=== PATIENT | male | born 1950 | race Caucasian/White ===

== ENCOUNTER 2018-10-18 12:47 | Outpatient (REF) | payer MEDICARE, MEDICAID, SELFPAY ==
[2018-10-21 15:46] LABS: Testosterone, Free 3.45 ng/dL (3.47-13.0); Testosterone, Total 157 ng/dL (240-950)
== END 2018-10-18 13:07 ==
LOC: LBO 12:47
PROVIDERS: PCP General Practice; Visit Provider Family Medicine
DX: I10 Essential (primary) hypertension (principal)
CPT/HCPCS: 84402; 84403

== ENCOUNTER 2018-12-07 18:03 | Outpatient (CLI) | payer MEDICARE, MEDICAID, SELFPAY ==
--- NOTE | 2018-12-07 11:40 | DI.RAD_ITS ---
SYMPTOMS/DIAGNOSIS: SOB, TACHYPNEA CHEST: Frontal and lateral views. Comparison 06/01/13 and 03/16/18. Comparison CT scan of the chest is 01/01/18. There is again seen volume loss in the left lung with soft tissue density in the left suprahilar region. This appears stable dating back to 06/01/13. No acute infiltrates, effusions or pneumothoraces are identified. The heart size and pulmonary vasculature are within normal limits. There are findings of underlying COPD. Degenerative changes are seen in the spine. IMPRESSION: Stable appearance of the chest. No acute pulmonary process.
== END 2018-12-07 18:23 ==
PROVIDERS: PCP General Practice; Visit Provider General Practice
DX: R06.02 Shortness of breath (principal); R06.82 Tachypnea, not elsewhere classified; J44.9 Chronic obstructive pulmonary disease, unspecified
CPT/HCPCS: 71046

== ENCOUNTER 2018-12-08 11:20 | Outpatient (REF) | payer MEDICARE, MEDICAID, SELFPAY ==
[2018-12-08 12:27] LABS: HGB 13.2 g/dL (13.5-17.5)
[2018-12-08 12:37] LABS: Anion Gap 9.6 mmol/L (3-11); BUN 19 mg/dL (7-18); CO2 26.4 mmol/L (21.0-32.0); CREATININE 0.69 mg/dL (0.70-1.30); Calcium 8.5 mg/dL (8.5-10.1); Chloride 108 mmol/L (98-107); Glucose 99 mg/dL (70-100); Potassium 4.1 mmol/L (3.5-5.1); Sodium 144 mmol/L (136-145)
== END 2018-12-08 11:40 ==
LOC: LBN 11:20
PROVIDERS: PCP General Practice; Visit Provider General Practice
DX: C34.90 Malignant neoplasm of unspecified part of unspecified bronchus or lung (principal); I63.9 Cerebral infarction, unspecified; I10 Essential (primary) hypertension; E78.5 Hyperlipidemia, unspecified; E03.9 Hypothyroidism, unspecified
CPT/HCPCS: 80048; 85014; 85018; 85379

== ENCOUNTER 2019-01-04 13:20 | Outpatient (REF) | payer MEDICARE, MEDICAID, SELFPAY ==
[2019-01-04 16:10] LABS: Abs Immature Grans 0.01 k/cumm (0.0-0.09); Absolute Basophil Count 0.04 k/cumm (0.0-0.2); Absolute Eosinophil Count 0.43 k/cumm (0.0-0.7); Absolute Lymphocyte Count 1.08 k/cumm (1.2-3.4); Absolute Monocyte Count 0.72 k/cumm (0.11-0.7); Basophils % 0.6; Eosinophils % 6.6; HCT 38.2 % (40.0-50.0); HGB 12.7 g/dL (13.5-17.5); Immature Grans % 0.2; Lymphocytes % 16.7; Mean Corp. HGB Concentration 33.2 g/dL (32.0-36.0); Mean Corpuscular Hemoglobin 29.6 pg (27.0-33.0); Mean Platelet Volume 9.7 fL (8.0-11.0); Monocytes % 11.1; Neutrophils % 64.8; Platelet Count 239 x1000/uL (130-400); RBC 4.29 m/cumm (4.50-6.00); White Blood Cell Count 6.48 k/cumm (4.4-10.8)
== END 2019-01-04 13:40 ==
LOC: LBN 13:20
PROVIDERS: PCP General Practice; Visit Provider Family Medicine
DX: R50.9 Fever, unspecified (principal); C34.90 Malignant neoplasm of unspecified part of unspecified bronchus or lung
CPT/HCPCS: 85025

== ENCOUNTER 2019-01-05 02:03 | Outpatient (REF) | payer MEDICARE, MEDICAID, SELFPAY ==
[2019-01-05 02:13] LABS: Bilirubin Negative (Negative); Blood Negative (Negative); Clarity Clear; Glucose Negative (Negative); Ketones Negative (Negative); Leukocyte Esterase Negative (Negative); Nitrite Negative (Negative); Urobilinogen 0.2 EU/dL (Up TO 0.2); pH 6.5 (5-8)
== END 2019-01-05 02:23 ==
LOC: LBN 02:03
PROVIDERS: PCP General Practice; Visit Provider Family Medicine
DX: R50.9 Fever, unspecified (principal)
CPT/HCPCS: 81003

== ENCOUNTER 2019-01-05 13:20 | Outpatient (CLI) | payer MEDICARE, MEDICAID, SELFPAY ==
--- NOTE | 2019-01-05 10:59 | DI.RAD_ITS ---
SYMPTOMS/DIAGNOSIS: ELEVATED TEMPERATURE PA AND LATERAL CHEST: Comparison 12/07/18. There are again seen post surgical changes in the left hemithorax with elevation of the left hilum. The lungs are hyperinflated with flattened diaphragms suggesting underlying COPD. No focal consolidating infiltrates, effusions or pneumothoraces are identified. The heart size and pulmonary vasculature are within normal limits. Age appropriate degenerative changes are seen in the spine. IMPRESSION: 1. Post surgical changes in the left hemithorax. 2. No acute pulmonary process. 3. COPD.
== END 2019-01-05 13:40 ==
PROVIDERS: PCP General Practice; Visit Provider General Practice
DX: R50.9 Fever, unspecified (principal); J44.9 Chronic obstructive pulmonary disease, unspecified
CPT/HCPCS: 71046

== ENCOUNTER 2019-04-08 20:21 | Inpatient (IN) | payer MEDICARE, MEDICAID, SELFPAY ==
[2019-04-08] VITALS (26 sets, daily range): BP systolic 97–166; BP diastolic 57–109; PULSE 91–125; RESP 15–37; TEMP 38.4; O2SAT 85–96
--- NOTE | 2019-04-08 20:10 | W.ED.GENAD ---
Discharge Plan Disposition Patient Disposition: [facility] INPATIENT Condition: Poor Discharge Details Chief Complaint: CVA/TIA Clinical Impression: Fever, Altered mental status, Blu-neglect of right side Primary Care Provider: Lopez Araiza ED Provider: Jose Miguel Jonas [facility] Meds and New Rx's Prescriptions: No Action paroxetine HCl [Paxil] 30 MG tablet 30 mg PO DAILY RF: 0 multivitamin [Daily Multi-Vitamin] 1 EACH tablet 1 tab PO DAILY RF: 0 atorvastatin 80 MG tablet 80 mg PO DAILY RF: 0 clopidogrel [Plavix] 75 MG tablet 75 mg PO DAILY RF: 0 levothyroxine 50 MCG tablet 50 mcg PO DAILY RF: 0 docusate sodium [Colace] 100 MG capsule 100 mg PO BID RF: 0 lisinopril 2.5 MG tablet 2.5 mg PO DAILY RF: 0 Medical Decision Making This is a difficult case. The patient is febrile. He has prior history of both strokes and craniotomy for mets. Old records suggest that he is normally alert and oriented x3 with maybe some left-sided deficits. Today he seems confused and has right-sided neglect. He seems to have equal strength in all 4 extremities. He seems to have sensory present in response to noxious stimuli on the right despite having neglect. If from standing on his left side he is understandable and answers questions. He only wants to lie on his left side and get agitated otherwise. This may be new stroke, exacerbation of old stroke, recurrent mets, infection. He is ordered for non-contrast head CT and sent over shortly after arrival with plan to get IV, EKG, labs and other imaging once this was completed. Unfortunately, he was agitated because he didn't want to lie flat. He then began vomiting. He had no IV. Sent nurse over with IM Phenergan thinking it would sedate and help with vomiting. He was still pretty agitated after this. We were able to get an IV over in CAT scan. He was then given 4 mg of Zofran and 0.5 mg of Ativan IV. We were able to get a head CT done with nurse and I present in CT with him holding and coaching him. He returned to ED and was hooked up to monitor. Saturations were okay. Labs were obtained. Radiology called back with non-contrast head CT results which show chronic bilateral lacunar infarcts as well as on calcification. There is nothing acute or hemorrhage. There is no possibility of a head/neck CTA unless I intubate. With fever present and unclear picture, I would not consider TPA for CVA. Still needs urine and chest x-ray. 23:30 -patient's white count is normal. Hemoglobin with stable anemia. Lactic acid only 2.4. Chemistries, liver function, kidney function are all normal. Straight cath urinalysis is negative for infection. Portable chest x-ray shows no obvious pneumonia. Patient's mental status is worse after Phenergan and Ativan but he is still able to answer some questions. His neck remains supple. His neurologic exam and his hemodynamics have been stable. Case discussed with hospitalist. Dr. Araiza used to be the patient's primary care doctor prior to [facility] into the [facility]. COLST form states full code but limited interventions otherwise. Given that the patient has fever with altered mental status and neurologic findings to consider meningitis/encephalitis. However, without intubating the patient and paralyzing for lumbar puncture I do not see any way that we could safely do this procedure. Given his previous vomiting I be hesitant to do conscious sedation. Dr. Araiza, from what he remembers of the gentleman and given his COLST form does not think that this is a procedure patient would want pursued. We will treat with IV vancomycin, IV ceftriaxone and IV acyclovir. We are sending bone panel as well as HSV PCR. I have also paged [facility] neurology to consult them and ask opinion regarding neurologic findings and fever. Plan is to admit to ICU here and empirically treat for possible SWATCHER infection. Dr. Araiza is in the ED and has seen the patient with me. 00:20 - I did speak to neurology, Dr. Spencer, at [facility]. We discussed the patient's presentation and past medical history. She concurs with empiric treatment for SWATCHER infection. She thinks it is important to keep the possibility of subclinical partial seizures as a reason for the right hemineglect. With a history of previous CVA as well as craniotomy due to brain metastasis this could be a possibility. We will not necessarily empirically treat for seizure but would consider treatment if no improvement with antibiotics. Medical Records Medical records reviewed: Yes I reviewed the patient's medical records. Lab Data Lab results reviewed: Yes I reviewed the patient's lab results. ECG Data Attestation: I personally reviewed and interpreted this ECG (s) as follows: Prior ECG tracings: available for review Interpretation: Sinus tachycardia at 109. Normal axis and intervals. Nonspecific ST flattening throughout. Flattening is new compared to EKG from 1 year ago. HPI General Mode of arrival: EMS. Date/Time Provider Initiated Documentation: 04/08/19 20:34. Limitations to Documentation: altered mental status. Information obtained by: patient, EMS, RN notes reviewed and old records reviewed. HPI Narrative: Patient is transferred from [facility] to ED for evaluation of mental status changes, speech changes. Patient was reportedly normal at 18:30 for dinner. He was found at shift change at about 20:30 or so altered with some garbled speech. He has previous history of craniotomy for metastatic brain mets as well as history of CVA. Also has history of meningitis in 2012. He arrives here a little agitated and less he is allowed to lie on his left side. At that point he is calm and seems appropriate. He does seem somewhat confused. He denies having pain. Related Data Home Medications Medication Instructions Recorded Confirmed paroxetine HCl [Paxil] 30 mg PO DAILY 05/27/13 04/08/19 multivitamin [Daily Multi-Vitamin] 1 tab PO DAILY 10/20/14 04/08/19 atorvastatin 80 mg PO DAILY 01/01/18 04/08/19 clopidogrel [Plavix] 75 mg PO DAILY 01/01/18 04/08/19 docusate sodium [Colace] 100 mg PO BID 01/01/18 04/08/19 levothyroxine 50 mcg PO DAILY 01/01/18 04/08/19 lisinopril 2.5 mg PO DAILY 01/01/18 04/08/19 Allergies Allergy/AdvReac Type Severity Reaction Status Date / Time No Known Allergies Allergy Unverified 04/08/19 21:08 Review of Systems Review of Systems Unobtainable due to mental status [facility] Medical History Benign hypertension (Chronic) Hyperlipidemia (Chronic) Non-small cell lung cancer (Inactive) COPD (chronic obstructive pulmonary disease) (Chronic) Hypothyroid (Chronic) CVA (cerebral vascular accident) (Chronic) Surgical History S/P craniotomy (Chronic) S/P lobectomy of lung (Chronic) Social History Smoking/Tobacco Use Status: Former Tobacco Use Drug use: Never Housing: [facility] Exam Narrative Exam Narrative: Vitals: Febrile (rectal temp). HR and BP are good. Const: WDWN elderly male in NAD. He is awake and alert. HEENT: NC/AT. Normal facial exam. Eyes: Normal conjunctiva and sclera. PERRL. Does not look to the right. Neck: Supple. Trachea midline. Lungs: Normal respiratory effort. Lungs are clear. Cor: RRR without murmur/gallop. Good radial pulses. GI: Soft. NT/ND. No guarding or rebound. Neuro: Awake and alert. Answers simple questions and I can understand him completely fine. At other times he seems to be speaking jibberish. He has right neglect. He seems to have good strength and sensation bilaterally as he does pull away with stimuli on the right. Does not appear to have a facial droop. Ext: No C/C/E. No deformity or tenderness. Skin: Hot and dry without rash. Critical Care Time Critical Care Time: Yes Total Critical Care Time: 75 Attestation: Upon my evaluation, this patient had a high probability of imminent or life-threatening deterioration, which required my direct attention, intervention, and personal management. I have personally provided 75 minutes of critical care time exclusive of time spent on separately billable procedures. Time includes review of laboratory data, radiology results, discussion with consultants, and monitoring for potential decompensation. Interventions were performed as documented.
--- NOTE | 2019-04-08 20:18 | ED.GENADUL_ITS ---
Discharge Plan Disposition Patient Disposition: [facility] INPATIENT Condition: Poor Discharge Details Chief Complaint: CVA/TIA Clinical Impression: Fever, Altered mental status, Blu-neglect of right side Primary Care Provider: Lopez Araiza ED Provider: Jose Miguel Jonas [facility] Meds and New Rx's Prescriptions: No Action paroxetine HCl [Paxil] 30 MG tablet 30 mg PO DAILY RF: 0 multivitamin [Daily Multi-Vitamin] 1 EACH tablet 1 tab PO DAILY RF: 0 atorvastatin 80 MG tablet 80 mg PO DAILY RF: 0 clopidogrel [Plavix] 75 MG tablet 75 mg PO DAILY RF: 0 levothyroxine 50 MCG tablet 50 mcg PO DAILY RF: 0 docusate sodium [Colace] 100 MG capsule 100 mg PO BID RF: 0 lisinopril 2.5 MG tablet 2.5 mg PO DAILY RF: 0 Medical Decision Making This is a difficult case. The patient is febrile. He has prior history of both strokes and craniotomy for mets. Old records suggest that he is normally alert and oriented x3 with maybe some left-sided deficits. Today he seems confused and has right-sided neglect. He seems to have equal strength in all 4 extremities. He seems to have sensory present in response to noxious stimuli on the right despite having neglect. If from standing on his left side he is understandable and answers questions. He only wants to lie on his left side and get agitated otherwise. This may be new stroke, exacerbation of old stroke, recurrent mets, infection. He is ordered for non-contrast head CT and sent over shortly after arrival with plan to get IV, EKG, labs and other imaging once this was completed. Unfortunately, he was agitated because he didn't want to lie flat. He then began vomiting. He had no IV. Sent nurse over with IM Phenergan thinking it would sedate and help with vomiting. He was still pretty agitated after this. We were able to get an IV over in CAT scan. He was then given 4 mg of Zofran and 0.5 mg of Ativan IV. We were able to get a head CT done with nurse and I present in CT with him holding and coaching him. He returned to ED and was hooked up to monitor. Saturations were okay. Labs were obtained. Radiology called back with non-contrast head CT results which show chronic bilateral lacunar infarcts as well as on calcification. There is nothing acute or hemorrhage. There is no possibility of a head/neck CTA unless I intubate. With fever present and unclear picture, I would not consider TPA for CVA. Still needs urine and chest x-ray. 23:30 -patient's white count is normal. Hemoglobin with stable anemia. Lactic acid only 2.4. Chemistries, liver function, kidney function are all normal. Straight cath urinalysis is negative for infection. Portable chest x-ray shows no obvious pneumonia. Patient's mental status is worse after Phenergan and Ativan but he is still able to answer some questions. His neck remains supple. His neurologic exam and his hemodynamics have been stable. Case discussed with hospitalist. Dr. Araiza used to be the patient's primary care doctor [facility] COLST form states full code but limited interventions otherwise. Given that the patient has fever with altered mental status and neurologic findings to consider meningitis/encephalitis. However, without intubating the patient and paralyzing for lumbar puncture I do not see any way that we could safely do this procedure. Given his previous vomiting I be hesitant to do conscious sedation. Dr. Araiza, from what he remembers of the gentleman and given his COLST form does not think that this is a procedure patient would want pursued. We will treat with IV vancomycin, IV ceftriaxone and IV acyclovir. We are sending bone panel as well as HSV PCR. I have also paged [facility] neurology to consult them and ask opinion regarding neurologic findings and fever. Plan is to admit to ICU here and empirically treat for possible MANAGER PRODUCT infection. Dr. Araiza is in the ED and has seen the patient with me. 00:20 - I did speak to neurology, Dr. Spencer, at [facility]. We discussed the patient's presentation and past medical history. She concurs with empiric treatment for MANAGER PRODUCT infection. She thinks it is important to keep the possibility of subclinical partial seizures as a reason for the right hemineglect. With a history of previous CVA as well as craniotomy due to brain metastasis this could be a possibility. We will not necessarily empirically treat for seizure but would consider treatment if no improvement with antibiotics. Medical Records Medical records reviewed: Yes I reviewed the patient's medical records. Lab Data Lab results reviewed: Yes I reviewed the patient's lab results. ECG Data Attestation: I personally reviewed and interpreted this ECG (s) as follows: Prior ECG tracings: available for review Interpretation: Sinus tachycardia at 109. Normal axis and intervals. Nonspecific ST flattening throughout. Flattening is new compared to EKG from 1 year ago. HPI General Mode of arrival: EMS . Date/Time Provider Initiated Documentation: 04/08/19 20:34 . Limitations to Documentation: altered mental status . Information obtained by: patient, EMS, RN notes reviewed and old records reviewed . HPI Narrative: [facility] for evaluation of mental status changes, speech changes. Patient was reportedly normal at 18:30 for dinner. He was found at shift change at about 20:30 or so altered with some garbled speech. He has previous history of craniotomy for metastatic brain mets as well as history of CVA. Also has history of meningitis in 2012. He arrives here a little agitated and less he is allowed to lie on his left side. At that point he is calm and seems appropriate. He does seem somewhat confused. He denies having pain. Related Data Home Medications Medication Instructions Recorded Confirmed paroxetine HCl [Paxil] 30 mg PO DAILY 05/27/13 04/08/19 multivitamin [Daily Multi-Vitamin] 1 tab PO DAILY 10/20/14 04/08/19 atorvastatin 80 mg PO DAILY 01/01/18 04/08/19 clopidogrel [Plavix] 75 mg PO DAILY 01/01/18 04/08/19 docusate sodium [Colace] 100 mg PO BID 01/01/18 04/08/19 levothyroxine 50 mcg PO DAILY 01/01/18 04/08/19 lisinopril 2.5 mg PO DAILY 01/01/18 04/08/19 Allergies Allergy/AdvReac Type Severity Reaction Status Date / Time No Known Allergies Allergy Unverified 04/08/19 21:08 Review of Systems Review of Systems Unobtainable due to mental status [facility] Medical History Benign hypertension (Chronic) Hyperlipidemia (Chronic) Non-small cell lung cancer (Inactive) COPD (chronic obstructive pulmonary disease) (Chronic) Hypothyroid (Chronic) CVA (cerebral vascular accident) (Chronic) Surgical History S/P craniotomy (Chronic) S/P lobectomy of lung (Chronic) Social History Smoking/Tobacco Use Status: Former Tobacco Use Drug use: Never [facility] Exam Narrative Exam Narrative: Vitals: Febrile (rectal temp). HR and BP are good. Const: WDWN elderly male in NAD. He is awake and alert. HEENT: NC/AT. Normal facial exam. Eyes: Normal conjunctiva and sclera. PERRL. Does not look to the right. Neck: Supple. Trachea midline. Lungs: Normal respiratory effort. Lungs are clear. Cor: RRR without murmur/gallop. Good radial pulses. GI: Soft. NT/ND. No guarding or rebound. Neuro: Awake and alert. Answers simple questions and I can understand him completely fine. At other times he seems to be speaking jibberish. He has right neglect. He seems to have good strength and sensation bilaterally as he does pull away with stimuli on the right. Does not appear to have a facial droop. Ext: No C/C/E. No deformity or tenderness. Skin: Hot and dry without rash. Critical Care Time Critical Care Time: Yes Total Critical Care Time: 75 Attestation: Upon my evaluation, this patient had a high probability of imminent or life-th reatening deterioration, which required my direct attention, intervention, and personal management. I have personally provided 75 minutes of critical care time exclusive of time spent on separately billable procedures. Time includes review of laboratory data, radiology results, discussion with consultants, and monitoring for potential decompensation. Interventions were performed as documented.
[2019-04-08] MEDS: Ondansetron 4 MG/2 ML VIAL IVP (21:00)
[2019-04-08] MEDS: LORazepam 2 MG/ML VIAL 0.5 MG IVP (21:08)
--- NOTE | 2019-04-08 21:23 | DI.CT_ITS ---
SYMPTOM/DIAGNOSIS: ALTERED MENTAL STATUS, RIGHT SIDE NEGLECT NONCONTRAST HEAD CT: Comparison is made with 16 Mar 2018. The exam is limited by patient motion. Multiple attempts were made at scanning. Atrophy and white matter changes of small vessel disease are again noted. Again noted are calcifications in the basal ganglia and dentate nuclei of the cerebellum. There are old lacunar infarcts in the thalami. No acute hemorrhage, mass or acute infarct is seen. There is no evidence of skull fracture or sinus opacification. IMPRESSION: No acute abnormality.
[2019-04-08 21:36] LABS: Lactate-non-spesis 2.4 mmol/l (0.6-1.4)
[2019-04-08 21:39] LABS: Abs Immature Grans 0.02 k/cumm (0.0-0.09); Absolute Basophil Count 0.03 k/cumm (0.0-0.2); Absolute Eosinophil Count 0.42 k/cumm (0.0-0.7); Absolute Lymphocyte Count 3.42 k/cumm (1.2-3.4); Absolute Monocyte Count 0.69 k/cumm (0.11-0.7); Absolute Neutrophil Count 4.73 k/cumm (1.2-6.7); Basophils % 0.3; Eosinophils % 4.5; HCT 39.1 % (40.0-50.0); HGB 12.8 g/dL (13.5-17.5); Immature Grans % 0.2; Lymphocytes % 36.7; Mean Corp. HGB Concentration 32.7 g/dL (32.0-36.0); Mean Corpuscular Volume 88.7 fL (80-95); Mean Platelet Volume 9.3 fL (8.0-11.0); Monocytes % 7.4; Neutrophils % 50.9; Platelet Count 295 x1000/uL (130-400); RBC 4.41 m/cumm (4.50-6.00); RBC Distribution Width 13.8 % (11.8-14.1); White Blood Cell Count 9.31 k/cumm (4.4-10.8)
--- NOTE | 2019-04-08 21:43 | DI.VRAD_ITS ---
Addendum created by Nile Muñoz MD on 04/08/2019 9:44:59 PM EDT I personally discussed the findings with KALYANI LEDEZMA on 04/08/2019 at 9:44 PM EDT by telephone conference call. Initial report created on 04/08/2019 9:43:01 PM EDT EXAM: CT Head Without Contrast EXAM DATE/TIME: 04/08/2019 8:35 PM CLINICAL HISTORY: 69 years old, male; Altered mental status/memory loss; Confusion or disorientation; Prior surgery; Surgery type: Craniotomy; Patient HX: HX brain tumor, right sided neglect, altered mental status TECHNIQUE: Imaging protocol: Axial computed tomography images of the head without contrast. Coronal and sagittal reformatted images were created and reviewed. Radiation optimization: All CT scans at this facility use at least one of these dose optimization techniques: automated exposure control; mA and/or kV adjustment per patient size (includes targeted exams where dose is matched to clinical indication); or iterative reconstruction. COMPARISON: CT HEAD AND CSPINE W/O CONTRAST 03/16/2018 7:09 PM FINDINGS: Brain: Global cerebral atrophy is consistent with patient's age. Decreased attenuation within the white matter tracts of both cerebral hemispheres is nonspecific but typically seen with small vessel disease/chronic white matter ischemic changes of aging. Parenchymal calcifications scattered throughout both cerebral hemispheres and within the cerebellar hemispheres are unchanged. Old bilateral thalamic lacunar infarcts. No acute stroke. No intracranial hemorrhage or mass effect. Ventricles: Unremarkable. No ventriculomegaly. Bones/joints: Unremarkable. No acute fracture. Sinuses: Visualized sinuses are unremarkable. No fluid levels. Mastoid air cells: Visualized mastoid air cells are well aerated. No mastoid effusion. Soft tissues: Unremarkable. IMPRESSION: No acute abnormality. Dictated and Authenticated by: Nile Muñoz MD. Ordering:ANTONIO Gillespie MD
[2019-04-08] MEDS: Lactated Ringers 1,000 ML 1000 ML IV (21:54)
[2019-04-08 21:56] LABS: ALT 43 U/L (12-78); AST 37 U/L (15-37); Albumin 3.7 g/dL (3.4-5.0); Alkaline Phosphatase 86 U/L (46-116); Anion Gap 10.3 mmol/L (3-11); BUN 17 mg/dL (7-18); Bilirubin, Total 0.5 mg/dL (0.2-1.0); CO2 27.7 mmol/L (21.0-32.0); CREATININE 0.88 mg/dL (0.70-1.30); Calcium 8.6 mg/dL (8.5-10.1); Chloride 104 mmol/L (98-107); Glucose 94 mg/dL (70-100); Magnesium 1.8 mg/dL (1.8-2.4); Potassium 4.3 mmol/L (3.5-5.1); Sodium 142 mmol/L (136-145)
--- NOTE | 2019-04-08 22:02 | DI.RAD_ITS ---
SYMPTOM/DIAGNOSIS: FEVER, ALTERED MENTAL STATUS PORTABLE CHEST: 08 APRIL 2019 Comparison is made with 05 January 2019. The exam is quite limited by patient rotation. Again noted is bilateral upper lobe scarring and volume loss as well as scarring at the left lung base. The lungs are not well inflated. No focal infiltrate, effusion or pulmonary edema is seen. IMPRESSION: Limited exam. No acute abnormality is visible.
[2019-04-08 22:05] LABS: Troponin I < 0.05 ng/mL (0.00-0.06)
[2019-04-08] MEDS: Lidocaine 2% Jelly 6 ML SYR (22:10)
[2019-04-08] MEDS: Acetaminophen 650 MG SUPP PR (22:16)
[2019-04-08 22:23] LABS: Bilirubin Negative (Negative); Blood Negative (Negative); Clarity Clear; Glucose Negative (Negative); Ketones Negative (Negative); Leukocyte Esterase Negative (Negative); Nitrite Negative (Negative); Urobilinogen 0.2 EU/dL (Up TO 0.2); pH 5.5 (5-8)
--- NOTE | 2019-04-08 23:00 | DI.VRAD_ITS ---
EXAM: XR Chest, 1 View EXAM DATE/TIME: 04/08/2019 10:03 PM CLINICAL HISTORY: 69 years old, male; Fever and other: Altered mental status TECHNIQUE: Imaging protocol: XR of the chest, 1 view. COMPARISON: CR XR CHEST 2V PA LATERAL 01/05/2019 10:43 AM FINDINGS: Limited rotated single view. Lungs: Unremarkable. No consolidation. Pleural space: Unremarkable. No evidence of pneumothorax. Heart/Mediastinum: Unremarkable. Heart size within normal limits for technique. Bones/joints: Unremarkable. IMPRESSION: No obvious acute process. Dictated and Authenticated by: Jerrell Fish MD. Ordering:ANTONIO Gillespie MD
[2019-04-08] MEDS: Lactated Ringers 1,000 ML 150 ML IV (23:15)
--- NOTE | 2019-04-08 23:18 | W.PM.HP.N ---
Date of service: 04/08/19 Time of Service: 23:18 Assessment and Plan (1) Encephalopathy: Current visit: Yes Status: Acute Encephalopathy, presumably infectous ettiology. Given lack of identifiable peripheral source the working presumption as outlined above is that this may represent BEVERAGE MANAGER infection and patient will be treaated empirically as above, pending blood cultures and serology, or further input from Neurrology. History of Present Illness Chief Complaint: change mental status Narrative: 69 male with h/o lung CA with brain mets, s/p XRT, stroke and aseptic meningitis 2012. [facility] Comes in tonight with fairly abrupt onset fever and confusion. In ER initial findings of note for feveer, waxing and waning mental status, and reports of right sided neglect. CT head negative. Urine and CXR negative. Due to constellation of fever and altered mental status concern for possible BEVERAGE MANAGER infection. Due to patient's mental status it was deemed in ER that LP could not be performed without patient being sedated to the point of requiring intubation and it was felt this was not in accordance with patient's wishes as indicated on COLST form. Therefore the plan was to empirically treat for treatable infectious sources of encephalopathy with Vaancomycin, Rocephin and Acyclovir. At this time ER is reaching out to Neurology for further guidance. Review of Systems Review of Systems Unobtainable due to mental status [facility] Medical History Benign hypertension (Chronic) Hyperlipidemia (Chronic) Non-small cell lung cancer (Inactive) COPD (chronic obstructive pulmonary disease) (Chronic) Hypothyroid (Chronic) CVA (cerebral vascular accident) (Chronic) Surgical History S/P craniotomy (Chronic) S/P lobectomy of lung (Chronic) Social History Smoking/Tobacco Use Status: Former Tobacco Use Drug use: Never Housing: correction Meds Home Medications Medication Instructions Recorded Confirmed Type paroxetine HCl [Paxil] 30 mg PO DAILY 05/27/13 04/08/19 History multivitamin [Daily Multi-Vitamin] 1 tab PO DAILY 10/20/14 04/08/19 History atorvastatin 80 mg PO DAILY 01/01/18 04/08/19 History clopidogrel [Plavix] 75 mg PO DAILY 01/01/18 04/08/19 History docusate sodium [Colace] 100 mg PO BID 01/01/18 04/08/19 History levothyroxine 50 mcg PO DAILY 01/01/18 04/08/19 History lisinopril 2.5 mg PO DAILY 01/01/18 04/08/19 History Allergies Allergy/AdvReac Type Severity Reaction Status Date / Time No Known Allergies Allergy Unverified 04/08/19 21:08 Exam Narrative Exam Narrative: 165/75, 91, 18, 38.4, 96% sat. HEENT atraumatic; neck supple; lungs clear; heart RRR no murmur; Abdomen soft and NT; no mass or swelling, Rectal deferred; extr without edema; skin no rash or lesions. Neeuro: patient is mumbling in response to voice or light touch, moving all four extremities (note he has recently received Ativan). Results Labs : 04/08/19 21:25 04/08/19 21:25 Laboratory Results - last 24 hr 04/08/19 04/08/19 04/08/19 20:35 21:25 21:25 WBC 9.31 RBC 4.41 L Hgb 12.8 L Hct 39.1 L MCV 88.7 MCH 29.0 MCHC 32.7 RDW 13.8 Plt Count 295 MPV 9.3 Immature Gran % 0.2 Neutrophils % 50.9 Lymphocytes % 36.7 Monocytes % 7.4 Eosinophils % 4.5 Basophils % 0.3 Absolute Neutrophils 4.73 Absolute Lymphocytes 3.42 H Absolute Monocytes 0.69 Absolute Eosinophils 0.42 Absolute Basophils 0.03 Sodium 142 Potassium 4.3 Chloride 104 Carbon Dioxide 27.7 Anion Gap 10.3 BUN 17 Creatinine 0.88 Estimated GFR/1.73 m2 >= 60.00 Glucose 94 Lactate 2.4 H Calcium 8.6 Magnesium 1.8 Total Bilirubin 0.5 AST 37 ALT 43 Alkaline Phosphatase 86 Troponin I < 0.05 Total Protein 7.0 Albumin 3.7 Urine Color Urine Clarity Urine pH Ur Specific [place] Urine Protein Urine Ketones Urine Blood Urine Nitrite Urine Bilirubin Urine Urobilinogen Ur Leukocyte Esterase Urine Glucose 04/08/19 22:10 WBC RBC Hgb Hct MCV MCH MCHC RDW Plt Count MPV Immature Gran % Neutrophils % Lymphocytes % Monocytes % Eosinophils % Basophils % Absolute Neutrophils Absolute Lymphocytes Absolute Monocytes Absolute Eosinophils Absolute Basophils Sodium Potassium Chloride Carbon Dioxide Anion Gap BUN Creatinine Estimated GFR/1.73 m2 Glucose Lactate Calcium Magnesium Total Bilirubin AST ALT Alkaline Phosphatase Troponin I Total Protein Albumin Urine Color Yellow Urine Clarity Clear Urine pH 5.5 Ur Specific [place] 1.020 Urine Protein Negative Urine Ketones Negative Urine Blood Negative Urine Nitrite Negative Urine Bilirubin Negative Urine Urobilinogen 0.2 Ur Leukocyte Esterase Negative Urine Glucose Negative Last Vital Signs Temp 38.4 C H 04/08/19 20:34 Pulse 91 H 04/08/19 20:34 Resp 18 04/08/19 20:34 BP 165/75 H 04/08/19 20:34 Pulse Ox 96 04/08/19 20:34
--- NOTE | 2019-04-08 23:33 | HPE_ITS ---
Date of service: 04/08/19 Time of Service: 23:18 Assessment and Plan (1) Encephalopathy: Current visit: Yes Status: Acute Encephalopathy, presumably infectous ettiology. Given lack of identifiable peripheral source the working presumption as outlined above is that this may represent MANAGER OF LEARNING infection and patient will be treaated empirically as above, pending blood cultures and serology, or further input from Neurrology. History of Present Illness Chief Complaint: change mental status Narrative: 69 male with h/o lung CA with brain mets, s/p XRT, stroke and aseptic meningitis 2012. [facility]. Comes in tonight with fairly abrupt onset fever and confusion. In ER initial findings of note for feveer, waxing and waning mental status, and reports of right sided neglect. CT head negative. Urine and CXR negative. Due to constellation of fever and altered mental status concern for possible MANAGER OF LEARNING infection. Due to patient's mental status it was deemed in ER that LP could not be performed without patient being sedated to the point of requiring intubation and it was felt this was not in accordance with patient's wishes as indicated on COLST form. Therefore the plan was to empirically treat for treatable infectious sources of encephalopathy with Vaancomycin, Rocephin and Acyclovir. At this time ER is reaching out to Neurology for further guidance. Review of Systems Review of Systems Unobtainable due to mental status [facility] Medical History Benign hypertension (Chronic) Hyperlipidemia (Chronic) Non-small cell lung cancer (Inactive) COPD (chronic obstructive pulmonary disease) (Chronic) Hypothyroid (Chronic) CVA (cerebral vascular accident) (Chronic) Surgical History S/P craniotomy (Chronic) S/P lobectomy of lung (Chronic) Social History Smoking/Tobacco Use Status: Former Tobacco Use Drug use: Never Housing: longterm Meds Home Medications Medication Instructions Recorded Confirmed Type paroxetine HCl [Paxil] 30 mg PO DAILY 05/27/13 04/08/19 History multivitamin [Daily Multi-Vitamin] 1 tab PO DAILY 10/20/14 04/08/19 History atorvastatin 80 mg PO DAILY 01/01/18 04/08/19 History clopidogrel [Plavix] 75 mg PO DAILY 01/01/18 04/08/19 History docusate sodium [Colace] 100 mg PO BID 01/01/18 04/08/19 History levothyroxine 50 mcg PO DAILY 01/01/18 04/08/19 History lisinopril 2.5 mg PO DAILY 01/01/18 04/08/19 History Allergies Allergy/AdvReac Type Severity Reaction Status Date / Time No Known Allergies Allergy Unverified 04/08/19 21:08 Exam Narrative Exam Narrative: 165/75, 91, 18, 38.4, 96% sat. HEENT atraumatic; neck supple; lungs clear; heart RRR no murmur; Abdomen soft and NT; no mass or swelling, Rectal deferred; extr without edema; skin no rash or lesions. Neeuro: patient is mumbling in response to voice or light touch, moving all four extremities (note he has recently received Ativan). Results Labs : 04/08/19 21:25 04/08/19 21:25 Laboratory Results - last 24 hr 04/08/19 04/08/19 04/08/19 20:35 21:25 21:25 WBC 9.31 RBC 4.41 L Hgb 12.8 L Hct 39.1 L MCV 88.7 MCH 29.0 MCHC 32.7 RDW 13.8 Plt Count 295 MPV 9.3 Immature Gran % 0.2 Neutrophils % 50.9 Lymphocytes % 36.7 Monocytes % 7.4 Eosinophils % 4.5 Basophils % 0.3 Absolute Neutrophils 4.73 Absolute Lymphocytes 3.42 H Absolute Monocytes 0.69 Absolute Eosinophils 0.42 Absolute Basophils 0.03 Sodium 142 Potassium 4.3 Chloride 104 Carbon Dioxide 27.7 Anion Gap 10.3 BUN 17 Creatinine 0.88 Estimated GFR/1.73 m2 >= 60.00 Glucose 94 Lactate 2.4 H Calcium 8.6 Magnesium 1.8 Total Bilirubin 0.5 AST 37 ALT 43 Alkaline Phosphatase 86 Troponin I < 0.05 Total Protein 7.0 Albumin 3.7 Urine Color Urine Clarity Urine pH Ur Specific [place] Urine Protein Urine Ketones Urine Blood Urine Nitrite Urine Bilirubin Urine Urobilinogen Ur Leukocyte Esterase Urine Glucose 04/08/19 22:10 WBC RBC Hgb Hct MCV MCH MCHC RDW Plt Count MPV Immature Gran % Neutrophils % Lymphocytes % Monocytes % Eosinophils % Basophils % Absolute Neutrophils Absolute Lymphocytes Absolute Monocytes Absolute Eosinophils Absolute Basophils Sodium Potassium Chloride Carbon Dioxide Anion Gap BUN Creatinine Estimated GFR/1.73 m2 Glucose Lactate Calcium Magnesium Total Bilirubin AST ALT Alkaline Phosphatase Troponin I Total Protein Albumin Urine Color Yellow Urine Clarity Clear Urine pH 5.5 Ur Specific [place] 1.020 Urine Protein Negative Urine Ketones Negative Urine Blood Negative Urine Nitrite Negative Urine Bilirubin Negative Urine Urobilinogen 0.2 Ur Leukocyte Esterase Negative Urine Glucose Negative Last Vital Signs Temp 38.4 C H 04/08/19 20:34 Pulse 91 H 04/08/19 20:34 Resp 18 04/08/19 20:34 BP 165/75 H 04/08/19 20:34 Pulse Ox 96 04/08/19 20:34
[2019-04-09] VITALS (58 sets, daily range): BP systolic 99–160; BP diastolic 57–122; PULSE 77–124; RESP 12–34; TEMP 36.2–38.8; O2SAT 73–100
[2019-04-09] MEDS: cefTRIAXone 2 GM/50 ML BAG IVPB ×3 (00:15→20:09)
[2019-04-09] MEDS: LORazepam 2 MG/ML VIAL IVP ×3 (00:16→11:47)
[2019-04-09 00:43] LABS: Vancomycin, Trough 0.3 ug/mL (10.0-20.0)
[2019-04-09] MEDS: Haloperidol 5 MG/ML VIAL IM/IV ×3 (02:09→19:13)
[2019-04-09] MEDS: Normal Saline Flush 10 ML SYR IVP (02:11)
[2019-04-09] MEDS: VANCOMYCIN 1,500 MG in Normal Saline 250 ML 166.6666 MG IVPB (02:28)
[2019-04-09] MEDS: ACYCLOVIR SODIUM IVPB ×3 (02:39→17:27)
[2019-04-09] MEDS: NORMAL SALINE IVPB ×3 (02:39→17:27)
[2019-04-09] MEDS: Haloperidol 5 MG/ML VIAL 4 MG IM/IV (05:09)
[2019-04-09] MEDS: Lactated Ringers 1,000 ML 150 ML IV (06:12)
[2019-04-09 07:15] LABS: HCT 36.1 % (40.0-50.0); HGB 11.8 g/dL (13.5-17.5); Mean Corp. HGB Concentration 32.7 g/dL (32.0-36.0); Mean Corpuscular Hemoglobin 29.2 pg (27.0-33.0); Mean Corpuscular Volume 89.4 fL (80-95); Mean Platelet Volume 9.3 fL (8.0-11.0); Platelet Count 251 x1000/uL (130-400); RBC 4.04 m/cumm (4.50-6.00); RBC Distribution Width 13.8 % (11.8-14.1); White Blood Cell Count 7.06 k/cumm (4.4-10.8)
[2019-04-09 07:19] LABS: Anion Gap 9.6 mmol/L (3-11); BUN 15 mg/dL (7-18); CO2 26.4 mmol/L (21.0-32.0); CREATININE 0.93 mg/dL (0.70-1.30); Calcium 7.8 mg/dL (8.5-10.1); Chloride 107 mmol/L (98-107); Glucose 89 mg/dL (70-100); Potassium 3.9 mmol/L (3.5-5.1); Sodium 143 mmol/L (136-145)
--- NOTE | 2019-04-09 10:48 | PHARADMIT ---
Addendum entered by France Brush 04/14/19 16:25: [place] [facility] [place]osyn (2 more days...has rec'd 9 doses out of 15 as of this note) Vanco trough level pending, will adjust if needed Micro blood repeat: no growth PCT: <0.1 MD mentions maybe stopping Acyclovir, but not yet discharge to [facility] possibly Thursday depending on results of Chest xray (?aspiration event) Addendum entered by France Brush 04/13/19 16:13: Vanco doses given late on 04/12, retimed. Vanco trough ordered for 04/14 @ 1500 On Acyclovir, Vanco, Zosyn-renal function okay, possible aspiration event, is improving, afebrile x48h Micro: no growth ADR to Lorazepam-chart updated, too sedated and agitated from it On IV steroids [place] [facility] [place], may need sitter Will return to [facility] when ready Addendum entered by Óscar Andrade III 04/10/19 14:17: Pharmacy Note Subjective Upon admission a CSF specimen was not obtainable. Meningitis can not be ruled out. MD to consult with [facility] ID for guidance. Brain MRI expected tomorrow. Patient experiencing AMS requiring Haldol and Lorazepam. Objective VS-OK Lytes corrected Assessment triple meningitis coverage with Acyclovir,Vancomycin and Rocephin Plan Vancomycin trough tonight Original Note: Admission Pharmacy Clinical Review encephalopathy (r/o Menningitis No CSF obtained) Code Status Full Code Current Weight Wgt-90.3 kg Renally Cleared and Narrow Therapeutic Index Meds CrCl~ 75 mL/min Meds-OK QTc Value / Action Taken QTc- 471 NA BP Control, Fever BP- 99/81 Tmax- 38.4C Electrolytes reviewed Na- 143 K+3.9 Mag- 1.8 DVT Prophylaxis Plavix, Opiate Usage / Scheduled Bowel Regimen Ordered No No Plt/SCr for Heparin / Enoxaparin Plts-251 SCr-0.93 INR for Warfarin na H/H stable, WBC/Bands H&H- 11.8/36.1 WBC- 7.06 Antibiotic appropriateness Acyclovir, Rocephin, Vancomycin Cultures and Sensitivities MRSA-pending, Blood Cukture-pending Surgical ABX d/c within 24 hr NA DM control / Insulin Dosing BG-89 Heart Failure (Check EF%) (SOULEYMANE's, B-Block, Diuretics) Lisinopril IV to PO Switch No Home Meds Reviewed Yes Home Meds Not Ordered M-peggy Comments
[2019-04-09] MEDS: VANCOMYCIN 1,250 MG in Normal Saline 250 ML 166.667 MG IVPB ×2 (13:12→22:05)
--- NOTE | 2019-04-09 13:58 | W.PM.PROGNOT ---
Date of Service Date of service: 04/09/19 Time of Service: 13:58 Assessment and Plan (1) Altered mental status: Current visit: No Status: Active Presumed infectious given concurrent fever, patient remains on broad spectrum antibiotics. He is now afebrile but remains altered and agitated. Continue antibiotics and monitor closely. 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 CT of the head negative, and no ability to check MRI over the weekend. As patient is currently NPO will initiate HI Aspirin, and resume oral Clopidogrel once able. (2) Fever: Current visit: No Status: Active Negative Urinalysis and CXR, without obvious source. Currently under treatment for presumed CAP SEWER infection given concurrent altered mental status - patient does not appear to have Nuchal Rigidity, and LP was not attempted given need for sedation with potential intubation. Continue broad spectrum coverage with Vancomycin, Ceftriaxone, and Acyclovir. Tick Panel and HSV Serology pending. Plan on discussion with ID regarding course and regimen once patient has defervesced and remained afebrile. Currently without a fever. Blood Cultures pending. (3) Benign hypertension: Current visit: No Status: Chronic Noted. Blood pressure reasonable. On minimal dose SOULEYMANE-I chronically. (4) Non-small cell lung cancer: Current visit: No Status: Inactive Reported remote history of NSCLCa with brain mets. Records unavailable - according to family, original diagnosis and treatment occured in the early . (5) COPD (chronic obstructive pulmonary disease): Current visit: Yes Status: Chronic Noted. Monitor. (6) DVT prophylaxis: Current visit: Yes Status: Acute Initiate SC Lovenox, PPI for GI Prophylaxis. (7) Advance directive on file: Current visit: Yes Status: Acute Full Code. Palliative Medicine was consulted. Subjective Interval history since last seen: 69 year old man with a prior history significant for metastatic Lung Ca, admitted from [facility] Emergency Department on 04/09 with a diagnosis of fever and altered mental status. Mr. White has a Past Medical History significant for NSCLCa in the early s, s/p Craniotomy and XRT, along with prior history of both aseptic meningitis in 2012 as well as prior CVA X2 with possible mild left sided deficits. He also has prior history of COPD, HTN, and Dyslipidemia. Upon presentation to the ED the patient was noted to have confusion and an altered mental status, with potential right sided neglect. He was also noted to be febrile, with temperature as high as 38.8. His Urinalysis, CBC and CMP were essentially unremarkable, but with an elevated Lactate. His CXR and CT Head were unremarkable. An LP was not attempted given patient's mental status and agitation, as significant sedation and potation intubation may have been required (per review of ED Notes). Given patient's altered mental status and fever, he was referred for admission for treatment of potential CAP SEWER infection. Neurology at [facility] was consulted by the ED physician, and agreed with empiric treatment of possible CAP SEWER infection. This morning Mr. White appears unchanged. He remained agitated overnight and received Haloperidol. No other overnight events reported. He is no longer febrile. Exam Narrative Exam Narrative: General: Patient is asleep, arousable, but not cooperative. NAD noted. Neck: Supple CV: Regular, nontachycardic, S1S2, No rubs, murmurs, or gallops. Pulmonary: Clear to auscultation bilaterally on limited anterior and lateral exam Abdomen: + Bowel Sounds, soft, nontender, nondistended Vascular: No lower extremity edema Objective Objective Clinical Data: Abnormal lab results 04/08/19 04/08/19 04/09/19 Range/Units 20:35 21:25 06:20 RBC 4.41 L 4.04 L (4.50-6.00) m/cumm Hgb 12.8 L 11.8 L (13.5-17.5) g/dL Hct 39.1 L 36.1 L (40.0-50.0) % Absolute Lymphocytes 3.42 H (1.2-3.4) k/cumm Lactate 2.4 H (0.6-1.4) mmol/l Calcium (8.5-10.1) mg/dL Vancomycin Trough (10.0-20.0) ug/mL 04/09/19 04/09/19 Range/Units :20 23:50 RBC (4.50-6.00) m/cumm Hgb (13.5-17.5) g/dL Hct (40.0-50.0) % Absolute Lymphocytes (1.2-3.4) k/cumm Lactate (0.6-1.4) mmol/l Calcium 7.8 L (8.5-10.1) mg/dL Vancomycin Trough 0.3 L (10.0-20.0) ug/mL Vital Signs Temperature 37.3 C 04/09/19 12:00 Temperature Source Temporal Artery Scan 04/09/19 12:00 Pulse 86 04/09/19 13:01 Pulse 85 04/09/19 13:01 Respiratory Rate 23 04/09/19 13:01 Respiratory Effort Non-Labored 04/09/19 12:00 Respiratory Depth Deep 04/09/19 12:00 Respiratory Pattern Irregular 04/09/19 12:00 Blood Pressure 124/62 04/09/19 13:01 Blood Pressure Mean 75 04/09/19 13:01 Blood Pressure Position Left Lateral 04/09/19 12:00 Pulse Oximetry 98 04/09/19 13:01 Oxygen Delivery Method Nasal Cannula 04/09/19 12:00 Oxygen Flow Rate 2 04/09/19 12:00 Pain Level 0 04/09/19 04:00 Intake & Output 04/08/19 04/09/19 04/09/19 23:59 11:59 23:59 Intake Total 1000 / 1000 2024 Output Total 675 / 675 Balance 1000 / 1000 1350 / 1350 Weight 89 kg 90.3 kg Intake: IV 1000 / 1000 2024 Output: Urine 675 / 675 Other: Urine Color Yellow Urine Appearance Clear Urine Odor None Comment lucas in place; emptied for 175cc clear yellow urine at this time. lucas in place; draining clear yellow urine at this time. Voiding Methods Indwelling Catheter Laboratory Results WBC 7.06 k/cumm (4.4-10.8) 04/09/19 06:20 RBC 4.04 m/cumm (4.50-6.00) L 04/09/19 06:20 Hgb 11.8 g/dL (13.5-17.5) L 04/09/19 06:20 Hct 36.1 % (40.0-50.0) L 04/09/19 06:20 MCV 89.4 fL (80-95) 04/09/19 06:20 MCH 29.2 pg (27.0-33.0) 04/09/19 06:20 MCHC 32.7 g/dL (32.0-36.0) 04/09/19 06:20 RDW 13.8 % (11.8-14.1) 04/09/19 06:20 Plt Count 251 x1000/uL (130-400) 04/09/19 06:20 MPV 9.3 fL (8.0-11.0) 04/09/19 06:20 Immature Gran % 0.2 04/08/19 21:25 Neutrophils % 50.9 04/08/19 21:25 Lymphocytes % 36.7 04/08/19 21:25 Monocytes % 7.4 04/08/19 21:25 Eosinophils % 4.5 04/08/19 21: Basophils % 0.3 04/08/19 21:25 Absolute Neutrophils 4.73 k/cumm (1.2-6.7) 04/08/19 21:25 Absolute Lymphocytes 3.42 k/cumm (1.2-3.4) H 04/08/19 21:25 Absolute Monocytes 0.69 k/cumm (0.11-0.7) 04/08/19 21:25 Absolute Eosinophils 0.42 k/cumm (0.0-0.7) 04/08/19 21:25 Absolute Basophils 0.03 k/cumm (0.0-0.2) 04/08/19 21:25 Sodium 143 mmol/L (136-145) 04/09/19 06:20 Potassium 3.9 mmol/L (3.5-5.1) 04/09/19 06:20 Chloride 107 mmol/L (98-107) 04/09/19 06:20 Carbon Dioxide 26.4 mmol/L (21.0-32.0) 04/09/19 06:20 Anion Gap 9.6 mmol/L (3-11) 04/09/19 06:20 BUN 15 mg/dL (7-18) 04/09/19 06:20 Creatinine 0.93 mg/dL (0.70-1.30) 04/09/19 06:20 Estimated GFR/1.73 m2 >= 60.00 (mL/min/1.73m2) 04/09/19 06:20 Glucose 89 mg/dL (70-100) 04/09/19 06:20 Lactate 2.4 mmol/l (0.6-1.4) H 04/08/19 20:35 Calcium 7.8 mg/dL (8.5-10.1) L 04/09/19 06:20 Magnesium 1.8 mg/dL (1.8-2.4) 04/08/19 21:25 Total Bilirubin 0.5 mg/dL (0.2-1.0) 04/08/19 21:25 AST 37 U/L (15-37) 04/08/19 21:25 ALT 43 U/L (12-78) 04/08/19 21:25 Alkaline Phosphatase 86 U/L (46-116) 04/08/19 21:25 Troponin I < 0.05 ng/mL (0.00-0.06) 04/08/19 21:25 Total Protein 7.0 g/dL (6.4-8.2) 04/08/19 21:25 Albumin 3.7 g/dL (3.4-5.0) 04/08/19 21:25 Urine Color Yellow (Yellow) 04/08/19 22:10 Urine Clarity Clear 04/08/19 22:10 Urine pH 5.5 (5-8) 04/08/19 22:10 Ur Specific [place] 1.020 (1.005-1.025) 04/08/19 22:10 Urine Protein Negative mg/dL (Negative) 04/08/19 22:10 Urine Ketones Negative mg/dL (Negative) 04/08/19 22:10 Urine Blood Negative (Negative) 04/08/19 22:10 Urine Nitrite Negative (Negative) 04/08/19 22:10 Urine Bilirubin Negative (Negative) 04/08/19 22:10 Urine Urobilinogen 0.2 EU/dL (Up TO 0.2) 04/08/19 22:10 Ur Leukocyte Esterase Negative (Negative) 04/08/19 22:10 Urine Glucose Negative mg/dL (Negative) 04/08/19 22:10 Vancomycin Trough 0.3 ug/mL (10.0-20.0) L 04/09/19 23:50 Objective Narrative Objective Narrative: EXAM: CT Head Without Contrast EXAM DATE/TIME: 04/08/2019 8:35 PM CLINICAL HISTORY: 69 years old, male; Altered mental status/memory loss; Confusion or disorientation; Prior surgery; Surgery type: Craniotomy; Patient HX: HX brain tumor, right sided neglect, altered mental status TECHNIQUE: Imaging protocol: Axial computed tomography images of the head without contrast. Coronal and sagittal reformatted images were created and reviewed. Radiation optimization: All CT scans at this facility use at least one of these dose optimization techniques: automated exposure control; mA and/or kV adjustment per patient size (includes targeted exams where dose is matched to clinical indication); or iterative reconstruction. COMPARISON: CT HEAD AND CSPINE W/O CONTRAST 03/16/2018 7:09 PM FINDINGS: Brain: Global cerebral atrophy is consistent with patient's age. Decreased attenuation within the white matter tracts of both cerebral hemispheres is nonspecific but typically seen with small vessel disease/chronic white matter ischemic changes of aging. Parenchymal calcifications scattered throughout both cerebral hemispheres and within the cerebellar hemispheres are unchanged. Old bilateral thalamic lacunar infarcts. No acute stroke. No intracranial hemorrhage or mass effect. Ventricles: Unremarkable. No ventriculomegaly. Bones/joints: Unremarkable. No acute fracture. Sinuses: Visualized sinuses are unremarkable. No fluid levels. Mastoid air cells: Visualized mastoid air cells are well aerated. No mastoid effusion. Soft tissues: Unremarkable. IMPRESSION: No acute abnormality. EXAM: XR Chest, 1 View EXAM DATE/TIME: 04/08/2019 10:03 PM CLINICAL HISTORY: 69 years old, male; Fever and other: Altered mental status TECHNIQUE: Imaging protocol: XR of the chest, 1 view. COMPARISON: CR XR CHEST 2V PA LATERAL 01/05/2019 10:43 AM FINDINGS: Limited rotated single view. Lungs: Unremarkable. No consolidation. Pleural space: Unremarkable. No evidence of pneumothorax. Heart/Mediastinum: Unremarkable. Heart size within normal limits for technique. Bones/joints: Unremarkable. IMPRESSION: No obvious acute process.
--- NOTE | 2019-04-09 14:01 | PGE_ITS ---
Date of Service Date of service: 04/09/19 Time of Service: 13:58 Assessment and Plan (1) Altered mental status: Current visit: No Status: Active Presumed infectious given concurrent fever, patient remains on broad spectrum antibiotics. He is now afebrile but remains altered and agitated. Continue antibiotics and monitor closely. 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 CT of the head negative, and no ability to check MRI over the weekend. As patient is currently NPO will initiate MS Aspirin, and resume oral Clopidogrel once able. (2) Fever: Current visit: No Status: Active Negative Urinalysis and CXR, without obvious source. Currently under treatment for presumed REBRANDER infection given concurrent altered mental status - patient does not appear to have Nuchal Rigidity, and LP was not attempted given need for sedation with potential intubation. Continue broad spectrum coverage with Vancomycin, Ceftriaxone, and Acyclovir. Tick Panel and HSV Serology pending. Plan on discussion with ID regarding course and regimen once patient has defervesced and remained afebrile. Currently without a fever. Blood Cultures pending. (3) Benign hypertension: Current visit: No Status: Chronic Noted. Blood pressure reasonable. On minimal dose SOULEYMANE-I chronically. (4) Non-small cell lung cancer: Current visit: No Status: Inactive Reported remote history of NSCLCa with brain mets. Records unavailable - according to family, original diagnosis and treatment occured in the early . (5) COPD (chronic obstructive pulmonary disease): Current visit: Yes Status: Chronic Noted. Monitor. (6) DVT prophylaxis: Current visit: Yes Status: Acute Initiate SC Lovenox, PPI for GI Prophylaxis. (7) Advance directive on file: Current visit: Yes Status: Acute Full Code. Palliative Medicine was consulted. Subjective Interval history since last seen: 69 year old man with a prior history significant for metastatic Lung Ca, admitted from [facility] Emergency Department on 04/09 with a diagnosis of fever and altered mental status. Mr. White has a Past Medical History significant for NSCLCa in the early s, s/p Craniotomy and XRT, along with prior history of both aseptic meningitis in 2012 as well as prior CVA X2 with possible mild left sided d eficits. He also has prior history of COPD, HTN, and Dyslipidemia. Upon presentation to the ED the patient was noted to have confusion and an altered mental status, with potential right sided neglect. He was also noted to be febrile, with temperature as high as 38.8. His Urinalysis, CBC and CMP were essentially unremarkable, but with an elevated Lactate. His CXR and CT Head were unremarkable. An LP was not attempted given patient's mental status and agitation, as significant sedation and potation intubation may have been required (per review of ED Notes). Given patient's altered mental status and fever, he was referred for admission for treatment of potential REBRANDER infection. Neurology at [facility] was consulted by the ED physician, and agreed with empiric treatment of possible REBRANDER infection. This morning Mr. White appears unchanged. He remained agitated overnight and received Haloperidol. No other overnight events reported. He is no longer febrile. Exam Narrative Exam Narrative: General: Patient is asleep, arousable, but not cooperative. NAD noted. Neck: Supple CV: Regular, nontachycardic, S1S2, No rubs, murmurs, or gallops. Pulmonary: Clear to auscultation bilaterally on limited anterior and lateral exam Abdomen: + Bowel Sounds, soft, nontender, nondistended Vascular: No lower extremity edema Objective Objective Clinical Data: Abnormal lab results 04/08/19 04/08/19 04/09/19 Range/Units 20:35 21:25 06:20 RBC 4.41 L 4.04 L (4.50-6.00) m/cumm Hgb 12.8 L 11.8 L (13.5-17.5) g/dL Hct 39.1 L 36.1 L (40.0-50.0) % Absolute Lymphocytes 3.42 H (1.2-3.4) k/cumm Lactate 2.4 H (0.6-1.4) mmol/l Calcium (8.5-10.1) mg/dL Vancomycin Trough (10.0-20.0) ug/mL 04/09/19 04/09/19 Range/Units 06:20 23:50 RBC (4.50-6.00) m/cumm Hgb (13.5-17.5) g/dL Hct (40.0-50.0) % Absolute Lymphocytes (1.2-3.4) k/cumm Lactate (0.6-1.4) mmol/l Calcium 7.8 L (8.5-10.1) mg/dL Vancomycin Trough 0.3 L (10.0-20.0) ug/mL Vital Signs Temperature 37.3 C 04/09/19 12:00 Temperature Source Temporal Artery Scan 04/09/19 12:00 Pulse 86 04/09/19 13:01 Pulse 85 04/09/19 13:01 Respiratory Rate 23 04/09/19 13:01 Respiratory Effort Non-Labored 04/09/19 12:00 Respiratory Depth Deep 04/09/19 12:00 Respiratory Pattern Irregular 04/09/19 12:00 Blood Pressure 124/62 04/09/19 13:01 Blood Pressure Mean 75 04/09/19 13:01 Blood Pressure Position Left Lateral 04/09/19 12:00 Pulse Oximetry 98 04/09/19 13:01 Oxygen Delivery Method Nasal Cannula 04/09/19 12:00 Oxygen Flow Rate 2 04/09/19 12:00 Pain Level 0 04/09/19 04:00 Intake & Output 04/08/19 04/09/19 04/09/19 23:59 11:59 23:59 Intake Total 1000 / 1000 2024 Output Total 675 / 675 Balance 1000 / 1000 1350 / 1350 Weight 89 kg 90.3 kg Intake: IV 1000 / 1000 2024 Output: Urine 675 / 675 Other: Urine Color Yellow Urine Appearance Clear Urine Odor None Comment lucas in place; emptied for 175cc clear yellow urine at this time. lucas in place; draining clear yellow urine at this time. Voiding Methods Indwelling Catheter Laboratory Results WBC 7.06 k/cumm (4.4-10.8) 04/09/19 06:20 RBC 4.04 m/cumm (4.50-6.00) L 04/09/19 06:20 Hgb 11.8 g/dL (13.5-17.5) L 04/09/19 06:20 Hct 36.1 % (40.0-50.0) L 04/09/19 06:20 MCV 89.4 fL (80-95) 04/09/19 06:20 MCH 29.2 pg (27.0-33.0) 04/09/19 06:20 MCHC 32.7 g/dL (32.0-36.0) 04/09/19 06:20 RDW 13.8 % (11.8-14.1) 04/09/19 06:20 Plt Count 251 x1000/uL (130-400) 04/09/19 06:20 MPV 9.3 fL (8.0-11.0) 04/09/19 06:20 Immature Gran % 0.2 04/08/19 21:25 Neutrophils % 50.9 04/08/19 21:25 Lymphocytes % 36.7 04/08/19 21:25 Monocytes % 7.4 04/08/19 21:25 Eosinophils % 4.5 04/08/19 21: Basophils % 0.3 04/08/19 21:25 Absolute Neutrophils 4.73 k/cumm (1.2-6.7) 04/08/19 21:25 Absolute Lymphocytes 3.42 k/cumm (1.2-3.4) H 04/08/19 21:25 Absolute Monocytes 0.69 k/cumm (0.11-0.7) 04/08/19 21:25 Absolute Eosinophils 0.42 k/cumm (0.0-0.7) 04/08/19 21:25 Absolute Basophils 0.03 k/cumm (0.0-0.2) 04/08/19 21:25 Sodium 143 mmol/L (136-145) 04/09/19 06:20 Potassium 3.9 mmol/L (3.5-5.1) 04/09/19 06:20 Chloride 107 mmol/L (98-107) 04/09/19 06:20 Carbon Dioxide 26.4 mmol/L (21.0-32.0) 04/09/19 06:20 Anion Gap 9.6 mmol/L (3-11) 04/09/19 06:20 BUN 15 mg/dL (7-18) 04/09/19 06:20 Creatinine 0.93 mg/dL (0.70-1.30) 04/09/19 06:20 Estimated GFR/1.73 m2 >= 60.00 (mL/min/1.73m2) 04/09/19 06:20 Glucose 89 mg/dL (70-100) 04/09/19 06:20 Lactate 2.4 mmol/l (0.6-1.4) H 04/08/19 20:35 Calcium 7.8 mg/dL (8.5-10.1) L 04/09/19 06:20 Magnesium 1.8 mg/dL (1.8-2.4) 04/08/19 21:25 Total Bilirubin 0.5 mg/dL (0.2-1.0) 04/08/19 21:25 AST 37 U/L (15-37) 04/08/19 21:25 ALT 43 U/L (12-78) 04/08/19 21:25 Alkaline Phosphatase 86 U/L (46-116) 04/08/19 21:25 Troponin I < 0.05 ng/mL (0.00-0.06) 04/08/19 21:25 Total Protein 7.0 g/dL (6.4-8.2) 04/08/19 21:25 Albumin 3.7 g/dL (3.4-5.0) 04/08/19 21:25 Urine Color Yellow (Yellow) 04/08/19 22:10 Urine Clarity Clear 04/08/19 22:10 Urine pH 5.5 (5-8) 04/08/19 22:10 Ur Specific [place] 1.020 (1.005-1.025) 04/08/19 22:10 Urine Protein Negative mg/dL (Negative) 04/08/19 22:10 Urine Ketones Negative mg/dL (Negative) 04/08/19 22:10 Urine Blood Negative (Negative) 04/08/19 22:10 Urine Nitrite Negative (Negative) 04/08/19 22:10 Urine Bilirubin Negative (Negative) 04/08/19 22:10 Urine Urobilinogen 0.2 EU/dL (Up TO 0.2) 04/08/19 22:10 Ur Leukocyte Esterase Negative (Negative) 04/08/19 22:10 Urine Glucose Negative mg/dL (Negative) 04/08/19 22:10 Vancomycin Trough 0.3 ug/mL (10.0-20.0) L 04/09/19 23:50 Objective Narrative Objective Narrative: EXAM: CT Head Without Contrast EXAM DATE/TIME: 04/08/2019 8:35 PM CLINICAL HISTORY: 69 years old, male; Altered mental status/memory loss; Confusion or disorientation; Prior surgery; Surgery type: Craniotomy; Patient HX: HX brain tumor, right sided neglect, altered mental status TECHNIQUE: Imaging protocol: Axial computed tomography images of the head without contrast. Coronal and sagittal reformatted images were created and reviewed. Radiation optimization: All CT scans at this facility use at least one of these dose optimization techniques: automated exposure control; mA and/or kV adjustment per patient size (includes targeted exams where dose is matched to clinical indication); or iterative reconstruction. COMPARISON: CT HEAD AND CSPINE W/O CONTRAST 03/16/2018 7:09 PM FINDINGS: Brain: Global cerebral atrophy is consistent with patient's age. Decreased attenuation within the white matter tracts of both cerebral hemispheres is nonspecific but typically seen with small vessel disease/chronic white matter ischemic changes of aging. Parenchymal calcifications scattered throughout both cerebral hemispheres and within the cerebellar hemispheres are unchanged. Old bilateral thalamic lacunar infarcts. No acute stroke. No intracranial hemorrhage or mass effect. Ventricles: Unremarkable. No ventriculomegaly. Bones/joints: Unremarkable. No acute fracture. Sinuses: Visualized sinuses are unremarkable. No fluid levels. Mastoid air cells: Visualized mastoid air cells are well aerated. No mastoid effusion. Soft tissues: Unremarkable. IMPRESSION: No acute abnormality. EXAM: XR Chest, 1 View EXAM DATE/TIME: 04/08/2019 10:03 PM CLINICAL HISTORY: 69 years old, male; Fever and other: Altered mental status TECHNIQUE: Imaging protocol: XR of the chest, 1 view. COMPARISON: CR XR CHEST 2V PA LATERAL 01/05/2019 10:43 AM FINDINGS: Limited rotated single view. Lungs: Unremarkable. No consolidation. Pleural space: Unremarkable. No evidence of pneumothorax. Heart/Mediastinum: Unremarkable. Heart size within normal limits for technique. Bones/joints: Unremarkable. IMPRESSION: No obvious acute process.
[2019-04-09] MEDS: Lactated Ringers 1,000 ML 100 ML IV (15:00)
[2019-04-09] MEDS: Aspirin 300 MG SUPP PR (15:10)
--- NOTE | 2019-04-09 16:12 | PDOC.CMIN ---
Care Management Initial Assess REASON FOR HOSPITALIZATION:: Encephalopathy PAST MEDICAL HISTORY/PAST SURGICAL HISTORY:: Benign hypertension, COPD, CVA, Hyperlipidemia, Hypothyroid, Non-small cell lung cancer, craniotomy, lobectomy of lung PREVIOUS FUNCTIONAL STATUS/SOCIAL/FAMILY SUPPORTS:: Jose Miguel resides at [facility], where he has been for some time. His primary character impersonator and health care agent is Henrietta, his sister who resides locally in [place], [place]. Henrietta reports that Jose Miguel enjoys getting outside and has a good quality of life at [facility]. She shares Jose Miguel would have no interest in living if he became bed bound. CURRENT FUNCTIONAL STATUS:: Jose Miguel was struggling to get comfortable in bed when CM entered. Nursing was present and adjusting Jose Miguel. CM coordinated PC Consult with Henrietta and Dr. Simental, who met at 1000. ADVANCE DIRECTIVES:: COLST form on file. Sister, Henrietta Davis, named as agent Has patient been provided with information about the portal?: No Did the patient sign up for the portal?: No CODE STATUS:: Full Code INSURANCE COVERAGE / FINANCIAL ISSUES:: Medicare. Medicaid CURRENT HOME/COMMUNITY SERVICES/EQUIPMENT:: SNF/ICF at [facility]. PRIMARY CARE PHYSICIAN:: Lopez Araiza POTENTIAL DISCHARGE NEEDS:: Palliative Care consult completed with Dr. Simental and Henrietta at 1000 this morning. Henrietta is Jose Miguel's HC Agent and very clear with his wishes-he would like to be full code as long as he can have a quality life. Coordinated return to [facility]. PATIENT/FAMILY EDUCATION NEEDS:: Review of discharge instructions, discuss Ask Me Three, Palliative Care. ANTICIPATED BARRIERS TO DISCHARGE:: None identified. TRANSPORTATION:: Via [facility] [employer]. PLAN:: Jose Miguel will return to [facility] when ready per . The facility will manage his further service and equipment needs. He will transport via [employer].
--- NOTE | 2019-04-09 17:12 | INITIAL_ITS ---
Care Management Initial Assess REASON FOR HOSPITALIZATION:: Encephalopathy PAST MEDICAL HISTORY/PAST SURGICAL HISTORY:: Benign hypertension, COPD, CVA, Hyperlipidemia, Hypothyroid, Non-small cell lung cancer, craniotomy, lobectomy of lung PREVIOUS FUNCTIONAL STATUS/SOCIAL/FAMILY SUPPORTS:: Jose Miguel resides at [facility], where he has been for some time. His primary personal injury law specialist and health care agent is Henrietta, his sister who resides locally in [place], [place]. Henrietta reports that Jose Miguel enjoys getting outside and has a good quality of life at [facility]. She shares Jose Miguel would have no interest in living if he became bed bound. CURRENT FUNCTIONAL STATUS:: Jose Miguel was struggling to get comfortable in bed when CM entered. Nursing was present and adjusting Jose Miguel. CM coordinated PC Consult with Henrietta and Dr. Simental, who met at 1000. ADVANCE DIRECTIVES:: COLST form on file. Sister, Henrietta Davis, named as agent Has patient been provided with information about the portal?: No Did the patient sign up for the portal?: No CODE STATUS:: Full Code INSURANCE COVERAGE / FINANCIAL ISSUES:: Medicare. Medicaid CURRENT HOME/COMMUNITY SERVICES/EQUIPMENT:: SNF/ICF at [facility]. PRIMARY CARE PHYSICIAN:: Lopez Araiza POTENTIAL DISCHARGE NEEDS:: Palliative Care consult completed with Dr. Simental and Henrietta at 1000 this morning. Henrietta is Jose Miguel's HC Agent and very clear with his wishes-he would like to be full code as long as he can have a quality life. Coordinated return to [facility]. PATIENT/FAMILY EDUCATION NEEDS:: Review of discharge instructions, discuss Ask Me Three, Palliative Care. ANTICIPATED BARRIERS TO DISCHARGE:: None identified. TRANSPORTATION:: Via [facility] W/[facility] [employer]. PLAN:: Jose Miguel will return to [facility] when ready per . The facility will manage his further service and equipment needs. He will transport via [employer].
[2019-04-09] MEDS: Enoxaparin 40 MG/0.4 ML SYR SC (17:27)
--- NOTE | 2019-04-09 19:51 | W.PALLCONSUL ---
Date of service: 04/09/19 History of Present Illness Chief Complaint: help with goals of care in setting of possible meningitis Narrative: Virgil is familiar to me from [facility] and . I helped him, along with his sister/DPOA Henrietta Davis fill out a COLST form in December 2017. He and Henrietta review it regularly. Nothing has changed in terms of his wishes; he has always been clear that he does want a brief attempt at CPR but terminal operator does not want a feeding tube. He does not want to live if he cannot get OOB, socialize, visit with the other residents. Henrietta says he wants to be mobile and talk. He has beat the odds several time, per Henrietta. He was cured of his lung cancer in 1999. He then had a craniotomy for brain cancer )?type? metastatic from lung?) was > 10 years ago in [place]. He had his first CVA at the time of the surgery. He then had meningitis and was treated for it at [facility] in 2014. After that, he had to move out of his own apartment and live in a community senior care [facility] in [place]. His care needs exceeded what was available there in 2016, when he moved to the Rehab. His primary care needs are around his cognitive status. He has moderate vascular dementia. He usually gets around with a WC, but sometimes uses his walker for short distances. Assessment and Plan (1) Palliative care patient: Current visit: Yes Status: Chronic I have met with Virgil only once before at the Rehab with the sole purpose of filling out a COLST. This was done in December 2017 and he has not seriously revised it. He has said, and his sister reiterates, that he wants to remain mobile and verbal. Those are his two biggest priorities. I did explain to Henrietta that we could not guarantee that CPR would result in these abilities. She says that since Virgil has beaten the odds before, she wants to give him a chance to do it again. (2) Goals of care, counseling/discussion: Current visit: Yes Status: Chronic No changes made to his COLSt. He remains FULL CODE but doesn't want to have a prolonged code. Give it one try, Henrietta says. He doesn't want a feeding tube. He doesn't want to be bedbound. He wants to be able to talk. (3) Advance directive on file: Current visit: Yes Status: Chronic (4) Encephalopathy: Current visit: Yes Status: Acute No signs of meningitis on exam. Unclear whether his delirium is related to his acute illness, not a brain infection. Hospitalist Dr Schmitz working to establish etiology. Virgil remains on broad spectrum abx of ceftriaxone and vancomycin, with antivirals added in. (5) Vascular dementia: Current visit: Yes Status: Chronic This has been progressing on its own. Last year, it was mild. This year, his dementia is more moderate. Unfortunately, this infection is likely to accelerate his decline further. Review of Systems Constitutional Reports body ache(s), Reports chills, Reports daytime sleepiness, Reports fatigue, Reports fever(s), Reports lethargy and Reports weakness Comments: temp was > 38 on admission; cannot elicit neck stiffness, though Eyes Reports requires corrective lenses ENT Reports change in voice and Reports neck pain (hard to tell, no clear response to my passively moving his neck) Comments: did have sedating meds of haldol and ativan several hours before my visit Cardiovascular Reports rapid heart rate, Reports palpitations and Reports dyspnea Respiratory Reports dyspnea Genitourinary Reports urinary incontinence Musculoskeletal Reports abnormal gait (uses walker at Rehab; did not evaluate today), Reports myalgias, Reports muscle weakness and Reports neck pain (hard to tell, no clear response to my passively moving his neck) Integumentary/Breasts Reports dry skin Comments: hot to touch Neurologic Reports abnormal gait (uses walker at Rehab; did not evaluate today), Reports behavioral changes, Reports confusion and Reports weakness Psychiatric Reports behavioral changes and Reports confusion Endocrine Reports fatigue and Reports palpitations [facility], [facility] Medical History Benign hypertension (Chronic) Hyperlipidemia (Chronic) Non-small cell lung cancer (Inactive) COPD (chronic obstructive pulmonary disease) (Chronic) Hypothyroid (Chronic) CVA (cerebral vascular accident) (Chronic) Surgical History S/P craniotomy (Chronic) S/P lobectomy of lung (Chronic) Family History Daughter No problems noted. Sister No problems noted. Sister Lung cancer Mother Breast cancer Father Myocardial infarction Heart disease Social History Smoking/Tobacco Use Status: Former Tobacco Use Tobacco: How many years used: 30 Alcohol Intake: former Drug use: Never Caregiver/Support person: Yes Household members: none Housing: longterm Number of Children: 1 Communication Needs: Hard of Hearing and Corrective Lenses Education Level: high school Do you need help understanding health information?: Always 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[place] What is your relationship status?: How often do you talk on the phone with friends or family?: twice per week How often do you get together with friends or relatives?: twice per week Panel score (0-1 are the most socially isolated patients): 1 What type of physical activity do you participate in: assisted ambulation and irregular exercise Duration: < 15 minutes/day Special reyna needs: No Agree to transfusion: Yes Seatbelt use: always Do you feel safe at home: Yes Do you feel safe in your relationship?: Yes Additional Social history: sister Henrietta is only surviving family, other than daughter whom he has not seen in years does not want to reconnect with her loves to sit outside in the sun, socialize, interact. Exam Const General: no acute distress and ill appearing Nutritional Appearance: average body habitus Orientation: awake, oriented to person and confused Limitations: altered mental status [facility] Head: normocephalic and atraumatic Ears: hearing grossly normal bilaterally and external ears normal General nose exam: external nose normal and no nasal discharge Face and sinus: normal facial exam, face symmetric and dry mucous membranes Eyes Conjunctivae: conjunctivae normal Sclera: sclerae normal Neck Neck: full ROM, no lymphadenopathy, no meningeal signs and no JVD Resp Effort & Inspection: normal respiratory effort Auscultation: clear to auscultation bilaterally Cardio Jugular venous pressure: no JVD Rate: tachycardic Rhythm: regular rhythm Heart Sounds: S1 normal and S2 normal GI Inspection: normal to inspection Palpation: soft Auscultation: normal bowel sounds Skin General skin exam: dry skin and other (tanned) Lesions: no lesions Rashes: no rashes Hair: general thinning Nails: clubbing Neuro General: awake, moves all extremities and confused Cranial Nerves: PERRL and able to rotate head bilaterally Cognition: abnormal cognition Speech: anomia Motor: strength abnormal and other (left hemiparesis) Extrem General: clubbing and muscle atrophy Psych Appearance: grossly normal Speech and Movement: delayed speech and slowed movement Mood: congruent mood Affect: indifferent and blunted Attitude: cooperative and avoids eye contact (usually very social and interactive) Thought Process: impoverished Insight: limited Judgment: limited Other: Virgil is far from his baseline today, Results Last Vital Signs Temp 99.5 F 04/10/19 15:43 Pulse 97 H 04/10/19 18:00 Resp 31 H 04/10/19 18:00 BP 157/79 H 04/10/19 18:00 Pulse Ox 93 L 04/10/19 18:00 Labs : 04/10/19 06:15 04/10/19 06:15 Laboratory Results - last 24 hr 04/08/19 04/10/19 04/10/19 23:50 06:15 06:15 WBC RBC Hgb Hct MCV MCH MCHC RDW Plt Count MPV Immature Gran % Neutrophils % Lymphocytes % Monocytes % Eosinophils % Basophils % Absolute Neutrophils Absolute Lymphocytes Absolute Monocytes Absolute Eosinophils Absolute Basophils Sodium 146 H Potassium 3.8 Chloride 109 H Carbon Dioxide 27.2 Anion Gap 9.8 BUN 10 Creatinine 0.76 Estimated GFR/1.73 m2 >= 60.00 Glucose 72 Lactate 1.0 Calcium 7.9 L Magnesium 1.6 L Vancomycin Trough Herpes Simplex Source Cancelled HSV I DNA PCR Cancelled HSV II DNA PCR Cancelled 04/10/19 04/10/19 06:15 17:10 WBC 7.38 RBC 4.34 L Hgb 12.9 L Hct 38.4 L MCV 88.5 MCH 29.7 MCHC 33.6 RDW 13.5 Plt Count 241 MPV 9.4 Immature Gran % 0.1 Neutrophils % 60.4 Lymphocytes % 24.8 Monocytes % 8.9 Eosinophils % 5.7 Basophils % 0.1 Absolute Neutrophils 4.45 Absolute Lymphocytes 1.83 Absolute Monocytes 0.66 Absolute Eosinophils 0.42 Absolute Basophils 0.01 Sodium Potassium Chloride Carbon Dioxide Anion Gap BUN Creatinine Estimated GFR/1.73 m2 Glucose Lactate Calcium Magnesium Vancomycin Trough 17.5 Herpes Simplex Source HSV I DNA PCR HSV II DNA PCR
[2019-04-09] MEDS: ACETAMINOPHEN 1,000 MG/100 ML BTL 400 MG IVPB (21:55)
[2019-04-10] VITALS (37 sets, daily range): BP systolic 138–174; BP diastolic 67–101; PULSE 73–122; RESP 20–38; TEMP 36.3–37.8; O2SAT 91–98
[2019-04-10] MEDS: Lactated Ringers 1,000 ML 100 ML IV ×2 (00:41→13:41)
[2019-04-10] MEDS: Haloperidol 5 MG/ML VIAL IM/IV (01:20)
[2019-04-10] MEDS: NORMAL SALINE IVPB ×3 (01:28→17:51)
[2019-04-10] MEDS: ACYCLOVIR SODIUM IVPB ×3 (01:28→17:51)
[2019-04-10] MEDS: LORazepam 2 MG/ML VIAL 1 MG IVP (02:17)
[2019-04-10 06:51] LABS: Abs Immature Grans 0.01 k/cumm (0.0-0.09); Absolute Basophil Count 0.01 k/cumm (0.0-0.2); Absolute Eosinophil Count 0.42 k/cumm (0.0-0.7); Absolute Lymphocyte Count 1.83 k/cumm (1.2-3.4); Absolute Monocyte Count 0.66 k/cumm (0.11-0.7); Absolute Neutrophil Count 4.45 k/cumm (1.2-6.7); Basophils % 0.1; Eosinophils % 5.7; HCT 38.4 % (40.0-50.0); HGB 12.9 g/dL (13.5-17.5); Immature Grans % 0.1; Lymphocytes % 24.8; Mean Corp. HGB Concentration 33.6 g/dL (32.0-36.0); Mean Corpuscular Hemoglobin 29.7 pg (27.0-33.0); Mean Corpuscular Volume 88.5 fL (80-95); Mean Platelet Volume 9.4 fL (8.0-11.0); Monocytes % 8.9; Neutrophils % 60.4; Platelet Count 241 x1000/uL (130-400); RBC 4.34 m/cumm (4.50-6.00); RBC Distribution Width 13.5 % (11.8-14.1); White Blood Cell Count 7.38 k/cumm (4.4-10.8)
[2019-04-10 07:06] LABS: Anion Gap 9.8 mmol/L (3-11); BUN 10 mg/dL (7-18); CO2 27.2 mmol/L (21.0-32.0); CREATININE 0.76 mg/dL (0.70-1.30); Calcium 7.9 mg/dL (8.5-10.1); Chloride 109 mmol/L (98-107); Glucose 72 mg/dL (70-100); Magnesium 1.6 mg/dL (1.8-2.4); Potassium 3.8 mmol/L (3.5-5.1); Sodium 146 mmol/L (136-145)
[2019-04-10] MEDS: Normal Saline Flush 10 ML SYR IVP (07:48)
[2019-04-10] MEDS: cefTRIAXone 2 GM/50 ML BAG IVPB ×2 (07:49→20:35)
[2019-04-10] MEDS: VANCOMYCIN 1,250 MG in Normal Saline 250 ML 167 MG IVPB (08:02)
[2019-04-10] MEDS: MAGNESIUM SULFATE 2 GM/50 ML BAG IVPB (08:27)
[2019-04-10] MEDS: Aspirin 300 MG SUPP PR (08:28)
[2019-04-10] MEDS: POTASSIUM CHLORIDE 20 MEQ/100 ML BAG 50 MEQ IVPB (09:15)
--- NOTE | 2019-04-10 10:33 | PDOC.CMPRO ---
Care Management Progress Note S/O: Jose Miguel continues to present with AMS and fever, he is being treated empirically for meningitis, with plan for MRI and Neuro consult tomorrow. CM continues to follow. A: 69 year old male admitted 04/08/19 for Encephalopathy P: Anticipate Jose Miguel will return to [facility] when ready per MD. The facility will manage his further service and equipment needs. He will transport via [employer].
--- NOTE | 2019-04-10 11:02 | CMPROGNOTE_ITS ---
Care Management Progress Note S/O: Jose Miguel continues to present with AMS and fever, he is being treated empirically for meningitis, with plan for MRI and Neuro consult tomorrow. CM continues to follow. A: 69 year old male admitted 04/08/19 for Encephalopathy P: Anticipate Jose Miguel will return to [facility] when ready per MD. The facility will manage his further service and equipment needs. He will transport via [employer].
--- NOTE | 2019-04-10 11:09 | W.PM.PROGNOT ---
Date of Service Date of service: 04/10/19 Time of Service: 11:10 Assessment and Plan (1) Altered mental status: Current visit: No Status: Active Acute Delirium, presumed infectious given concurrent fever, patient remains on broad spectrum antibiotics. He is now afebrile but remains altered and agitated. Continue antibiotics and monitor closely. 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 CT of the head negative, and no ability to check MRI over the weekend. If patient is not improving on current therapy will consider MRI and neurology consult in the morning. As patient is currently NPO will initiate TX Aspirin, and resume oral Clopidogrel once able. No evidence of ischemia or changes on admission ECG and initial Troponin negative. Electrolytes appear ok - will also check a TSH and B12. Tick Panel and HSV as ordered by ED and pending. Will attempt to limit Haldol/Ativan, and see if there is any improvement in condition today. Of note, CT of the head confirms old b/l thalamic infarcts, as well as global atrophy and chronic white matter ischemic changes. (2) Fever: Current visit: No Status: Active Negative Urinalysis and CXR, without obvious source. Currently under treatment for presumed TAKE OFF WORKER infection given concurrent altered mental status - patient does not appear to have Nuchal Rigidity, and LP was not attempted given need for sedation with potential intubation. Continue broad spectrum coverage with Vancomycin, Ceftriaxone, and Acyclovir, currently day#2. Tick Panel and HSV Serology pending. Plan on discussion with ID regarding course and regimen. Currently without a fever. Blood Cultures negative. (3) Benign hypertension: Current visit: No Status: Chronic Noted. Blood pressure elevated as patient is off his minimal dose SOULEYMANE-I. Will initiate IV Hydralazine on a prn basis for significant elevation. (4) Non-small cell lung cancer: Current visit: No Status: Inactive Reported remote history of NSCLCa with brain mets. Records unavailable - according to family, original diagnosis and treatment occured in the early , with patient in remission. CXR and CT Head unremarkable.. (5) COPD (chronic obstructive pulmonary disease): Current visit: Yes Status: Chronic Noted. Appears quiescent. Monitor. (6) DVT prophylaxis: Current visit: Yes Status: Acute Continue SC Lovenox, PPI for GI Prophylaxis. (7) Advance directive on file: Current visit: Yes Status: Acute Full Code. Palliative Medicine was consulted. Subjective Interval history since last seen: 69 year old man with a prior history significant for metastatic Lung Ca and prior CVA's, admitted from [facility] Emergency Department on 04/09 with a diagnosis of fever and altered mental status. Mr. White has a Past Medical History significant for NSCLCa in the early , along with prior history of both aseptic meningitis in 2012 as well as prior CVA X2 with possible mild left sided deficits as a result. He also has prior history of COPD, HTN, and Dyslipidemia. Upon presentation to the ED the patient was noted to have confusion and an altered mental status, with potential right sided neglect. He was also noted to be febrile, with temperature as high as 38.8. His Urinalysis, CBC and CMP were essentially unremarkable, but with an elevated Lactate. His CXR and CT Head were unremarkable. An LP was not attempted given patient's mental status and agitation, as significant sedation and potation intubation may have been required (per review of ED Notes). Given patient's altered mental status and fever, he was referred for admission for treatment of potential TAKE OFF WORKER infection. [facility]rology at [facility] was consulted by the ED physician, and agreed with empiric treatment of possible TAKE OFF WORKER infection. This morning Mr. White appears unchanged. He remained agitated and not at baseline. He continues to receive Haloperidol. He has however remained afebrile on antibiotic therapy, and with a normalized Lactate. No other overnight events reported. Exam Narrative Exam Narrative: General: Patient is agitated, not cooperative or following commands. NAD noted. Neck: Supple CV: Regular, nontachycardic, S1S2, No rubs, murmurs, or gallops. Pulmonary: Clear to auscultation bilaterally on limited anterior and lateral exam Abdomen: + Bowel Sounds, soft, nontender, nondistended Vascular: No lower extremity edema Objective Objective Clinical Data: Abnormal lab results 04/10/19 04/10/19 Range/Units 06:15 06:15 RBC 4.34 L (4.50-6.00) m/cumm Hgb 12.9 L (13.5-17.5) g/dL Hct 38.4 L (40.0-50.0) % Sodium 146 H (136-145) mmol/L Chloride 109 H (98-107) mmol/L Calcium 7.9 L (8.5-10.1) mg/dL Magnesium 1.6 L (1.8-2.4) mg/dL Vital Signs Temperature 37.2 C 04/10/19 11:05 Temperature Source Temporal Artery Scan 04/10/19 11:05 Pulse 90 04/10/19 07:22 Pulse 91 H 04/10/19 07:22 Respiratory Rate 24 04/10/19 11:05 Respiratory Effort Non-Labored 04/10/19 07:15 Respiratory Depth Deep 04/10/19 07:15 Respiratory Pattern Irregular 04/10/19 07:15 Blood Pressure 173/81 H 04/10/19 07:22 Blood Pressure Mean 102 04/10/19 07:22 Blood Pressure Position Supine 04/10/19 07:15 Pulse Oximetry 95 04/10/19 11:05 Oxygen Delivery Method Nasal Cannula 04/10/19 11:05 Oxygen Flow Rate 2 04/10/19 11:05 Pain Level 0 04/10/19 04:00 Intake & Output 04/09/19 04/09/19 04/10/19 11:59 23:59 11:59 Intake Total 2024 / 3650 1625 / 3650 2941.666 / 2941.666 Output Total 675 / 2900 2225 / 2900 1400 / 1400 Balance 1350 / 750 -600 / 750 1541.666 / 1541.666 Weight 90.3 kg 89.3 kg Intake: IV 2024 / 3650 1625 / 3650 2941.666 / 2941.666 Output: Urine 675 / 2900 2225 / 2900 1400 / 1400 Other: Urine Color Yellow Light Marco Light Marco Urine Appearance Clear Clear Clear Urine Odor None Normal Normal Comment lucas in place; emptied for 175cc clear yellow urine at this time. Indwelling Lucas draining clear light marco urine QS at this time. Indwelling Lucas draining clear yellow urine QS at this time. Voiding Methods Indwelling Catheter Indwelling Catheter Indwelling Catheter Laboratory Results WBC 7.38 k/cumm (4.4-10.8) 04/10/19 06:15 RBC 4.34 m/cumm (4.50-6.00) L 04/10/19 06:15 Hgb 12.9 g/dL (13.5-17.5) L 04/10/19 06:15 Hct 38.4 % (40.0-50.0) L 04/10/19 06:15 MCV 88.5 fL (80-95) 04/10/19 06:15 MCH 29.7 pg (27.0-33.0) 04/10/19 06:15 MCHC 33.6 g/dL (32.0-36.0) 04/10/19 06:15 RDW 13.5 % (11.8-14.1) 04/10/19 06:15 Plt Count 241 x1000/uL (130-400) 04/10/19 06:15 MPV 9.4 fL (8.0-11.0) 04/10/19 06:15 Immature Gran % 0.1 04/10/19 06:15 Neutrophils % 60.4 04/10/19 06:15 Lymphocytes % 24.8 04/10/19 06:15 Monocytes % 8.9 04/10/19 06:15 Eosinophils % 5.7 04/10/19 06:15 Basophils % 0.1 04/10/19 06:15 Absolute Neutrophils 4.45 k/cumm (1.2-6.7) 04/10/19 06:15 Absolute Lymphocytes 1.83 k/cumm (1.2-3.4) 04/10/19 06:15 Absolute Monocytes 0.66 k/cumm (0.11-0.7) 04/10/19 06:15 Absolute Eosinophils 0.42 k/cumm (0.0-0.7) 04/10/19 06:15 Absolute Basophils 0.01 k/cumm (0.0-0.2) 04/10/19 06:15 Sodium 146 mmol/L (136-145) H 04/10/19 06:15 Potassium 3.8 mmol/L (3.5-5.1) 04/10/19 06:15 Chloride 109 mmol/L (98-107) H 04/10/19 06:15 Carbon Dioxide 27.2 mmol/L (21.0-32.0) 04/10/19 06:15 Anion Gap 9.8 mmol/L (3-11) 04/10/19 06:15 BUN 10 mg/dL (7-18) 04/10/19 06:15 Creatinine 0.76 mg/dL (0.70-1.30) 04/10/19 06:15 Estimated GFR/1.73 m2 >= 60.00 (mL/min/1.73m2) 04/10/19 06:15 Glucose 72 mg/dL (70-100) 04/10/19 06:15 Lactate 1.0 mmol/l (0.6-1.4) 04/10/19 06:15 Calcium 7.9 mg/dL (8.5-10.1) L 04/10/19 06:15 Magnesium 1.6 mg/dL (1.8-2.4) L 04/10/19 06:15 Total Bilirubin 0.5 mg/dL (0.2-1.0) 04/08/19 21:25 AST 37 U/L (15-37) 04/08/19 21:25 ALT 43 U/L (12-78) 04/08/19 21:25 Alkaline Phosphatase 86 U/L (46-116) 04/08/19 21:25 Troponin I < 0.05 ng/mL (0.00-0.06) 04/08/19 21:25 Total Protein 7.0 g/dL (6.4-8.2) 04/08/19 21:25 Albumin 3.7 g/dL (3.4-5.0) 04/08/19 21:25 Urine Color Yellow (Yellow) 04/08/19 22:10 Urine Clarity Clear 04/08/19 22:10 Urine pH 5.5 (5-8) 04/08/19 22:10 Ur Specific Hoffman 1.020 (1.005-1.025) 04/08/19 22:10 Urine Protein Negative mg/dL (Negative) 04/08/19 22:10 Urine Ketones Negative mg/dL (Negative) 04/08/19 22:10 Urine Blood Negative (Negative) 04/08/19 22:10 Urine Nitrite Negative (Negative) 04/08/19 22:10 Urine Bilirubin Negative (Negative) 04/08/19 22:10 Urine Urobilinogen 0.2 EU/dL (Up TO 0.2) 04/08/19 22:10 Ur Leukocyte Esterase Negative (Negative) 04/08/19 22:10 Urine Glucose Negative mg/dL (Negative) 04/08/19 22:10 Vancomycin Trough 0.3 ug/mL (10.0-20.0) L 04/09/19 23:50 Herpes Simplex Source Cancelled 04/08/19 23:50 HSV I DNA PCR Cancelled 04/08/19 23:50 HSV II DNA PCR Cancelled 04/08/19 23:50
[2019-04-10] MEDS: Enoxaparin 40 MG/0.4 ML SYR SC (15:39)
[2019-04-10 17:32] LABS: Vancomycin, Trough 17.5 ug/mL (10.0-20.0)
[2019-04-10] MEDS: Haloperidol 5 MG/ML VIAL 1 MG IM/IV (17:56)
[2019-04-10] MEDS: VANCOMYCIN 1,250 MG in Normal Saline 250 ML 166.67 MG IVPB (18:06)
--- NOTE | 2019-04-10 19:53 | PCNE_ITS ---
Date of service: 04/09/19 History of Present Illness Chief Complaint: help with goals of care in setting of possible meningitis Narrative: Virgil is familiar to me from [facility] and . I helped him, along with his sister/DPOA Henrietta Davis fill out a COLST form in December 2017. He and Henrietta review it regularly. 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 He does not want to live if he cannot get OOB, socialize, visit with the other residents. Henrietta says he wants to be mobile and talk. He has beat the odds several time, per Henrietta. He was cured of his lung cancer in 1999. He then had a craniotomy for brain cancer )?type? metastatic from lung?) was > 10 years ago in [place]. He had his first CVA at the time of the surgery. He then had meningitis and was treated for it at [facility] in 2014. After that, he had to move out of his own apartment and live in a community [facility] in [place]. His care needs exceeded what was available there in 2016, when he moved to the Rehab. His primary care needs are around his cognitive status. He has moderate vascular dementia. He usually gets around with a WC, but sometimes uses his walker for short distances. Assessment and Plan (1) Palliative care patient: Current visit: Yes Status: Chronic I have met with Virgil only once before at the Rehab with the sole purpose of filling out a COLST. This was done in December 2017 and he has not seriously revised it. He has said, and his sister reiterates, that he wants to remain mobile and verbal. Those are his two biggest priorities. I did explain to Henrietta that we could not guarantee that CPR would result in these abilities. She says that since Virgil has beaten the odds before, she wants to give him a chance to do it again. (2) Goals of care, counseling/discussion: Current visit: Yes Status: Chronic No changes made to his COLSt. He remains FULL CODE but doesn't want to have a prolonged code. Give it one try, Henrietta says. He doesn't want a feeding tube. He doesn't want to be bedbound. He wants to be able to talk. (3) Advance directive on file: Current visit: Yes Status: Chronic (4) Encephalopathy: Current visit: Yes Status: Acute No signs of meningitis on exam. Unclear whether his delirium is related to his acute illness, not a brain infection. Hospitalist Dr Schmitz working to establish etiology. Virgil remains on broad spectrum abx of ceftriaxone and vancomycin, with antivirals added in. (5) Vascular dementia: Current visit: Yes Status: Chronic This has been progressing on its own. Last year, it was mild. This year, his dementia is more moderate. Unfortunately, this infection is likely to accelerate his decline further. Review of Systems Constitutional Reports body ache(s), Reports chills, Reports daytime sleepiness, Reports fatigue, Reports fever(s), Reports lethargy and Reports weakness Comments: temp was > 38 on admission; cannot elicit neck stiffness, though Eyes Reports requires corrective lenses ENT Reports change in voice and Reports neck pain (hard to tell, no clear response to my passively moving his neck) Comments: did have sedating meds of haldol and ativan several hours before my visit Cardiovascular Reports rapid heart rate, Reports palpitations and Reports dyspnea Respiratory Reports dyspnea Genitourinary Reports urinary incontinence Musculoskeletal Reports abnormal gait (uses walker at Rehab; did not evaluate today), Reports myalgias, Reports muscle weakness and Reports neck pain (hard to tell, no clear response to my passively moving his neck) Integumentary/Breasts Reports dry skin Comments: hot to touch Neurologic Reports abnormal gait (uses walker at Rehab; did not evaluate today), Reports behavioral changes, Reports confusion and Reports weakness Psychiatric Reports behavioral changes and Reports confusion Endocrine Reports fatigue and Reports palpitations [facility], [facility] Medical History Benign hypertension (Chronic) Hyperlipidemia (Chronic) Non-small cell lung cancer (Inactive) COPD (chronic obstructive pulmonary disease) (Chronic) Hypothyroid (Chronic) CVA (cerebral vascular accident) (Chronic) Surgical History S/P craniotomy (Chronic) S/P lobectomy of lung (Chronic) Family History Daughter No problems noted. Sister No problems noted. Sister Lung cancer Mother Breast cancer Father Myocardial infarction Heart disease Social History Smoking/Tobacco Use Status: Former Tobacco Use Tobacco: How many years used: 30 Alcohol Intake: former Drug use: Never Caregiver/Support person: Yes Household members: none Housing: senior living Number of Children: 1 Communication Needs: Hard of Hearing and Corrective Lenses Education Level: high school Do you need help understanding health information?: Always 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 What is your relationship status?: How often do you talk on the phone with friends or family?: twice per week How often do you get together with friends or relatives?: twice per week Panel score (0-1 are the most socially isolated patients): 1 What type of physical activity do you participate in: assisted ambulation and irregular exercise Duration: < 15 minutes/day Special reyna needs: No Agree to transfusion: Yes Seatbelt use: always Do you feel safe at home: Yes Do you feel safe in your relationship?: Yes Additional Social history: sister Henrietta is only surviving family, other than daughter whom he has not seen in years does not want to reconnect with her loves to sit outside in the sun, socialize, interact. Exam Const General: no acute distress and ill appearing Nutritional Appearance: average body habitus Orientation: awake, oriented to person and confused Limitations: altered mental status [facility] Head: normocephalic and atraumatic Ears: hearing grossly normal bilaterally and external ears normal General nose exam: external nose normal and no nasal discharge Face and sinus: normal facial exam, face symmetric and dry mucous membranes Eyes Conjunctivae: conjunctivae normal Sclera: sclerae normal Neck Neck: full ROM, no lymphadenopathy, no meningeal signs and no JVD Resp Effort & Inspection: normal respiratory effort Auscultation: clear to auscultation bilaterally Cardio Jugular venous pressure: no JVD Rate: tachycardic Rhythm: regular rhythm Heart Sounds: S1 normal and S2 normal GI Inspection: normal to inspection Palpation: soft Auscultation: normal bowel sounds Skin General skin exam: dry skin and other (tanned) Lesions: no lesions Rashes: no rashes Hair: general thinning Nails: clubbing Neuro General: awake, moves all extremities and confused Cranial Nerves: PERRL and able to rotate head bilaterally Cognition: abnormal cognition Speech: anomia Motor: strength abnormal and other (left hemiparesis) Extrem General: clubbing and muscle atrophy Psych Appearance: grossly normal Speech and Movement: delayed speech and slowed movement Mood: congruent mood Affect: indifferent and blunted Attitude: cooperative and avoids eye contact (usually very social and interactiv e) Thought Process: impoverished Insight: limited Judgment: limited Other: Virgil is far from his baseline today, Results Last Vital Signs Temp 99.5 F 04/10/19 15:43 Pulse 97 H 04/10/19 18:00 Resp 31 H 04/10/19 18:00 BP 157/79 H 04/10/19 18:00 Pulse Ox 93 L 04/10/19 18:00 Labs : 04/10/19 06:15 04/10/19 06:15 Laboratory Results - last 24 hr 04/08/19 04/10/19 04/10/19 23:50 06:15 06:15 WBC RBC Hgb Hct MCV MCH MCHC RDW Plt Count MPV Immature Gran % Neutrophils % Lymphocytes % Monocytes % Eosinophils % Basophils % Absolute Neutrophils Absolute Lymphocytes Absolute Monocytes Absolute Eosinophils Absolute Basophils Sodium 146 H Potassium 3.8 Chloride 109 H Carbon Dioxide 27.2 Anion Gap 9.8 BUN 10 Creatinine 0.76 Estimated GFR/1.73 m2 >= 60.00 Glucose 72 Lactate 1.0 Calcium 7.9 L Magnesium 1.6 L Vancomycin Trough Herpes Simplex Source Cancelled HSV I DNA PCR Cancelled HSV II DNA PCR Cancelled 04/10/19 04/10/19 06:15 17:10 WBC 7.38 RBC 4.34 L Hgb 12.9 L Hct 38.4 L MCV 88.5 MCH 29.7 MCHC 33.6 RDW 13.5 Plt Count 241 MPV 9.4 Immature Gran % 0.1 Neutrophils % 60.4 Lymphocytes % 24.8 Monocytes % 8.9 Eosinophils % 5.7 Basophils % 0.1 Absolute Neutrophils 4.45 Absolute Lymphocytes 1.83 Absolute Monocytes 0.66 Absolute Eosinophils 0.42 Absolute Basophils 0.01 Sodium Potassium Chloride Carbon Dioxide Anion Gap BUN Creatinine Estimated GFR/1.73 m2 Glucose Lactate Calcium Magnesium Vancomycin Trough 17.5 Herpes Simplex Source HSV I DNA PCR HSV II DNA PCR
[2019-04-10] MEDS: ACETAMINOPHEN 1,000 MG/100 ML BTL 400 MG IVPB (22:26)
[2019-04-11] VITALS (36 sets, daily range): BP systolic 137–201; BP diastolic 78–97; PULSE 86–117; RESP 4–37; TEMP 31–38.3; O2SAT 93–97
[2019-04-11] MEDS: Haloperidol 5 MG/ML VIAL 1 MG IM/IV ×3 (00:06→22:02)
[2019-04-11] MEDS: Normal Saline Flush 10 ML SYR IVP ×5 (00:06→18:32)
[2019-04-11] MEDS: LORazepam 2 MG/ML VIAL 1 MG IVP ×4 (00:43→12:42)
[2019-04-11] MEDS: NORMAL SALINE IVPB ×3 (01:35→17:49)
[2019-04-11] MEDS: ACYCLOVIR SODIUM IVPB ×3 (01:35→17:49)
[2019-04-11] MEDS: Lactated Ringers 1,000 ML 100 ML IV (01:36)
[2019-04-11] MEDS: VANCOMYCIN 1,250 MG in Normal Saline 250 ML 167 MG IVPB ×2 (03:15→14:04)
--- NOTE | 2019-04-11 05:13 | DI.RAD_ITS ---
SYMPTOM/DIAGNOSIS: SHORTNESS OF BREATH PORTABLE CHEST: Comparison is made with 08 April 2019. The previous exam was limited by rotation. There is bilateral upper lobe scarring and volume loss. There is new density seen in the right upper lobe which could represent pneumonia. No effusions are seen. Scarring is also noted at the left lung base. IMPRESSION: Right upper lobe infiltrate.
[2019-04-11] MEDS: Haloperidol 5 MG/ML VIAL 2 MG IM/IV (05:15)
--- NOTE | 2019-04-11 05:26 | DI.VRAD_ITS ---
EXAM: XR Chest, 1 View EXAM DATE/TIME: 04/11/2019 4:48 AM CLINICAL HISTORY: 69 years old, male; Shortness of breath; Prior surgery; Surgery date: 6+ months; Surgery type: S/P lobectomy of lung; Patient HX: Copd TECHNIQUE: Imaging protocol: XR of the chest, 1 view. COMPARISON: SC XR PORTABLE CHEST AP 04/08/2019 10:37 PM FINDINGS: Lungs: There are some areas of lung parenchymal scarring. Subtle increased density in the right upper lobe. Pleural space: Unremarkable. No evidence of pneumothorax. Heart/Mediastinum: Unremarkable. Heart size within normal limits for technique. Bones/joints: Unremarkable. IMPRESSION: Possible subtle right upper lobe pneumonia. Dictated and Authenticated by: Jerrell Fish MD. Ordering:SUSAN Levi MD
[2019-04-11] MEDS: Albuterol/Ipratropium 3 ML UPD VIAL UPD (05:57)
[2019-04-11 06:53] LABS: Abs Immature Grans 0.01 k/cumm (0.0-0.09); Absolute Basophil Count 0.01 k/cumm (0.0-0.2); Absolute Lymphocyte Count 1.37 k/cumm (1.2-3.4); Absolute Monocyte Count 0.76 k/cumm (0.11-0.7); Absolute Neutrophil Count 5.79 k/cumm (1.2-6.7); Basophils % 0.1; Eosinophils % 4.8; HCT 36.1 % (40.0-50.0); HGB 12.5 g/dL (13.5-17.5); Immature Grans % 0.1; Lymphocytes % 16.4; Mean Corp. HGB Concentration 34.6 g/dL (32.0-36.0); Mean Corpuscular Hemoglobin 30.3 pg (27.0-33.0); Mean Corpuscular Volume 87.4 fL (80-95); Mean Platelet Volume 9.4 fL (8.0-11.0); Monocytes % 9.1; Neutrophils % 69.5; Platelet Count 261 x1000/uL (130-400); RBC 4.13 m/cumm (4.50-6.00); RBC Distribution Width 13.2 % (11.8-14.1); White Blood Cell Count 8.34 k/cumm (4.4-10.8)
[2019-04-11 07:11] LABS: Anion Gap 15.5 mmol/L (3-11); BUN 7 mg/dL (7-18); CO2 24.5 mmol/L (21.0-32.0); CREATININE 0.65 mg/dL (0.70-1.30); Chloride 105 mmol/L (98-107); Glucose 85 mg/dL (70-100); Potassium 3.5 mmol/L (3.5-5.1); Sodium 145 mmol/L (136-145)
[2019-04-11 07:33] LABS: Magnesium 1.7 mg/dL (1.8-2.4); Vitamin B12 1124 pg/mL (193-986)
[2019-04-11] MEDS: metroNIDAZOLE 500 MG/100 ML BAG 100 MG IVPB (08:46)
[2019-04-11] MEDS: MAGNESIUM SULFATE 2 GM/50 ML BAG IVPB (08:53)
[2019-04-11] MEDS: POTASSIUM CHLORIDE 20 MEQ/100 ML BAG 50 MEQ IVPB ×2 (08:53→10:57)
[2019-04-11] MEDS: cefTRIAXone 2 GM/50 ML BAG IVPB (09:45)
[2019-04-11] MEDS: Aspirin 300 MG SUPP PR (10:13)
[2019-04-11 11:59] LABS: HSV Type 1 Ab, IgG Positive; HSV Type 2 Ab, IgG Positive; Lyme Ab w Rflx to Lyme Confirm Negative
--- NOTE | 2019-04-11 12:21 | PGE_ITS ---
Date of Service Date of service: 04/11/19 Time of Service: 12:19 Assessment and Plan (1) Altered mental status: Current visit: No Status: Active Acute Delirium, presumed infectious given concurrent fever, patient is on broad spectrum antibiotics and remains altered and agitated. May have suffered an aspiration event as well given current CXR findings. Continue treatment with broad spectrum antibiotics and antiviral therapy, with Metronidazole added for additional anaerobic coverage in setting of potential aspiration. Continue antibiotics and monitor closely. 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 CT of the head negative, and no ability to check MRI over the weekend - ordered for this morning. As patient is currently NPO initiated [place] Aspirin, and will plan for resumption of oral Clopidogrel once able. No evidence of ischemia or changes on admission ECG and initial Troponin negative. Electrolytes appear ok - TSH and B12 checked and normal. Tick Panel and HSV as ordered by ED and pending. Of note, CT of the head confirms old b/l thalamic infarcts, as well as global atrophy and chronic white matter ischemic changes. Patient confirmed to have baseline dementia by family. May be acute delirium in setting of acute illness. (2) Fever: Current visit: No Status: Active Negative Urinalysis and CXR, without obvious source. Currently under treatment for presumed DIRECTOR NURSING SERVICE infection given concurrent altered mental status - patient does not appear to have Nuchal Rigidity, and LP was not attempted given need for sedation with potential intubation. Continue broad spectrum coverage with Vancomycin, Ceftriaxone, and Acyclovir, currently day#3. Metronidazole added in setting of potential aspiration, now day #1. Tick Panel and HSV Serology pending. Plan on discussion with ID regarding course and regimen. Currently without a fever. Blood Cultures remain negative. (3) Benign hypertension: Current visit: No Status: Chronic Noted. Blood pressure elevated as patient is off his minimal dose SOULEYMANE-I. Will initiate IV Hydralazine on a prn basis for significant elevation. (4) Non-small cell lung cancer: Current visit: No Status: Inactive Reported remote history of NSCLCa. Records unavailable - according to family, original diagnosis and treatment occured in the early , with patient in remission. CXR unremarkable.. (5) COPD (chronic obstructive pulmonary disease): Current visit: Yes Status: Chronic Noted. Appears quiescent. Monitor. (6) DVT prophylaxis: Current visit: Yes Status: Acute Continue SC Lovenox, PPI for GI Prophylaxis. (7) Advance directive on file: Current visit: Yes Status: Chronic Full Code. Palliative Medicine was consulted, has met with family, and confirms code status. Subjective Interval history since last seen: 69 year old man with a prior history significant for metastatic Lung Ca and prior CVA's, admitted from [facility] Emergency Department on 04/09 with a diagnosis of fever and altered mental status. Mr. White has a Past Medical History significant for NSCLCa in the early , along with prior history of both aseptic meningitis in 2012 as well as prior CVA X2 with possible mild left sided deficits as a result. He also has prior history of COPD, HTN, and Dyslipidemia. Upon presentation to the ED the patient was noted to have confusion and an altered mental status, with potential right sided neglect. He was also noted to be febrile, with temperature as high as 38.8. His Urinalysis, CBC and CMP were essentially unremarkable, but with an elevated Lactate. His CXR and CT Head were unremarkable. An LP was not attempted given patient's mental status and agitation, as significant sedation and potation intubation may have been required (per review of ED Notes). Given patient's altered mental status and fever, he was referred for admission for treatment of potential DIRECTOR NURSING SERVICE infection. [place] [facility] [place] physician, and agreed with empiric treatment of possible DIRECTOR NURSING SERVICE infection. Mr. White has appeared somewhat improved, but not yet at baseline - His family reports baseline dementia as well. Overnight the patient developed worsening tachypnea prompting a repeat CXR, now showing a new RUL infiltrate. This morning he remains agitated and not at baseline. He continues to receive Haloperidol. He has however remained afebrile on antibiotic therapy, and with a normalized Lactate. No other overnight events reported. Exam Narrative Exam Narrative: General: Patient appears less agitated, still not fully cooperative or following commands, but does open eyes when prompted. NAD noted. Neck: Supple CV: Regular, mildly tachycardic, S1S2, No rubs, murmurs, or gallops. Pulmonary: Clear to auscultation bilaterally on limited anterior and lateral exam, with right mid/basilar crackles Abdomen: + Bowel Sounds, soft, nontender, nondistended Vascular: No lower extremity edema Objective Objective Clinical Data: Abnormal lab results 04/11/19 04/11/19 04/11/19 Range/Units 06:14 06:14 06:14 RBC 4.13 L (4.50-6.00) m/cumm Hgb 12.5 L (13.5-17.5) g/dL Hct 36.1 L (40.0-50.0) % Absolute Monocytes 0.76 H (0.11-0.7) k/cumm Anion Gap 15.5 H (3-11) mmol/L Creatinine 0.65 L (0.70-1.30) mg/dL Calcium 8.0 L (8.5-10.1) mg/dL Magnesium 1.7 L (1.8-2.4) mg/dL Vitamin B12 1124 H (193-986) pg/mL Vital Signs Temperature 37.5 C 04/11/19 11:54 Temperature Source Temporal Artery Scan 04/11/19 11:54 Pulse 109 H 04/11/19 11:54 Pulse 98 H 04/11/19 08:02 Respiratory Rate 30 H 04/11/19 11:54 Respiratory Effort Accessory Muscle Use 04/11/19 11:54 Respiratory Depth Deep 04/11/19 11:54 Respiratory Pattern Tachypnea 04/11/19 11:54 Blood Pressure 154/88 H 04/11/19 11:54 Blood Pressure Mean 110 04/11/19 11:54 Blood Pressure Position Supine 04/11/19 11:54 Pulse Oximetry 95 04/11/19 11:54 Oxygen Delivery Method Nasal Cannula 04/11/19 11:54 Oxygen Flow Rate 1 04/11/19 11:54 Pain Level 0 04/11/19 03:30 Intake & Output 04/10/19 04/11/19 04/11/19 23:59 11:59 23:59 Intake Total 2450.834 / 5546.666 600 / 600 Output Total 1425 / 3725 1450 / 1450 Balance 1025.834 / 1821.666 -850 / -850 Weight 89.1 kg Intake: IV 2450.834 / 5546.666 600 / 600 Oral 0 / 0 Output: Urine 1425 / 3725 1450 / 1450 Other: Urine Color [place] Yellow Urine Appearance Clear Clear Comment Magallanes is patent and draining light pink urine. Indwelling Magallanes catheter with clear yellow urine in collection bag. Laboratory Results WBC 8.34 k/cumm (4.4-10.8) 04/11/19 06:14 RBC 4.13 m/cumm (4.50-6.00) L 04/11/19 06:14 Hgb 12.5 g/dL (13.5-17.5) L 04/11/19 06:14 Hct 36.1 % (40.0-50.0) L 04/11/19 06:14 MCV 87.4 fL (80-95) 04/11/19 06:14 MCH 30.3 pg (27.0-33.0) 04/11/19 06:14 MCHC 34.6 g/dL (32.0-36.0) 04/11/19 06:14 RDW 13.2 % (11.8-14.1) 04/11/19 06:14 Plt Count 261 x1000/uL (130-400) 04/11/19 06:14 MPV 9.4 fL (8.0-11.0) 04/11/19 06:14 Immature Gran % 0.1 04/11/19 06:14 Neutrophils % 69.5 04/11/19 06:14 Lymphocytes % 16.4 04/11/19 06:14 Monocytes % 9.1 04/11/19 06:14 Eosinophils % 4.8 04/11/19 06:14 Basophils % 0.1 04/11/19 06:14 Absolute Neutrophils 5.79 k/cumm (1.2-6.7) 04/11/19 06:14 Absolute Lymphocytes 1.37 k/cumm (1.2-3.4) 04/11/19 06:14 Absolute Monocytes 0.76 k/cumm (0.11-0.7) H 04/11/19 06:14 Absolute Eosinophils 0.40 k/cumm (0.0-0.7) 04/11/19 06:14 Absolute Basophils 0.01 k/cumm (0.0-0.2) 04/11/19 06:14 Sodium 145 mmol/L (136-145) 04/11/19 06:14 Potassium 3.5 mmol/L (3.5-5.1) 04/11/19 06:14 Chloride 105 mmol/L (98-107) 04/11/19 06:14 Carbon Dioxide 24.5 mmol/L (21.0-32.0) 04/11/19 06:14 Anion Gap 15.5 mmol/L (3-11) H 04/11/19 06:14 BUN 7 mg/dL (7-18) 04/11/19 06:14 Creatinine 0.65 mg/dL (0.70-1.30) L 04/11/19 06:14 Estimated GFR/1.73 m2 >= 60.00 (mL/min/1.73m2) 04/11/19 06:14 Glucose 85 mg/dL (70-100) 04/11/19 06:14 Lactate 1.0 mmol/l (0.6-1.4) 04/10/19 06:15 Calcium 8.0 mg/dL (8.5-10.1) L 04/11/19 06:14 Magnesium 1.7 mg/dL (1.8-2.4) L 04/11/19 06:14 Total Bilirubin 0.5 mg/dL (0.2-1.0) 04/08/19 21:25 AST 37 U/L (15-37) 04/08/19 21:25 ALT 43 U/L (12-78) 04/08/19 21:25 Alkaline Phosphatase 86 U/L (46-116) 04/08/19 21:25 Troponin I < 0.05 ng/mL (0.00-0.06) 04/08/19 21:25 Total Protein 7.0 g/dL (6.4-8.2) 04/08/19 21:25 Albumin 3.7 g/dL (3.4-5.0) 04/08/19 21:25 Vitamin B12 1124 pg/mL (193-986) H 04/11/19 06:14 TSH 2.30 uIU/mL (0.358-3.74) 04/11/19 06:14 Urine Color Yellow (Yellow) 04/08/19 22:10 Urine Clarity Clear 04/08/19 22:10 Urine pH 5.5 (5-8) 04/08/19 22:10 Ur Specific [place] 1.020 (1.005-1.025) 04/08/19 22:10 Urine Protein Negative mg/dL (Negative) 04/08/19 22:10 Urine Ketones Negative mg/dL (Negative) 04/08/19 22:10 Urine Blood Negative (Negative) 04/08/19 22:10 Urine Nitrite Negative (Negative) 04/08/19 22:10 Urine Bilirubin Negative (Negative) 04/08/19 22:10 Urine Urobilinogen 0.2 EU/dL (Up TO 0.2) 04/08/19 22:10 Ur Leukocyte Esterase Negative (Negative) 04/08/19 22:10 Urine Glucose Negative mg/dL (Negative) 04/08/19 22:10 Vancomycin Trough 17.5 ug/mL (10.0-20.0) 04/10/19 17:10 Herpes Simplex Source Cancelled 04/08/19 23:50 HSV I DNA PCR Cancelled 04/08/19 23:50 HSV II DNA PCR Cancelled 04/08/19 23:50
[2019-04-11] MEDS: LORazepam 2 MG/ML VIAL 0.5 MG IVP (12:55)
[2019-04-11] MEDS: DEXTROSE 5%-0.45% SALINE 1,000 ML 75 ML IV (13:55)
--- NOTE | 2019-04-11 14:54 | PDOC.CMPRO ---
- If Service Date Differs Date of service: 04/11/19 Time of Service: 14:55 Care Management Progress Note S/O: Jose Miguel is being transported to MRI when CM into visit. CM met with Jose Miguel's sister Henrietta at the bedside and listen to her process her concerns r/t Jose Miguel's condition. She grateful for palliative input and wants them to continue to follow up with him when he returns to [facility]. Jose Miguel continues to receive IV antibiotics and monitoring in the ICU. A:Jose Miguel is a 69 year old male admitted with Encephalopathy P:Jose Miguel will return to [facility] when ready per MD. The facility will manage his further service and equipment needs. He will transport via [facility].
--- NOTE | 2019-04-11 15:04 | CMPROGNOTE_ITS ---
- If Service Date Differs Date of service: 04/11/19 Time of Service: 14:55 Care Management Progress Note S/O: Jose Miguel is being transported to MRI when CM into visit. CM met with Jose Miguel's sister Henrietta at the bedside and listen to her process her concerns r/t Jose Miguel's condition. She grateful for palliative input and wants them to continue to follow up with him when he returns to [facility]. Jose Miguel continues to receive IV antibiotics and monitoring in the ICU. A:Jose Miguel is a 69 year old male admitted with Encephalopathy P:Jose Miguel will return to [facility] when ready per MD. The facility will manage his further service and equipment needs. He will transport via [facility].
[2019-04-11] MEDS: PIPERACILLIN/TAZO 4.5 GM in Normal Saline 100 ML IVPB (15:50)
[2019-04-11] MEDS: Enoxaparin 40 MG/0.4 ML SYR SC (16:43)
[2019-04-11] MEDS: ACETAMINOPHEN 1,000 MG/100 ML BTL 400 MG IVPB (18:25)
[2019-04-12] VITALS (35 sets, daily range): BP systolic 124–197; BP diastolic 69–156; PULSE 87–123; RESP 17–36; TEMP 34–37.9; O2SAT 92–98
[2019-04-12] MEDS: PIPERACILLIN/TAZO 4.5 GM in Normal Saline 100 ML IVPB ×4 (00:13→23:44)
[2019-04-12] MEDS: VANCOMYCIN 1,250 MG in Normal Saline 250 ML 167 MG IVPB (00:16)
[2019-04-12] MEDS: hydrALAZINE 20 MG/ML VIAL 10 MG IVP (00:34)
--- NOTE | 2019-04-12 01:25 | NUR.NOTE ---
0000-hydralazine 10 mg iv given for BP consistently over 190 systolic. Apparent good effect from med. Pt restless, agitated, thrashing about in bed, yelling out loudly but still not resonding to verbal stimulus. Unable to calm pt even after earlier dose of haldol iv. Dr Malik notified. Given 2 mg Lorazepam IV with good effect.Nursing Note:
[2019-04-12] MEDS: LORazepam 2 MG/ML VIAL IVP (01:30)
[2019-04-12] MEDS: ACYCLOVIR SODIUM IVPB ×3 (02:41→18:27)
[2019-04-12] MEDS: NORMAL SALINE IVPB ×3 (02:41→18:27)
[2019-04-12] MEDS: Haloperidol 5 MG/ML VIAL 1 MG IM/IV (05:39)
[2019-04-12] MEDS: DEXTROSE 5%-0.45% SALINE 1,000 ML 75 ML IV ×2 (05:45→08:59)
[2019-04-12 07:41] LABS: HCT 35.4 % (40.0-50.0); HGB 12.1 g/dL (13.5-17.5); Mean Corp. HGB Concentration 34.2 g/dL (32.0-36.0); Mean Corpuscular Hemoglobin 29.2 pg (27.0-33.0); Mean Corpuscular Volume 85.5 fL (80-95); Mean Platelet Volume 9.9 fL (8.0-11.0); Platelet Count 289 x1000/uL (130-400); RBC 4.14 m/cumm (4.50-6.00); RBC Distribution Width 13.5 % (11.8-14.1); White Blood Cell Count 8.84 k/cumm (4.4-10.8)
[2019-04-12 07:48] LABS: Anion Gap 11.8 mmol/L (3-11); BUN 7 mg/dL (7-18); CO2 22.2 mmol/L (21.0-32.0); CREATININE 0.73 mg/dL (0.70-1.30); Calcium 7.8 mg/dL (8.5-10.1); Chloride 105 mmol/L (98-107); Glucose 114 mg/dL (70-100); Magnesium 1.8 mg/dL (1.8-2.4); Potassium 3.5 mmol/L (3.5-5.1); Sodium 139 mmol/L (136-145)
--- NOTE | 2019-04-12 08:00 | DI.RAD_ITS ---
SYMPTOM/DIAGNOSIS: FEVER, PNEUMONIA PORTABLE CHEST: Comparison is made with 11 April 2019. The exam was performed in the semi-erect position. The heart size remains normal. The lungs are not well inflated. There is again noted to be a bilateral upper lobe scarring and volume loss. Again, there is an area of increased opacity in the right upper lobe compared with older exams suspicious for pneumonia. No new findings are seen.
[2019-04-12 08:21] LABS: Absolute Eosinophil Count 0.18 k/cumm (0.0-0.7); Absolute Monocyte Count 0.71 k/cumm (0.11-0.7); Absolute Neutrophil Count 6.45 k/cumm (1.2-6.7); Atypical Lymphocytes % 1
[2019-04-12 08:22] LABS: Diff Comment Manual Differential; Nucleated RBC 0 /100WBC; RBC Morphology Normal
[2019-04-12] MEDS: Aspirin 300 MG SUPP PR (09:20)
[2019-04-12] MEDS: Normal Saline Flush 10 ML SYR IVP ×2 (09:21→21:54)
[2019-04-12] MEDS: MAGNESIUM SULFATE 1 GM/100 ML BAG IVPB (09:21)
[2019-04-12 09:33] LABS: Vancomycin, Trough 15.4 ug/mL (10.0-20.0)
[2019-04-12] MEDS: POTASSIUM CHLORIDE 20 MEQ/100 ML BAG 50 MEQ IVPB ×2 (11:02→13:00)
[2019-04-12] MEDS: VANCOMYCIN 1,250 MG in Normal Saline 250 ML 166.67 MG IVPB ×2 (11:48→23:37)
--- NOTE | 2019-04-12 12:25 | PGE_ITS ---
Date of Service Date of service: 04/12/19 Time of Service: 12:23 Assessment and Plan (1) Altered mental status: Current visit: No Status: Active Acute Delirium, presumed infectious given concurrent fever, patient is on broad spectrum antibiotics and remains altered and agitated. May have suffered an aspiration event as well given CXR findings and development of fever. Continue treatment with broad spectrum antibiotics and antiviral therapy, broadened to include coverage for potential aspiration. Continue antibiotics and monitor closely. 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 CT of the head negative, and unable to obtain MRI due to patient's agitation. As patient is currently NPO initiated [place] Aspirin, and will plan for resumption of oral Clopidogrel once able. Neurology consultation unfortunately unavailable. No evidence of ischemia or changes on admission ECG and initial Troponin negative. Electrolytes appear ok - TSH and B12 checked and normal. Tick Panel and HSV as ordered by ED and pending. Of note, CT of the head confirms old b/l thalamic infarcts, as well as global atrophy and chronic white matter ischemic changes. Patient confirmed to have baseline dementia by family. May be acute delirium in setting of acute illness. (2) Fever: Current visit: No Status: Active Negative Urinalysis and CXR initially, without obvious source. Initially under treatment for presumed OBGYN HOSPITALIST PHYSICIAN infection given concurrent altered mental status - patient does not appear to have Nuchal Rigidity, and LP was not attempted given need for sedation with potential intubation. Now with evidence of aspiration. Continue broad spectrum coverage with Vancomycin and Acyclovir, currently day#4, with Pip-Tazo initiated for potential aspiration, now day #2. Also received 3 days of Ceftriaxone initially. Tick Panel and HSV Serology pending. Currently without a fever since yesterday evening. Blood Cultures remain negative. (3) Benign hypertension: Current visit: No Status: Chronic Noted. Blood pressure elevated as patient is off his minimal dose SOULEYMANE-I and with agitation. Continue IV Hydralazine on a prn basis for significant elevation. (4) Non-small cell lung cancer: Current visit: No Status: Inactive Reported remote history of NSCLCa. Records unavailable - according to family, original diagnosis and treatment occured in the early , with patient in remission. CXR unremarkable. (5) COPD (chronic obstructive pulmonary disease): Current visit: Yes Status: Chronic Noted, and now with wheezing by exam. Steroids initiated as above. Continue nebs, supplemental oxygen. Monitor. (6) DVT prophylaxis: Current visit: Yes Status: Acute Continue SC Lovenox, PPI for GI Prophylaxis. (7) Advance directive on file: Current visit: Yes Status: Chronic Full Code. Palliative Medicine was consulted, has met with family, and confirms code status. Subjective Interval history since last seen: 69 year old man with a prior history significant for metastatic Lung Ca and prior CVA's, admitted from [facility] Emergency Department on 04/09 with a diagnosis of fever and altered mental status. Mr. White has a Past Medical History significant for NSCLCa in the early , along with prior history of both aseptic meningitis in 2012 as well as prior CVA X2 with possible mild left sided deficits as a result. He also has prior history of COPD, HTN, and Dyslipidemia. Upon presentation to the ED the patient was noted to have confusion and an altered mental status, with potential right sided neglect. He was also noted to be febrile, with temperature as high as 38.8. His Urinalysis, CBC and CMP were essentially unremarkable, but with an elevated Lactate. His CXR and CT Head were unremarkable. An LP was not attempted given patient's mental status and agitation, as significant sedation and potation intubation may have been required (per review of ED Notes). Given patient's altered mental status and fever, he was referred for admission for treatment of potential OBGYN HOSPITALIST PHYSICIAN infection. Neurology at [facility] [place] was consulted by the ED physician, and agreed with empiric treatment of possible OBGYN HOSPITALIST PHYSICIAN infection. Mr. White had appeared somewhat improved, but developed worsening tachypnea overnight on 04/11, with CXR showing a new RUL infiltrate. He also became febrile during the day yesterday. An attempt at MRI of the brain failed due to patient agitation, despite administration of both Haldol and Ativan, and he has appeared agitated again overnight. This morning he appears somewhat improved. He continues to receive Haloperidol. He has remained afebrile since last evening. No other overnight events reported. Exam Narrative Exam Narrative: General: Patient appears less agitated, still not fully cooperative or following commands, but does open eyes when prompted. NAD noted. Neck: Supple CV: Regular, mildly tachycardic, S1S2, No rubs, murmurs, or gallops. Pulmonary: Diffusely decreased breathsounds with mild wheezing on limited anterior and lateral exam, with potential right mid/basilar crackles Abdomen: + Bowel Sounds, soft, nontender, nondistended Vascular: No lower extremity edema Objective Objective Clinical Data: Abnormal lab results 04/12/19 04/12/19 Range/Units 06:14 06:14 RBC 4.14 L (4.50-6.00) m/cumm Hgb 12.1 L (13.5-17.5) g/dL Hct 35.4 L (40.0-50.0) % Absolute Monocytes 0.71 H (0.11-0.7) k/cumm Anion Gap 11.8 H (3-11) mmol/L Glucose 114 H (70-100) mg/dL Calcium 7.8 L (8.5-10.1) mg/dL Vital Signs Temperature 37.5 C 04/12/19 12:09 Temperature Source Temporal Artery Scan 04/12/19 12:09 Pulse 99 H 04/12/19 09:55 Pulse 102 H 04/12/19 09:55 Respiratory Rate 24 04/12/19 09:55 Respiratory Effort Incrsd Work of Breathing 04/12/19 12:09 Respiratory Depth Deep 04/12/19 12:09 Respiratory Pattern Tachypnea 04/12/19 12:09 Blood Pressure 173/74 H 04/12/19 09:55 Blood Pressure Mean 98 04/12/19 09:55 Blood Pressure Position Supine 04/12/19 02:58 Pulse Oximetry 93 L 04/12/19 10:09 Oxygen Delivery Method Hi Flow System 04/12/19 10:09 Oxygen Flow Rate 35 04/12/19 10:09 Fraction of Inspired Oxygen (FIO2) 25 04/12/19 10:09 Pain Level 0 04/12/19 02:58 Intake & Output 04/11/19 04/12/19 04/12/19 23:59 11:59 23:59 Intake Total 1800 / 2650 2326.25 / 2576.25 250 / 2576.25 Output Total 1100 / 2550 850 / 850 Balance 700 / 100 1476.25 / 1726.25 250 / 1726.25 Weight 89.4 kg Intake: IV 1800 / 2650 2326.25 / 2576.25 250 / 2576.25 Output: Urine 1100 / 2550 850 / 850 Other: Urine Color Yellow Dark Elvia Dark Elvia Urine Appearance Sediment Cloudy Hematuria Comment pt has indwelling lucas catheter pt has indwelling lucas catheter Lucas draining to gravity Laboratory Results WBC 8.84 k/cumm (4.4-10.8) 04/12/19 06:14 RBC 4.14 m/cumm (4.50-6.00) L 04/12/19 06:14 Hgb 12.1 g/dL (13.5-17.5) L 04/12/19 06:14 Hct 35.4 % (40.0-50.0) L 04/12/19 06:14 MCV 85.5 fL (80-95) 04/12/19 06:14 MCH 29.2 pg (27.0-33.0) 04/12/19 06:14 MCHC 34.2 g/dL (32.0-36.0) 04/12/19 06:14 RDW 13.5 % (11.8-14.1) 04/12/19 06:14 Plt Count 289 x1000/uL (130-400) 04/12/19 06:14 MPV 9.9 fL (8.0-11.0) 04/12/19 06:14 Immature Gran % See Differential 04/12/19 06:14 Neutrophils % 73.0 04/12/19 06:14 Lymphocytes % 16.0 04/12/19 06:14 Atypical Lymphs % 1 04/12/19 06:14 Monocytes % 8.0 04/12/19 06:14 Eosinophils % 2.0 04/12/19 06:14 Basophils % 0.0 04/12/19 06:14 Absolute Neutrophils 6.45 k/cumm (1.2-6.7) 04/12/19 06:14 Absolute Lymphocytes 1.50 k/cumm (1.2-3.4) 04/12/19 06:14 Absolute Monocytes 0.71 k/cumm (0.11-0.7) H 04/12/19 06:14 Absolute Eosinophils 0.18 k/cumm (0.0-0.7) 04/12/19 06:14 Absolute Basophils 0.00 k/cumm (0.0-0.2) 04/12/19 06:14 Nucleated RBCs 0 /100WBC 04/12/19 06:14 Differential Comment Manual differential 04/12/19 06:14 RBC Morphology Normal 04/12/19 06:14 Sodium 139 mmol/L (136-145) 04/12/19 06:14 Potassium 3.5 mmol/L (3.5-5.1) 04/12/19 06:14 Chloride 105 mmol/L (98-107) 04/12/19 06:14 Carbon Dioxide 22.2 mmol/L (21.0-32.0) 04/12/19 06:14 Anion Gap 11.8 mmol/L (3-11) H 04/12/19 06:14 BUN 7 mg/dL (7-18) 04/12/19 06:14 Creatinine 0.73 mg/dL (0.70-1.30) 04/12/19 06:14 Estimated GFR/1.73 m2 >= 60.00 (mL/min/1.73m2) 04/12/19 06:14 Glucose 114 mg/dL (70-100) H 04/12/19 06:14 Lactate 1.0 mmol/l (0.6-1.4) 04/10/19 06:15 Calcium 7.8 mg/dL (8.5-10.1) L 04/12/19 06:14 Magnesium 1.8 mg/dL (1.8-2.4) 04/12/19 06:14 Total Bilirubin 0.5 mg/dL (0.2-1.0) 04/08/19 21:25 AST 37 U/L (15-37) 04/08/19 21:25 ALT 43 U/L (12-78) 04/08/19 21:25 Alkaline Phosphatase 86 U/L (46-116) 04/08/19 21:25 Troponin I < 0.05 ng/mL (0.00-0.06) 04/08/19 21:25 Total Protein 7.0 g/dL (6.4-8.2) 04/08/19 21:25 Albumin 3.7 g/dL (3.4-5.0) 04/08/19 21:25 Vitamin B12 1124 pg/mL (193-986) H 04/11/19 06:14 TSH 2.30 uIU/mL (0.358-3.74) 04/11/19 06:14 Urine Color Yellow (Yellow) 04/08/19 22:10 Urine Clarity Clear 04/08/19 22:10 Urine pH 5.5 (5-8) 04/08/19 22:10 Ur Specific [place] 1.020 (1.005-1.025) 04/08/19 22:10 Urine Protein Negative mg/dL (Negative) 04/08/19 22:10 Urine Ketones Negative mg/dL (Negative) 04/08/19 22:10 Urine Blood Negative (Negative) 04/08/19 22:10 Urine Nitrite Negative (Negative) 04/08/19 22:10 Urine Bilirubin Negative (Negative) 04/08/19 22:10 Urine Urobilinogen 0.2 EU/dL (Up TO 0.2) 04/08/19 22:10 Ur Leukocyte Esterase Negative (Negative) 04/08/19 22:10 Urine Glucose Negative mg/dL (Negative) 04/08/19 22:10 Vancomycin Trough 15.4 ug/mL (10.0-20.0) 04/12/19 09:05 Lyme Disease Antibody Negative 04/08/19 23:50 Herpes Simplex Source Cancelled 04/08/19 23:50 HSV I IgG Ab Positive 04/08/19 23:50 HSV II IgG Positive 04/08/19 23:50 HSV I DNA PCR Cancelled 04/08/19 23:50 HSV II DNA PCR Cancelled 04/08/19 23:50
[2019-04-12] MEDS: methylPREDNISolone SUCC 40 MG VIAL IVP ×2 (12:38→21:53)
--- NOTE | 2019-04-12 12:48 | PDOC.CMPRO ---
- If Service Date Differs Date of service: 04/12/19 Time of Service: 12:49 Care Management Progress Note S/O: Jose Miguel continues to be not alert he is moving around, occasionally opens his eyes, and mumbles words that are not clear. His sister and niece are at the bedside they are concerned about his condition and the sudden onset of symptoms. CM provided support to family and active listening while they processed their feelings related Jose Miguel sudden onset of symptoms. CM contacted Palliative care, will be here at 1600 family and primary nurse updated. CM updated [facility] on pt status, Jose Miguel will return there when medically ready. A:Jose Miguel is a 69 year old male admitted with Encephalopathy, now being treated for aspiration pneumonia P:Jose Miguel remains ICU level of care today He continues on IV antibiotics, respiratory support and ongoing monitoring. Jose Miguel will return to [facility] when ready per MD.The facility will manage his further service and equipment needs. He will transport via [facility].
[2019-04-12] MEDS: Enoxaparin 40 MG/0.4 ML SYR SC (16:47)
[2019-04-12 19:19] LABS: Anaplasma phagocytophilum Negative (Negative); B. miyamotoi PCR Negative (Negative); Babesia divergens/MO-1 Negative (Negative); Babesia duncani Negative (Negative); Babesia microti Negative (Negative); Ehrlichia chaffeensis Negative (Negative); Ehrlichia ewingii/canis Negative (Negative); Ehrlichia muris eauclairensis Negative (Negative)
[2019-04-13] VITALS (32 sets, daily range): BP systolic 125–191; BP diastolic 66–106; PULSE 62–113; RESP 12–26; TEMP 36.5–37.8; O2SAT 91–98
[2019-04-13] MEDS: NORMAL SALINE IVPB ×3 (02:43→18:42)
[2019-04-13] MEDS: ACYCLOVIR SODIUM IVPB ×3 (02:43→18:42)
[2019-04-13] MEDS: methylPREDNISolone SUCC 40 MG VIAL IVP ×3 (05:31→19:45)
[2019-04-13 06:51] LABS: Abs Immature Grans 0.03 k/cumm (0.0-0.09); Absolute Basophil Count 0.01 k/cumm (0.0-0.2); Absolute Lymphocyte Count 0.79 k/cumm (1.2-3.4); Absolute Monocyte Count 0.22 k/cumm (0.11-0.7); Basophils % 0.1; HGB 12.8 g/dL (13.5-17.5); Immature Grans % 0.3; Lymphocytes % 7.1; Mean Corp. HGB Concentration 34.6 g/dL (32.0-36.0); Mean Corpuscular Hemoglobin 29.6 pg (27.0-33.0); Mean Corpuscular Volume 85.6 fL (80-95); Mean Platelet Volume 9.3 fL (8.0-11.0); Neutrophils % 90.5; Platelet Count 338 x1000/uL (130-400); RBC 4.32 m/cumm (4.50-6.00); RBC Distribution Width 13.7 % (11.8-14.1); White Blood Cell Count 11.15 k/cumm (4.4-10.8)
[2019-04-13 07:05] LABS: Absolute Neutrophil Count 10.09 k/cumm (1.2-6.7)
--- NOTE | 2019-04-13 07:11 | PCPN_ITS ---
Date of service: 04/12/19 Assessment and Plan (1) Vascular dementia: Current visit: Yes Status: Chronic long-standing worse in last 3 months making his brain more vulnerable to illness high risk encephalopathy (2) Goals of care, counseling/discussion: Current visit: Yes Status: Chronic DPOA sister and niece agree that Virgil wants to maintain mobility and abilty to communicate he wouldn't want to live otherwise. no feeding tube may need to change to [employer] by the end of the week if no significant improvement at this point, hard to tell his mental status due to him having lorazepam x 2 last night (3) Palliative care patient: Current visit: Yes Status: Chronic will continue to follow told the family I would see him in f.u or Thursday I think he would do best if moved to the floor, off telemetry, could help reduce mental status changes samia to ICU psychosis will need sitter Dr. Schmitz thought he was still too much work for the med-surg nurses I think it is essential to get him out of the unit as soon as staffing allows it. (4) Encephalopathy: Current visit: Yes Status: Acute multifactorial does not seem to be meningitis on broad spectrum abx of pip/tazo, vanco. Acyclovir stopped today. Does have some evidence of aspiration pneumonia now. Could be causing MS changes. (5) Altered mental status: Current visit: No Status: Active A brain with dementia is a vulnerable brain. Any infection/sepsis/fever can cause AMS that may resolve (at least partially) with improvement in acute illness. Time will tell re: Virgil's mental status, Subjective Patient reports: no bowel movement Interval history since last seen: Virgil still received ativan and haldol overnight, despite hospitalist request to hold sedating meds. Continues to have no obvious signs of meningitis. No headache, no neck pain. Does speak a little bit. Says Virgil in slurred voice in response to question re: what's his name. Said Good when asked how he's doing. Still has AMS. Dr Schmitz tried to get MRI yesterday but Virgil too restless, moving. Did have a bit of non-verbal pain signs: grimace. History from nurses, sister, niece. Still NPO. Still no feeding tube per family. Exam Const General: no acute distress and ill appearing Nutritional Appearance: overweight Orientation: confused and other (lethargic) Limitations: altered mental status [facility] Head: normocephalic and atraumatic Ears: hearing grossly normal bilaterally General nose exam: external nose normal Face and sinus: face symmetric and dry mucous membranes Eyes Conjunctivae: conjunctivae normal Sclera: sclerae normal Neck Neck: no lymphadenopathy, no meningeal signs and no JVD Resp Effort & Inspection: normal respiratory effort and other (wearing high flow nasal cannla at 35L, 26%) Auscultation: clear to auscultation bilaterally Cardio Jugular venous pressure: no JVD Rate: tachycardic (into the mid-90s) Rhythm: regular rhythm Heart Sounds: S1 normal and S2 normal GI Inspection: normal to inspection Palpation: soft Auscultation: normal bowel sounds Skin General skin exam: no rashes or lesions noted, dry skin and other (tanned ) Hair: normal Nails: clubbing Neuro General: awake (but lethargic, slurred speech, one-word answers) Cognition: abnormal cognition Speech: abnormal speech slurred Motor: strength abnormal Extrem General: muscle atrophy Psych Appearance: grossly normal Speech and Movement: delayed speech, slowed movement and slurred speech Attitude: cooperative Insight: poor Judgment: poor Other: AMS changes make it impossible for him to participate in GOC discussion sister, DPOA and niece present Objective Objective Clinical Data: Abnormal lab results 04/12/19 04/12/19 04/13/19 Range/Units 06:14 06:14 06:25 WBC 11.15 H (4.4-10.8) k/cumm RBC 4.14 L 4.32 L (4.50-6.00) m/cumm Hgb 12.1 L 12.8 L (13.5-17.5) g/dL Hct 35.4 L 37.0 L (40.0-50.0) % Absolute Neutrophils 10.09 H (1.2-6.7) k/cumm Absolute Lymphocytes 0.79 L (1.2-3.4) k/cumm Absolute Monocytes 0.71 H (0.11-0.7) k/cumm Anion Gap 11.8 H (3-11) mmol/L Glucose 114 H (70-100) mg/dL Calcium 7.8 L (8.5-10.1) mg/dL Vital Signs Temperature 98.1 F 04/13/19 03:28 Temperature Source Temporal Artery Scan 04/13/19 03:28 Pulse 94 H 04/13/19 06:00 Pulse 93 H 04/13/19 06:01 Respiratory Rate 19 04/13/19 06:01 Respiratory Effort 04/13/19 03:28 Respiratory Depth Deep 04/13/19 03:28 Respiratory Pattern Tachypnea 04/13/19 03:28 Blood Pressure 184/91 H 04/13/19 06:00 Blood Pressure Mean 107 04/13/19 06:00 Blood Pressure Position Supine 04/13/19 03:28 Pulse Oximetry 95 04/13/19 05:00 Oxygen Delivery Method Hi Flow Nasal Cannula 04/13/19 03:28 Oxygen Flow Rate 35 04/12/19 15:54 Fraction of Inspired Oxygen (FIO2) 25 04/13/19 03:28 Pain Level 0 04/13/19 03:28 Intake & Output 04/12/19 04/12/19 04/13/19 11:59 23:59 11:59 Intake Total 2326.25 / 3374.583 1048.333 / 3374.583 1600 / 1600 Output Total 850 / 3700 2850 / 3700 400 / 400 Balance 1476.25 / -325.417 -1801.667 / -199.073 0849 / 1200 Weight 197 lb 1.492 oz 196 lb 13.965 oz Intake: IV 2326.25 / 3374.583 1048.333 / 3374.583 1600 / 1600 Output: Urine 850 / 3700 2850 / 3700 400 / 400 Other: Urine Color Dark Elvia Pale Pale Yellow Yellow Urine Appearance Cloudy Clear Clear Hematuria Comment Lucas intact at this time. pt has indwelling lucas cath pt has indwelling lucas cath Laboratory Results WBC 11.15 k/cumm (4.4-10.8) H 04/13/19 06:25 RBC 4.32 m/cumm (4.50-6.00) L 04/13/19 06:25 Hgb 12.8 g/dL (13.5-17.5) L 04/13/19 06:25 Hct 37.0 % (40.0-50.0) L 04/13/19 06:25 MCV 85.6 fL (80-95) 04/13/19 06:25 MCH 29.6 pg (27.0-33.0) 04/13/19 06:25 MCHC 34.6 g/dL (32.0-36.0) 04/13/19 06:25 RDW 13.7 % (11.8-14.1) 04/13/19 06:25 Plt Count 338 x1000/uL (130-400) 04/13/19 06:25 MPV 9.3 fL (8.0-11.0) 04/13/19 06:25 Immature Gran % 0.3 04/13/19 06:25 Neutrophils % 90.5 04/13/19 06:25 Lymphocytes % 7.1 04/13/19 06:25 Atypical Lymphs % 1 04/12/19 06:14 Monocytes % 2.0 04/13/19 06:25 Eosinophils % 0.0 04/13/19 06:25 Basophils % 0.1 04/13/19 06:25 Absolute Neutrophils 10.09 k/cumm (1.2-6.7) H 04/13/19 06:25 Absolute Lymphocytes 0.79 k/cumm (1.2-3.4) L 04/13/19 06:25 Absolute Monocytes 0.22 k/cumm (0.11-0.7) 04/13/19 06:25 Absolute Eosinophils 0.00 k/cumm (0.0-0.7) 04/13/19 06:25 Absolute Basophils 0.01 k/cumm (0.0-0.2) 04/13/19 06:25 Nucleated RBCs 0 /100WBC 04/12/19 06:14 Differential Comment Manual differential 04/12/19 06:14 RBC Morphology Normal 04/12/19 06:14 Sodium 139 mmol/L (136-145) 04/12/19 06:14 Potassium 3.5 mmol/L (3.5-5.1) 04/12/19 06:14 Chloride 105 mmol/L (98-107) 04/12/19 06:14 Carbon Dioxide 22.2 mmol/L (21.0-32.0) 04/12/19 06:14 Anion Gap 11.8 mmol/L (3-11) H 04/12/19 06:14 BUN 7 mg/dL (7-18) 04/12/19 06:14 Creatinine 0.73 mg/dL (0.70-1.30) 04/12/19 06:14 Estimated GFR/1.73 m2 >= 60.00 (mL/min/1.73m2) 04/12/19 06:14 Glucose 114 mg/dL (70-100) H 04/12/19 06:14 Lactate 1.0 mmol/l (0.6-1.4) 04/10/19 06:15 Calcium 7.8 mg/dL (8.5-10.1) L 04/12/19 06:14 Magnesium 1.8 mg/dL (1.8-2.4) 04/12/19 06:14 Total Bilirubin 0.5 mg/dL (0.2-1.0) 04/08/19 21:25 AST 37 U/L (15-37) 04/08/19 21:25 ALT 43 U/L (12-78) 04/08/19 21:25 Alkaline Phosphatase 86 U/L (46-116) 04/08/19 21:25 Troponin I < 0.05 ng/mL (0.00-0.06) 04/08/19 21:25 Total Protein 7.0 g/dL (6.4-8.2) 04/08/19 21:25 Albumin 3.7 g/dL (3.4-5.0) 04/08/19 21:25 Vitamin B12 1124 pg/mL (193-986) H 04/11/19 06:14 TSH 2.30 uIU/mL (0.358-3.74) 04/11/19 06:14 Urine Color Yellow (Yellow) 04/08/19 22:10 Urine Clarity Clear 04/08/19 22:10 Urine pH 5.5 (5-8) 04/08/19 22:10 Ur Specific [place] 1.020 (1.005-1.025) 04/08/19 22:10 Urine Protein Negative mg/dL (Negative) 04/08/19 22:10 Urine Ketones Negative mg/dL (Negative) 04/08/19 22:10 Urine Blood Negative (Negative) 04/08/19 22:10 Urine Nitrite Negative (Negative) 04/08/19 22:10 Urine Bilirubin Negative (Negative) 04/08/19 22:10 Urine Urobilinogen 0.2 EU/dL (Up TO 0.2) 04/08/19 22:10 Ur Leukocyte Esterase Negative (Negative) 04/08/19 22:10 Urine Glucose Negative mg/dL (Negative) 04/08/19 22:10 Vancomycin Trough 15.4 ug/mL (10.0-20.0) 04/12/19 09:05 Lyme Disease Antibody Negative 04/08/19 23:50 Herpes Simplex Source Cancelled 04/08/19 23:50 HSV I IgG Ab Positive 04/08/19 23:50 HSV II IgG Positive 04/08/19 23:50 HSV I DNA PCR Cancelled 04/08/19 23:50 HSV II DNA PCR Cancelled 04/08/19 23:50
[2019-04-13 07:16] LABS: Anion Gap 7.6 mmol/L (3-11); BUN 6 mg/dL (7-18); CO2 24.4 mmol/L (21.0-32.0); CREATININE 0.69 mg/dL (0.70-1.30); Calcium 7.9 mg/dL (8.5-10.1); Chloride 108 mmol/L (98-107); Glucose 160 mg/dL (70-100); Magnesium 1.9 mg/dL (1.8-2.4); Potassium 3.4 mmol/L (3.5-5.1); Sodium 140 mmol/L (136-145)
[2019-04-13] MEDS: Normal Saline Flush 10 ML SYR IVP ×2 (08:23→16:58)
[2019-04-13] MEDS: Aspirin 300 MG SUPP PR (08:24)
[2019-04-13] MEDS: PIPERACILLIN/TAZO 4.5 GM in Normal Saline 100 ML IVPB ×2 (08:24→16:56)
[2019-04-13] MEDS: POTASSIUM CHLORIDE 20 MEQ/100 ML BAG 50 MEQ IVPB ×2 (09:24→12:30)
[2019-04-13] MEDS: VANCOMYCIN 1,250 MG in Normal Saline 250 ML 167 MG IVPB (10:53)
[2019-04-13] MEDS: DEXTROSE 5%-0.45% SALINE 1,000 ML 75 ML IV (10:57)
--- NOTE | 2019-04-13 12:25 | PDOC.CMPRO ---
- If Service Date Differs Date of service: 04/13/19 Time of Service: 12:57 Care Management Progress Note S/O:Jose Miguel is more alert today and able to engage with CM. He was able to get up to the chair today per primary nurse and is diet has been advanced. His sister remains at the bedside and he is scheduled to meet with palliative care again on 729 with . CM will continue to provide support to patient and care team ongoing discharge planning and disposition. Jose Miguel may need a wheelchair van through [facility] for transport if [facility] Rehab van is not available. A:Jose Miguel is a 69 year old male admitted with Encephalopathy, now being treated for aspiration pneumonia P:Jose Miguel remains ICU level of care today He continues on IV antibiotics, respiratory support and ongoing monitoring. Jose Miguel will return to [facility] when ready per MD.The facility will manage his further service and equipment needs. He will transport via W/C Van.
--- NOTE | 2019-04-13 12:34 | CMPROGNOTE_ITS ---
- If Service Date Differs Date of service: 04/13/19 Time of Service: 12:57 Care Management Progress Note S/O:Jose Miguel is more alert today and able to engage with CM. He was able to get up to the chair today per primary nurse and is diet has been advanced. His sister remains at the bedside and he is scheduled to meet with palliative care again on 729 with . CM will continue to provide support to patient and care team ongoing discharge planning and disposition. Jose Miguel may need a wheelchair van through [facility] for transport if Health [facility] Rehab van is not available. A:Jose Miguel is a 69 year old male admitted with Encephalopathy, now being treated for aspiration pneumonia P:Jose Miguel remains ICU level of care today He continues on IV antibiotics, respiratory support and ongoing monitoring. Jose Miguel will return to [facility] when ready per MD.The facility will manage his further service and equipment needs. He will transport via W/C Van.
--- NOTE | 2019-04-13 15:21 | W.PM.PROGNOT ---
Date of Service Date of service: 04/13/19 Time of Service: 15:21 Assessment and Plan (1) Altered mental status: Current visit: No Status: Active Acute Delirium, presumed infectious given concurrent fever, patient is on broad spectrum antibiotics and now improving. May have suffered an aspiration event as well given CXR findings and development of fever. Continue treatment with broad spectrum antibiotics and antiviral therapy, broadened to include coverage for potential aspiration. 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 CT of the head negative, and unable to obtain MRI due to patient's agitation. As patient is currently NPO initiated NC Aspirin, but will resume oral Clopidogrel once able. Neurology consultation unfortunately unavailable. No evidence of ischemia or changes on admission ECG and initial Troponin negative. Electrolytes appear ok - TSH and B12 checked and normal. Tick Panel negative, and HSV IgG positive. Of note, CT of the head confirms old b/l thalamic infarcts, as well as global atrophy and chronic white matter ischemic changes. Patient confirmed to have baseline dementia by family. May be acute delirium in setting of acute illness, now appearing vastly improved. Continue to prohibit use of Lorazepam, and minimal Haldol only if needed. (2) Fever: Current visit: No Status: Active Negative Urinalysis and CXR initially, without obvious source for patient's presenting fever. Initially under treatment for presumed HYDROCRANE OPERATOR infection given concurrent altered mental status - patient did not appear to have Nuchal Rigidity, and LP was not attempted given need for sedation with potential intubation. Now with evidence of aspiration. Continue broad spectrum coverage with Vancomycin and Acyclovir, currently day #5, with Pip-Tazo initiated for potential aspiration, now day #3. Also received 3 days of Ceftriaxone initially. Tick Panel and HSV Serology negative. Currently without a fever since 04/11 evening. Blood Cultures remain negative. Check Procalcitonin tomorrow. (3) Benign hypertension: Current visit: No Status: Chronic Noted. Blood pressure elevated as patient is off his minimal dose SOULEYMANE-I and with agitation, but appears improved this afternoon. Continue IV Hydralazine on a prn basis for significant elevation. (4) Non-small cell lung cancer: Current visit: No Status: Inactive Reported remote history of NSCLCa. Records unavailable - according to family, original diagnosis and treatment occured in the early , with patient in remission. CXR unremarkable. (5) COPD (chronic obstructive pulmonary disease): Current visit: Yes Status: Chronic Noted, with wheezing noted by exam with discovery of infiltrate. Steroids initiated. Continue nebs, supplemental oxygen. Monitor. (6) DVT prophylaxis: Current visit: Yes Status: Acute Continue SC Lovenox, PPI for GI Prophylaxis. (7) Advance directive on file: Current visit: Yes Status: Chronic Full Code. Palliative Medicine was consulted, has met with family, and confirms code status. Subjective Interval history since last seen: 69 year old man with a prior history significant for metastatic Lung Ca and prior CVA's, admitted from [facility] on 04/09 with a diagnosis of fever and altered mental status. Mr. White has a Past Medical History significant for NSCLCa in the early , along with prior history of both aseptic meningitis in 2012 as well as prior CVA X2 with possible mild left sided deficits as a result. He also has prior history of COPD, HTN, and Dyslipidemia. Upon presentation to the ED the patient was noted to have confusion and an altered mental status, with potential right sided neglect. He was also noted to be febrile, with temperature as high as 38.8. His Urinalysis, CBC and CMP were essentially unremarkable, but with an elevated Lactate. His CXR and CT Head were unremarkable. An LP was not attempted given patient's mental status and agitation, as significant sedation and potation intubation may have been required (per review of ED Notes). Given patient's altered mental status and fever, he was referred for admission for treatment of potential HYDROCRANE OPERATOR infection. Neurology at [facility] was consulted by the ED physician, and agreed with empiric treatment of possible HYDROCRANE OPERATOR infection. Mr. White had appeared somewhat improved, but developed worsening tachypnea overnight on 04/11, with CXR showing a new RUL infiltrate. He also became febrile that day. An attempt at MRI of the brain failed due to patient agitation, despite administration of medications prior. This morning he appears vastly improved, verbal and responsive, following commands. He has remained afebrile since the evening of 04/11. No other overnight events reported. Exam Narrative Exam Narrative: General: Patient is no longer agitated, verbal, and following commands. Oriented to self. NAD noted. Neck: Supple CV: Regular, mildly tachycardic, S1S2, No rubs, murmurs, or gallops. Pulmonary: Diffusely decreased breath sounds and wheezing both improved. Abdomen: + Bowel Sounds, soft, nontender, nondistended Vascular: No lower extremity edema Objective Objective Clinical Data: Abnormal lab results 04/13/19 04/13/19 Range/Units 06:25 06:25 WBC 11.15 H (4.4-10.8) k/cumm RBC 4.32 L (4.50-6.00) m/cumm Hgb 12.8 L (13.5-17.5) g/dL Hct 37.0 L (40.0-50.0) % Absolute Neutrophils 10.09 H (1.2-6.7) k/cumm Absolute Lymphocytes 0.79 L (1.2-3.4) k/cumm Potassium 3.4 L (3.5-5.1) mmol/L Chloride 108 H (98-107) mmol/L BUN 6 L (7-18) mg/dL Creatinine 0.69 L (0.70-1.30) mg/dL Glucose 160 H (70-100) mg/dL Calcium 7.9 L (8.5-10.1) mg/dL Vital Signs Temperature 36.7 C 04/13/19 03:28 Temperature Source Temporal Artery Scan 04/13/19 03:28 Pulse 67 04/13/19 08:01 Pulse 65 04/13/19 08:01 Respiratory Rate 23 04/13/19 08:01 Respiratory Effort 04/13/19 12:30 Respiratory Depth Normal 04/13/19 12:30 Respiratory Pattern Normal 04/13/19 12:30 Blood Pressure 140/76 04/13/19 08:01 Blood Pressure Mean 92 04/13/19 08:01 Blood Pressure Position Supine 04/13/19 03:28 Pulse Oximetry 92 L 04/13/19 08:01 Oxygen Delivery Method Room Air 04/13/19 12:30 Oxygen Flow Rate 0 04/13/19 12:30 Fraction of Inspired Oxygen (FIO2) 25 04/13/19 03:28 Pain Level 0 04/13/19 12:30 Intake & Output 04/12/19 04/13/19 04/13/19 23:59 11:59 23:59 Intake Total 1048.333 / 3374.583 2000 / 2350 350 / 2350 Output Total 2850 / 3700 400 / 1550 1150 / 1550 Balance -1801.667 / -704.787 6533 / 800 -800 / 800 Weight 89.3 kg Intake: IV 1048.333 / 3374.583 1950 / 2300 350 / 2300 Oral 50 / 50 Output: Urine 2850 / 3700 400 / 1550 1150 / 1550 Other: Urine Color Pale Pale Pale Yellow Yellow Urine Appearance Clear Clear Clear Comment pt has indwelling lucas cath Lucas drainging to gravity Lucas to gravity Laboratory Results WBC 11.15 k/cumm (4.4-10.8) H 04/13/19 06:25 RBC 4.32 m/cumm (4.50-6.00) L 04/13/19 06:25 Hgb 12.8 g/dL (13.5-17.5) L 04/13/19 06:25 Hct 37.0 % (40.0-50.0) L 04/13/19 06:25 MCV 85.6 fL (80-95) 04/13/19 06:25 MCH 29.6 pg (27.0-33.0) 04/13/19 06:25 MCHC 34.6 g/dL (32.0-36.0) 04/13/19 06:25 RDW 13.7 % (11.8-14.1) 04/13/19 06:25 Plt Count 338 x1000/uL (130-400) 04/13/19 06:25 MPV 9.3 fL (8.0-11.0) 04/13/19 06:25 Immature Gran % 0.3 04/13/19 06:25 Neutrophils % 90.5 04/13/19 06:25 Lymphocytes % 7.1 04/13/19 06:25 Atypical Lymphs % 1 04/12/19 06:14 Monocytes % 2.0 04/13/19 06:25 Eosinophils % 0.0 04/13/19 06:25 Basophils % 0.1 04/13/19 06:25 Absolute Neutrophils 10.09 k/cumm (1.2-6.7) H 04/13/19 06:25 Absolute Lymphocytes 0.79 k/cumm (1.2-3.4) L 04/13/19 06:25 Absolute Monocytes 0.22 k/cumm (0.11-0.7) 04/13/19 06:25 Absolute Eosinophils 0.00 k/cumm (0.0-0.7) 04/13/19 06:25 Absolute Basophils 0.01 k/cumm (0.0-0.2) 04/13/19 06:25 Nucleated RBCs 0 /100WBC 04/12/19 06:14 Differential Comment Manual differential 04/12/19 06:14 RBC Morphology Normal 04/12/19 06:14 Sodium 140 mmol/L (136-145) 04/13/19 06:25 Potassium 3.4 mmol/L (3.5-5.1) L 04/13/19 06:25 Chloride 108 mmol/L (98-107) H 04/13/19 06:25 Carbon Dioxide 24.4 mmol/L (21.0-32.0) 04/13/19 06:25 Anion Gap 7.6 mmol/L (3-11) 04/13/19 06:25 BUN 6 mg/dL (7-18) L 04/13/19 06:25 Creatinine 0.69 mg/dL (0.70-1.30) L 04/13/19 06:25 Estimated GFR/1.73 m2 >= 60.00 (mL/min/1.73m2) 04/13/19 06:25 Glucose 160 mg/dL (70-100) H 04/13/19 06:25 Lactate 1.0 mmol/l (0.6-1.4) 04/10/19 06:15 Calcium 7.9 mg/dL (8.5-10.1) L 04/13/19 06:25 Magnesium 1.9 mg/dL (1.8-2.4) 04/13/19 06:25 Total Bilirubin 0.5 mg/dL (0.2-1.0) 04/08/19 21:25 AST 37 U/L (15-37) 04/08/19 21:25 ALT 43 U/L (12-78) 04/08/19 21:25 Alkaline Phosphatase 86 U/L (46-116) 04/08/19 21:25 Troponin I < 0.05 ng/mL (0.00-0.06) 04/08/19 21:25 Total Protein 7.0 g/dL (6.4-8.2) 04/08/19 21:25 Albumin 3.7 g/dL (3.4-5.0) 04/08/19 21:25 Vitamin B12 1124 pg/mL (193-986) H 04/11/19 06:14 TSH 2.30 uIU/mL (0.358-3.74) 04/11/19 06:14 Urine Color Yellow (Yellow) 04/08/19 22:10 Urine Clarity Clear 04/08/19 22:10 Urine pH 5.5 (5-8) 04/08/19 22:10 Ur Specific [place] 1.020 (1.005-1.025) 04/08/19 22:10 Urine Protein Negative mg/dL (Negative) 04/08/19 22:10 Urine Ketones Negative mg/dL (Negative) 04/08/19 22:10 Urine Blood Negative (Negative) 04/08/19 22:10 Urine Nitrite Negative (Negative) 04/08/19 22:10 Urine Bilirubin Negative (Negative) 04/08/19 22:10 Urine Urobilinogen 0.2 EU/dL (Up TO 0.2) 04/08/19 22:10 Ur Leukocyte Esterase Negative (Negative) 04/08/19 22:10 Urine Glucose Negative mg/dL (Negative) 04/08/19 22:10 Vancomycin Trough 15.4 ug/mL (10.0-20.0) 04/12/19 09:05 A.phagocytophil DNA PCR Negative (Negative) 04/08/19 23:50 B. divergens/MO-1 PCR Negative (Negative) 04/08/19 23:50 Babesia duncani (PCR) Negative (Negative) 04/08/19 23:50 Babesia microti DNA PCR Negative (Negative) 04/08/19 23:50 Borrelia (PCR) Negative (Negative) 04/08/19 23:50 Lyme Disease Antibody Negative 04/08/19 23:50 E.chaffeensis DNA (PCR) Negative (Negative) 04/08/19 23:50 E.ewingii/canis DNA PCR Negative (Negative) 04/08/19 23:50 E. muris-like DNA (PCR) Negative (Negative) 04/08/19 23:50 Herpes Simplex Source Cancelled 04/08/19 23:50 HSV I IgG Ab Positive 04/08/19 23:50 HSV II IgG Positive 04/08/19 23:50 HSV I DNA PCR Cancelled 04/08/19 23:50 HSV II DNA PCR Cancelled 04/08/19 23:50
--- NOTE | 2019-04-13 15:22 | CHAPLAIN ---
I checked in with Jose Miguel's sister today. She said he is more awake today, and talking a little bit. He was in bed, but restless, while I was visiting. Jose Miguel's sister has been here much of his stay, along with his niece.
--- NOTE | 2019-04-13 15:27 | PGE_ITS ---
Date of Service Date of service: 04/13/19 Time of Service: 15:21 Assessment and Plan (1) Altered mental status: Current visit: No Status: Active Acute Delirium, presumed infectious given concurrent fever, patient is on broad spectrum antibiotics and now improving. May have suffered an aspiration event as well given CXR findings and development of fever. Continue treatment with broad spectrum antibiotics and antiviral therapy, broadened to include coverage for potential aspiration. 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 CT of the head negative, and unable to obtain MRI due to patient's agitation. As patient is currently NPO initiated MA Aspirin, but will resume oral Clopidogrel once able. Neurology consultation unfortunately unavailable. No evidence of ischemia or changes on admission ECG and initial Troponin negative. Electrolytes appear ok - TSH and B12 checked and normal. Tick Panel negative, and HSV IgG positive. Of note, CT of the head confirms old b/l thalamic infarcts, as well as global atrophy and chronic white matter ischemic changes. Patient confirmed to have baseline dementia by family. May be acute delirium in setting of acute illness, now appearing vastly improved. Continue to prohibit use of Lorazepam, and minimal Haldol only if needed. (2) Fever: Current visit: No Status: Active Negative Urinalysis and CXR initially, without obvious source for patient's presenting fever. Initially under treatment for presumed DUMPER MOLD CLEANER infection given concurrent altered mental status - patient did not appear to have Nuchal R igidity, and LP was not attempted given need for sedation with potential intubation. Now with evidence of aspiration. Continue broad spectrum coverage with Vancomycin and Acyclovir, currently day #5, with Pip-Tazo initiated for potential aspiration, now day #3. Also received 3 days of Ceftriaxone initially. Tick Panel and HSV Serology negative. Currently without a fever since 04/11 evening. Blood Cultures remain negative. Check Procalcitonin tomorrow. (3) Benign hypertension: Current visit: No Status: Chronic Noted. Blood pressure elevated as patient is off his minimal dose SOULEYMANE-I and with agitation, but appears improved this afternoon. Continue IV Hydralazine on a prn basis for significant elevation. (4) Non-small cell lung cancer: Current visit: No Status: Inactive Reported remote history of NSCLCa. Records unavailable - according to family, original diagnosis and treatment occured in the early , with patient in remission. CXR unremarkable. (5) COPD (chronic obstructive pulmonary disease): Current visit: Yes Status: Chronic Noted, with wheezing noted by exam with discovery of infiltrate. Steroids initiated. Continue nebs, supplemental oxygen. Monitor. (6) DVT prophylaxis: Current visit: Yes Status: Acute Continue SC Lovenox, PPI for GI Prophylaxis. (7) Advance directive on file: Current visit: Yes Status: Chronic Full Code. Palliative Medicine was consulted, has met with family, and confirms code status. Subjective Interval history since last seen: 69 year old man with a prior history significant for metastatic Lung Ca and prior CVA's, admitted from [facility] Emergency Department on 04/09 with a diagnosis of fever and altered mental status. Mr. White has a Past Medical History significant for NSCLCa in the early , along with prior history of both aseptic meningitis in 2012 as well as prior CVA X2 with possible mild left sided deficits as a result. He also has prior history of COPD, HTN, and Dyslipidemia. Upon presentation to the ED the patient was noted to have confusion and an altered mental status, with potential right sided neglect. He was also noted to be febrile, with temperature as high as 38.8. His Urinalysis, CBC and CMP were essentially unremarkable, but with an elevated Lactate. His CXR and CT Head were unremarkable. An LP was not attempted given patient's mental status and agitation, as significant sedation and potation intubation may have been required (per review of ED Notes). Given patient's altered mental status and fever, he was referred for admission for treatment of potential DUMPER MOLD CLEANER infection. Neurology at [facility] was consulted by the ED physician, and agreed with empiric treatment of possible DUMPER MOLD CLEANER infection. Mr. White had appeared somewhat improved, but developed worsening tachypnea overnight on 04/11, with CXR showing a new RUL infiltrate. He also became febrile that day. An attempt at MRI of the brain failed due to patient agitation, despite administration of medications prior. This morning he appears vastly improved, verbal and responsive, following commands. He has remained afebrile since the evening of 04/11. No other overnight events reported. Exam Narrative Exam Narrative: General: Patient is no longer agitated, verbal, and following commands. Oriented to self. NAD noted. Neck: Supple CV: Regular, mildly tachycardic, S1S2, No rubs, murmurs, or gallops. Pulmonary: Diffusely decreased breath sounds and wheezing both improved. Abdomen: + Bowel Sounds, soft, nontender, nondistended Vascular: No lower extremity edema Objective Objective Clinical Data: Abnormal lab results 04/13/19 04/13/19 Range/Units 06:25 06:25 WBC 11.15 H (4.4-10.8) k/cumm RBC 4.32 L (4.50-6.00) m/cumm Hgb 12.8 L (13.5-17.5) g/dL Hct 37.0 L (40.0-50.0) % Absolute Neutrophils 10.09 H (1.2-6.7) k/cumm Absolute Lymphocytes 0.79 L (1.2-3.4) k/cumm Potassium 3.4 L (3.5-5.1) mmol/L Chloride 108 H (98-107) mmol/L BUN 6 L (7-18) mg/dL Creatinine 0.69 L (0.70-1.30) mg/dL Glucose 160 H (70-100) mg/dL Calcium 7.9 L (8.5-10.1) mg/dL Vital Signs Temperature 36.7 C 04/13/19 03:28 Temperature Source Temporal Artery Scan 04/13/19 03:28 Pulse 67 04/13/19 08:01 Pulse 65 04/13/19 08:01 Respiratory Rate 23 04/13/19 08:01 Respiratory Effort 04/13/19 12:30 Respiratory Depth Normal 04/13/19 12:30 Respiratory Pattern Normal 04/13/19 12:30 Blood Pressure 140/76 04/13/19 08:01 Blood Pressure Mean 92 04/13/19 08:01 Blood Pressure Position Supine 04/13/19 03:28 Pulse Oximetry 92 L 04/13/19 08:01 Oxygen Delivery Method Room Air 04/13/19 12:30 Oxygen Flow Rate 0 04/13/19 12:30 Fraction of Inspired Oxygen (FIO2) 25 04/13/19 03:28 Pain Level 0 04/13/19 12:30 Intake & Output 04/12/19 04/13/19 04/13/19 23:59 11:59 23:59 Intake Total 1048.333 / 3374.583 1999 / 2350 350 / 2350 Output Total 2850 / 3700 400 / 1550 1150 / 1550 Balance -1801.667 / -871.940 3546 / 800 -800 / 800 Weight 89.3 kg Intake: IV 1048.333 / 3374.583 1950 / 2300 350 / 2300 Oral 50 / 50 Output: Urine 2850 / 3700 400 / 1550 1150 / 1550 Other: Urine Color Pale Pale Pale Yellow Yellow Urine Appearance Clear Clear Clear Comment pt has indwelling lucas cath Lucas drainging to gravity Lucas to gravity Laboratory Results WBC 11.15 k/cumm (4.4-10.8) H 04/13/19 06:25 RBC 4.32 m/cumm (4.50-6.00) L 04/13/19 06:25 Hgb 12.8 g/dL (13.5-17.5) L 04/13/19 06:25 Hct 37.0 % (40.0-50.0) L 04/13/19 06:25 MCV 85.6 fL (80-95) 04/13/19 06:25 MCH 29.6 pg (27.0-33.0) 04/13/19 06:25 MCHC 34.6 g/dL (32.0-36.0) 04/13/19 06:25 RDW 13.7 % (11.8-14.1) 04/13/19 06:25 Plt Count 338 x1000/uL (130-400) 04/13/19 06:25 MPV 9.3 fL (8.0-11.0) 04/13/19 06:25 Immature Gran % 0.3 04/13/19 06:25 Neutrophils % 90.5 04/13/19 06:25 Lymphocytes % 7.1 04/13/19 06:25 Atypical Lymphs % 1 04/12/19 06:14 Monocytes % 2.0 04/13/19 06:25 Eosinophils % 0.0 04/13/19 06:25 Basophils % 0.1 04/13/19 06:25 Absolute Neutrophils 10.09 k/cumm (1.2-6.7) H 04/13/19 06:25 Absolute Lymphocytes 0.79 k/cumm (1.2-3.4) L 04/13/19 06:25 Absolute Monocytes 0.22 k/cumm (0.11-0.7) 04/13/19 06:25 Absolute Eosinophils 0.00 k/cumm (0.0-0.7) 04/13/19 06:25 Absolute Basophils 0.01 k/cumm (0.0-0.2) 04/13/19 06:25 Nucleated RBCs 0 /100WBC 04/12/19 06:14 Differential Comment Manual differential 04/12/19 06:14 RBC Morphology Normal 04/12/19 06:14 Sodium 140 mmol/L (136-145) 04/13/19 06:25 Potassium 3.4 mmol/L (3.5-5.1) L 04/13/19 06:25 Chloride 108 mmol/L (98-107) H 04/13/19 06:25 Carbon Dioxide 24.4 mmol/L (21.0-32.0) 04/13/19 06:25 Anion Gap 7.6 mmol/L (3-11) 04/13/19 06:25 BUN 6 mg/dL (7-18) L 04/13/19 06:25 Creatinine 0.69 mg/dL (0.70-1.30) L 04/13/19 06:25 Estimated GFR/1.73 m2 >= 60.00 (mL/min/1.73m2) 04/13/19 06:25 Glucose 160 mg/dL (70-100) H 04/13/19 06:25 Lactate 1.0 mmol/l (0.6-1.4) 04/10/19 06:15 Calcium 7.9 mg/dL (8.5-10.1) L 04/13/19 06:25 Magnesium 1.9 mg/dL (1.8-2.4) 04/13/19 06:25 Total Bilirubin 0.5 mg/dL (0.2-1.0) 04/08/19 21:25 AST 37 U/L (15-37) 04/08/19 21:25 ALT 43 U/L (12-78) 04/08/19 21:25 Alkaline Phosphatase 86 U/L (46-116) 04/08/19 21:25 Troponin I < 0.05 ng/mL (0.00-0.06) 04/08/19 21:25 Total Protein 7.0 g/dL (6.4-8.2) 04/08/19 21:25 Albumin 3.7 g/dL (3.4-5.0) 04/08/19 21:25 Vitamin B12 1124 pg/mL (193-986) H 04/11/19 06:14 TSH 2.30 uIU/mL (0.358-3.74) 04/11/19 06:14 Urine Color Yellow (Yellow) 04/08/19 22:10 Urine Clarity Clear 04/08/19 22:10 Urine pH 5.5 (5-8) 04/08/19 22:10 Ur Specific [place] 1.020 (1.005-1.025) 04/08/19 22:10 Urine Protein Negative mg/dL (Negative) 04/08/19 22:10 Urine Ketones Negative mg/dL (Negative) 04/08/19 22:10 Urine Blood Negative (Negative) 04/08/19 22:10 Urine Nitrite Negative (Negative) 04/08/19 22:10 Urine Bilirubin Negative (Negative) 04/08/19 22:10 Urine Urobilinogen 0.2 EU/dL (Up TO 0.2) 04/08/19 22:10 Ur Leukocyte Esterase Negative (Negative) 04/08/19 22:10 Urine Glucose Negative mg/dL (Negative) 04/08/19 22:10 Vancomycin Trough 15.4 ug/mL (10.0-20.0) 04/12/19 09:05 A.phagocytophil DNA PCR Negative (Negative) 04/08/19 23:50 B. divergens/MO-1 PCR Negative (Negative) 04/08/19 23:50 Babesia duncani (PCR) Negative (Negative) 04/08/19 23:50 Babesia microti DNA PCR Negative (Negative) 04/08/19 23:50 Borrelia (PCR) Negative (Negative) 04/08/19 23:50 Lyme Disease Antibody Negative 04/08/19 23:50 E.chaffeensis DNA (PCR) Negative (Negative) 04/08/19 23:50 E.ewingii/canis DNA PCR Negative (Negative) 04/08/19 23:50 E. muris-like DNA (PCR) Negative (Negative) 04/08/19 23:50 Herpes Simplex Source Cancelled 04/08/19 23:50 HSV I IgG Ab Positive 04/08/19 23:50 HSV II IgG Positive 04/08/19 23:50 HSV I DNA PCR Cancelled 04/08/19 23:50 HSV II DNA PCR Cancelled 04/08/19 23:50
[2019-04-13] MEDS: Enoxaparin 40 MG/0.4 ML SYR SC (16:54)
[2019-04-13] MEDS: VANCOMYCIN 1,250 MG in Normal Saline 250 ML 166.6 MG IVPB (19:46)
[2019-04-14] VITALS (11 sets, daily range): BP systolic 112–165; BP diastolic 70–87; PULSE 70–95; RESP 15–20; TEMP 35.7–37.7; O2SAT 94–97
[2019-04-14] MEDS: DEXTROSE 5%-0.45% SALINE 1,000 ML 75 ML IV ×2 (00:30→16:11)
[2019-04-14] MEDS: PIPERACILLIN/TAZO 4.5 GM in Normal Saline 100 ML IVPB ×4 (00:31→23:38)
[2019-04-14] MEDS: NORMAL SALINE IVPB ×3 (03:07→19:52)
[2019-04-14] MEDS: ACYCLOVIR SODIUM IVPB ×3 (03:07→19:52)
[2019-04-14] MEDS: methylPREDNISolone SUCC 40 MG VIAL IVP (03:07)
[2019-04-14] MEDS: VANCOMYCIN 1,250 MG in Normal Saline 250 ML 167 MG IVPB (06:24)
[2019-04-14 07:34] LABS: Abs Immature Grans 0.04 k/cumm (0.0-0.09); Absolute Lymphocyte Count 1.32 k/cumm (1.2-3.4); Absolute Monocyte Count 0.48 k/cumm (0.11-0.7); HCT 36.7 % (40.0-50.0); HGB 12.2 g/dL (13.5-17.5); Immature Grans % 0.3; Mean Corp. HGB Concentration 33.2 g/dL (32.0-36.0); Mean Corpuscular Volume 87.2 fL (80-95); Mean Platelet Volume 9.3 fL (8.0-11.0); Monocytes % 3.6; Neutrophils % 86.1; Platelet Count 361 x1000/uL (130-400); RBC 4.21 m/cumm (4.50-6.00); RBC Distribution Width 14.2 % (11.8-14.1)
[2019-04-14 07:37] LABS: Absolute Neutrophil Count 11.37 k/cumm (1.2-6.7)
[2019-04-14 07:47] LABS: Anion Gap 8.4 mmol/L (3-11); BUN 12 mg/dL (7-18); CO2 27.6 mmol/L (21.0-32.0); Chloride 111 mmol/L (98-107); Glucose 148 mg/dL (70-100); Magnesium 1.9 mg/dL (1.8-2.4); Potassium 3.7 mmol/L (3.5-5.1); Sodium 147 mmol/L (136-145)
--- NOTE | 2019-04-14 08:15 | PDOC.CMPRO ---
- If Service Date Differs Date of service: 04/14/19 Time of Service: 08:15 Care Management Progress Note S/O Jose Miguel continues to improve. Plan will be for him to be discharged on Thursday back to the rehab. Dr. Simental met with him this morning and she will follow him at [facility] and rehab next scheduled visit is 04/26/2019 at 1330. A:Jose Miguel is a 69 year old male admitted with Encephalopathy, now being treated for aspiration pneumonia P:Jose Miguel changed to medical surgical status today. He continues on IV antibiotics, respiratory support and ongoing monitoring. Jose Miguel will return to [facility] when ready per .The facility will manage his further service and equipment needs. He will transport via [facility] [facility].
[2019-04-14 08:19] LABS: Procalcitonin < 0.1 ng/mL
[2019-04-14] MEDS: Clopidogrel 75 MG TAB PO (09:35)
[2019-04-14] MEDS: Levothyroxine 50 MCG TAB PO (10:55)
[2019-04-14] MEDS: Lisinopril 5 MG TAB 2.5 MG PO (10:55)
[2019-04-14] MEDS: PAROXETINE 30 MG PO (10:56)
[2019-04-14] MEDS: POTASSIUM CHLORIDE 20 MEQ, POTASSIUM CHLORIDE 10 MEQ 30 MEQ PO (11:02)
[2019-04-14] MEDS: Magnesium Oxide 400 MG TAB PO (11:03)
--- NOTE | 2019-04-14 11:55 | W.SPEECHEVAL ---
Date of service: 04/14/19 Time of Service: 10:45 Speech Therapy Evaluation Note: REFERRING PROVIDER: Dr. Schmitz BACKGROUND This is a 69 year old right-handed male who presented to the ED from [facility] on 04/08/19 due to a change in mental status. A CXR of that date showed findings suspicious for RUL pneumonia. He was admitted for tx of encephalopathy & pneumonia. Today a swallow evaluation was ordered to assess aspiration risk. PMH: HTN, COPD, hyperlipidemia, hypothyroidism, h/o lung CA with brain mets s/p XRT, CVA & meningitis (2012). The patient (pt) is able to provide background information regarding p. o. consistencies taken in the weeks prior to this admission. He was taking what, by description, are Thin liquids, a Regular consistency diet & whole pills with a liquid wash. OBJECTIVE Nursing reports: - T: 36.7 - O2 sat: 95% on RA - LS: CTA-B (bilaterally) in the presence of ABX - Pt is listed as being on a Regular consistency diet but nursing has not been giving anything p. o. until today when they trialed him on Puree food, thickened liquids & whole pills with a liquid wash, which he seemed to tolerate. The pt is sitting in his chair and greets me with good direct eye contact, a smile and an intelligible verbal greeting. He is able to converse adequately but thought processing appears somewhat slow at times. He is A & O x 2 (person, place) and able to follow 3-step directions. Oral Sensorimotor Exam The pt is edentulous on the upper ridge & wears a full upper denture (FUD). He is edentulous in the lower posterior areas with no partial lower denture. He denies any discomfort with both the FUD and his own dentition. He states that his FUD is 4-5 years old and he feels it fits well without adhesive. On manual inspection, the denture is mildly loose. The pt declines the offer of a trial of denture adhesive. Oral sensation is WNL-B for buccal, labial & lingual areas. Motorically, the smile is symmetrical as are forehead wrinkles. Labiobuccal strength/coordination is WNL-B. No lingual deviation on protrusion is seen in a setting of good excursion. Wide-spread lingual thrush is noted. No lingual fasciculations are seen. Lingual lateralization is WNL-B as are lingual rapid alternating movements. Lingual strength & mandibular lateralization are both WNL-B. Velopharyngeal elevation is strong & symmetrical. Volitional cough and throat-clear are strong. Speech intelligibility to this unfamiliar listener in a setting of mild-moderate background noise is 100%. Vocal quality & intensity are WNL. Swallowing - Moderately-thick liquid: Good bolus control & posterior oral transit (POT); no esthela signs/symptoms (s/s) of aspiration/penetration (A/P); oral clearance 100%; no oral escape. These results are true for both single & consecutive swallows by cup. - Mildly-thick liquid: Results are the same as for Moderately-thick liq uid. These results are true for both single & consecutive swallows by both cup & straw. - Thin liquid: Results are the same as for Mildly-thick liquid. - Puree food: Good bolus control, linguopalatal bolus compression & POT; no esthela s/s A/P; oral clearance 100%; no oral escape. - Minced & Moist food: Good bolus control, mastication quality & POT; no esthela s/s A/P; oral clearance 100%; no oral escape. - Soft & Bite-sized food: Good bolus control; good mastication quality with use of appropriately increased mastication time; POT WNL; no esthela s/s A/P; oral clearance 100%; no oral escape. - Pills: The pt is observed to take a single medium-sized whole pill with a Thin liquid wash. He shows good bolus control & POT; no esthela s/s A/P; oral clearance 100%; no oral escape. He was then observed to take 1/2 of a large pill with a Thin liquid wash. He shows good bolus control & POT but then c/o a globus sensation and points to the level of the UES. He then shows some prolonged coughing. Clearance of the bolus is achieved with a liquid wash. The pt shows mild inconsistent oral escape of oral secretions during the period of p. o. intake. He is observed to independently self-feed using his dominant RUE and a regular utnesil. INTERPRETATION The pt shows a mild esophageal dysphagia but no clinical signs of a pharyngeal dysphagia. He is presumed to have an oral-prep dysphagia for Regular consistency foods secondary to partial edentulousness & a FUD. RECOMMENDATIONS 1. Change to: - Thin liquids - Soft & Bite-sized diet consistency - small & medium-sized whole pills with a liquid wash - large pills either crushed in puree or dissolved in liquid 2. No speech therapy is indicated at this time. Thank you for referring this pt.
--- NOTE | 2019-04-14 13:00 | PT.INIE ---
Date of service: 04/14/19 Time of Service: 08:53 PT Notes Inpatient Physical Therapy Evaluation Date: 04/14/2019 Referring Doctor: Piyush Schmitz MD PT Orders: PT CONSULT: Deconditioning Precautions: Fall. Standard. Right hemineglect. Patient Profile/Admitting Diagnosis: Patient is a 69-year-old male with past medical history significant for CVA, septic meningitis, and lung carcinoma with brain metastases status post lobectomy of lung, radiation, and craniotomy who presented to the ED on 04/08/2019 with chief complaints of abrupt onset fever and altered mental status. Patient was diagnosed with encephalopathy and is now receiving empiric antibiotic treatment. Referral for skilled PT services was received to address existing impairments in strength, mobility, and balance. PMHX: Medical History Benign hypertension (Chronic) Hyperlipidemia (Chronic) Non-small cell lung cancer (Inactive) COPD (chronic obstructive pulmonary disease) (Chronic) Hypothyroid (Chronic) CVA (cerebral vascular accident) (Chronic) Surgical History S/P craniotomy (Chronic) S/P lobectomy of lung (Chronic) Social History/Home Situation: Jose Miguel is a long time resident of [facility]. He is independent with all bed mobility task performance using bed rails for support. He is able to negotiate short distance level surface ambulation up to 100 feet using a front wheeled walker with contact-guard assist of 1 FLOOR TRADER, otherwise his main mobility is through the use of a regular wheelchair inside the facility. He is able to perform all transfers with supervision assist while holding onto grab bars and bed rails. Current Functional Limitations: Apparent functional mobility decline requiring assistance with all transfers and ambulation tasks performance using FWW Equipment Owned/DME: Wheelchair, FWW Subjective: Patient is agreeable to a PT consult today. He complains of pain in low back and sides of bilateral hips. He denies any chest pain nor headache at time of evaluation . He states that he has not had any fever since this morning and that he feels a little better than he did the previous days. He plans on returning back to the [facility] once medically stable. Objective: General Observation: Patient seen resting in bed with HOB elevated to about 30 degrees. Oxygen supplementation via nasal cannula at 2 L/min. Telemetry monitoring in place. Magallnaes catheter in place. TEDS on bilateral legs. IV in right UE. Bilateral wrists and hands appear to be swollen. Mental Status: Alert and oriented as to person and place Pain: Reports mild to moderate pain on his low back and bilateral sides Vital Signs: Oxygen saturation stayed between 94 to 96% on room air with removal of oxygen supplementation even after transfer activity ROM: Right Upper Extremity: Shoulder Flexion 0-100. Shoulder abduction 0-90. Elbow flexion WFL. Wrist flexion WFL. Functional opening and closing of hand weak. Left Upper Extremity: Shoulder Flexion 0-100. Shoulder abduction 110. Elbow flexion WFL. Wrist flexion WFL. Functional opening and closing of hand WFL. Right Lower Extremity: Hip flexion WFL. Hip abduction WFL. Knee flexion WFL. Ankle dorsiflexion WFL. Ankle plantarflexion WFL. Left Lower Extremity: Hip flexion WFL. Hip abduction WFL. Lacks full terminal knee extension by about 10 degrees. Knee flexion WFL. Ankle dorsiflexion 5 degrees from neutral. Ankle plantarflexion 0-10. Strength: Right Upper Extremity: Shoulder flexors 3-/5. Shoulder abductors 3-/5. Elbow flexors 4-/5. Elbow extensors 4-/5. Piano Instructor weak. Left Upper Extremity: Shoulder flexors 3-/5. Shoulder abductors 3+/5. Elbow flexors 3+/5. Elbow extensors 3+/5. Piano Instructor strong. Right Lower Extremity: Hip flexors 4/5. Hip abductors 4/5. Knee flexors 4/5. Knee extensors 4/5. Ankle dorsiflexors 4/5. Ankle plantarflexors 4/5. Left Lower Extremity:Hip flexors 4-/5. Hip abductors 4-/5. Knee flexors 4-/5. Knee extensors 3-/5. Ankle dorsiflexors 3-/5. Ankle plantarflexors 3-/5. Bed Mobility/Transfers: Rolling minimal assist Supine to sit minimal assist Sit to supine minimal assist Sit to stand minimal assist Stand to sit minimal assist Bed to chair minimal assist Chair to bed minimal assist Gait: Patient was able to tolerate 3-4 steps +1-2 sidesteps +2 back steps to transfer from bedside to recliner using FWW with minimal assist of PT and standby assist nurse for safety and IV pole management. Balance: Static Sitting: Fair Dynamic Sitting: Fair Static Standing: Fair Dynamic Standing: Fair Special Tests: Mobility Limitations Standardized Measure [facility] AM-PAC 6 clicks Basic Mobility Inpatient Short Form: Raw Score: 11 CMS Score: 73% deficit Informed Consent/Education: Patient instructed in purpose of PT consult and plan of care. Patient was also instructed on safe techniques for using both hands movement transitions for transfers. Assessment: Patient is a 69-year-old male with diagnosis of encephalopathy. Patient presents with clinical signs and symptoms consistent with current/admitting diagnoses that have resulted to mobility limitations, gait instability, generalized weakness, and impairment of motor control as demonstrated by the following impairment level findings: 1. Decreased strength to B LE major muscle groups 2. Impaired sitting/standing balance 3. Impaired activity tolerance Impairments are contributing to the following functional limitations: 1. Dependent bed mobility skills 2. Increased dependence with transfers 3. Decline in ambulation performance 4. Increase completion time for mobility ADL performance 5. Increased fall risk Patient is assessed as a [id number] moderate complexity based on the following: History: 71-year-old male with past medical history significant for lung carcinoma, CVA, and aseptic meningitis Examination: Demonstrable impairment in strength, balance, and range of motion with underlying impairments and functional limitations as documented above Presentation:Evolving Decision Makin moderate complexity Goals: Goals X1 week 1. Supine-Sit independent 2. Sit-Supine independent 3. Sit-Stand supervision 4. Stand-Sit supervision 5. Bed-Chair supervision 6. Chair-Bed supervision t 7. CGA with gait on level surface with use of least restrictive device for at least 100 feet without report of pain nor dyspnea 8. Good static and dynamic standing balance/tolerance Plan of Care/Treatment Plan: 1-2x/day, 7 days/week x 1 week. Plan of care has been reviewed with the FOUNDRY MOLDER providing the service under Physical Therapy direction. Initiate Physical Therapy intervention for strengthening, bed mobility, transfers, gait, stairs, balance training, use of assistive device. DISCHARGE RECOMMENDATIONS: Patient plans to return to halfway facility as a long-term resident as previously in order to progress mobility level, strength, and balance. TREATMENT CODE/TIME: 18176 for 27 minutes beginning at 8:53 AM. Thank you very much for this referral. Noy Randle PT, DPT, CLT [facility]
--- NOTE | 2019-04-14 13:19 | W.PM.PROGNOT ---
Date of Service Date of service: 04/14/19 Time of Service: 13:19 Assessment and Plan (1) Altered mental status: Current visit: No Status: Active Acute Delirium, presumed infectious given concurrent fever, patient is on broad spectrum antibiotics and now improving. May have suffered an aspiration event as well given CXR findings and development of fever. Continue treatment with broad spectrum antibiotics and antiviral therapy, broadened to include coverage for potential aspiration. 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 CT of the head negative, and unable to obtain MRI due to patient's agitation. He was maintained on DC Aspirin when NPO, now back on daily Clopidogrel. Doubt acute CVA as etiology. Neurology consultation unfortunately unavailable at time of admission. No evidence of ischemia or changes on admission ECG and initial Troponin negative. Electrolytes appear ok - TSH and B12 checked and normal. Tick Panel negative, and HSV IgG positive. Of note, CT of the head confirms old b/l thalamic infarcts, as well as global atrophy and chronic white matter ischemic changes. Patient confirmed to have baseline dementia by family. May be acute delirium in setting of acute illness, now appears to be resolved. Continue to prohibit use of Lorazepam, and minimal Haldol only if needed. (2) Fever: Current visit: No Status: Active Negative Urinalysis and CXR initially, without obvious source for patient's presenting fever. Initially under treatment for presumed TREE CHIPPER infection given concurrent altered mental status - patient did not appear to have Nuchal Rigidity, and LP was not attempted given need for sedation with potential intubation. Now with evidence of aspiration. Continue broad spectrum coverage with Vancomycin and Acyclovir, currently day #6, with Pip-Tazo initiated for potential aspiration, now day #4. Also received 3 days of Ceftriaxone initially. Tick Panel and HSV Serology negative. Currently without a fever since 04/11 evening. Blood Cultures remain negative. Procalcitonin undetectable. Plan on discontinuation of antibiotics after treatment tomorrow. (3) Benign hypertension: Current visit: No Status: Chronic Noted. Blood pressure elevated in setting of agitation and while off minimal dose SOULEYMANE-I, vastly improved. Continue IV Hydralazine on a prn basis for significant elevation. (4) Non-small cell lung cancer: Current visit: No Status: Inactive Reported remote history of NSCLCa. Records unavailable - according to family, original diagnosis and treatment occured in the early , with patient in remission. CXR unremarkable. (5) COPD (chronic obstructive pulmonary disease): Current visit: Yes Status: Chronic Noted, with wheezing noted by exam with discovery of infiltrate. Vastly improved with initiation of steroids - changed to oral formulation today. Continue nebs, supplemental oxygen as needed. Monitor. (6) DVT prophylaxis: Current visit: Yes Status: Acute Continue SC Lovenox, PPI for GI Prophylaxis. (7) Advance directive on file: Current visit: Yes Status: Chronic Full Code. Palliative Medicine was consulted, has met with family, and confirms code status. (8) Discharge planning issues: Current visit: Yes Status: Acute There is [facility]. Patient will be on his 4th day of treatment after diagnosis of aspiration, but his Procalcitonin today is undetectable. Will plan on repeat CXR in the morning, and if improved/resolved and he continues to appear improved, may consider discharge back to the facility prior to the weekend. Subjective Interval history since last seen: 69 year old man with a prior history significant for metastatic Lung Ca and prior CVA's, admitted from [facility] Emergency Department on 04/09 with a diagnosis of fever and altered mental status. Mr. White has a Past Medical History significant for NSCLCa in the early , along with prior history of both aseptic meningitis in 2012 as well as prior CVA X2 with possible mild left sided deficits as a result. He also has prior history of COPD, HTN, and Dyslipidemia. Upon presentation to the ED the patient was noted to have confusion and an altered mental status, with potential right sided neglect which was not confirmed by exam after admission. He was also noted to be febrile, with temperature as high as 38.8. His Urinalysis, CBC and CMP were essentially unremarkable, but with an elevated Lactate. His CXR and CT Head were unremarkable. An LP was not attempted given patient's mental status and agitation, as significant sedation and potation intubation may have been required (per review of ED Notes). Given patient's altered mental status and fever, he was referred for admission for treatment of potential TREE CHIPPER infection. Neurology at [facility] was consulted by the ED physician, and agreed with empiric treatment of possible TREE CHIPPER infection. Mr. White had appeared somewhat improved, but developed worsening tachypnea overnight on 04/11, with CXR showing a new RUL infiltrate. He also became febrile that day. An attempt at MRI of the brain failed due to patient agitation, despite administration of medications prior. His antibiotic regimen was broadened and Ativan was discontinued due to worsening agitation, and the patient's mental status improved. This morning he appears vastly improved, verbal, responsive, and appropriately following commands. He has remained afebrile since the evening of 04/11. No other overnight events reported. Exam Narrative Exam Narrative: General: Patient is no longer agitated, verbal, and following commands. Oriented to place and self. NAD noted. Neck: Supple CV: Regular, mildly tachycardic, S1S2, No rubs, murmurs, or gallops. Pulmonary: Vastly improved air entry, with resolved wheezing. Abdomen: + Bowel Sounds, soft, nontender, nondistended Vascular: No lower extremity edema Objective Objective Clinical Data: Abnormal lab results 04/14/19 04/14/19 Range/Units 06:30 06:30 WBC 13.20 H (4.4-10.8) k/cumm RBC 4.21 L (4.50-6.00) m/cumm Hgb 12.2 L (13.5-17.5) g/dL Hct 36.7 L (40.0-50.0) % RDW 14.2 H (11.8-14.1) % Absolute Neutrophils 11.37 H (1.2-6.7) k/cumm Sodium 147 H (136-145) mmol/L Chloride 111 H (98-107) mmol/L Glucose 148 H (70-100) mg/dL Calcium 8.0 L (8.5-10.1) mg/dL Vital Signs Temperature 37.7 C H 04/14/19 03:29 Temperature Source Temporal Artery Scan 04/14/19 03:29 Pulse 94 H 04/14/19 10:47 Pulse 95 H 04/14/19 10:47 Respiratory Rate 17 04/14/19 10:47 Respiratory Effort 04/14/19 07:30 Respiratory Depth Normal 04/14/19 07:30 Respiratory Pattern Normal 04/14/19 07:30 Blood Pressure 122/87 04/14/19 10:47 Blood Pressure Mean 91 04/14/19 10:47 Blood Pressure Position Left Lateral 04/13/19 16:27 Pulse Oximetry 94 L 04/14/19 10:47 Oxygen Delivery Method Room Air 04/13/19 23:30 Oxygen Flow Rate 0 04/13/19 23:30 Fraction of Inspired Oxygen (FIO2) 25 04/13/19 03:28 Pain Level 0 04/14/19 03:29 Intake & Output 04/13/19 04/14/19 04/14/19 23:59 11:59 23:59 Intake Total 960 / 2960 1930 / 2180 250 / 2180 Output Total 1775 / 2175 300 / 300 Balance -815 / 785 1630 / 1880 250 / 1880 Weight 89.5 kg Intake: IV 960 / 2910 1600 / 1850 250 / 1850 Oral 330 / 330 Output: Urine 1775 / 2175 300 / 300 Other: Urine Color Yellow Light Elvia Urine Appearance Cloudy Cloudy Comment lucas. Lcuas drainging to gravity Laboratory Results WBC 13.20 k/cumm (4.4-10.8) H 04/14/19 06:30 RBC 4.21 m/cumm (4.50-6.00) L 04/14/19 06:30 Hgb 12.2 g/dL (13.5-17.5) L 04/14/19 06:30 Hct 36.7 % (40.0-50.0) L 04/14/19 06:30 MCV 87.2 fL (80-95) 04/14/19 06:30 MCH 29.0 pg (27.0-33.0) 04/14/19 06:30 MCHC 33.2 g/dL (32.0-36.0) 04/14/19 06:30 RDW 14.2 % (11.8-14.1) H 04/14/19 06:30 Plt Count 361 x1000/uL (130-400) 04/14/19 06:30 MPV 9.3 fL (8.0-11.0) 04/14/19 06:30 Immature Gran % 0.3 04/14/19 06:30 Neutrophils % 86.1 04/14/19 06:30 Lymphocytes % 10.0 04/14/19 06:30 Atypical Lymphs % 1 04/12/19 06:14 Monocytes % 3.6 04/14/19 06:30 Eosinophils % 0.0 04/14/19 06:30 Basophils % 0.0 04/14/19 06:30 Absolute Neutrophils 11.37 k/cumm (1.2-6.7) H 04/14/19 06:30 Absolute Lymphocytes 1.32 k/cumm (1.2-3.4) 04/14/19 06:30 Absolute Monocytes 0.48 k/cumm (0.11-0.7) 04/14/19 06:30 Absolute Eosinophils 0.00 k/cumm (0.0-0.7) 04/14/19 06:30 Absolute Basophils 0.00 k/cumm (0.0-0.2) 04/14/19 06:30 Nucleated RBCs 0 /100WBC 04/12/19 06:14 Differential Comment Manual differential 04/12/19 06:14 RBC Morphology Normal 04/12/19 06:14 Sodium 147 mmol/L (136-145) H 04/14/19 06:30 Potassium 3.7 mmol/L (3.5-5.1) 04/14/19 06:30 Chloride 111 mmol/L (98-107) H 04/14/19 06:30 Carbon Dioxide 27.6 mmol/L (21.0-32.0) 04/14/19 06:30 Anion Gap 8.4 mmol/L (3-11) 04/14/19 06:30 BUN 12 mg/dL (7-18) D 04/14/19 06:30 Creatinine 0.70 mg/dL (0.70-1.30) 04/14/19 06:30 Estimated GFR/1.73 m2 >= 60.00 (mL/min/1.73m2) 04/14/19 06:30 Glucose 148 mg/dL (70-100) H 04/14/19 06:30 Lactate 1.0 mmol/l (0.6-1.4) 04/10/19 06:15 Calcium 8.0 mg/dL (8.5-10.1) L 04/14/19 06:30 Magnesium 1.9 mg/dL (1.8-2.4) 04/14/19 06:30 Total Bilirubin 0.5 mg/dL (0.2-1.0) 04/08/19 21:25 AST 37 U/L (15-37) 04/08/19 21:25 ALT 43 U/L (12-78) 04/08/19 21:25 Alkaline Phosphatase 86 U/L (46-116) 04/08/19 21:25 Troponin I < 0.05 ng/mL (0.00-0.06) 04/08/19 21:25 Total Protein 7.0 g/dL (6.4-8.2) 04/08/19 21:25 Albumin 3.7 g/dL (3.4-5.0) 04/08/19 21:25 Vitamin B12 1124 pg/mL (193-986) H 04/11/19 06:14 Procalcitonin < 0.1 ng/mL 04/14/19 06:30 TSH 2.30 uIU/mL (0.358-3.74) 04/11/19 06:14 Urine Color Yellow (Yellow) 04/08/19 22:10 Urine Clarity Clear 04/08/19 22:10 Urine pH 5.5 (5-8) 04/08/19 22:10 Ur Specific [place] 1.020 (1.005-1.025) 04/08/19 22:10 Urine Protein Negative mg/dL (Negative) 04/08/19 22:10 Urine Ketones Negative mg/dL (Negative) 04/08/19 22:10 Urine Blood Negative (Negative) 04/08/19 22:10 Urine Nitrite Negative (Negative) 04/08/19 22:10 Urine Bilirubin Negative (Negative) 04/08/19 22:10 Urine Urobilinogen 0.2 EU/dL (Up TO 0.2) 04/08/19 22:10 Ur Leukocyte Esterase Negative (Negative) 04/08/19 22:10 Urine Glucose Negative mg/dL (Negative) 04/08/19 22:10 Vancomycin Trough 15.4 ug/mL (10.0-20.0) 04/12/19 09:05 A.phagocytophil DNA PCR Negative (Negative) 04/08/19 23:50 B. divergens/MO-1 PCR Negative (Negative) 04/08/19 23:50 Babesia duncani (PCR) Negative (Negative) 04/08/19 23:50 Babesia microti DNA PCR Negative (Negative) 04/08/19 23:50 Borrelia (PCR) Negative (Negative) 04/08/19 23:50 Lyme Disease Antibody Negative 04/08/19 23:50 E.chaffeensis DNA (PCR) Negative (Negative) 04/08/19 23:50 E.ewingii/canis DNA PCR Negative (Negative) 04/08/19 23:50 E. muris-like DNA (PCR) Negative (Negative) 04/08/19 23:50 Herpes Simplex Source Cancelled 04/08/19 23:50 HSV I IgG Ab Positive 04/08/19 23:50 HSV II IgG Positive 04/08/19 23:50 HSV I DNA PCR Cancelled 04/08/19 23:50 HSV II DNA PCR Cancelled 04/08/19 23:50
--- NOTE | 2019-04-14 13:22 | PGE_ITS ---
Date of Service Date of service: 04/14/19 Time of Service: 13:19 Assessment and Plan (1) Altered mental status: Current visit: No Status: Active Acute Delirium, presumed infectious given concurrent fever, patient is on broad spectrum antibiotics and now improving. May have suffered an aspiration event as well given CXR findings and development of fever. Continue treatment with broad spectrum antibiotics and antiviral therapy, broadened to include coverage for potential aspiration. 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 CT of the head negative, and unable to obtain MRI due to patient's agitation. He was maintained on MT Aspirin when NPO, now back on daily Clopidogrel. Doubt acute CVA as etiology. Neurology consultation unfortunately unavailable at time of admission. No evidence of ischemia or changes on admission ECG and initial Troponin negative. Electrolytes appear ok - TSH and B12 checked and normal. Tick Panel negative, and HSV IgG positive. Of note, CT of the head confirms old b/l thalamic infarcts, as well as global atrophy and chronic white matter ischemic changes. Patient confirmed to have baseline dementia by family. May be acute delirium in setting of acute illness, now appears to be resolved. Continue to prohibit use of Lorazepam, and minimal Haldol only if needed. (2) Fever: Current visit: No Status: Active Negative Urinalysis and CXR initially, without obvious source for patient's presenting fever. Initially under treatment for presumed [employer] infection given concurrent altered mental status - patient did not appear to have Nuchal Rigidity, and LP was not attempted given need for sedation with potential intubation. Now with evidence of aspiration. Continue broad spectrum coverage with Vancomycin and Acyclovir, currently day #6, with Pip-Tazo initiated for potential aspiration, now day #4. Also received 3 days of Ceftriaxone initially. Tick Panel and HSV Serology negative. Currently without a fever since 04/11 evening. Blood Cultures remain negative. Procalcitonin undetectable. Plan on discontinuation of antibiotics after treatment tomorrow. (3) Benign hypertension: Current visit: No Status: Chronic Noted. Blood pressure elevated in setting of agitation and while off minimal dose SOULEYMANE-I, vastly improved. Continue IV Hydralazine on a prn basis for significant elevation. (4) Non-small cell lung cancer: Current visit: No Status: Inactive Reported remote history of NSCLCa. Records unavailable - according to family, original diagnosis and treatment occured in the early , with patient in remission. CXR unremarkable. (5) COPD (chronic obstructive pulmonary disease): Current visit: Yes Status: Chronic Noted, with wheezing noted by exam with discovery of infiltrate. Vastly improved with initiation of steroids - changed to oral formulation today. Continue nebs, supplemental oxygen as needed. Monitor. (6) DVT prophylaxis: Current visit: Yes Status: Acute Continue SC Lovenox, PPI for GI Prophylaxis. (7) Advance directive on file: Current visit: Yes Status: Chronic Full Code. Palliative Medicine was consulted, has met with family, and confirms code status. (8) Discharge planning issues: Current visit: Yes Status: Acute There is potential for discharge back to [facility] by tomorrow. Patient will be on his 4th day of treatment after diagnosis of aspiration, but his Procalcitonin today is undetectable. Will plan on repeat CXR in the morning, and if improved/resolved and he continues to appear improved, may consider discharge back to the facility prior to the weekend. Subjective Interval history since last seen: 69 year old man with a prior history significant for metastatic Lung Ca and prior CVA's, admitted from [facility] Emergency Department on 04/09 with a diagnosis of fever and altered mental status. Mr. White has a Past Medical History significant for NSCLCa in the early , along with prior history of both aseptic meningitis in 2012 as well as prior CVA X2 with possible mild left sided deficits as a result. He also has prior history of COPD, HTN, and Dyslipidemia. Upon presentation to the ED the patient was noted to have confusion and an altered mental status, with potential right sided neglect which was not confirmed by exam after admission. He was also noted to be febrile, with temperature as high as 38.8. His Urinalysis, CBC and CMP were essentially unremarkable, but with an elevated Lactate. His CXR and CT Head were unremarkable. An LP was not attempted given patient's mental status and agitation, as significant sedation and potation intubation may have been required (per review of ED Notes). Given patient's altered mental status and fever, he was referred for admission for treatment of potential [employer] infection. Neurology at [facility] was consulted by the ED physician, and agreed with empiric treatment of possible [employer] infection. Mr. White had appeared somewhat improved, but developed worsening tachypnea o vernight on 04/11, with CXR showing a new RUL infiltrate. He also became febrile that day. An attempt at MRI of the brain failed due to patient agitation, despite administration of medications prior. His antibiotic regimen was broadened and Ativan was discontinued due to worsening agitation, and the patient's mental status improved. This morning he appears vastly improved, verbal, responsive, and appropriately following commands. He has remained afebrile since the evening of 04/11. No other overnight events reported. Exam Narrative Exam Narrative: General: Patient is no longer agitated, verbal, and following commands. Oriented to place and self. NAD noted. Neck: Supple CV: Regular, mildly tachycardic, S1S2, No rubs, murmurs, or gallops. Pulmonary: Vastly improved air entry, with resolved wheezing. Abdomen: + Bowel Sounds, soft, nontender, nondistended Vascular: No lower extremity edema Objective Objective Clinical Data: Abnormal lab results 04/14/19 04/14/19 Range/Units 06:30 06:30 WBC 13.20 H (4.4-10.8) k/cumm RBC 4.21 L (4.50-6.00) m/cumm Hgb 12.2 L (13.5-17.5) g/dL Hct 36.7 L (40.0-50.0) % RDW 14.2 H (11.8-14.1) % Absolute Neutrophils 11.37 H (1.2-6.7) k/cumm Sodium 147 H (136-145) mmol/L Chloride 111 H (98-107) mmol/L Glucose 148 H (70-100) mg/dL Calcium 8.0 L (8.5-10.1) mg/dL Vital Signs Temperature 37.7 C H 04/14/19 03:29 Temperature Source Temporal Artery Scan 04/14/19 03:29 Pulse 94 H 04/14/19 10:47 Pulse 95 H 04/14/19 10:47 Respiratory Rate 17 04/14/19 10:47 Respiratory Effort 04/14/19 07:30 Respiratory Depth Normal 04/14/19 07:30 Respiratory Pattern Normal 04/14/19 07:30 Blood Pressure 122/87 04/14/19 10:47 Blood Pressure Mean 91 04/14/19 10:47 Blood Pressure Position Left Lateral 04/13/19 16:27 Pulse Oximetry 94 L 04/14/19 10:47 Oxygen Delivery Method Room Air 04/13/19 23:30 Oxygen Flow Rate 0 04/13/19 23:30 Fraction of Inspired Oxygen (FIO2) 25 04/13/19 03:28 Pain Level 0 04/14/19 03:29 Intake & Output 04/13/19 04/14/19 04/14/19 23:59 11:59 23:59 Intake Total 960 / 2960 1930 / 2180 250 / 2180 Output Total 1775 / 2175 300 / 300 Balance -815 / 785 1630 / 1880 250 / 1880 Weight 89.5 kg Intake: IV 960 / 2910 1600 / 1850 250 / 1850 Oral 330 / 330 Output: Urine 1775 / 2175 300 / 300 Other: Urine Color Yellow Light Elvia Urine Appearance Cloudy Cloudy Comment lucas. Lucas drainging to gravity Laboratory Results WBC 13.20 k/cumm (4.4-10.8) H 04/14/19 06:30 RBC 4.21 m/cumm (4.50-6.00) L 04/14/19 06:30 Hgb 12.2 g/dL (13.5-17.5) L 04/14/19 06:30 Hct 36.7 % (40.0-50.0) L 04/14/19 06:30 MCV 87.2 fL (80-95) 04/14/19 06:30 MCH 29.0 pg (27.0-33.0) 04/14/19 06:30 MCHC 33.2 g/dL (32.0-36.0) 04/14/19 06:30 RDW 14.2 % (11.8-14.1) H 04/14/19 06:30 Plt Count 361 x1000/uL (130-400) 04/14/19 06:30 MPV 9.3 fL (8.0-11.0) 04/14/19 06:30 Immature Gran % 0.3 04/14/19 06:30 Neutrophils % 86.1 04/14/19 06:30 Lymphocytes % 10.0 04/14/19 06:30 Atypical Lymphs % 1 04/12/19 06:14 Monocytes % 3.6 04/14/19 06:30 Eosinophils % 0.0 04/14/19 06:30 Basophils % 0.0 04/14/19 06:30 Absolute Neutrophils 11.37 k/cumm (1.2-6.7) H 04/14/19 06:30 Absolute Lymphocytes 1.32 k/cumm (1.2-3.4) 04/14/19 06:30 Absolute Monocytes 0.48 k/cumm (0.11-0.7) 04/14/19 06:30 Absolute Eosinophils 0.00 k/cumm (0.0-0.7) 04/14/19 06:30 Absolute Basophils 0.00 k/cumm (0.0-0.2) 04/14/19 06:30 Nucleated RBCs 0 /100WBC 04/12/19 06:14 Differential Comment Manual differential 04/12/19 06:14 RBC Morphology Normal 04/12/19 06:14 Sodium 147 mmol/L (136-145) H 04/14/19 06:30 Potassium 3.7 mmol/L (3.5-5.1) 04/14/19 06:30 Chloride 111 mmol/L (98-107) H 04/14/19 06:30 Carbon Dioxide 27.6 mmol/L (21.0-32.0) 04/14/19 06:30 Anion Gap 8.4 mmol/L (3-11) 04/14/19 06:30 BUN 12 mg/dL (7-18) D 04/14/19 06:30 Creatinine 0.70 mg/dL (0.70-1.30) 04/14/19 06:30 Estimated GFR/1.73 m2 >= 60.00 (mL/min/1.73m2) 04/14/19 06:30 Glucose 148 mg/dL (70-100) H 04/14/19 06:30 Lactate 1.0 mmol/l (0.6-1.4) 04/10/19 06:15 Calcium 8.0 mg/dL (8.5-10.1) L 04/14/19 06:30 Magnesium 1.9 mg/dL (1.8-2.4) 04/14/19 06:30 Total Bilirubin 0.5 mg/dL (0.2-1.0) 04/08/19 21:25 AST 37 U/L (15-37) 04/08/19 21:25 ALT 43 U/L (12-78) 04/08/19 21:25 Alkaline Phosphatase 86 U/L (46-116) 04/08/19 21:25 Troponin I < 0.05 ng/mL (0.00-0.06) 04/08/19 21:25 Total Protein 7.0 g/dL (6.4-8.2) 04/08/19 21:25 Albumin 3.7 g/dL (3.4-5.0) 04/08/19 21:25 Vitamin B12 1124 pg/mL (193-986) H 04/11/19 06:14 Procalcitonin < 0.1 ng/mL 04/14/19 06:30 TSH 2.30 uIU/mL (0.358-3.74) 04/11/19 06:14 Urine Color Yellow (Yellow) 04/08/19 22:10 Urine Clarity Clear 04/08/19 22:10 Urine pH 5.5 (5-8) 04/08/19 22:10 Ur Specific [place] 1.020 (1.005-1.025) 04/08/19 22:10 Urine Protein Negative mg/dL (Negative) 04/08/19 22:10 Urine Ketones Negative mg/dL (Negative) 04/08/19 22:10 Urine Blood Negative (Negative) 04/08/19 22:10 Urine Nitrite Negative (Negative) 04/08/19 22:10 Urine Bilirubin Negative (Negative) 04/08/19 22:10 Urine Urobilinogen 0.2 EU/dL (Up TO 0.2) 04/08/19 22:10 Ur Leukocyte Esterase Negative (Negative) 04/08/19 22:10 Urine Glucose Negative mg/dL (Negative) 04/08/19 22:10 Vancomycin Trough 15.4 ug/mL (10.0-20.0) 04/12/19 09:05 A.phagocytophil DNA PCR Negative (Negative) 04/08/19 23:50 B. divergens/MO-1 PCR Negative (Negative) 04/08/19 23:50 Babesia duncani (PCR) Negative (Negative) 04/08/19 23:50 Babesia microti DNA PCR Negative (Negative) 04/08/19 23:50 Borrelia (PCR) Negative (Negative) 04/08/19 23:50 Lyme Disease Antibody Negative 04/08/19 23:50 E.chaffeensis DNA (PCR) Negative (Negative) 04/08/19 23:50 E.ewingii/canis DNA PCR Negative (Negative) 04/08/19 23:50 E. muris-like DNA (PCR) Negative (Negative) 04/08/19 23:50 Herpes Simplex Source Cancelled 04/08/19 23:50 HSV I IgG Ab Positive 04/08/19 23:50 HSV II IgG Positive 04/08/19 23:50 HSV I DNA PCR Cancelled 04/08/19 23:50 HSV II DNA PCR Cancelled 04/08/19 23:50
[2019-04-14] MEDS: Enoxaparin 40 MG/0.4 ML SYR SC (16:10)
--- NOTE | 2019-04-14 16:15 | PTTR_ITS ---
Date of service: 04/14/19 Time of Service: 16:13 PT Notes Inpatient Physical Therapy Treatment Note [facility] Date: 04/14/19 PRECAUTIONS: Fall, L hemineglect SUBJECTIVE: Virgil reports that he is feeling well and is agreeable to participati ng in PT. OBJECTIVE: Total assist with donning tinokers due to B hand weakness PAIN: No c/o pain BED MOBILITY/TRANSFERS Sit-stand: CGA Stand-sit: CGA GAIT Assistive Device: FWW Weight bearing: Full Assist: CGA Distance: 15' x2 Deviation: Slow indio ASSESSMENT: Patient tolerated a progression in gait distance with FWW support and CGA. He would benefit from continued gait and transfer training as well as strengthening for improved mobility and activity tolerance. PLAN: Continue with PT's POC TREATMENT CODE/TIME: 20 minutes; [id number]
[2019-04-14 16:52] LABS: Vancomycin, Trough 18.7 ug/mL (10.0-20.0)
--- NOTE | 2019-04-14 17:04 | IN_ITS ---
Date of service: 04/14/19 Time of Service: 08:53 PT Notes Inpatient Physical Therapy Evaluation Date: 04/14/2019 Referring Doctor: Piyush Schmitz MD PT Orders: PT CONSULT: Deconditioning Precautions: Fall. Standard. Right hemineglect. Patient Profile/Admitting Diagnosis: Patient is a 69-year-old male with past medical history significant for CVA, septic meningitis, and lung carcinoma with brain metastases status post lobectomy of lung, radiation, and craniotomy who presented to the ED on 04/08/2019 with chief complaints of abrupt onset fever and altered mental status. Patient was diagnosed with encephalopathy and is now receiving empiric antibiotic treatment. Referral for skilled PT services was received to address existing impairments in strength, mobility, and balance. PMHX: Medical History Benign hypertension (Chronic) Hyperlipidemia (Chronic) Non-small cell lung cancer (Inactive) COPD (chronic obstructive pulmonary disease) (Chronic) Hypothyroid (Chronic) CVA (cerebral vascular accident) (Chronic) Surgical History S/P craniotomy (Chronic) S/P lobectomy of lung (Chronic) Social History/Home Situation: Jose Miguel is a long time resident of [facility]. He is independent with all bed mobility task performance using bed rails for support. He is able to negotiate short distance level surface ambulation up to 100 feet using a front wheeled walker with contact-guard assist of 1 FARMWORKER ANIMAL, otherwise his main mobility is through the use of a regular wheelchair inside the facility. He is able to perform all transfers with supervision assist while holding onto grab bars and bed rails. Current Functional Limitations: Apparent functional mobility decline requiring assistance with all transfers and ambulation tasks performance using FWW Equipment Owned/DME: Wheelchair, FWW Subjective: Patient is agreeable to a PT consult today. He complains of pain in low back and sides of bilateral hips. He denies any chest pain nor headache at time of evaluation . He states that he has not had any fever since this morning and that he feels a little better than he did the previous days. He plans on returning back to the [facility] once medically stable. Objective: General Observation: Patient seen resting in bed with HOB elevated to about 30 degrees. Oxygen supplementation via nasal cannula at 2 L/min. Telemetry monitoring in place. Magallanes catheter in place. TEDS on bilateral legs. IV in right UE. Bilateral wrists and hands appear to be swollen. Mental Status: Alert and oriented as to person and place Pain: Reports mild to moderate pain on his low back and bilateral sides Vital Signs: Oxygen saturation stayed between 94 to 96% on room air with removal of oxygen supplementation even after transfer activity ROM: Right Upper Extremity: Shoulder Flexion 0-100. Shoulder abduction 0-90. Elbow flexion WFL. Wrist flexion WFL. Functional opening and closing of hand weak. Left Upper Extremity: Shoulder Flexion 0-100. Shoulder abduction 110. Elbow flexion WFL. Wrist flexion WFL. Functional opening and closing of hand WFL. Right Lower Extremity: Hip flexion WFL. Hip abduction WFL. Knee flexion WFL. Ankle dorsiflexion WFL. Ankle plantarflexion WFL. Left Lower Extremity: Hip flexion WFL. Hip abduction WFL. Lacks full terminal knee extension by about 10 degrees. Knee flexion WFL. Ankle dorsiflexion 5 degrees from neutral. Ankle plantarflexion 0-10. Strength: Right Upper Extremity: Shoulder flexors 3-/5. Shoulder abductors 3-/5. Elbow flexors 4-/5. Elbow extensors 4-/5. Practice Clinician weak. Left Upper Extremity: Shoulder flexors 3-/5. Shoulder abductors 3+/5. Elbow flexors 3+/5. Elbow extensors 3+/5. Practice Clinician strong. Right Lower Extremity: Hip flexors 4/5. Hip abductors 4/5. Knee flexors 4/5. Knee extensors 4/5. Ankle dorsiflexors 4/5. Ankle plantarflexors 4/5. Left Lower Extremity:Hip flexors 4-/5. Hip abductors 4-/5. Knee flexors 4-/5. Knee extensors 3-/5. Ankle dorsiflexors 3-/5. Ankle plantarflexors 3-/5. Bed Mobility/Transfers: Rolling minimal assist Supine to sit minimal assist Sit to supine minimal assist Sit to stand minimal assist Stand to sit minimal assist Bed to chair minimal assist Chair to bed minimal assist Gait: Patient was able to tolerate 3-4 steps +1-2 sidesteps +2 back steps to transfer from bedside to recliner using FWW with minimal assist of PT and standby assist nurse for safety and IV pole management. Balance: Static Sitting: Fair Dynamic Sitting: Fair Static Standing: Fair Dynamic Standing: Fair Special Tests: Mobility Limitations Standardized Measure [facility] AM-PAC 6 clicks Basic Mobility Inpatient Short Form: Raw Score: 11 CMS Score: 73% deficit Informed Consent/Education: Patient instructed in purpose of PT consult and plan of care. Patient was also instructed on safe techniques for using both hands movement transitions for transfers. Assessment: Patient is a 69-year-old male with diagnosis of encephalopathy. Patient presents with clinical signs and symptoms consistent with current/admitting diagnoses that have resulted to mobility limitations, gait instability, generalized weakness, and impairment of motor control as demonstrated by the following impairment level findings: 1. Decreased strength to B LE major muscle groups 2. Impaired sitting/standing balance 3. Impaired activity tolerance Impairments are contributing to the following functional limitations: 1. Dependent bed mobility skills 2. Increased dependence with transfers 3. Decline in ambulation performance 4. Increase completion time for mobility ADL performance 5. Increased fall risk Patient is assessed as a 63532 moderate complexity based on the following: History: 71-year-old male with past medical history significant for lung carcinoma, CVA, and aseptic meningitis Examination: Demonstrable impairment in strength, balance, and range of motion with underlying impairments and functional limitations as documented above Presentation:Evolving Decision Makin moderate complexity Goals: Goals X1 week 1. Supine-Sit independent 2. Sit-Supine independent 3. Sit-Stand supervision 4. Stand-Sit supervision 5. Bed-Chair supervision 6. Chair-Bed supervision t 7. CGA with gait on level surface with use of least restrictive device for at least 100 feet without report of pain nor dyspnea 8. Good static and dynamic standing balance/tolerance Plan of Care/Treatment Plan: 1-2x/day, 7 days/week x 1 week. Plan of care has been reviewed with the COMMERCIAL CARPET INSTALLER providing the service under Physical Therapy direction. Initiate Physical Therapy intervention for strengthening, bed mobility, transfers, gait, stairs, balance training, use of assistive device. DISCHARGE RECOMMENDATIONS: [facility] as previously in order to progress mobility level, strength, and balance. TREATMENT CODE/TIME: 44108 for 27 minutes beginning at 8:53 AM. Thank you very much for this referral. Noy Randle PT, DPT, CLT [facility]
[2019-04-14] MEDS: Normal Saline Flush 10 ML SYR IVP (17:06)
[2019-04-14] MEDS: VANCOMYCIN 1,250 MG in Normal Saline 250 ML 166.667 MG IVPB (18:02)
--- NOTE | 2019-04-14 18:24 | NUR.NOTE ---
Nursing Note:admited from ICU to room 229 via recliner. oriented to room and call painter system. See shift assessment.
[2019-04-14] MEDS: Atorvastatin 40 MG TAB 80 MG PO (19:52)
[2019-04-14] MEDS: predniSONE 20 MG TAB 40 MG PO (19:52)
[2019-04-14] MEDS: ACETAMINOPHEN 1,000 MG/100 ML BTL 400 MG IVPB (21:24)
[2019-04-15] MEDS: ACYCLOVIR SODIUM IVPB ×2 (02:44→10:30)
[2019-04-15] MEDS: NORMAL SALINE IVPB ×2 (02:44→10:30)
[2019-04-15] MEDS: VANCOMYCIN 1,250 MG in Normal Saline 250 ML 167 MG IVPB (04:05)
[2019-04-15] MEDS: Levothyroxine 50 MCG TAB PO (05:37)
[2019-04-15 07:30] LABS: Abs Immature Grans 0.13 k/cumm (0.0-0.09); Absolute Basophil Count 0.01 k/cumm (0.0-0.2); Absolute Lymphocyte Count 2.02 k/cumm (1.2-3.4); Absolute Monocyte Count 0.84 k/cumm (0.11-0.7); Absolute Neutrophil Count 9.41 k/cumm (1.2-6.7); Basophils % 0.1; HCT 36.1 % (40.0-50.0); HGB 12.1 g/dL (13.5-17.5); Lymphocytes % 16.3; Mean Corp. HGB Concentration 33.5 g/dL (32.0-36.0); Mean Corpuscular Hemoglobin 29.4 pg (27.0-33.0); Mean Corpuscular Volume 87.8 fL (80-95); Mean Platelet Volume 9.1 fL (8.0-11.0); Monocytes % 6.8; Neutrophils % 75.8; Platelet Count 414 x1000/uL (130-400); RBC 4.11 m/cumm (4.50-6.00); RBC Distribution Width 14.3 % (11.8-14.1); White Blood Cell Count 12.42 k/cumm (4.4-10.8)
[2019-04-15 07:42] VITALS: BP 160/86; PULSE 83; RESP 19; TEMP 36.7; O2SAT 96
[2019-04-15 07:42] LABS: Anion Gap 9.4 mmol/L (3-11); BUN 13 mg/dL (7-18); CO2 26.6 mmol/L (21.0-32.0); Chloride 109 mmol/L (98-107); Glucose 127 mg/dL (70-100); Magnesium 1.8 mg/dL (1.8-2.4); Potassium 3.7 mmol/L (3.5-5.1); Sodium 145 mmol/L (136-145)
--- NOTE | 2019-04-15 08:00 | DI.RAD_ITS ---
SYMPTOM/DIAGNOSIS: ASPIRATION PNEUMONIA PA AND LATERAL CHEST: 04/15 Note is made of previously described left lung volume loss with diaphragmatic tenting and significant suprahilar atelectasis/scarring, similar findings have been present on films dating back to 06/01/2013. Comparison with most recent chest film of 04/12/19 shows apparent interval clearing of suspected radiodensities in right upper lung field in comparison with the recent examination. No new infiltrates seen. No pleural effusion seen. CONCLUSION: No evidence of acute disease.
[2019-04-15 08:10] VITALS: O2SAT 96
[2019-04-15] MEDS: PAROXETINE 30 MG PO (08:42)
[2019-04-15] MEDS: Lisinopril 5 MG TAB 2.5 MG PO (08:42)
[2019-04-15] MEDS: Clopidogrel 75 MG TAB PO (08:42)
[2019-04-15] MEDS: predniSONE 20 MG TAB 40 MG PO (08:43)
[2019-04-15] MEDS: PIPERACILLIN/TAZO 4.5 GM in Normal Saline 100 ML IVPB (08:44)
[2019-04-15] MEDS: Normal Saline Flush 10 ML SYR IVP ×2 (08:45→10:30)
--- NOTE | 2019-04-15 13:26 | DSE_ITS ---
Date of service: 04/15/19 Time of Service: 13:24 DS: Diagnosis Discharge Diagnosis (1) Altered mental status: Status: Active (2) Fever: Status: Active (3) Benign hypertension: Status: Chronic (4) Non-small cell lung cancer: Status: Inactive (5) COPD (chronic obstructive pulmonary disease): Status: Chronic (6) Advance directive on file: Status: Chronic (7) Discharge planning issues: Status: Acute Discharge Plan Disposition Patient Disposition: SNF (LEVEL 1) [facility] Condition: Stable Discharge Details Reason For Visit: ENCEPHALOPATHY Admit Date/Time: 04/08/19 23:34 Admit Provider: Lopez Araiza Attending Provider: Lopez Araiza Primary Care Provider: Lopez Araiza Hospital Course Hospital Course: Chief Complaint: Fever, Altered Mental Status HPI: 69 year old man with a prior history significant for Lung Ca and prior CVA's, admitted from [facility] Emergency Department on 04/09 with a diagnosis of fever and altered mental status. Mr. White has a Past Medical History significant for NSCLCa in the early , along with prior history of both aseptic meningitis in 2012 as well as prior CVA X2 with possible mild left sided deficits as a result. He also has prior history of COPD, HTN, and Dyslipidemia. Upon presentation to the ED the patient was noted to have confusion and an altered mental status, with potential right sided neglect which was not confirmed by exam after admission. He was also noted to be febrile, with temperature as high as 38.8. His Urinalysis, CBC and CMP were essentially unremarkable, but with an elevated Lactate. His CXR and CT Head were unremarkable as well. An LP was not attempted given patient's mental status and agitation, as significant sedation and potential intubation may have been required (per review of ED Notes). Given patient's altered mental status and fever, he was referred for admission for treatment of potential TRIPLE DRUM OPERATOR inf ection. [place] [facility] [place] by the ED physician, and agreed with empiric treatment of possible TRIPLE DRUM OPERATOR infection. Mr. White had appeared somewhat improved initially, but developed worsening tachypnea overnight on 04/11, with CXR showing a new RUL infiltrate. He also became febrile that day. An attempt at MRI of the brain failed due to patient agitation, despite administration of medications prior. His antibiotic regimen was broadened and Ativan was discontinued due to worsening agitation, and the patient's mental status improved. Yesterday morning he appeared vastly improved, verbal, responsive, and appropriately following commands, and this morning he appears at baseline. He has remained afebrile since the evening of 04/11. No other overnight events reported. Hospital Course: (1) Altered mental status: Acute Delirium, presumed infectious given concurrent fever, patient was maintained on broad spectrum antibiotics. May have suffered an aspiration event as well given CXR findings and development of fever. 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 CT of the head negative, and unable to obtain MRI due to patient's agitation. He was maintained on TN Aspirin when NPO, now back on daily Clopidogrel. Doubt acute CVA as etiology as presentation was nonfocal and atypical. Neurology consultation unfortunately unavailable at time of admission. No evidence of ischemia or changes on admission ECG and initial Troponin negative. Electrolytes appeared ok - TSH and B12 checked and normal. Tick Panel negative, and HSV positive for IgG only. Of note, CT of the head confirmed old b/l thalamic infarcts, as well as global atrophy and chronic white matter ischemic changes. Patient confirmed to have baseline dementia by family. May be acute delirium in setting of acute illness in patient with mild underlying dementia, now appears to be resolved. Continue to prohibit use of Lorazepam. Will conclude course of antibiotic therapy. (2) Fever: Negative Urinalysis and CXR initially, without obvious source for patient's presenting fever. Initially under treatment for presumed TRIPLE DRUM OPERATOR infection given concurrent altered mental status - patient did not appear to have Nuchal Rigidity, and LP was not attempted given need for sedation with potential intubation. Now with evidence of aspiration. Was maintained on broad spectrum coverage with Vancomycin and Acyclovir for 7 days, with Pip-Tazo initiated for potential aspiration, now day #4. Also received 3 days of Ceftriaxone initially. Tick Panel and HSV Serology negative. Currently without a fever since 04/11 evening. Blood Cultures remain negative. Procalcitonin undetectable yesterday, and repeat CXR with no evidence of acute disease. Plan on discontinuation of Acyclovir and Vancomycin, and will finish a 7 day course of antibiotics for potential aspiration with Augmentin (next dose this evening, with 3 additional days after) Mental status and vitals need to be monitored. (3) Benign hypertension: Noted. Blood pressure elevated in setting of agitation and while off minimal dose SOULEYMANE-I, vastly improved. Was also maintained on IV Hydralazine on a prn basis for significant elevation. (4) Non-small cell lung cancer: Reported remote history of NSCLCa. Records unavailable - according to family, original diagnosis and treatment occured in the early , with patient in remission. CXR unremarkable. (5) COPD (chronic obstructive pulmonary disease): Noted, with wheezing noted by exam with discovery of infiltrate. Vastly improved with initiation of steroids - changed to oral formulation yesterday. Continue nebs as needed, and taper steroids (40mg BID X2 additional days, 40mg daily X3d, 20mg daily X3d, then stop). (6) DVT prophylaxis: Was maintained on SC Lovenox, PPI for GI Prophylaxis. (7) Advance directive on file: Full Code. Palliative Medicine was consulted, has met with family, and confirms code status. (8) Discharge planning issues: Being discharged back [facility] today. Home Meds and New Rx's Prescriptions: New prednisone 10 mg tablet 10 mg PO DAILY Qty: 34 RF: 0 amoxicillin-pot clavulanate [Augmentin] 875-125 mg tablet 1 tab PO Q12H Qty: 7 RF: 0 omeprazole 40 mg capsule,delayed release(DR/EC) 40 mg PO DAILY Qty: 30 RF: 0 Continued paroxetine HCl [Paxil] 30 MG tablet 30 mg PO DAILY RF: 0 multivitamin [Daily Multi-Vitamin] 1 EACH tablet 1 tab PO DAILY RF: 0 atorvastatin 80 MG tablet 80 mg PO DAILY RF: 0 clopidogrel [Plavix] 75 MG tablet 75 mg PO DAILY RF: 0 levothyroxine 50 MCG tablet 50 mcg PO DAILY RF: 0 docusate sodium [Colace] 100 MG capsule 100 mg PO BID RF: 0 lisinopril 2.5 MG tablet 2.5 mg PO DAILY RF: 0 Discharge Instructions Activity:: As per PT Equipment/Supplies:: No Equipment Needed Diet:: Soft & Bite sized, thin liquids, crush/dissolve large pills Discharge Orders Discharge Orders: Discharge Order (Routine); Ordered 04/15/19 Ordered By: Piyush Schmitz DS: Data Vitals/I&O Vitals and I&O: Vital Signs Temperature 36.7 C 04/15/19 07:42 Temperature Source Tympanic 04/15/19 07:42 Pulse 83 04/15/19 07:42 Pulse Rhythm Regular 04/15/19 07:50 Pulse 91 H 04/14/19 10:48 Respiratory Rate 04/15/19 07:42 Respiratory Effort 04/15/19 07:50 Respiratory Depth Normal 04/15/19 07:50 Respiratory Pattern Normal 04/15/19 07:50 Blood Pressure 160/86 H 04/15/19 07:42 Blood Pressure Mean 88 04/14/19 14:32 Blood Pressure Position Left Lateral 04/13/19 16:27 Pulse Oximetry 96 04/15/19 08:10 Oxygen Delivery Method Room Air 04/15/19 08:10 Oxygen Flow Rate 0 04/15/19 08:10 Fraction of Inspired Oxygen (FIO2) 25 04/13/19 03:28 Pain Level 0 04/14/19 14:46 Intake & Output 04/14/19 04/15/19 04/15/19 23:59 11:59 23:59 Intake Total 2328.75 / 4258.75 2100.0 / 2200.0 100 / 2200.0 Output Total 425 / 725 300 / 300 Balance 1903.75 / 3533.75 1800.0 / 1900.0 100 / 1900.0 Weight 89.9 kg Intake: IV 2088.75 / 3688.75 1560.0 / 1660.0 100 / 1660.0 Oral 240 / 570 540 / 540 Output: Urine 425 / 725 300 / 300 Other: Urine Color Yellow Yellow Urine Appearance Clear Clear Urine Odor Normal Normal Comment inc good amount in brief but did not void on commode. Unknown what this patients baseline is. mixed w stool Stool Size Large Stool Characteristics Soft Formed Brown Voiding Methods Diaper Bedside Commode Incontinent Completed studies during hospitalization [Text1]: Exam(s) 04/08/[address]:CT head - stroke protocol SYMPTOM/DIAGNOSIS: ALTERED MENTAL STATUS, RIGHT SIDE NEGLECT NONCONTRAST HEAD CT: Comparison is made with 16 Mar 2018. The exam is limited by patient motion. Multiple attempts were made at scanning. Atrophy and white matter changes of small vessel disease are again noted. Again noted are calcifications in the basal ganglia and dentate nuclei of the cerebellum. There are old lacunar infarcts in the thalami. No acute hemorrhage, mass or acute infarct is seen. There is no evidence of skull fracture or sinus opacification. IMPRESSION: No acute abnormality. Exam(s) 04/08/2019 a RAD:XR portable chest AP SYMPTOM/DIAGNOSIS: FEVER, ALTERED MENTAL STATUS PORTABLE CHEST: 08 APRIL 2019 Comparison is made with 05 January 2019. The exam is quite limited by patient rotation. Again noted is bilateral upper lobe scarring and volume loss as well as scarring at the left lung base. The lungs are not well inflated. No focal infiltrate, effusion or pulmonary edema is seen. IMPRESSION: Limited exam. No acute abnormality is visible. -------- Exam(s) 04/11/2019 a RAD:XR portable chest AP SYMPTOM/DIAGNOSIS: SHORTNESS OF BREATH PORTABLE CHEST: Comparison is made with 08 April 2019. The previous exam was limited by rotation. There is bilateral upper lobe scarring and volume loss. There is new density seen in the right upper lobe which could represent pneumonia. No effusions are seen. Scarring is also noted at the left lung base. IMPRESSION: Right upper lobe infiltrate. -------- Exam(s) 04/12/2019 a RAD:XR portable chest AP SYMPTOM/DIAGNOSIS: FEVER, PNEUMONIA PORTABLE CHEST: Comparison is made with 11 April 2019. The exam was performed in the semi-erect position. The heart size remains normal. The lungs are not well inflated. There is again noted to be a bilateral upper lobe scarring and volume loss. Again, there is an area of increased opacity in the right upper lobe compared with older exams suspicious for pneumonia. No new findings are seen. -------- Exam(s) 04/15/2019 a RAD:XR chest 2V PA & lateral SYMPTOM/DIAGNOSIS: ASPIRATION PNEUMONIA PA AND LATERAL CHEST: 04/15 Note is made of previously described left lung volume loss with diaphragmatic tenting and significant suprahilar atelectasis/scarring, similar findings have been present on films dating back to 06/01/2013. Comparison with most recent chest film of 04/12/19 shows apparent interval clearing of suspected radiodensities in right upper lung field in comparison with the recent examination. No new infiltrates seen. No pleural effusion seen. CONCLUSION: No evidence of acute disease. Labs on day of discharge: Labs from last 24 hours 04/15/19 04/15/19 04/14/19 07:00 07:00 15:00 WBC 12.42 H RBC 4.11 L Hgb 12.1 L Hct 36.1 L MCV 87.8 MCH 29.4 MCHC 33.5 RDW 14.3 H Plt Count 414 H MPV 9.1 Immature Gran % 1.0 Neutrophils % 75.8 Lymphocytes % 16.3 Monocytes % 6.8 Eosinophils % 0.0 Basophils % 0.1 Absolute Neutrophils 9.41 H Absolute Lymphocytes 2.02 Absolute Monocytes 0.84 H Absolute Eosinophils 0.00 Absolute Basophils 0.01 Sodium 145 Potassium 3.7 Chloride 109 H Carbon Dioxide 26.6 Anion Gap 9.4 BUN 13 Creatinine 0.80 Estimated GFR/1.73 m2 >= 60.00 Glucose 127 H Calcium 8.0 L Magnesium 1.8 Vancomycin Trough 18.7 Preliminary micro results at discharge 04/11/19 17:35 Blood Culture - Preliminary Blood NO GROWTH 72 HOURS 04/11/19 17:40 Blood Culture - Preliminary Blood NO GROWTH 72 HOURS [facility] Medical History Vascular dementia (Chronic) Goals of care, counseling/discussion (Chronic) Palliative care patient (Chronic) Advance directive on file (Chronic) Encephalopathy (Acute) Benign hypertension (Chronic) Hyperlipidemia (Chronic) Non-small cell lung cancer (Inactive) COPD (chronic obstructive pulmonary disease) (Chronic) Hypothyroid (Chronic) CVA (cerebral vascular accident) (Chronic) Surgical History S/P craniotomy (Chronic) S/P lobectomy of lung (Chronic) Family History Daughter No problems noted. Sister No problems noted. Sister Lung cancer Mother Breast cancer Father Myocardial infarction Heart disease Social History Smoking/Tobacco Use Status: Former Tobacco Use Tobacco: How many years used: 30 Alcohol Intake: former Drug use: Never Caregiver/Support person: Yes Household members: none Housing: prison Number of Children: 1 Communication Needs: Hard of Hearing and Corrective Lenses Education Level: high school Do you need help understanding health information?: Always 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[place] What is your relationship status?: How often do you talk on the phone with friends or family?: twice per week How often do you get together with friends or relatives?: twice per week Panel score (0-1 are the most socially isolated patients): 1 What type of physical activity do you participate in: assisted ambulation and irregular exercise Duration: < 15 minutes/day Special reyna needs: No Agree to transfusion: Yes Seatbelt use: always Do you feel safe at home: Yes Do you feel safe in your relationship?: Yes Additional Social history: sister Henrietta is only surviving family, other than daughter whom he has not seen in years does not want to reconnect with her loves to sit outside in the sun, socialize, interact.
--- NOTE | 2019-04-15 13:43 | PDOC.CMDIS ---
- If Service Date Differs Date of service: 04/15/19 Time of Service: 13:43 LACE Index Scoring Tool - Questions: Length of Stay (in days): 7 - 13 Acuity (Admit via E.D.?): Yes Comorbidities: Cerebrovascular Disease, Any Tumor E.D. Visits: 1 - Answers: Total Score: 12 Risk of Readmission: High Risk Care Management Discharge Reason for Hospitalization: Encephalopathy Discharge Plan: Jose Miguel is being [facility] his sister is going to transport him over. Jose Miguel is happy to be returning to his place of residence. He states he likes to be out in the sun. CM updated Health and Rehab and with plan for disposition. Patient/Family Education Needs: Discharge education, limatations and follow up plan of care. Services Needed at Discharge: Shelter Facility
--- NOTE | 2019-04-17 15:54 | PT.INDS ---
Date of service: 04/17/19 PT Notes Inpatient Physical Therapy Discharge Summary Dates: 03/31/2019 Dates of Service: 04/14/2019 only Referring Doctor: Piyush Schmitz MD PT Orders: PT CONSULT: Deconditioning Precautions: Fall. Standard. Right hemineglect. Patient Profile/Admitting Diagnosis: Patient is a 69-year-old male with past medical history significant for CVA, septic meningitis, and lung carcinoma with brain metastases status post lobectomy of lung, radiation, and craniotomy who presented to the ED on 04/08/2019 with chief complaints of abrupt onset fever and altered mental status. Patient was diagnosed with encephalopathy and is now receiving empiric antibiotic treatment. Referral for skilled PT services was received to address existing impairments in strength, mobility, and balance. PMHX: Medical History Benign hypertension (Chronic) Hyperlipidemia (Chronic) Non-small cell lung cancer (Inactive) COPD (chronic obstructive pulmonary disease) (Chronic) Hypothyroid (Chronic) CVA (cerebral vascular accident) (Chronic) Surgical History S/P craniotomy (Chronic) S/P lobectomy of lung (Chronic) Social History/Home Situation: Jose Miguel is a long time resident of [facility]. He is independent with all bed mobility task performance using bed rails for support. He is able to negotiate short distance level surface ambulation up to 100 feet using a front wheeled walker with contact-guard assist of 1 PST SPECIALIST, otherwise his main mobility is through the use of a regular wheelchair inside the facility. He is able to perform all transfers with supervision assist while holding onto grab bars and bed rails. Current Functional Limitations: Apparent functional mobility decline requiring assistance with all transfers and ambulation tasks performance using FWW Equipment Owned/DME: Wheelchair, FWW Subjective: Patient is agreeable to a PT consult today. He complains of pain in low back and sides of bilateral hips. He denies any chest pain nor headache at time of evaluation . He states that he has not had any fever since this morning and that he feels a little better than he did the previous days. He plans on returning back to the [facility] once medically stable. Objective: General Observation: Patient seen resting in bed with HOB elevated to about 30 degrees. Oxygen supplementation via nasal cannula at 2 L/min. Telemetry monitoring in place. Magallanes catheter in place. TEDS on bilateral legs. IV in right UE. Bilateral wrists and hands appear to be swollen. Mental Status: Alert and oriented as to person and place Pain: Reports mild to moderate pain on his low back and bilateral sides Vital Signs: Oxygen saturation stayed between 94 to 96% on room air with removal of oxygen supplementation even after transfer activity ROM: Right Upper Extremity: Shoulder Flexion 0-100. Shoulder abduction 0-90. Elbow flexion WFL. Wrist flexion WFL. Functional opening and closing of hand weak. Left Upper Extremity: Shoulder Flexion 0-100. Shoulder abduction 110. Elbow flexion WFL. Wrist flexion WFL. Functional opening and closing of hand WFL. Right Lower Extremity: Hip flexion WFL. Hip abduction WFL. Knee flexion WFL. Ankle dorsiflexion WFL. Ankle plantarflexion WFL. Left Lower Extremity: Hip flexion WFL. Hip abduction WFL. Lacks full terminal knee extension by about 10 degrees. Knee flexion WFL. Ankle dorsiflexion 5 degrees from neutral. Ankle plantarflexion 0-10. Strength: Right Upper Extremity: Shoulder flexors 3-/5. Shoulder abductors 3-/5. Elbow flexors 4-/5. Elbow extensors 4-/5. Supervisory Civil Engineer weak. Left Upper Extremity: Shoulder flexors 3-/5. Shoulder abductors 3+/5. Elbow flexors 3+/5. Elbow extensors 3+/5. Supervisory Civil Engineer strong. Right Lower Extremity: Hip flexors 4/5. Hip abductors 4/5. Knee flexors 4/5. Knee extensors 4/5. Ankle dorsiflexors 4/5. Ankle plantarflexors 4/5. Left Lower Extremity:Hip flexors 4-/5. Hip abductors 4-/5. Knee flexors 4-/5. Knee extensors 3-/5. Ankle dorsiflexors 3-/5. Ankle plantarflexors 3-/5. Bed Mobility/Transfers: Rolling minimal assist Supine to sit minimal assist Sit to supine minimal assist Sit to stand minimal assist Stand to sit minimal assist Bed to chair minimal assist Chair to bed minimal assist Gait: Patient was able to tolerate 3-4 steps +1-2 sidesteps +2 back steps to transfer from bedside to recliner using FWW with minimal assist of PT and standby assist nurse for safety and IV pole management. Balance: Static Sitting: Fair Dynamic Sitting: Fair Static Standing: Fair Dynamic Standing: Fair Assessment: Patient is a 69-year-old male with diagnosis of encephalopathy. Patient presents with clinical signs and symptoms consistent with current/admitting diagnoses that have resulted to mobility limitations, gait instability, generalized weakness, and impairment of motor control as demonstrated by the following impairment level findings: 1. Decreased strength to B LE major muscle groups 2. Impaired sitting/standing balance 3. Impaired activity tolerance Impairments are contributing to the following functional limitations: 1. Dependent bed mobility skills 2. Increased dependence with transfers 3. Decline in ambulation performance 4. Increase completion time for mobility ADL performance 5. Increased fall risk Goals: Goals X1 week 1. Supine-Sit independent NOT MET 2. Sit-Supine independent NOT MET 3. Sit-Stand supervision NOT MET 4. Stand-Sit supervision NOT MET 5. Bed-Chair supervision NOT MET 6. Chair-Bed supervision NOT MET 7. CGA with gait on level surface with use of least restrictive device for at least 100 feet without report of pain nor dyspnea NOT MET 8. Good static and dynamic standing balance/tolerance DISCHARGE RECOMMENDATIONS: Patient plans to return to intermediate facility as a long-term resident as previously in order to progress mobility level, strength, and balance. TREATMENT CODE/TIME: NC Thank you very much for this referral. Noy Randle PT, DPT, CLT [facility]
== END 2019-04-15 14:18 | disposition skilled nursing facility (03) | DRG 945 ==
LOC: ER 04-09 00:04 → ICU 04-09 00:55 → MS 04-15 13:26 → ICU 04-19 14:13 → MS 04-19 14:13
PROVIDERS: Admitting Provider General Practice; Emergency Provider Emergency Medicine; PCP General Practice; Visit Provider Internal Medicine
DX: R41.82 Altered mental status, unspecified (principal); J69.0 Pneumonitis due to inhalation of food and vomit; F01.51 Vascular dementia, unspecified severity, with behavioral disturbance; F05 Delirium due to known physiological condition; I10 Essential (primary) hypertension; J44.9 Chronic obstructive pulmonary disease, unspecified; Z51.5 Encounter for palliative care; I69.398 Other sequelae of cerebral infarction; Z85.118 Personal history of other malignant neoplasm of bronchus and lung; Z79.02 Long term (current) use of antithrombotics/antiplatelets; R06.02 Shortness of breath; R13.19 Other dysphagia; R06.82 Tachypnea, not elsewhere classified
CPT/HCPCS: 36410; 36415; 80048; 80051; 80053; 84145; 85027; 87040; 87081; 87529; 87798; 92610; 93005; 96361; 96365; 96375; 97162; 97530; 99223; 99232; 99233; 99239; 99255; 99291; J1650; 70450; 71045; 71046; 80202; 81003; 82607; 83605; 83735; 84443; 84484; 85025; 86618; 86695; 86696; 93010; J0131; J0133; J0360; J1630; J2060; J2543; J3475; J3480; J7512; J7620

== ENCOUNTER 2019-04-25 22:51 | Emergency (ER) | payer MEDICARE, MEDICAID, SELFPAY ==
[2019-04-25 22:53] VITALS: BP 128/49; PULSE 100; RESP 16; TEMP 37.4; O2SAT 92
[2019-04-25 22:57] VITALS: RESP 16
--- NOTE | 2019-04-25 22:57 | DI.RAD_ITS ---
SYMPTOM/DIAGNOSIS: FEVER, NO COUGH PORTABLE AP CHEST: 04/25 Examination is compared with most recent film of 04/15/2019. Chronic changes of left lung volume loss, diaphragmatic tenting and left suprahilar scarring and mediastinal contour deformity again noted. No gross new intrapulmonary consolidation. No pleural effusion identified on frontal film. CONCLUSION: Stable pulmonary findings.
--- NOTE | 2019-04-25 23:03 | W.ED.GENAD ---
Discharge Plan Disposition Patient Disposition: SNF (LEVEL 1) [facility] Condition: Good Discharge Details Chief Complaint: GenMedical Clinical Impression: Evaluation by medical service required Primary Care Provider: Lopez Araiza ED Provider: Kahlil Mack Home Meds and New Rx's Prescriptions: No Action paroxetine HCl [Paxil] 30 MG tablet 30 mg PO DAILY RF: 0 multivitamin [Daily Multi-Vitamin] 1 EACH tablet 1 tab PO DAILY RF: 0 atorvastatin 80 MG tablet 80 mg PO DAILY RF: 0 clopidogrel [Plavix] 75 MG tablet 75 mg PO DAILY RF: 0 levothyroxine 50 MCG tablet 50 mcg PO DAILY RF: 0 docusate sodium [Colace] 100 MG capsule 100 mg PO BID RF: 0 lisinopril 2.5 MG tablet 2.5 mg PO DAILY RF: 0 acetaminophen 325 mg Tablet 650 mg PO QID PRNRF: 0 omeprazole 40 mg capsule,delayed release(DR/EC) 40 mg PO DAILY Qty: 30 RF: 0 Discharge Instructions Additional Instructions: Currently there is no evidence of significant infection, fever, or other abnormality. Your heart rate is normal,, your x-rays negative for infection, your labs show no significant abnormalities, your urine is negative for infection, and you have no fever here. Please continue gentle hydration at home. If you notice any worsening of your symptoms, or any new symptoms such as vomiting, diarrhea, fever, chills, shortness of breath, chest pain, numbness, weakness, or fainting , please return immediately to the emergency department for reevaluation. Please follow up with your primary care provider as soon as possible for reassessment and reevaluation. As always, it was a pleasure participating in your medical care today. Referrals: Lopez Araiza MD [Primary Care Provider] - Medical Decision Making This is a 69-year-old male with past medical history of non-small cell lung cancer, hypertension, previous strokes leading to left-sided neglect, currently on Plavix, COPD, who presents today for evaluation of fever. Per health and rehab the patient had a fever there, as well as slightly increased oxygen demands. They state that there was no antipyretics available for order, and with his symptoms they were concerned recommended transfer to the ER for further evaluation. Per EMS there was no hypoxemia or fever on their assessment. Upon arrival to the ED the patient has no complaints. He certainly does not show the encephalopathic symptoms that he did on his previous visit. He is calm, complacent, follows all commands. No severe focal neurologic deficits. Vital signs demonstrate heart rate of 100, oxygen saturations 90-94. No evidence of respiratory distress. Exam demonstrates no concerning lung findings, no nuchal rigidity, no abdominal tenderness. We will get a chest x-ray to evaluate for central pneumonia, urinalysis to evaluate for infection, but being afebrile here and having no antipyretics, I do not feel that he requires inpatient admission or IV antibiotics at this time. 12:35 AM The patient's laboratory work-up has returned, mild white count at 13, with minimal left shift, this appears to be near his baseline per previous labs. No evidence of bandemia. Electrolytes normal, renal function normal, urinalysis negative for infection, chest x-ray per virtual radiology negative for acute process or pneumonia. Patient was given a mild 500 cc bolus, and continues to look well. Vital signs continues to demonstrate normal heart rate, normal blood pressure and and afebrile status. With no evidence of fever in the setting of no antipyretic administration, no clear signs of infection, and a normal exam I do feel that he can be safely return back to health and rehab. I did contact Dr. Melton discussed the case with him. He agrees with the plan at this time. I have extensively reviewed the treatment plan with the patient. I have addressed all patient concerns at this time. I have also discussed the plan with the admitting physician Dr. Melton and they agree with the current assessment and plan and have agreed to assume responsibility for the patient. All parties demonstrate verbal understanding and agreement with our assessment and plan at this time. FINDINGS: Lungs: Unremarkable. No consolidation. Pleural space: Unremarkable. No evidence of pneumothorax. Heart/Mediastinum: Unremarkable. Heart size within normal limits for technique. Bones/joints: Unremarkable. IMPRESSION: No acute findings. Thank you for allowing us to participate in the care of your patient. Dictated and Authenticated by: Jerrell Fish MD [facility] General Date/Time Provider Initiated Documentation: 04/25/19 22:55. [facility] Narrative: This is a 69-year-old male with a past medical history of previous stroke with left-sided neglect, COPD, vascular dementia, non-small cell lung cancer, who was recently here and then subsequently discharged on 15 April which was greater than a week ago for fever of unknown origin, encephalopathy and notable confusion. He presents today from health and rehab for evaluation of fever. Per EMS report health and rehab stated that the patient had a fever, increased oxygen demands, and increased respiratory rate, and no Tylenol or NSAIDs were on order for the patient as an antipruritic. Due to these concerns EMS was called for further evaluation in the emergency department. Per EMS report the patient has had an oxygen saturation of 94-96 during their entire encounter. He has been afebrile for them, with otherwise unremarkable vital signs. The patient has no complaints at this time. He denies any chest pain, cough, shortness of breath, nausea vomiting or diarrhea. Health and rehab did report increase in urinary frequency. Patient denies any complaints of dysuria at this time. Of note I was present in the emergency department upon the patient's last admission, and the encephalopathy he had at that point was notably unlike his current presentation here [facility]. Related Data Home Medications Medication Instructions Recorded Confirmed paroxetine HCl [Paxil] 30 mg PO DAILY 05/27/13 04/25/19 multivitamin [Daily Multi-Vitamin] 1 tab PO DAILY 10/20/14 04/25/19 atorvastatin 80 mg PO DAILY 01/01/18 04/25/19 clopidogrel [Plavix] 75 mg PO DAILY 01/01/18 04/25/19 docusate sodium [Colace] 100 mg PO BID 01/01/18 04/25/19 levothyroxine 50 mcg PO DAILY 01/01/18 04/25/19 lisinopril 2.5 mg PO DAILY 01/01/18 04/25/19 omeprazole 40 mg PO DAILY #30 cap 04/15/19 04/25/19 acetaminophen 650 mg PO QID PRN 04/25/19 04/25/19 Previous Rx's Medication Instructions Recorded omeprazole 40 mg PO DAILY #30 cap 04/15/19 Allergies Allergy/AdvReac Type Severity Reaction Status Date / Time lorazepam AdvReac Severe Agitation, Verified 04/13/19 10:02 altered mental status General Stated Complaint: GenMedical YONI: 4 Review of Systems Review of Systems All systems reviewed & are unremarkable except as noted in HPI and below PFSH Social History Smoking/Tobacco Use Status: Former Tobacco Use Tobacco: How many years used: 30 Alcohol Intake: former Drug use: Never Caregiver/Support person: Yes Household members: none Housing: [facility] Number of Children: 1 Communication Needs: Hard of Hearing and Corrective Lenses Education Level: high school Do you need help understanding health information?: Always 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[employer] What is your relationship status?: How often do you talk on the phone with friends or family?: twice per week How often do you get together with friends or relatives?: twice per week Panel score (0-1 are the most socially isolated patients): 1 What type of physical activity do you participate in: assisted ambulation and irregular exercise Duration: < 15 minutes/day Special reyna needs: No Agree to transfusion: Yes Seatbelt use: always Do you feel safe at home: Yes Do you feel safe in your relationship?: Yes Additional Social history: sister Henrietta is only surviving family, other than daughter whom he has not seen in years does not want to reconnect with her loves to sit outside in the sun, socialize, interact. Exam Narrative Exam Narrative: 1.Const: Well-nourished, Well-developed, appearing stated age 2.Eyes: PERRL, no conjunctival injection, and symmetrical lids. 3.ENT: Atraumatic external nose and ears. Moist MM. Neck: Symmetric, trachea midline, No thyromegaly. 4.CVS: +S1/S2, No murmurs or gallops. Peripheral pulses 2+ and equal in all extremities. Brisk capillary refill in all extremities. 5.RESP: Unlabored respiratory effort. Clear to auscultation bilaterally. No wheezes rales or rhonchi 6.GI: Soft, Nontender/Nondistended, No hepatosplenomegaly. No guarding or rebound. 7.MSK: Normocephalic/Atraumatic, Extremities w/o deformity or ttp No cyanosis or clubbing, Normal movement of all extremities 8.Skin: Warm, Dry. No rashes or lesions. 9.Neuro: gas brazer II-XII grossly intact. Sensation grossly intact, no focal neurologic deficits. Patient does move all extremities without difficulty 10.Psych: (AAO) x2. Appropriate mood and affect. No evidence of significant encephalopathy, or altered mental status. Course Vital Signs Temperature 37.4 C 04/25/19 22:53 Pulse 100 H 04/25/19 22:53 Respiratory Rate 16 04/25/19 22:53 Blood Pressure 128/49 L 04/25/19 22:53 Pulse Oximetry 92 L 04/25/19 22:53 Temperature 37.4 C 04/25/19 22:53 Temperature Source Temporal Artery Scan 04/25/19 22:53 Pulse 100 H 04/25/19 22:53 Respiratory Rate 16 04/25/19 22:57 Respiratory Effort 04/25/19 22:57 Respiratory Depth Normal 04/25/19 22:57 Respiratory Pattern Normal 04/25/19 22:57 Blood Pressure 128/49 L 04/25/19 22:53 Pulse Oximetry 92 L 04/25/19 22:53 Oxygen Delivery Method Room Air 04/25/19 22:53 Oxygen Flow Rate 0 04/25/19 22:53
[2019-04-25 23:15] LABS: Abs Immature Grans 0.05 k/cumm (0.0-0.09); Absolute Lymphocyte Count 2.15 k/cumm (1.2-3.4); Absolute Monocyte Count 1.43 k/cumm (0.11-0.7); Absolute Neutrophil Count 9.86 k/cumm (1.2-6.7); Basophils % 0.1; Eosinophils % 2.5; HCT 39.1 % (40.0-50.0); HGB 12.8 g/dL (13.5-17.5); Immature Grans % 0.4; Lymphocytes % 15.5; Mean Corp. HGB Concentration 32.7 g/dL (32.0-36.0); Mean Corpuscular Hemoglobin 29.6 pg (27.0-33.0); Mean Corpuscular Volume 90.3 fL (80-95); Mean Platelet Volume 9.2 fL (8.0-11.0); Monocytes % 10.3; Neutrophils % 71.2; Platelet Count 344 x1000/uL (130-400); RBC 4.33 m/cumm (4.50-6.00); RBC Distribution Width 15.8 % (11.8-14.1); White Blood Cell Count 13.85 k/cumm (4.4-10.8)
[2019-04-25 23:23] LABS: Absolute Basophil Count 0.01 k/cumm (0.0-0.2); Absolute Eosinophil Count 0.35 k/cumm (0.0-0.7)
--- NOTE | 2019-04-25 23:29 | DI.VRAD_ITS ---
EXAM: XR Chest, 1 View EXAM DATE/TIME: 04/25/2019 10:57 PM CLINICAL HISTORY: 69 years old, male; Fever; Prior surgery; Surgery date: 6+ months; Surgery type: Lobectomy; Patient HX: HX of copd, non small cell lung CA TECHNIQUE: Imaging protocol: XR of the chest, 1 view. COMPARISON: CR XR CHEST 2V PA LATERAL 04/15/2019 7:41 AM FINDINGS: Lungs: Unremarkable. No consolidation. Pleural space: Unremarkable. No evidence of pneumothorax. Heart/Mediastinum: Unremarkable. Heart size within normal limits for technique. Bones/joints: Unremarkable. IMPRESSION: No acute findings. Dictated and Authenticated by: Jerrell Fish MD. Ordering:CHELSY Guillory MD
[2019-04-25 23:35] LABS: ALT 55 U/L (12-78); AST 22 U/L (15-37); Alkaline Phosphatase 97 U/L (46-116); Anion Gap 7.7 mmol/L (3-11); BUN 18 mg/dL (7-18); Bilirubin, Total 0.4 mg/dL (0.2-1.0); CO2 28.3 mmol/L (21.0-32.0); CREATININE 0.78 mg/dL (0.70-1.30); Calcium 8.6 mg/dL (8.5-10.1); Chloride 103 mmol/L (98-107); Glucose 101 mg/dL (70-100); Potassium 4.5 mmol/L (3.5-5.1); Sodium 139 mmol/L (136-145); Total Protein 6.5 g/dL (6.4-8.2)
[2019-04-26] MEDS: Lidocaine 2% Jelly 6 ML SYR (00:12)
[2019-04-26] MEDS: Normal Saline 250 ML 1000 ML IV (00:12)
[2019-04-26 00:14] LABS: Bilirubin Negative (Negative); Blood Negative (Negative); Clarity Clear (Clear); Glucose Negative (Negative); Ketones Negative (Negative); Leukocyte Esterase Negative (Negative); Nitrite Negative (Negative); Specific Gravity 1.015 (1.005-1.025); Urobilinogen 0.2 EU/dL (Up TO 0.2); pH 7.5 (5-8)
--- NOTE | 2019-05-07 15:28 | PCNE_ITS ---
Date of service: 04/14/19 [facility] Medical History (Updated 04/26/19 @ 21:00 by Johanne Simental MD) Advance directive on file (Chronic) Benign hypertension (Chronic) COPD (chronic obstructive pulmonary disease) (Chronic) CVA (cerebral vascular accident) (Chronic) Encephalopathy (Acute) Fever of unknown origin (Acute) Goals of care, counseling/discussion (Chronic) Hyperlipidemia (Chronic) Hypothyroid (Chronic) Non-small cell lung cancer (Inactive) Palliative care patient (Chronic) Vascular dementia (Chronic) Social History Smoking/Tobacco Use Status: Former Tobacco Use Tobacco: How many years used: 30 Alcohol Intake: former Drug use: Never Caregiver/Support person: Yes Household members: none Housing: care home Number of Children: 1 Communication Needs: Hard of Hearing and Corrective Lenses Education Level: high school Do you need help understanding health information?: Always 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[employer] What is your relationship status?: How often do you talk on the phone with friends or family?: twice per week How often do you get together with friends or relatives?: twice per week Panel score (0-1 are the most socially isolated patients): 1 What type of physical activity do you participate in: assisted ambulation and irregular exercise Duration: < 15 minutes/day Special reyna needs: No Agree to transfusion: Yes Seatbelt use: always Do you feel safe at home: Yes Do you feel safe in your relationship?: Yes Additional Social history: sister Henrietta is only surviving family, other than daughter whom he has not seen in years does not want to reconnect with her loves to sit outside in the sun, socialize, interact. Results Last Vital Signs Temp 99.4 F 04/25/19 22:53 Pulse 100 H 04/25/19 22:53 Resp 16 04/25/19 22:57 BP 128/49 L 04/25/19 22:53 Pulse Ox 92 L 04/25/19 22:53 Labs : 04/25/19 23:10 04/25/19 23:10
--- NOTE | 2019-05-07 15:33 | PCPN_ITS ---
Date of service: 04/14/19 Assessment and Plan (1) Vascular dementia: Current visit: No Status: Chronic Clearing. Nearly back to baseline. His mild to moderate dementia puts his brain at higher risk than average whenever he is ill. Should be able to return to Rehab, though not at quite the same level of function as before. (2) Palliative care patient: Current visit: No Status: Chronic will continue to follow once discharged if he can return to his usual mobile, social self he will be happy if he does not return to baseline, his sister (DPZINA) and Virgil will likely change his code status to DnR/DNI (3) Encephalopathy: Current visit: No Status: Acute caused by acute illness in a vulnerable brain concerning that he has had several fevers of unknown origin possible recurrence of his cancer Subjective Patient reports: no new complaints and feels better Interval history since last seen: clearer recognizes his sister able to speak not yet back to baseline feels weak no memory of last few days Exam Narrative Exam Narrative: General: Patient is no longer agitated, verbal, and following commands. Oriented to place and self. NAD noted. Neck: Supple CV: Regular, mildly tachycardic, S1S2, No rubs, murmurs, or gallops. Pulmonary: Vastly improved air entry, with resolved wheezing. Abdomen: + Bowel Sounds, soft, nontender, nondistended Vascular: No lower extremity edema Objective Objective Clinical Data: Vital Signs Temperature 99.4 F 04/25/19 22:53 Temperature Source Temporal Artery Scan 04/25/19 22:53 Pulse 100 H 04/25/19 22:53 Respiratory Rate 16 04/25/19 22:57 Respiratory Effort 04/25/19 22:57 Respiratory Depth Normal 04/25/19 22:57 Respiratory Pattern Normal 04/25/19 22:57 Blood Pressure 128/49 L 04/25/19 22:53 Pulse Oximetry 92 L 04/25/19 22:53 Oxygen Delivery Method Room Air 04/25/19 22:53 Oxygen Flow Rate 0 04/25/19 22:53 Laboratory Results WBC 13.85 k/cumm (4.4-10.8) H 04/25/19 23:10 RBC 4.33 m/cumm (4.50-6.00) L 04/25/19 23:10 Hgb 12.8 g/dL (13.5-17.5) L 04/25/19 23:10 Hct 39.1 % (40.0-50.0) L 04/25/19 23:10 MCV 90.3 fL (80-95) 04/25/19 23:10 MCH 29.6 pg (27.0-33.0) 04/25/19 23:10 MCHC 32.7 g/dL (32.0-36.0) 04/25/19 23:10 RDW 15.8 % (11.8-14.1) H 04/25/19 23:10 Plt Count 344 x1000/uL (130-400) 04/25/19 23:10 MPV 9.2 fL (8.0-11.0) 04/25/19 23:10 Immature Gran % 0.4 04/25/19 23:10 71.2 04/25/19 23:10 15.5 04/25/19 23:10 10.3 04/25/19 23:10 2.5 04/25/19 23:10 0.1 04/25/19 23:10 Absolute Neutrophils 9.86 k/cumm (1.2-6.7) H 04/25/19 23:10 Absolute Lymphocytes 2.15 k/cumm (1.2-3.4) 04/25/19 23:10 Absolute Monocytes 1.43 k/cumm (0.11-0.7) H 04/25/19 23:10 Absolute Eosinophils 0.35 k/cumm (0.0-0.7) 04/25/19 23:10 Absolute Basophils 0.01 k/cumm (0.0-0.2) 04/25/19 23:10 Sodium 139 mmol/L (136-145) 04/25/19 23:10 Potassium 4.5 mmol/L (3.5-5.1) 04/25/19 23:10 Chloride 103 mmol/L (98-107) 04/25/19 23:10 Carbon Dioxide 28.3 mmol/L (21.0-32.0) 04/25/19 23:10 7.7 mmol/L (3-11) 04/25/19 23:10 BUN 18 mg/dL (7-18) 04/25/19 23:10 0.78 mg/dL (0.70-1.30) 04/25/19 23:10 >= 60.00 (mL/min/1.73m2) 04/25/19 23:10 Glucose 101 mg/dL (70-100) H 04/25/19 23:10 Calcium 8.6 mg/dL (8.5-10.1) 04/25/19 23:10 0.4 mg/dL (0.2-1.0) 04/25/19 23:10 AST 22 U/L (15-37) 04/25/19 23:10 ALT 55 U/L (12-78) 04/25/19 23:10 97 U/L (46-116) 04/25/19 23:10 6.5 g/dL (6.4-8.2) 04/25/19 23:10 3.0 g/dL (3.4-5.0) L 04/25/19 23:10 Yellow (Yellow) 04/26/19 00:10 Clear (Clear) 04/26/19 00:10 7.5 (5-8) 04/26/19 00:10 Ur Specific [place] 1.015 (1.005-1.025) 04/26/19 00:10 Negative mg/dL (Negative) 04/26/19 00:10 Negative mg/dL (Negative) 04/26/19 00:10 Negative (Negative) 04/26/19 00:10 Negative (Negative) 04/26/19 00:10 Negative (Negative) 04/26/19 00:10 0.2 EU/dL (Up TO 0.2) 04/26/19 00:10 Ur Leukocyte Esterase Negative (Negative) 04/26/19 00:10 Negative mg/dL (Negative) 04/26/19 00:10
== END 2019-04-26 00:44 | disposition skilled nursing facility (03) ==
PROVIDERS: Emergency Provider Student in an Organized Health Care Education/Training Program; PCP General Practice
DX: R50.9 Fever, unspecified (principal); R35.0 Frequency of micturition; F01.50 Vascular dementia, unspecified severity, without behavioral disturbance, psychotic disturbance, mood disturbance, and anxiety; I10 Essential (primary) hypertension; J44.9 Chronic obstructive pulmonary disease, unspecified; Z87.891 Personal history of nicotine dependence
CPT/HCPCS: 36415; 80053; 99232; 99284; 71045; 81003; 85025

== ENCOUNTER 2019-05-03 09:41 | Outpatient (CLI) | payer MEDICARE, MEDICAID, SELFPAY ==
[2019-05-03 11:11] LABS: Abs Immature Grans 0.02 k/cumm (0.0-0.09); Absolute Basophil Count 0.05 k/cumm (0.0-0.2); Absolute Eosinophil Count 0.42 k/cumm (0.0-0.7); Absolute Lymphocyte Count 2.23 k/cumm (1.2-3.4); Absolute Monocyte Count 0.54 k/cumm (0.11-0.7); Absolute Neutrophil Count 5.39 k/cumm (1.2-6.7); Basophils % 0.6; Eosinophils % 4.9; HCT 42.6 % (40.0-50.0); HGB 13.7 g/dL (13.5-17.5); Immature Grans % 0.2; Lymphocytes % 25.8; Mean Corp. HGB Concentration 32.2 g/dL (32.0-36.0); Mean Corpuscular Hemoglobin 29.5 pg (27.0-33.0); Mean Corpuscular Volume 91.6 fL (80-95); Mean Platelet Volume 9.3 fL (8.0-11.0); Monocytes % 6.2; Neutrophils % 62.3; Platelet Count 401 x1000/uL (130-400); RBC 4.65 m/cumm (4.50-6.00); RBC Distribution Width 15.6 % (11.8-14.1); White Blood Cell Count 8.65 k/cumm (4.4-10.8)
[2019-05-03 11:57] LABS: Anion Gap 7.9 mmol/L (3-11); BUN 15 mg/dL (7-18); CO2 30.1 mmol/L (21.0-32.0); CREATININE 0.79 mg/dL (0.70-1.30); Chloride 106 mmol/L (98-107); Glucose 94 mg/dL (70-100); Potassium 4.8 mmol/L (3.5-5.1); Sodium 144 mmol/L (136-145)
== END 2019-05-03 10:01 ==
PROVIDERS: PCP General Practice; Visit Provider Nurse Practitioner Adult Health
DX: I10 Essential (primary) hypertension (principal); R51 Headache
CPT/HCPCS: 80048; 85025

== ENCOUNTER 2019-08-29 14:11 | Outpatient (CLI) | payer MEDICARE, MEDICAID, SELFPAY ==
--- NOTE | 2019-08-29 13:27 | DI.RAD_ITS ---
EXAM: XR FOOT LT COMPLETE INDICATION: PAIN, ? LEFT 5TH DIGIT FX. COMPARISON: No exams were available for comparison TECHNIQUE: 2D digital imaging was performed. FINDINGS: There is no acute fracture identified. There are mild degenerative changes of the foot. There is a 1.5 mm linear radiopaque density in the soft tissues adjacent to the distal phalanx of the 3rd toe. This may represent a foreign body. This is of indeterminate age. The soft tissues are otherwise unr emarkable. IMPRESSION: No acute fracture or dislocation.
== END 2019-08-29 14:31 ==
PROVIDERS: PCP General Practice; Visit Provider Nurse Practitioner Adult Health
DX: M79.672 Pain in left foot (principal); M19.072 Primary osteoarthritis, left ankle and foot; M79.89 Other specified soft tissue disorders
CPT/HCPCS: 73630

== ENCOUNTER 2019-09-13 11:31 | Outpatient (CLI) | payer MEDICARE, MEDICAID, SELFPAY ==
[2019-09-13 14:05] LABS: TSH 3.49 uIU/mL (0.36-3.74)
== END 2019-09-13 11:51 ==
PROVIDERS: PCP General Practice; Visit Provider Nurse Practitioner Adult Health
DX: E03.9 Hypothyroidism, unspecified (principal)
CPT/HCPCS: 36415; 84443

== ENCOUNTER 2019-11-15 10:15 | Outpatient (CLI) | payer MEDICARE, MEDICAID, SELFPAY ==
[2019-11-15 10:53] LABS: Abs Immature Grans 0.01 k/cumm (0.0-0.09); Absolute Basophil Count 0.03 k/cumm (0.0-0.2); Absolute Eosinophil Count 0.44 k/cumm (0.0-0.7); Absolute Lymphocyte Count 2.46 k/cumm (1.2-3.4); Absolute Monocyte Count 0.25 k/cumm (0.11-0.7); Absolute Neutrophil Count 5.03 k/cumm (1.2-6.7); Basophils % 0.4; Eosinophils % 5.4; HCT 41.7 % (40.0-50.0); HGB 13.6 g/dL (13.5-17.5); Immature Grans % 0.1 %; Lymphocytes % 29.9; Mean Corp. HGB Concentration 32.6 g/dL (32.0-36.0); Mean Corpuscular Hemoglobin 28.9 pg (27.0-33.0); Mean Corpuscular Volume 88.7 fL (80-95); Mean Platelet Volume 9.7 fL (8.0-11.0); Neutrophils % 61.2; Platelet Count 335 x1000/uL (130-400); RBC Distribution Width 14.4 % (11.8-14.1); White Blood Cell Count 8.22 k/cumm (4.4-10.8)
== END 2019-11-15 10:35 ==
PROVIDERS: PCP Nurse Practitioner Adult Health; Visit Provider Nurse Practitioner Adult Health
DX: I10 Essential (primary) hypertension (principal); E78.5 Hyperlipidemia, unspecified; C34.90 Malignant neoplasm of unspecified part of unspecified bronchus or lung
CPT/HCPCS: 36415; 82565; 85025

== ENCOUNTER 2020-02-29 16:42 | Outpatient (REF) | payer MEDICARE, MEDICAID, SELFPAY ==
[2020-03-01 14:49] LABS: COVID-19 RT-PCR Result NEGATIVE (Negative)
== END 2020-02-29 17:02 ==
LOC: LBN 16:42
PROVIDERS: PCP Nurse Practitioner Adult Health; Visit Provider Nurse Practitioner Adult Health
DX: Z20.828 Contact with and (suspected) exposure to other viral communicable diseases (principal)
CPT/HCPCS: U0003

== ENCOUNTER 2020-08-21 18:17 | Outpatient (REF) | payer MEDICARE, MEDICAID, SELFPAY ==
[2020-08-21 17:37] LABS: Abs Immature Grans 0.01 10^3/uL (0.0-0.06); Absolute Basophil Count 0.05 10^3/uL (0.0-0.2); Absolute Eosinophil Count 0.56 10^3/uL (0.0-0.7); Absolute Lymphocyte Count 3.01 10^3/uL (1.2-3.4); Absolute Monocyte Count 0.51 10^3/uL (0.1-0.8); Absolute Neutrophil Count 3.23 10^3/uL (1.2-6.7); Basophils % 0.7; Eosinophils % 7.6; HCT 40.8 % (40.0-50.0); HGB 13.2 g/dL (13.5-17.5); Immature Grans % 0.1; Lymphocytes % 40.8; MCH 29.2 pg (27.0-33.0); MCHC 32.4 % (32.0-36.0); MCV 90.3 fL (80-95); MPV 9.8 fL (8.0-11.0); Monocytes % 6.9; Neutrophils % 43.9; Nucleated RBC 0 %; Platelet Count 291 10^3/uL (130-400); RBC 4.52 10^6/uL (4.36-5.78); RDW 13.6 % (11.8-14.1); RDW-SD 45.2 fL; WBC 7.37 10^3/uL (4.4-10.8)
[2020-08-21 17:47] LABS: ALT 39 U/L (16-63); AST 26 U/L (15-37); Albumin 3.6 g/dL (3.4-5.0); Alkaline Phosphatase 111 U/L (46-116); BUN 22 mg/dL (7-18); Bilirubin, Total 0.3 mg/dL (0.2-1.0); CREATININE 0.92 mg/dL (0.70-1.30); Calcium 8.8 mg/dL (8.5-10.1); Chloride 107 mmol/L (98-107); Glucose 100 mg/dL (74-106); Potassium 4.5 mmol/L (3.5-5.1); Sodium 141 mmol/L (136-145); Total Protein 6.5 g/dL (6.4-8.2)
== END 2020-08-21 18:37 ==
LOC: LBN 18:17
PROVIDERS: PCP Nurse Practitioner Adult Health; Visit Provider Nurse Practitioner Adult Health
DX: R68.89 Other general symptoms and signs (principal)
CPT/HCPCS: 80053; 85025

== ENCOUNTER 2021-03-01 16:54 | Outpatient (REF) | payer MEDICARE, MEDICAID, SELFPAY ==
[2021-03-01 17:12] LABS: Abs Immature Grans 0.01 10^3/uL (0.0-0.06); Absolute Basophil Count 0.05 10^3/uL (0.0-0.2); Absolute Eosinophil Count 0.44 10^3/uL (0.0-0.7); Absolute Lymphocyte Count 2.32 10^3/uL (1.2-3.4); Absolute Monocyte Count 0.47 10^3/uL (0.1-0.8); Absolute Neutrophil Count 2.92 10^3/uL (1.2-6.7); Basophils % 0.8; Eosinophils % 7.1; HCT 36.1 % (40.0-50.0); HGB 11.7 g/dL (13.5-17.5); Immature Grans % 0.2; Lymphocytes % 37.4; MCH 29.4 pg (27.0-33.0); MCHC 32.4 % (32.0-36.0); MCV 90.7 fL (80-95); MPV 9.3 fL (8.0-11.0); Monocytes % 7.6; Neutrophils % 46.9; Nucleated RBC 0 %; Platelet Count 340 10^3/uL (130-400); RBC 3.98 10^6/uL (4.36-5.78); RDW 13.7 % (11.8-14.1); RDW-SD 46.1 fL; WBC 6.21 10^3/uL (4.4-10.8)
[2021-03-01 17:30] LABS: Hemoglobin A1C 5.6 % (<5.7)
[2021-03-01 17:32] LABS: ALT 40 U/L (16-63); AST 25 U/L (15-37); Alkaline Phosphatase 114 U/L (46-116); Anion Gap 6.8 mmol/L (3-11); BUN 18 mg/dL (7-18); Bilirubin, Total 0.3 mg/dL (0.2-1.0); CO2 29.2 mmol/L (21.0-32.0); CREATININE 0.8 mg/dL (0.70-1.30); Calcium 8.3 mg/dL (8.5-10.1); Chloride 106 mmol/L (98-107); Glucose 108 mg/dL (74-106); Potassium 4.1 mmol/L (3.5-5.1); Sodium 142 mmol/L (136-145); TSH 1.48 uIU/mL (0.36-3.74); Total Protein 5.8 g/dL (6.4-8.2)
[2021-03-04 11:40] LABS: Prealbumin 17 mg/dL (20-40)
== END 2021-03-01 16:55 | disposition home or self-care (01) ==
LOC: LBN 16:54
PROVIDERS: PCP Nurse Practitioner Adult Health; Visit Provider Nurse Practitioner Family
DX: I10 Essential (primary) hypertension (principal); E03.9 Hypothyroidism, unspecified; C79.31 Secondary malignant neoplasm of brain; R73.09 Other abnormal glucose; M62.81 Muscle weakness (generalized)
CPT/HCPCS: 80053; 83036; 84134; 84443; 85025

== ENCOUNTER 2021-03-20 09:44 | Outpatient (CLI) | payer MEDICARE, MEDICAID, SELFPAY ==
--- NOTE | 2021-03-20 | DI.RAD_ITS ---
Exam(s) XR FOREARM LT XR WRIST LT COMPLETE EXAM: XR FOREARM LT and XR wrist LT complete CLINICAL HISTORY: PAIN. TECHNIQUE: 2D digital imaging was performed. COMPARISON: CR XR WRIST LT COMPLETE from 03/20/2021 FINDINGS: There are degenerative changes of the radiocarpal joint with joint space narrowing and subchondral sc lerosis. There also appears to be widening of the scapholunate distance raising the question of liga ment tear. There is chondrocalcinosis of the TFCC. Mild degenerative changes are seen at the 1st CM C joint. There is volar rotation of the lunate. The radius and ulna are intact. No acute fracture or dislocation. The visualized portions of the elbow are unremarkable. MRI may be considered for fu rther evaluation of the wrist. IMPRESSION: DATA REPOSITORY: RADIATION DOSE DELIVERED:
--- NOTE | 2021-03-20 | DI.RAD_ITS ---
Exam(s) XR RIBS LT W PA LAT CHEST EXAM: XR RIBS LT W PA LAT CHEST CLINICAL HISTORY: INTERCOSTAL PAIN, R07.82 TECHNIQUE: 2D digital imaging was performed. COMPARISON: CR XR PORTABLE CHEST AP from 04/25/2019 FINDINGS: MEDIASTINUM: There is stable deformity of the mediastinal contour which is likely postsurgical. HEART: Normal. PULMONARY VASCULATURE: Normal. LUNGS: Biapical scarring. No focal consolidation. PLEURAL SPACE: No pleural effusion or pneumothorax. BONE:Degenerative changes in the spine. LEFT RIBS: No acute abnormality. OTHER FINDINGS:There again seen postsurgical changes in the left hemithorax with tenting of the diaph ragm, elevation of the left hilum and apical scarring. IMPRESSION: 1. No acute pulmonary findings. 2. Unremarkable left ribs. DATA REPOSITORY: RADIATION DOSE DELIVERED:
== END 2021-03-20 10:04 ==
PROVIDERS: PCP Nurse Practitioner Adult Health; Visit Provider Nurse Practitioner Family
DX: M25.532 Pain in left wrist (principal); M18.12 Unilateral primary osteoarthritis of first carpometacarpal joint, left hand; M79.632 Pain in left forearm; R07.82 Intercostal pain
CPT/HCPCS: 71046; 71100; 73090; 73110

== ENCOUNTER 2021-10-15 16:21 | Outpatient (REF) | payer MEDICARE, MEDICAID, SELFPAY ==
[2021-10-15 17:34] LABS: Abs Immature Grans 0.02 10^3/uL (0.0-0.06); Absolute Basophil Count 0.04 10^3/uL (0.0-0.2); Absolute Eosinophil Count 0.57 10^3/uL (0.0-0.7); Absolute Lymphocyte Count 2.65 10^3/uL (1.2-3.4); Absolute Monocyte Count 0.55 10^3/uL (0.1-0.8); Absolute Neutrophil Count 4.74 10^3/uL (1.2-6.7); Basophils % 0.5; Eosinophils % 6.7; HCT 37.5 % (40.0-50.0); HGB 11.9 g/dL (13.5-17.5); Immature Grans % 0.2; Lymphocytes % 30.9; MCHC 31.7 % (32.0-36.0); MCV 91.2 fL (80-95); MPV 9.3 fL (8.0-11.0); Monocytes % 6.4; Neutrophils % 55.3; Nucleated RBC 0 %; Platelet Count 308 10^3/uL (130-400); RBC 4.11 10^6/uL (4.36-5.78); RDW 14.2 % (11.8-14.1); RDW-SD 47.8 fL; WBC 8.57 10^3/uL (4.4-10.8)
[2021-10-15 17:39] LABS: Anion Gap 5.7 mmol/L (3-11); BUN 21 mg/dL (7-18); CO2 32.3 mmol/L (21.0-32.0); CREATININE 0.7 mg/dL (0.70-1.30); Calcium 8.7 mg/dL (8.5-10.1); Chloride 105 mmol/L (98-107); Glucose 93 mg/dL (74-106); Potassium 4.9 mmol/L (3.5-5.1); Sodium 143 mmol/L (136-145)
== END 2021-10-15 16:22 | disposition home or self-care (01) ==
LOC: LBN 16:21
PROVIDERS: PCP Nurse Practitioner Adult Health; Visit Provider Family Medicine
DX: E87.8 Other disorders of electrolyte and fluid balance, not elsewhere classified (principal)
CPT/HCPCS: 80048; 85025

== ENCOUNTER 2021-11-05 16:51 | Outpatient (REF) | payer MEDICARE, MEDICAID, SELFPAY ==
[2021-11-05 17:49] LABS: Abs Immature Grans 0.01 10^3/uL (0.0-0.06); Absolute Basophil Count 0.05 10^3/uL (0.0-0.2); Absolute Lymphocyte Count 2.85 10^3/uL (1.2-3.4); Absolute Monocyte Count 0.49 10^3/uL (0.1-0.8); Absolute Neutrophil Count 3.44 10^3/uL (1.2-6.7); Basophils % 0.7; Eosinophils % 6.8; HCT 37.7 % (40.0-50.0); HGB 11.9 g/dL (13.5-17.5); Immature Grans % 0.1; Lymphocytes % 38.8; MCH 28.3 pg (27.0-33.0); MCHC 31.6 % (32.0-36.0); MCV 89.8 fL (80-95); MPV 9.6 fL (8.0-11.0); Monocytes % 6.7; Neutrophils % 46.9; Nucleated RBC 0 %; Platelet Count 327 10^3/uL (130-400); RDW 14.4 % (11.8-14.1); WBC 7.34 10^3/uL (4.4-10.8)
[2021-11-05 18:08] LABS: ALT 44 U/L (16-63); AST 31 U/L (15-37); Albumin 3.4 g/dL (3.4-5.0); Alkaline Phosphatase 105 U/L (46-116); Anion Gap 8.5 mmol/L (3-11); BUN 25 mg/dL (7-18); Bilirubin, Direct 0.1 mg/dL (0.0-0.2); Bilirubin, Total 0.3 mg/dL (0.2-1.0); CO2 27.5 mmol/L (21.0-32.0); CREATININE 0.8 mg/dL (0.70-1.30); Calcium 8.6 mg/dL (8.5-10.1); Chloride 106 mmol/L (98-107); Glucose 96 mg/dL (74-106); Potassium 4.3 mmol/L (3.5-5.1); Sodium 142 mmol/L (136-145); TSH 2.39 uIU/mL (0.36-3.74); Total Protein 6.3 g/dL (6.4-8.2)
[2021-11-05 18:22] LABS: Calculated LDL 131 mg/dL (<100); Cholesterol 197 mg/dL (<200); HDL Cholesterol 40 mg/dL (40-60); Triglyceride 133 mg/dL (<150)
== END 2021-11-05 16:52 | disposition home or self-care (01) ==
LOC: LBN 16:51
PROVIDERS: PCP Nurse Practitioner Adult Health; Visit Provider Family Medicine
DX: E03.9 Hypothyroidism, unspecified (principal); R27.9 Unspecified lack of coordination; J44.9 Chronic obstructive pulmonary disease, unspecified
CPT/HCPCS: 80048; 80061; 80076; 84443; 85025

== ENCOUNTER 2021-12-07 09:37 | Outpatient (REF) | payer MEDICARE, MEDICAID, SELFPAY ==
[2021-12-07 11:08] LABS: HCT 36.1 % (40.0-50.0); HGB 11.6 g/dL (13.5-17.5); MCH 29.1 pg (27.0-33.0); MCHC 32.1 % (32.0-36.0); MCV 90.5 fL (80-95); MPV 9.6 fL (8.0-11.0); Platelet Count 299 10^3/uL (130-400); RBC 3.99 10^6/uL (4.36-5.78); RDW-SD 46.5 fL
[2021-12-07 11:23] LABS: ALT 37 U/L (16-63); AST 29 U/L (15-37); Albumin 3.1 g/dL (3.4-5.0); Alkaline Phosphatase 89 U/L (46-116); Anion Gap 4.7 mmol/L (3-11); BUN 17 mg/dL (7-18); Bilirubin, Direct 0.1 mg/dL (0.0-0.2); Bilirubin, Total 0.5 mg/dL (0.2-1.0); CO2 30.3 mmol/L (21.0-32.0); CREATININE 0.7 mg/dL (0.70-1.30); Calcium 8.6 mg/dL (8.5-10.1); Chloride 108 mmol/L (98-107); Glucose 76 mg/dL (74-106); Potassium 4.3 mmol/L (3.5-5.1); Sodium 143 mmol/L (136-145); TSH 4.65 uIU/mL (0.36-3.74); Total Protein 5.7 g/dL (6.4-8.2)
== END 2021-12-07 09:38 | disposition home or self-care (01) ==
LOC: LBN 09:37
PROVIDERS: PCP Nurse Practitioner Adult Health; Visit Provider Nurse Practitioner Family
DX: I10 Essential (primary) hypertension (principal); E78.5 Hyperlipidemia, unspecified; E03.9 Hypothyroidism, unspecified
CPT/HCPCS: 80048; 80076; 85027; 84443

== ENCOUNTER 2022-02-17 13:22 | Outpatient (REF) | payer MEDICARE, MEDICAID, SELFPAY ==
[2022-02-17 17:15] LABS: TSH 0.25 uIU/mL (0.36-3.74)
== END 2022-02-17 13:23 | disposition home or self-care (01) ==
LOC: LBN 13:22
PROVIDERS: PCP Nurse Practitioner Adult Health; Visit Provider Family Medicine
DX: E03.9 Hypothyroidism, unspecified (principal)
CPT/HCPCS: 84443

== ENCOUNTER 2022-03-26 15:33 | Outpatient (REF) | payer MEDICARE, MEDICAID, SELFPAY ==
[2022-03-26 16:19] LABS: TSH 0.61 uIU/mL (0.36-3.74)
== END 2022-03-26 15:34 | disposition home or self-care (01) ==
LOC: LBN 15:33
PROVIDERS: PCP Nurse Practitioner Adult Health; Visit Provider Nurse Practitioner Family
DX: E03.9 Hypothyroidism, unspecified (principal)
CPT/HCPCS: 84443

== ENCOUNTER 2022-06-08 18:22 | Outpatient (REF) | payer MEDICARE, MEDICAID, SELFPAY ==
[2022-06-08 18:43] LABS: Abs Immature Grans 0.01 10^3/uL (0.0-0.06); Absolute Basophil Count 0.04 10^3/uL (0.0-0.2); Absolute Eosinophil Count 0.47 10^3/uL (0.0-0.7); Absolute Lymphocyte Count 2.18 10^3/uL (1.2-3.4); Absolute Monocyte Count 0.42 10^3/uL (0.1-0.8); Absolute Neutrophil Count 2.97 10^3/uL (1.2-6.7); Basophils % 0.7; Eosinophils % 7.7; HCT 38.9 % (40.0-50.0); HGB 12.3 g/dL (13.5-17.5); Immature Grans % 0.2; Lymphocytes % 35.8; MCH 28.1 pg (27.0-33.0); MCHC 31.6 % (32.0-36.0); MCV 89 fL (80-95); MPV 9.3 fL (8.0-11.0); Monocytes % 6.9; Neutrophils % 48.7; Platelet Count 316 10^3/uL (130-400); RBC 4.37 10^6/uL (4.36-5.78); RDW 13.3 % (11.8-14.1); RDW-SD 43.9 fL; WBC 6.09 10^3/uL (4.4-10.8)
[2022-06-08 19:06] LABS: ALT 36 U/L (16-63); AST 29 U/L (15-37); Albumin 3.4 g/dL (3.4-5.0); Alkaline Phosphatase 126 U/L (46-116); Anion Gap 8.1 mmol/L (3-11); BUN 18 mg/dL (7-18); Bilirubin, Direct 0.1 mg/dL (0.0-0.2); Bilirubin, Total 0.3 mg/dL (0.2-1.0); CO2 29.9 mmol/L (21.0-32.0); CREATININE 0.7 mg/dL (0.70-1.30); Calcium 8.6 mg/dL (8.5-10.1); Chloride 104 mmol/L (98-107); Glucose 115 mg/dL (74-106); Potassium 3.8 mmol/L (3.5-5.1); Sodium 142 mmol/L (136-145); TSH 0.14 uIU/mL (0.36-3.74); Total Protein 6.5 g/dL (6.4-8.2)
== END 2022-06-08 18:23 | disposition home or self-care (01) ==
LOC: LBN 18:22
PROVIDERS: PCP Nurse Practitioner Adult Health; Visit Provider Nurse Practitioner Family
DX: R13.11 Dysphagia, oral phase (principal); I10 Essential (primary) hypertension; E03.9 Hypothyroidism, unspecified
CPT/HCPCS: 80048; 80076; 84443; 85025

== ENCOUNTER 2022-09-30 13:19 | Outpatient (REF) | payer MEDICARE, MEDICAID, SELFPAY ==
[2022-09-30 13:34] LABS: Anion Gap 8.9 mmol/L (3-11); BUN 16 mg/dL (7-18); CO2 31.1 mmol/L (21.0-32.0); CREATININE 0.7 mg/dL (0.70-1.30); Chloride 103 mmol/L (98-107); Estimated GFR 97.29 (mL/min/1.73m2); Glucose 76 mg/dL (74-106); Potassium 4.4 mmol/L (3.5-5.1); Sodium 143 mmol/L (136-145); TSH 3.82 uIU/mL (0.36-3.74)
== END 2022-09-30 13:20 | disposition home or self-care (01) ==
LOC: LBN 13:19
PROVIDERS: PCP Nurse Practitioner Adult Health; Visit Provider Family Medicine
DX: E03.9 Hypothyroidism, unspecified (principal)
CPT/HCPCS: 80048; 84443

== ENCOUNTER 2023-01-02 22:35 | Emergency (ER) | payer MEDICARE, MEDICAID, SELFPAY ==
[2023-01-02] VITALS (14 sets, daily range): BP systolic 97–120; BP diastolic 60–70; PULSE 51–61; RESP 18; TEMP 36.8; O2SAT 92–94
--- NOTE | 2023-01-02 22:30 | DI.RAD_ITS ---
Exam(s) XR CHEST 2V PA LATERAL EXAM: XR CHEST 2V PA LATERAL CLINICAL HISTORY: cough, fever TECHNIQUE: 2D digital imaging was performed of the chest. Two images were obtained. PA and lateral views were obtained. COMPARISON: CR XR PORTABLE CHEST AP from 04/12/2019 CR XR RIBS LT W PA LAT CHEST from 03/20/2021 FINDINGS: MEDIASTINUM: Unchanged compared to the prior examination. HEART: Normal. PULMONARY VASCULATURE: Normal. LUNGS: The parenchymal opacity adjacent to the aortic arch on the left is unchanged. No new infiltra saman are seen. PLEURAL SPACE: No pleural effusion or pneumothorax. BONE:Within normal limits for the patient's age. OTHER FINDINGS:The left hemithorax appears stable. IMPRESSION: No acute pulmonary findings. DATA REPOSITORY: RADIATION DOSE DELIVERED:
[2023-01-02 22:45] LABS: Abs Immature Grans 0.02 10^3/uL (0.0-0.06); Absolute Basophil Count 0.04 10^3/uL (0.0-0.2); Absolute Eosinophil Count 0.39 10^3/uL (0.0-0.7); Absolute Lymphocyte Count 1.32 10^3/uL (1.2-3.4); Absolute Monocyte Count 0.61 10^3/uL (0.1-0.8); Absolute Neutrophil Count 3.26 10^3/uL (1.2-6.7); Basophils % 0.7; Eosinophils % 6.9; HCT 35.3 % (40.0-50.0); HGB 11.7 g/dL (13.5-17.5); Immature Grans % 0.4; Lymphocytes % 23.4; MCH 28.9 pg (27.0-33.0); MCHC 33.1 % (32.0-36.0); MCV 87 fL (80-95); MPV 8.4 fL (8.0-11.0); Monocytes % 10.8; Neutrophils % 57.8; Platelet Count 289 10^3/uL (130-400); RBC 4.05 10^6/uL (4.36-5.78); RDW 13.3 % (11.8-14.1); RDW-SD 42.8 fL; WBC 5.64 10^3/uL (4.4-10.8)
--- NOTE | 2023-01-02 22:46 | W.ED.GENAD ---
Discharge Plan Disposition Patient Disposition: [facility] Facility([facility]NF) Condition: Stable Discharge Details Clinical Impression: Fever of unknown origin Primary Care Provider: Angelita Dunbar ED Provider: Quentin Malik Home Meds and New Rx's Prescriptions: Continued paroxetine HCl [Paxil] 30 MG tablet 30 mg PO DAILY multivitamin [Daily Multi-Vitamin] 1 EACH tablet 1 tab PO DAILY atorvastatin 80 MG tablet 80 mg PO DAILY clopidogrel [Plavix] 75 MG tablet 75 mg PO DAILY levothyroxine 50 MCG tablet 50 mcg PO DAILY docusate sodium [Colace] 100 MG capsule 100 mg PO BID lisinopril 2.5 MG tablet 2.5 mg PO DAILY acetaminophen 325 mg Tablet 650 mg PO QID PRN omeprazole 40 mg capsule,delayed release(DR/EC) 40 mg PO DAILY Qty: 30 0RF Discharge Instructions Instructions: Fever in Adults (ED) Additional Instructions: Your work-up in the emergency department tonight included laboratories which are copied below, viral tests for influenza, COVID & RSV were negative. Urinalysis was performed without evidence of infection. Chest x-ray was performed which was unremarkable. Resume normal routine and activities. WBC 5.64 RBC 4.05 L Hgb 11.7 L Hct 35.3 L MCV 87 MCH 28.9 MCHC 33.1 RDW 13.3 Plt Count 289 Sodium 136 Potassium 3.9 Chloride 102 Carbon Dioxide 28.4 Anion Gap 5.6 BUN 15 Creatinine 0.8 Est GFR (CKD-EPI 2020) 93.45 Glucose 91 Calcium 8.8 Magnesium 1.9 Total Bilirubin 0.5 AST 44 H ALT 46 Alkaline Phosphatase 119 H Total Protein 6.6 Albumin 3.3 L Procalcitonin 0.2 Medical Decision Making <Ai Marshall NP - Last Filed: 01/02/23 23:15> initiate respiratory illness work up. chest xray, blood cultures and routine labs pending at time of shift change. patient with stable vitals and no oxygen requirements. report and care of patient handed off to Dr Malik for diagnosis and disposition. <Quentin Malik MD - Last Filed: 01/03/23 01:21> Lab Data Lab results reviewed: Yes I reviewed the patient's lab results. Lab results narrative: Received signout from Ms. Marshall. Please see her initial note regarding history of present illness, exam and plan of care. Patient's laboratories were reassuring. Chest x-ray without evidence of acute disease. Urinalysis and viral swabs were negative. Patient remained improved and afebrile. He is stable for discharge to [facility] facility. Labs: Laboratory Results - last 24 hr 01/02/23 01/02/23 01/02/23 22:38 22:38 22:38 WBC 5.64 RBC 4.05 L Hgb 11.7 L Hct 35.3 L MCV 87 MCH 28.9 MCHC 33.1 RDW 13.3 Plt Count 289 MPV 8.4 Immature Gran % 0.4 Neutrophils % 57.8 Lymphocytes % 23.4 Monocytes % 10.8 Eosinophils % 6.9 Basophils % 0.7 Nucleated RBC % 0.0 Absolute Neutrophils 3.26 Absolute Lymphocytes 1.32 Absolute Monocytes 0.61 Absolute Eosinophils 0.39 Absolute Basophils 0.04 Sodium 136 Potassium 3.9 Chloride 102 Carbon Dioxide 28.4 Anion Gap 5.6 BUN 15 Creatinine 0.8 Est GFR (CKD-EPI 2020) 93.45 Glucose 91 Calcium 8.8 Magnesium 1.9 Total Bilirubin 0.5 AST 44 H ALT 46 Alkaline Phosphatase 119 H Total Protein 6.6 Albumin 3.3 L Procalcitonin 0.2 HPI <Ai Marshall [employer] - Last Filed: 01/02/23 23:15> General Date/Time Provider Initiated Documentation: 01/02/23 22:46. Information obtained by: RN/MD and EMS. HPI Narrative: this is a 72 year old male from [facility] rehab for evaluation of fever and cough. patient denies chest pain or shortness of breath. In no acute distress with stable vital signs and no oxygen requirements. had tylenol prior to arrival. Related Data Home Medications Medication Instructions Recorded Confirmed paroxetine HCl 30 mg tablet (Paxil) 30 mg PO DAILY 05/27/13 04/25/19 multivitamin (Daily Multi-Vitamin 1 tab PO DAILY 10/20/14 04/25/19 tablet) atorvastatin 80 mg tablet 80 mg PO DAILY 01/01/18 04/25/19 clopidogrel 75 mg tablet (Plavix) 75 mg PO DAILY 01/01/18 04/25/19 docusate sodium 100 mg capsule 100 mg PO BID 01/01/18 04/25/19 (Colace) levothyroxine 50 mcg tablet 50 mcg PO DAILY 01/01/18 04/25/19 lisinopril 2.5 mg tablet 2.5 mg PO DAILY 01/01/18 04/25/19 omeprazole 40 mg capsule,delayed 40 mg PO DAILY #30 caps 04/15/19 04/25/19 release acetaminophen 325 mg tablet 650 mg PO QID PRN 04/25/19 04/25/19 Previous Rx's Medication Instructions Recorded omeprazole 40 mg capsule,delayed 40 mg PO DAILY #30 caps 04/15/19 release Allergies Allergy/AdvReac Type Severity Reaction Status Date / Time lorazepam AdvReac Severe Agitation, Verified 04/13/19 10:02 altered mental status General Stated Complaint: GenMedical YONI: 3 Review of Systems <Ai Marshall NP - Last Filed: 01/02/23 23:15> All systems reviewed & are unremarkable except as noted in HPI and below PFSH <Ai Marshall NP - Last Filed: 01/02/23 23:15> All Active Problems (Updated 01/03/23 @ 01:20 by Quentin Malik MD) Fever of unknown origin (Acute) Discharge planning issues (Acute) Vascular dementia (Chronic) Goals of care, counseling/discussion (Chronic) Advance directive on file (Chronic) DVT prophylaxis (Acute) COPD (chronic obstructive pulmonary disease) (Chronic) Encephalopathy (Acute) Altered mental status (Active 05/27/13) Fever (Active 05/27/13) Benign hypertension (Chronic) Hyperlipidemia (Chronic) Hypoxia (Acute) COPD exacerbation (Acute) Medical History (Updated 01/03/23 @ 01:20 by Quentin Malik MD) COPD (chronic obstructive pulmonary disease) CVA (cerebral vascular accident) Hypothyroid Palliative care patient Surgical History S/P craniotomy S/P lobectomy of lung Family History Daughter No problems noted. Sister No problems noted. Sister , of lung cancer 12 years ago in her early 60s Lung cancer Mother , age 74 from breast cancer Breast cancer Father Myocardial infarction Heart disease Social History Smoking/Tobacco Use Status: Former Tobacco Use Tobacco: How many years used: 30 Smoking risk assessment performed?: Yes Alcohol Intake: former Drug use: Never Substance use type: does not use Caregiver/Support person: Yes Household members: none Housing: [facility] Number of Children: 1 Communication Needs: Hard of Hearing and Corrective Lenses Education Level: high school Do you need help understanding health information?: Always 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 What is your relationship status?: How often do you talk on the phone with friends or family?: twice per week How often do you get together with friends or relatives?: twice per week Panel score (0-1 are the most socially isolated patients): 1 What type of physical activity do you participate in: assisted ambulation and irregular exercise Duration: < 15 minutes/day Special renya needs: No Agree to transfusion: Yes Seatbelt use: always Do you feel safe at home: Yes Do you feel safe in your relationship?: Yes Additional Social history: sister Henrietta is only surviving family, other than daughter whom he has not seen in years does not want to reconnect with her loves to sit outside in the sun, socialize, interact. Exam <Ai Marshall NP - Last Filed: 01/02/23 23:15> Const General: comfortable and no acute distress Nutritional Appearance: average body habitus Orientation: alert and awake HENMT Head: normal to inspection and normocephalic Chest Chest: normal inspection of the chest Resp Effort & Inspection: normal respiratory effort (even and unlabored) Auscultation: other (clear anteriorly, ) Cardio Rate: regular rate Rhythm: regular rhythm Extrem General: normal to inspection and no pedal edema Course <Ai Marshall NP - Last Filed: 01/02/23 23:15> Vital Signs Vital signs: Vital Signs Temperature 36.8 C 01/02/23 22:28 Pulse 61 01/02/23 22:28 Respiratory Rate 18 01/02/23 22:28 Blood Pressure 120/70 01/02/23 22:28 Pulse Oximetry 93 01/02/23 22:28 Temperature 36.8 C 01/02/23 22:28 Temperature Source Oral 01/02/23 22:28 Pulse 61 01/02/23 22:28 Respiratory Rate 18 01/02/23 22:36 Respiratory Effort Normal 01/02/23 22:36 Respiratory Depth Normal 01/02/23 22:36 Respiratory Pattern Normal 01/02/23 22:36 Blood Pressure 120/70 01/02/23 22:28 Blood Pressure Position Sitting 01/02/23 22:28 Pulse Oximetry 93 01/02/23 22:28 Oxygen Delivery Method Room Air 01/02/23 22:28 Oxygen Flow Rate 0 01/02/23 22:28 Pain Level 0 01/02/23 22:28 Lab/Test Results Lab/Test Results: 01/02/23 22:38 Blood Blood Culture - Pending 01/02/23 22:36 Blood Blood Culture - Pending Sign Out <Ai Marshall NP - Last Filed: 01/02/23 23:15> Sign Out Data: Sign Out Comment: This is a 72-year-old male patient from [facility] re[facility] who presented for fever and cough. Hemodynamically he is stable and is oxygenating well on room air. Chest x-ray, viral swab and routine labs pending. Anticipate a [facility] back to the [facility] for outpatient treatment once all reports are back. Last updated by Ai Marshall NP at 01/02/23 22:44
[2023-01-02 23:06] LABS: ALT 46 U/L (16-63); AST 44 U/L (15-37); Albumin 3.3 g/dL (3.4-5.0); Alkaline Phosphatase 119 U/L (46-116); Anion Gap 5.6 mmol/L (3-11); BUN 15 mg/dL (7-18); Bilirubin, Total 0.5 mg/dL (0.2-1.0); CO2 28.4 mmol/L (21.0-32.0); CREATININE 0.8 mg/dL (0.70-1.30); Calcium 8.8 mg/dL (8.5-10.1); Chloride 102 mmol/L (98-107); Estimated GFR 93.45 (mL/min/1.73m2); Glucose 91 mg/dL (74-106); Magnesium 1.9 mg/dL (1.8-2.4); Potassium 3.9 mmol/L (3.5-5.1); Sodium 136 mmol/L (136-145); Total Protein 6.6 g/dL (6.4-8.2)
[2023-01-02 23:17] LABS: Procalcitonin 0.2 ng/mL
[2023-01-03 00:09] LABS: COVID-19 PCR Negative (Negative); Influenza A PCR Negative (Negative); Influenza B PCR Negative (Negative); RSV PCR Negative (Negative)
--- NOTE | 2023-01-03 00:12 | DI.VRAD_ITS ---
PROCEDURE INFORMATION: Exam: XR Chest Exam date and time: 01/02/2023 11:50 PM Age: 72 years old Clinical indication: Fever and shortness of breath; Additional info: Cough, fever TECHNIQUE: Imaging protocol: Radiologic exam of the chest. Views: 2 views. COMPARISON: CR XR RIBS LT W PA LAT CHEST 03/20/2021 2:56 PM FINDINGS: Lungs: There is stable parenchymal opacity adjacent to the aortic arch Pleural spaces: Unremarkable. No pleural effusion. No pneumothorax. Heart/Mediastinum: Unremarkable. No cardiomegaly. Diaphragm: There is stable tenting of the left hemidiaphragm. Bones/joints: Unremarkable. IMPRESSION: No acute disease Dictated and Authenticated by: Gonzalez Sweet MD. Ordering:VALENTIN Cloud MD
[2023-01-03 00:21] LABS: Source Nasopharynx
[2023-01-03] MEDS: Normal Saline 500 ML IV (00:52)
[2023-01-03] MEDS: Lidocaine 2% Jelly 11 ML SYR UR (00:53)
[2023-01-03 00:58] LABS: Bilirubin Negative (Negative); Blood Negative (Negative); Clarity Clear (Clear); Glucose Negative (Negative); Ketones Negative (Negative); Leukocyte Esterase Negative (Negative); Nitrite Negative (Negative); Urobilinogen 0.2 mg/dL (Up to 0.2); pH 6.5 (5-8)
--- NOTE | 2023-01-03 01:25 | NUR.NOTE ---
Nursing Note: in and out cath procedure performed using sterile technique and 16fr coude catheter. Pt tolerated well, 200cc dark yellow urine rec'd back and sent to lab
[2023-01-03 01:46] VITALS: BP 121/67; PULSE 57; RESP 18; TEMP 36.4; O2SAT 96
== END 2023-01-03 01:42 | disposition skilled nursing facility (03) ==
PROVIDERS: Nurse Practitioner Acute Care; Emergency Provider Emergency Medicine; PCP Nurse Practitioner Adult Health
DX: R50.9 Fever, unspecified (principal); J44.9 Chronic obstructive pulmonary disease, unspecified; E03.9 Hypothyroidism, unspecified; Z86.73 Personal history of transient ischemic attack (TIA), and cerebral infarction without residual deficits; Z20.822 Contact with and (suspected) exposure to COVID-19
CPT/HCPCS: 80053; 84145; 87040; 87637; 96360; 99283; 99284; 71046; 81003; 83735; 85025

== ENCOUNTER 2023-03-03 18:30 | Emergency (ER) | payer MEDICARE, MEDICAID, SELFPAY ==
[2023-03-03 18:31] VITALS: BP 141/73; PULSE 69; RESP 20; TEMP 36; O2SAT 98
--- NOTE | 2023-03-03 18:45 | DI.RAD_ITS ---
Exam(s) XR PELVIS AP EXAM: XR PELVIS AP CLINICAL HISTORY: possible fall. TECHNIQUE: 2D digital imaging was performed. COMPARISON: No exams were available for comparison FINDINGS: BONES: No acute fracture is present. No bony destructive lesion is seen. JOINTS: No dislocation present. No joint space narrowing is present. SOFT TISSUE: Normal. IMPRESSION: Unremarkable radiographs of the pelvis. DATA REPOSITORY: RADIATION DOSE DELIVERED:
--- NOTE | 2023-03-03 18:45 | DI.CT_ITS ---
Exam(s) CT HEAD WO EXAM: CT HEAD WO CLINICAL HISTORY: possible fall, on antiplatelet. TECHNIQUE: Imaging Protocol: Axial computed tomography images with coronal and sagittal reformatted images were created and reviewed COMPARISON: CT CT HEAD FOR STROKE PROTOCOL from 04/08/2019 FINDINGS: Ventricles and Extra axial spaces: Normal in size and morphology for the patient's age. Hemorrhage: None. Cerebral parenchyma: Atrophy and white matter changes of small vessel disease. Bilateral basal gangl ia, cerebellar and cortical calcifications. Midline shift: None. Calvarium: Normal. Visualized Paranasal sinuses/Mastoids: Clear. Soft Tissues: Unremarkable. IMPRESSION: No acute intracranial process. RADIATION DOSE DELIVERED: 873.2mGy.cm Total DLP DATA REPOSITORY: All CT scans at this facility are submitted to the National Radiology Data Registry (NRDR) Dose Index Registry (DIR) with the [employer] (ACR). RADIATION OPTIMIZATION: All CT scans at this facility use at least one of these dose optimization te chniques: automated exposure control; mA and/or kV adjustment per patient size (includes targeted exa ms where dose is matched to clinical indication); or iterative reconstruction.
--- NOTE | 2023-03-03 19:08 | ED.GENADUL_ITS ---
Discharge Plan Disposition Patient Disposition: Home Condition: Improving Discharge Details Chief Complaint: Fall/Non TraumaCriteria Clinical Impression: Fall Primary Care Provider: Angelita Dunbar ED Provider: Hong Kelley Home Meds and New Rx's Prescriptions: No Action paroxetine HCl [Paxil] 30 MG tablet 30 mg PO DAILY multivitamin [Daily Multi-Vitamin] 1 EACH tablet 1 tab PO DAILY atorvastatin 80 MG tablet 80 mg PO DAILY clopidogrel [Plavix] 75 MG tablet 75 mg PO DAILY levothyroxine 50 MCG tablet 50 mcg PO DAILY docusate sodium [Colace] 100 MG capsule 100 mg PO BID lisinopril 2.5 MG tablet 2.5 mg PO DAILY acetaminophen 325 mg Tablet 650 mg PO QID PRN sertraline 50 mg tablet 50 mg PO DAILY omeprazole 40 mg capsule,delayed release(DR/EC) 40 mg PO DAILY Qty: 30 0RF Discharge Instructions Instructions: Fall Prevention for Older Adults (ED) Medical Decision Making 72-year-old male history of dementia presents after possible mechanical fall at care facility. Patient is interactive following commands alert, hemodynamically stable. Subacute appearing abrasion to bridge of nose. Patient largely dysarthric/aphasic very difficult to comprehend. Given age comorbidities and possible mechanism of injury will obtain CT head and x-ray pelvis. However low suspicion for intracranial hemorrhage or pelvic fracture. No evidence of thoracoabdominal trauma. No midline spinal tenderness crepitus or deformity. No evidence of infection or dehydration. No evidence of intoxication. Likely home with close follow-up pending imaging results 20: 00 resting comfortably no acute distress. Neurologically intact. No evidence of intracranial process or pelvic fracture. HPI General Date/Time Provider Initiated Documentation: 03/03/23 18:39 . HPI Narrative: 72-year-old male history of dementia, presents after possible mechanical fall at retirement. Patient denies any current complaints. Related Data Home Medications Medication Instructions Recorded Confirmed paroxetine HCl 30 mg tablet (Paxil) 30 mg PO DAILY 05/27/13 04/25/19 multivitamin (Daily Multi-Vitamin 1 tab PO DAILY 10/20/14 03/03/23 tablet) atorvastatin 80 mg tablet 80 mg PO DAILY 01/01/18 03/03/23 clopidogrel 75 mg tablet (Plavix) 75 mg PO DAILY 01/01/18 03/03/23 docusate sodium 100 mg capsule 100 mg PO BID 01/01/18 03/03/23 (Colace) levothyroxine 50 mcg tablet 50 mcg PO DAILY 01/01/18 03/03/23 lisinopril 2.5 mg tablet 2.5 mg PO DAILY 01/01/18 03/03/23 omeprazole 40 mg capsule,delayed 40 mg PO DAILY #30 caps 04/15/19 03/03/23 release acetaminophen 325 mg tablet 650 mg PO QID PRN 04/25/19 03/03/23 sertraline 50 mg tablet 50 mg PO DAILY 03/03/23 03/03/23 Previous Rx's Medication Instructions Recorded omeprazole 40 mg capsule,delayed 40 mg PO DAILY #30 caps 04/15/19 release Allergies Allergy/AdvReac Type Severity Reaction Status Date / Time lorazepam AdvReac Severe Agitation, Verified 04/13/19 10:02 altered mental status General Stated Complaint: Fall/Non TraumaCriteria YONI: 3 Review of Systems Narrative: Review of Systems Constitutional: negative Eyes: negative ENT: negative Cardiovascular: negative Respiratory: negative Gastrointestinal: negative : negative Musculoskeletal: negative Skin: negative Neurologic: negative Psych: negative PFSH All Active Problems (Updated 03/03/23 @ 20:01 by Hong Kelley MD) Fall (Acute) Fever of unknown origin (Acute) Discharge planning issues (Acute) Vascular dementia (Chronic) Goals of care, counseling/discussion (Chronic) Advance directive on file (Chronic) DVT prophylaxis (Acute) COPD (chronic obstructive pulmonary disease) (Chronic) Encephalopathy (Acute) Altered mental status (Active 05/27/13) Fever (Active 05/27/13) Benign hypertension (Chronic) Hyperlipidemia (Chronic) Hypoxia (Acute) COPD exacerbation (Acute) Medical History (Updated 03/03/23 @ 20:01 by Hong Kelley MD) COPD (chronic obstructive pulmonary disease) CVA (cerebral vascular accident) Hypothyroid Palliative care patient Surgical History S/P craniotomy S/P lobectomy of lung Family History Daughter No problems noted. Sister No problems noted. Sister , of lung cancer 12 years ago in her early 60s Lung cancer Mother , age 74 from breast cancer Breast cancer Father Myocardial infarction Heart disease Social History Smoking/Tobacco Use Status: Former Tobacco Use Tobacco: How many years used: 30 Smoking risk assessment performed?: Yes Alcohol Intake: former Drug use: Never Substance use type: does not use Caregiver/Support person: Yes Household members: none Housing: retirement Number of Children: 1 Communication Needs: Hard of Hearing and Corrective Lenses Education Level: high school Do you need help understanding health information?: Always 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[employer] What is your relationship status?: How often do you talk on the phone with friends or family?: twice per week How often do you get together with friends or relatives?: twice per week Panel score (0-1 are the most socially isolated patients): 1 What type of physical activity do you participate in: assisted ambulation and irregular exercise Duration: < 15 minutes/day Special reyna needs: No Agree to transfusion: Yes Seatbelt use: always Do you feel safe at home: Yes Do you feel safe in your relationship?: Yes Additional Social history: sister Henrietta is only surviving family, other than daughter whom he has not seen in years does not want to reconnect with her loves to sit outside in the sun, socialize, interact. Exam Narrative Exam Narrative: Physical Examination General: alert, awake, cooperative, resting comfortably, no acute distress HEENT: normocephalic, subacute appearing healing abrasion to bridge of nose; PERRL, EOM intact, conjunctiva normal; no nasal discharge; moist mucous membranes, oral and pharyngeal mucosa normal, tolerating secretions Neck: supple, trachea midline; full ROM Chest: normal to inspection Respiratory: normal respiratory effort, speaking in full sentences, clear to auscultation, no wheezing, rales or rhonchi Cardiac: regular rate, regular rhythm, S1S2 intact, no murmurs rubs or gallops GI: abdomen soft, non-tender, non-distended; no palpable mass or hepatosplenomegaly Back: No midline spinal tenderness step-off or deformity Skin: no lesions, rashes or trauma appreciated Neuro: Interactive, following commands, moving all extremities without deficit Extremities:no appreciable deformity of arms or legs, pelvis stable Psych: Appropriate mood and affect Course Vital Signs Vital signs: Vital Signs Temperature 36.0 C L 05/16/23 18:31 Pulse 69 03/03/23 18:31 Respiratory Rate 20 03/03/23 18:31 Blood Pressure 141/73 H 03/03/23 18:31 Pulse Oximetry 98 03/03/23 18:31 Temperature 36.0 C L 03/03/23 18:31 Temperature Source Temporal Artery Scan 03/03/23 18:31 Pulse 69 03/03/23 18:31 Respiratory Rate 20 03/03/23 18:31 Respiratory Effort Normal, Non-Labored 03/03/23 18:50 Blood Pressure 141/73 H 03/03/23 18:31 Blood Pressure Position Sitting 03/03/23 18:31 Pulse Oximetry 98 03/03/23 18:31 Oxygen Delivery Method Room Air 03/03/23 18:31 Oxygen Flow Rate 0 03/03/23 18:31
--- NOTE | 2023-03-03 19:47 | DI.VRAD_ITS ---
PROCEDURE INFORMATION: Exam: CT Head Without Contrast Exam date and time: 03/03/2023 7:33 PM Age: 72 years old Clinical indication: Injury or trauma; Fall; Blunt trauma (contusions or hematomas) and concussion/head injury; Consciousness not specified TECHNIQUE: Imaging protocol: Computed tomography of the head without contrast. Radiation optimization: All CT scans at this facility use at least one of these dose optimization techniques: automated exposure control; mA and/or kV adjustment per patient size (includes targeted exams where dose is matched to clinical indication); or iterative reconstruction. COMPARISON: CT HEAD FOR STROKE PROTOCOL 04/08/2019 8:39 PM FINDINGS: Brain: Grossly stable diffuse calcifications in the lynch radiata/centrum semiovale, basal ganglia and thalami as well as the temporal occipital cortices and dentate nuclei in the cerebellum. Grossly stable white matter disease and chronic bilateral lacunar infarctions No hemorrhage.No mass effect. Cerebral ventricles: No ventriculomegaly. Paranasal sinuses: Visualized sinuses are unremarkable. No fluid levels. Mastoid air cells: Visualized mastoid air cells are well aerated. Bones/joints: Unremarkable. No acute fracture. Soft tissues: Unremarkable. IMPRESSION: No acute intracranial hemorrhage Grossly stable calcifications/chronic findings as noted Dictated and Authenticated by: Thony Jara MD. Ordering:KELSEA Pitts MD
--- NOTE | 2023-03-03 19:47 | DI.VRAD_ITS ---
PROCEDURE INFORMATION: Exam: XR Pelvis Exam date and time: 03/03/2023 7:42 PM Age: 72 years old Clinical indication: Injury or trauma; Fall; Blunt trauma (contusions or hematomas); Bilateral; Pelvic region TECHNIQUE: Imaging protocol: Radiologic exam of the pelvis. Views: 1 or 2 view. COMPARISON: No relevant prior studies available. FINDINGS: Bones/joints: No acute fracture. Degenerative changes in the lower lumbar spine Soft tissues: Unremarkable. Large amount of stool in the visualized colon and rectal vault IMPRESSION: No acute findings. Question constipation Dictated and Authenticated by: Thony Jara MD. Ordering:KELSEA Pitts MD
--- NOTE | 2023-03-03 20:36 | NUR.NOTE ---
Nursing Note: report given to [facility] RN prior to transport.
== END 2023-03-03 20:34 | disposition home or self-care (01) ==
PROVIDERS: Emergency Provider Emergency Medicine; PCP Nurse Practitioner Adult Health
DX: W19.XXXA Unspecified fall, initial encounter; S00.31XA Abrasion of nose, initial encounter; Z79.02 Long term (current) use of antithrombotics/antiplatelets; R47.1 Dysarthria and anarthria; F01.50 Vascular dementia, unspecified severity, without behavioral disturbance, psychotic disturbance, mood disturbance, and anxiety
CPT/HCPCS: 99284; 70450; 72170; 99283

== ENCOUNTER 2023-03-05 18:24 | Outpatient (REF) | payer MEDICARE, MEDICAID, SELFPAY ==
[2023-03-05 19:21] LABS: Abs Immature Grans 0.02 10^3/uL (0.0-0.06); Absolute Basophil Count 0.05 10^3/uL (0.0-0.2); Absolute Neutrophil Count 3.26 10^3/uL (1.2-6.7); Basophils % 0.7; Eosinophils % 8.2; HGB 12.2 g/dL (13.5-17.5); Immature Grans % 0.3; Lymphocytes % 39.6; MCH 28.6 pg (27.0-33.0); MCHC 32.1 % (32.0-36.0); MCV 89 fL (80-95); MPV 9.3 fL (8.0-11.0); Monocytes % 6.8; Neutrophils % 44.4; Platelet Count 329 10^3/uL (130-400); RBC 4.27 10^6/uL (4.36-5.78); RDW 14.6 % (11.8-14.1); RDW-SD 47.3 fL; WBC 7.33 10^3/uL (4.4-10.8)
[2023-03-05 19:41] LABS: ALT 59 U/L (16-63); AST 50 U/L (15-37); Albumin 3.6 g/dL (3.4-5.0); Alkaline Phosphatase 123 U/L (46-116); Anion Gap 8.7 mmol/L (3-11); BUN 19 mg/dL (7-18); Bilirubin, Total 0.3 mg/dL (0.2-1.0); CO2 27.3 mmol/L (21.0-32.0); CREATININE 0.7 mg/dL (0.70-1.30); Calcium 8.6 mg/dL (8.5-10.1); Chloride 106 mmol/L (98-107); Estimated GFR 97.29 (mL/min/1.73m2); Glucose 108 mg/dL (74-106); Potassium 4.4 mmol/L (3.5-5.1); Sodium 142 mmol/L (136-145); Total Protein 6.8 g/dL (6.4-8.2)
[2023-03-05 22:37] LABS: Bilirubin Negative (Negative); Blood Negative (Negative); Clarity Clear (Clear); Glucose Negative (Negative); Ketones Negative (Negative); Leukocyte Esterase Negative (Negative); Nitrite Negative (Negative); Specific Gravity >= 1.030 (1.005-1.025); Urobilinogen 0.2 mg/dL (Up to 0.2)
== END 2023-03-05 18:25 | disposition home or self-care (01) ==
LOC: LBN 18:24
PROVIDERS: Family Medicine; PCP Nurse Practitioner Adult Health; Visit Provider Physician Assistant
DX: R41.82 Altered mental status, unspecified (principal); R82.998 Other abnormal findings in urine; R79.89 Other specified abnormal findings of blood chemistry; I10 Essential (primary) hypertension
CPT/HCPCS: 80053; 81003; 85025

== ENCOUNTER 2023-04-01 07:31 | Outpatient (REF) | payer MEDICARE, MEDICAID, SELFPAY ==
[2023-04-01 09:33] LABS: Bilirubin Negative (Negative); Blood Negative (Negative); Clarity Clear (Clear); Glucose Negative (Negative); Ketones Negative (Negative); Leukocyte Esterase Negative (Negative); Nitrite Negative (Negative); Urobilinogen 0.2 mg/dL (Up to 0.2); pH 5.5 (5-8)
== END 2023-04-01 07:32 | disposition home or self-care (01) ==
LOC: LBN 07:31
PROVIDERS: PCP Nurse Practitioner Adult Health; Visit Provider Family Medicine
DX: R45.1 Restlessness and agitation (principal)
CPT/HCPCS: 81003

== ENCOUNTER 2023-04-08 06:23 | Outpatient (REF) | payer MEDICARE, MEDICAID, SELFPAY ==
[2023-04-08 10:39] LABS: TSH 3.12 uIU/mL (0.36-3.74)
== END 2023-04-08 06:24 | disposition home or self-care (01) ==
LOC: LBN 06:23
PROVIDERS: PCP Nurse Practitioner Adult Health; Visit Provider Physician Assistant
DX: E03.9 Hypothyroidism, unspecified (principal)
CPT/HCPCS: 84443

== ENCOUNTER 2023-05-01 15:01 | Outpatient (REF) | payer MEDICARE, MEDICAID, SELFPAY ==
[2023-05-01 08:53] LABS: Calculated LDL 101 mg/dL (<100); Cholesterol 154 mg/dL (<200); HDL Cholesterol 41 mg/dL (40-60); TSH 3.17 uIU/mL (0.36-3.74); Triglyceride 60 mg/dL (<150)
== END 2023-05-01 15:02 | disposition home or self-care (01) ==
LOC: LBN 15:01
PROVIDERS: PCP Nurse Practitioner Adult Health; Visit Provider Family Medicine
DX: E03.9 Hypothyroidism, unspecified (principal); E78.5 Hyperlipidemia, unspecified
CPT/HCPCS: 80061; 84443

== ENCOUNTER 2023-05-25 17:59 | Outpatient (REF) | payer MEDICARE, MEDICAID, SELFPAY ==
[2023-05-25 19:18] LABS: ALT 37 U/L (16-63); AST 44 U/L (15-37); Albumin 3.5 g/dL (3.4-5.0); Alkaline Phosphatase 113 U/L (46-116); Anion Gap 8.4 mmol/L (3-11); BUN 26 mg/dL (7-18); Bilirubin, Total 0.6 mg/dL (0.2-1.0); CO2 30.6 mmol/L (21.0-32.0); Calcium 9.2 mg/dL (8.5-10.1); Chloride 104 mmol/L (98-107); Estimated GFR 78.98 (mL/min/1.73m2); Glucose 109 mg/dL (74-106); Potassium 4.6 mmol/L (3.5-5.1); Sodium 143 mmol/L (136-145); Total Protein 7.1 g/dL (6.4-8.2)
[2023-05-25 19:23] LABS: Abs Immature Grans 0.04 10^3/uL (0.0-0.06); Absolute Basophil Count 0.02 10^3/uL (0.0-0.2); Absolute Lymphocyte Count 0.98 10^3/uL (1.2-3.4); Absolute Monocyte Count 0.96 10^3/uL (0.1-0.8); Basophils % 0.2; HCT 36.6 % (40.0-50.0); HGB 11.8 g/dL (13.5-17.5); Immature Grans % 0.4; MCH 28.1 pg (27.0-33.0); MCHC 32.2 % (32.0-36.0); MCV 87 fL (80-95); Monocytes % 8.8; Neutrophils % 81.6; Platelet Count 373 10^3/uL (130-400); RDW 14.8 % (11.8-14.1); RDW-SD 47.6 fL; WBC 10.91 10^3/uL (4.4-10.8)
[2023-05-25 19:40] LABS: Vitamin D 25 Total 45.7 ng/mL (30-100)
== END 2023-05-25 18:00 | disposition home or self-care (01) ==
LOC: LBN 17:59
PROVIDERS: PCP Nurse Practitioner Adult Health; Visit Provider Physician Assistant
DX: R06.82 Tachypnea, not elsewhere classified (principal)
CPT/HCPCS: 80053; 82306; 85025

== ENCOUNTER 2023-05-26 13:50 | Inpatient (IN) | payer MEDICARE, MEDICAID, SELFPAY ==
[2023-05-26] VITALS (8 sets, daily range): BP systolic 102–139; BP diastolic 54–77; PULSE 71–85; RESP 18–22; TEMP 37.7; O2SAT 86–90
--- NOTE | 2023-05-26 14:00 | DI.CT_ITS ---
Exam(s) CT HEAD WO EXAM: CT HEAD WO CLINICAL HISTORY: AMS, falls. TECHNIQUE: Imaging Protocol: Axial computed tomography images with coronal and sagittal reformatted images were created and reviewed COMPARISON: CT CT HEAD WO from 03/03/2023 FINDINGS: Ventricles and Extra axial spaces: Normal in size and morphology for the patient's age. Hemorrhage: None. Cerebral parenchyma: Stable parenchymal calcifications. There are areas of decreased attenuation in the white matter consistent with small vessel ischemic disease. No acute territorial infarct is iden tified. Midline shift: None. Brainstem/Cerebellum: Normal. Calvarium: Normal. Visualized Paranasal sinuses/Mastoids: Clear. Soft Tissues: Unremarkable. IMPRESSION: 1. No acute intracranial process. 2. Findings were discussed with the emergency department at 3:35 p.m. on 05/26/2023. RADIATION DOSE DELIVERED: 863.43mGy.cm Total DLP DATA REPOSITORY: All CT scans at this facility are submitted to the National Radiology Data Registry (NRDR) Dose Index Registry (DIR) with the [employer] (ACR). RADIATION OPTIMIZATION: All CT scans at this facility use at least one of these dose optimization te chniques: automated exposure control; mA and/or kV adjustment per patient size (includes targeted exa ms where dose is matched to clinical indication); or iterative reconstruction.
--- NOTE | 2023-05-26 14:00 | RT.EKG_ITS ---
APPROVED REPORT Exam: Resting ECG Reason for Exam: AMS/New O2 requirements Patient Location: E HR:74 bpm ECG Measurements Heart Rate 74 AXIS MI 154 P 82 QRSd 104 QRS 25 QT 422 T 54 QTc 469 Conclusion Sinus rhythm...normal P axis, V-rate 60- 99 RR', JOSE
--- NOTE | 2023-05-26 14:23 | W.ED.GENAD ---
Discharge Plan Disposition Patient Disposition: Admit to [facility] Condition: Stable Discharge Details Clinical Impression: Altered mental status, Pneumonia Admit Date/Time: 05/26/23 19:08 Admit Provider: Paco Lopez Attending Provider: Paco Lopez Primary Care Provider: Angelita Dunbar ED Provider: Courtney Carlson Discharge Data Discharge Date/Time-TO BE ENTERED AT DEPARTURE: 05/26/23 21:15 Medical Decision Making Case discussed with Dr. Oshea, hospitalist will admit the patient. I also discussed the case with the patient's niece who is his backup power of tax associate attorney. She says she works at the snf so knows him well. He was their favorite uncle growing up. She says that the has been acting right since yesterday. He is mumbling and has garbled speech. She cannot understand him. She said last night he was yelling which is very unusual for him. He did fall out of his wheelchair several times today but did not appear to be injured. Patient patient did not have a lobar resection but had radiation and possibly chemo for his lung cancer. It supposedly was cured. PE study done for oxygen requirement in the ED was neg for PE. The pt. may have some pneumonia and was given abx. Medical Records Medical records reviewed: Yes I reviewed the patient's medical records. Imaging Data Radiologic Study: Radiologist's impression: Exam(s) a CT:CT chest PE CTA Exam(s) CT CHEST PE CTA EXAM: ? CT CHEST PE CTA CLINICAL HISTORY: ? hypoxia, AMS. TECHNIQUE:? Imaging Protocol:? Axial CT angiography was performed with multi-slice acquisition and multi-planar reconstructions as well as axial, coronal and sagittal MIP reconstructions. CONTRAST MATERIAL:? Intravenous: Omnipaque 350 Contrast volume:100 ml COMPARISON:? CT CHEST FOR PULMONARY EMBOLUS from 01/01/2018 CR XR PORTABLE CHEST AP from 04/25/2019 CR XR RIBS LT W PA ? LAT CHEST from 03/20/2021 CR,XR XR CHEST 2V PA ? LATERAL from 01/02/2023 CR XR PORTABLE CHEST AP from 05/26/2023 FINDINGS: Pulmonary Arteries: No evidence of filling defect to suggest pulmonary emboli. Tracheobronchial tree: There is some bronchial wall thickening in the lower lobes.? There is mucous proc plugging in the anterior basal segment on the left. Mediastinum and Sharda: No dominant adenopathy or fluid collection. Pulmonary parenchyma: Exam is limited by respiratory motion.? There is an area of masslike consolidation seen in the medial left upper lobe with significant volume loss.? This was present on the prior 2018 CT is not significantly changed.? There are underlying fibrotic changes.? There appear to be mild acute patchy infiltrates in the lower lobes, left greater than right.? Question of focal area of infiltration or scarring versus mass superior segment right lower lobe. Pleura: Small amount of loculated fluid seen in the left posterior medial upper lobe.? No pneumothorax. Heart: The heart is not dilated. Mild coronary artery calcifications are seen. Aorta: Thoracic aorta non-dilated.? No aneurysm.? No dissection.? Atherosclerotic calcification. Upper abdomen:? Cyst upper pole right kidney. Bones: Unremarkable for age. Tubes, Catheters, and Lines: ? None IMPRESSION: No evidence of pulmonary embolism. Severe left upper lobe volume loss and scarring with stable appearance when compared with 2018.? Small posteromedial pleural effusion is new from prior exam. Mild patchy infiltrates in the left lower lobe.? The mild mucous plugging. Question of a small infiltrate? versus scarring or mass in the superior segment right lower lobe. Lab Data Lab results reviewed: Yes I reviewed the patient's lab results. Lab results narrative: CBC is normal as is his ammonia. ABG has a pH of 7.40, PCO2 of 50, and bicarb of 31. Trop and TSH are nl, other labs unremarkable ECG Data Attestation: I personally reviewed and interpreted this ECG (s) as follows: (Normal sinus rhythm at 75, RR', right atrial enlargement) Interpretation: Head CT shows no acute disease. Exam(s) XR PORTABLE CHEST AP EXAM:? XR PORTABLE CHEST AP CLINICAL HISTORY:? AMS, hypoxia TECHNIQUE:? 2D digital imaging was performed of the chest.? ? Images were obtained.? PA and lateral views were obtained. COMPARISON:? CR XR PORTABLE CHEST AP from 04/25/2019 CR XR RIBS LT W PA ? LAT CHEST from 03/20/2021 CR,XR XR CHEST 2V PA ? LATERAL from 01/02/2023 FINDINGS: MEDIASTINUM: Normal.? HEART: Normal. PULMONARY VASCULATURE: Normal. LUNGS: There is a persistent opacity adjacent to the thoracic aortic arch.? There is scarring in the left lung base.? No new infiltrates are seen. ? PLEURAL SPACE: No pleural effusion or pneumothorax. BONE:Within normal limits for the patient's age.? OTHER FINDINGS:Normal.? IMPRESSION: No acute pulmonary findings. HPI General Date/Time Provider Initiated Documentation: 05/26/23 14:13. HPI Narrative: This 73-year-old male patient presents with a chief complaint of altered mental status that began this morning. Reportedly has not been himself and fell several times at the snf. it is not clear whether he hit his head. Patient reportedly has a history of CVA with deficits. He also has a history of vascular dementia. He can tell me his name and that he is at the hospital. He cannot tell me what hospital or the time of day. He states that nothing hurts. He is somewhat restless in bed. I see no transfer paperwork from the snf. Related Data Home Medications Medication Instructions Recorded Confirmed atorvastatin 80 mg tablet 80 mg PO DAILY 01/01/18 05/27/23 clopidogrel 75 mg tablet (Plavix) 75 mg PO DAILY 01/01/18 05/27/23 levothyroxine 50 mcg tablet 50 mcg PO DAILY 01/01/18 05/27/23 lisinopril 2.5 mg tablet 2.5 mg PO DAILY 01/01/18 05/27/23 acetaminophen 325 mg tablet 650 mg PO QID PRN 04/25/19 05/27/23 sertraline 50 mg tablet 50 mg PO DAILY 03/03/23 05/27/23 albuterol sulfate 90 mcg/actuation 2 puff inhalation Q4H PRN 05/27/23 05/27/23 aerosol inhaler (Ventolin HFA) bisacodyl 10 mg rectal suppository 10 mg VT PRN PRN 05/27/23 05/27/23 guaifenesin 100 mg/5 mL oral liquid 200 mg PO Q4H PRN Cough 05/27/23 05/27/23 hydrocortisone 1 % topical gel 1 applic topical DAILY 05/27/23 05/27/23 magnesium hydroxide 400 mg/5 mL 30 ml PO PRN PRN 05/27/23 05/27/23 oral suspension (Milk of Magnesia) mirtazapine 7.5 mg tablet 7.5 mg PO HS 05/27/23 05/27/23 polyethylene glycol 3350 17 17 g PO Q OTHER DAY 05/27/23 05/27/23 gram/dose oral powder (ClearLax) sodium phosphates 19 gram-7 118 ml VT PRN PRN 05/27/23 05/27/23 gram/118 mL enema (Fleet Enema) Allergies Allergy/AdvReac Type Severity Reaction Status Date / Time lorazepam AdvReac Severe Agitation, Verified 04/13/19 10:02 altered mental status General Stated Complaint: AMS/LOC YONI: 2 Review of Systems Unobtainable due to mental condition (dementia) Constitutional Constitutional: Reports as per HPI, Denies chills, Denies fever(s) and Denies headache(s) Eyes Eyes: Denies blurry vision and Reports other (no redness) ENT Ears, Nose, Mouth, and Throat: Denies dizziness, Denies otalgia, Denies headache(s), Denies nasal congestion, Denies nasal discharge, Denies neck pain and Denies odynophagia Cardiovascular Cardiovascular: Denies chest pain, Denies palpitations and Denies dyspnea Respiratory Respiratory: Denies cough and Denies dyspnea Gastrointestinal Gastrointestinal: Denies abdominal pain, Denies diarrhea, Denies nausea, Denies odynophagia and Denies vomiting Genitourinary Genitourinary: Denies difficulty urinating and Denies dysuria Musculoskeletal Musculoskeletal: Denies myalgias, Denies muscle weakness, Denies neck pain and Denies numbness Integumentary/Breasts Skin/Breast: Denies erythema and Denies rash Neurologic Neurologic: Denies dizziness, Denies headache(s) and Denies numbness Endocrine Endocrine: Denies palpitations PFSH All Active Problems (Updated 05/26/23 @ 22:56 by Paco Lopez MD) Dehydration (Acute) Pneumonia (Acute) Fever of unknown origin (Acute) Discharge planning issues (Acute) Vascular dementia (Chronic) Goals of care, counseling/discussion (Chronic) Advance directive on file (Chronic) DVT prophylaxis (Acute) COPD (chronic obstructive pulmonary disease) (Chronic) Encephalopathy (Acute) Altered mental status (Acute 05/27/13) Fever (Active 05/27/13) Benign hypertension (Chronic) Hyperlipidemia (Chronic) Hypoxia (Acute) COPD exacerbation (Acute) Medical History COPD (chronic obstructive pulmonary disease) CVA (cerebral vascular accident) Hypothyroid Palliative care patient Surgical History S/P craniotomy S/P lobectomy of lung Family History Daughter No problems noted. Sister No problems noted. Sister , of lung cancer 12 years ago in her early 60s Lung cancer Mother , age 74 from breast cancer Breast cancer Father Myocardial infarction Heart disease Social History Smoking/Tobacco Use Status: Former Tobacco Use Tobacco: How many years used: 30 Smoking risk assessment performed?: Yes Alcohol Intake: former Drug use: Never Substance use type: does not use Caregiver/Support person: Yes Household members: none Housing: snf Number of Children: 1 Communication Needs: Hard of Hearing and Corrective Lenses Education Level: high school Do you need help understanding health information?: Always 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 What is your relationship status?: How often do you talk on the phone with friends or family?: twice per week How often do you get together with friends or relatives?: twice per week Panel score (0-1 are the most socially isolated patients): 1 What type of physical activity do you participate in: assisted ambulation and irregular exercise Duration: < 15 minutes/day Special reyna needs: No Agree to transfusion: Yes Seatbelt use: always Do you feel safe at home: Yes Do you feel safe in your relationship?: Yes Additional Social history: sister Henrietta is only surviving family, other than daughter whom he has not seen in years does not want to reconnect with her loves to sit outside in the sun, socialize, interact. Exam Const General: no acute distress, well developed, well groomed and other (restless) Orientation: alert, oriented to person and oriented to place [facility] Head: normocephalic and atraumatic Ears: external ears normal Mouth: oropharynx normal and moist mucous membranes Throat: posterior oropharynx normal Eyes Conjunctivae: conjunctivae normal Neck Neck: full ROM and supple Chest Chest: normal inspection of the chest Resp Effort & Inspection: normal respiratory effort Auscultation: clear to auscultation bilaterally Cardio Rate: regular rate Rhythm: regular rhythm Heart Sounds: no murmurs and no rubs GI Inspection: normal to inspection Palpation: soft, nontender and other (non distended) Auscultation: normal bowel sounds Skin General skin exam: no rashes or lesions noted and other (pink, warm, dry) Neuro General: patient alert, patient awake and oriented (Person and hospital) Cranial Nerves: CN's II-XI intact bilaterally Speech: speech normal Gait: other (Not assessed) Motor: muscle tone normal throughout, strength 5/5 throughout (Weakness in R arm old per RN that knows him. Good squeeze w/L, feet push) and other ([place]) Sensory Exam: no sensory deficits noted Extrem General: normal to inspection, full ROM and pedal edema present (or calf TTP) Psych Mental Status: mental status grossly normal Speech and Movement: speech and movement normal Affect: normal affect Course Vital Signs Vital signs: Vital Signs Pulse 80 05/26/23 14:01 Respiratory Rate 22 05/26/23 14:01 Blood Pressure 102/54 L 05/26/23 14:01 Pulse Oximetry 87 L 05/26/23 14:01 Pulse 80 05/26/23 14:01 Respiratory Rate 22 05/26/23 14:01 Respiratory Effort Normal 05/26/23 14:05 Blood Pressure 102/54 L 05/26/23 14:01 Pulse Oximetry 87 L 05/26/23 14:01 Oxygen Delivery Method Room Air 05/26/23 14:01 Oxygen Flow Rate 0 05/26/23 14:01
[2023-05-26 14:38] LABS: BE (Venous) 6 mmol/L (-2-3); HCO3 (Venous) 31 mmol/L (23-28); O2 Sat (Venous) 51 %; TCO2 (Venous) 29 mmol/L (24-29); pCO2 (Venous) 50 mmHg (41-51); pO2 (Venous) 29 mmHg
[2023-05-26 14:40] LABS: HCT 37.8 % (40.0-50.0); HGB 12.1 g/dL (13.5-17.5); MCH 28.2 pg (27.0-33.0); MCV 88 fL (80-95); MPV 8.7 fL (8.0-11.0); Platelet Count 396 10^3/uL (130-400); RBC 4.29 10^6/uL (4.36-5.78); WBC 10.19 10^3/uL (4.4-10.8)
--- NOTE | 2023-05-26 14:50 | DI.RAD_ITS ---
Exam(s) XR PORTABLE CHEST AP EXAM: XR PORTABLE CHEST AP CLINICAL HISTORY: AMS, hypoxia TECHNIQUE: 2D digital imaging was performed of the chest. Images were obtained. PA and lateral v iews were obtained. COMPARISON: CR XR PORTABLE CHEST AP from 04/25/2019 CR XR RIBS LT W PA LAT CHEST from 03/20/2021 CR,XR XR CHEST 2V PA LATERAL from 01/02/2023 FINDINGS: MEDIASTINUM: Normal. HEART: Normal. PULMONARY VASCULATURE: Normal. LUNGS: There is a persistent opacity adjacent to the thoracic aortic arch. There is scarring in the left lung base. No new infiltrates are seen. PLEURAL SPACE: No pleural effusion or pneumothorax. BONE:Within normal limits for the patient's age. OTHER FINDINGS:Normal. IMPRESSION: No acute pulmonary findings. DATA REPOSITORY: RADIATION DOSE DELIVERED:
[2023-05-26 14:53] LABS: Ammonia < 10 umol/L (11-32)
[2023-05-26 15:51] LABS: ALT 34 U/L (16-63); AST 40 U/L (15-37); Alkaline Phosphatase 101 U/L (46-116); Anion Gap 9.1 mmol/L (3-11); BUN 27 mg/dL (7-18); Bilirubin, Total 0.6 mg/dL (0.2-1.0); CO2 28.9 mmol/L (21.0-32.0); CREATININE 0.9 mg/dL (0.70-1.30); Calcium 8.9 mg/dL (8.5-10.1); Chloride 104 mmol/L (98-107); Estimated GFR 89.62 (mL/min/1.73m2); Glucose 103 mg/dL (74-106); Potassium 3.7 mmol/L (3.5-5.1); Sodium 142 mmol/L (136-145); Total Protein 6.9 g/dL (6.4-8.2); Troponin I < 50 ng/L (<or=60)
[2023-05-26 15:54] LABS: Bilirubin Small (Negative); Blood Negative (Negative); Clarity Sl Cloudy (Clear); Glucose Negative (Negative); Ketones 15 mg/dL (Negative); Leukocyte Esterase Negative (Negative); Nitrite Negative (Negative); Specific Gravity 1.025 (1.005-1.025); pH 5.5 (5-8)
[2023-05-26 16:01] LABS: Bacteria Negative HPF (Negative); C & S Indicated? No; Casts Negative LPF (Negative); Crystals Negative HPF (Negative); Epithelial Cells Rare HPF (Negative); Mucus Moderate (Negative); RBC 0-2 HPF (0-2); WBC 0-2 HPF (0-5)
--- NOTE | 2023-05-26 17:19 | DI.CT_ITS ---
Exam(s) CT CHEST PE CTA EXAM: CT CHEST PE CTA CLINICAL HISTORY: hypoxia, AMS. TECHNIQUE: Imaging Protocol: Axial CT angiography was performed with multi-slice acquisition and mu lti-planar reconstructions as well as axial, coronal and sagittal MIP reconstructions. CONTRAST MATERIAL: Intravenous: Omnipaque 350 Contrast volume:100 ml COMPARISON: CT CHEST FOR PULMONARY EMBOLUS from 01/01/2018 CR XR PORTABLE CHEST AP from 04/25/2019 CR XR RIBS LT W PA LAT CHEST from 03/20/2021 CR,XR XR CHEST 2V PA LATERAL from 01/02/2023 CR XR PORTABLE CHEST AP from 05/26/2023 FINDINGS: Pulmonary Arteries: No evidence of filling defect to suggest pulmonary emboli. Tracheobronchial tree: There is some bronchial wall thickening in the lower lobes. There is mucous p keegan plugging in the anterior basal segment on the left. Mediastinum and Sharda: No dominant adenopathy or fluid collection. Pulmonary parenchyma: Exam is limited by respiratory motion. There is an area of masslike consolidat ion seen in the medial left upper lobe with significant volume loss. This was present on the prior [address] is not significantly changed. There are underlying fibrotic changes. There appear to be mild acute patchy infiltrates in the lower lobes, left greater than right. Question of focal area of inf iltration or scarring versus mass superior segment right lower lobe. Pleura: Small amount of loculated fluid seen in the left posterior medial upper lobe. No pneumothora x. Heart: The heart is not dilated. Mild coronary artery calcifications are seen. Aorta: Thoracic aorta non-dilated. No aneurysm. No dissection. Atherosclerotic calcification. Upper abdomen: Cyst upper pole right kidney. Bones: Unremarkable for age. Tubes, Catheters, and Lines: None IMPRESSION: No evidence of pulmonary embolism. Severe left upper lobe volume loss and scarring with stable appearance when compared with 2018. Smal l posteromedial pleural effusion is new from prior exam. Mild patchy infiltrates in the left lower lobe. The mild mucous plugging. Question of a small infiltrate versus scarring or mass in the superior segment right lower lobe. RADIATION DOSE DELIVERED: 246.15mGy.cm Total DLP DATA REPOSITORY: All CT scans at this facility are submitted to the National Radiology Data Registry (NRDR) Dose Index Registry (DIR) with the [employer] (ACR). RADIATION OPTIMIZATION: All CT scans at this facility use at least one of these dose optimization te chniques: automated exposure control; mA and/or kV adjustment per patient size (includes targeted exa ms where dose is matched to clinical indication); or iterative reconstruction.
[2023-05-26] MEDS: Omnipaque 350 MG/ML 100 ML BTL IJ (17:38)
[2023-05-26] MEDS: Normal Saline - Diluent 50 ML VIAL IJ (17:39)
[2023-05-26 18:08] LABS: TSH (W/Ref FT4) 1.63 uIU/mL (0.36-3.74)
[2023-05-26 20:18] LABS: C-Reactive Protein > 25.00 mg/dL (0.0-0.3)
[2023-05-26 20:44] LABS: Procalcitonin 0.5 ng/mL
--- NOTE | 2023-05-26 21:37 | W.PM.HP.N ---
Date of service: 05/26/23 Time of Service: 21:37 Assessment and Plan Assessment and plan (1) Pneumonia: Status: Acute Assessment and plan: check blood cultures, urine strep antigen, urine legionella, sputum cultures if can be obtained; titrate oxygen and give bronchodilators and broad spectrum antibiotics including Rocephin and azithromycin. check Fluvid screen. (2) COPD (chronic obstructive pulmonary disease): Status: Chronic Assessment and plan: oxygen supplementation, antibiotics as above, iv corticosteroids; consider addition of Spiriva for maintenance (3) Dehydration: Status: Acute Assessment and plan: will give judicious trial of fluids overnight, monitor urine output, repeat labs in the a.m. (4) Vascular dementia: Status: Chronic Assessment and plan: his acute confusion may be more metabolic encephalopathy superimposed on his vascular dementia. he became agitated and pulling at his iv, telemetry and oxygen; necessitating giving him a dose of Zyprexa, need to get accurate med list from [facility]& (5) Encephalopathy: Status: Acute Assessment and plan: likely metabolic from hypoxemia/pneumonia (6) Benign hypertension: Status: Chronic Assessment and plan: awaiting [facility] so we can reconcile his medications but appears to have been on low dose lisinopril. (7) Hyperlipidemia: Status: Chronic Assessment and plan: continue atorvastatin (8) Discharge planning issues: Status: Acute Assessment and plan: [facility] will return to [facility] once he is medically stable from his pneumonia and encephalopathy. He is a full code. This should be further addressed w/ his DPOA for health care, his niece. (9) DVT prophylaxis: Status: Acute Assessment and plan: lovenox sc (10) CVA (cerebral vascular accident): Assessment and plan: hx of CVA but does not appear to have acute focal CN deficits, however, if confusion does not improve w/ treating his hypoxia and infection then consider MRI brain, CT brain did not show any acute findings. continue Plavic, atorvastatin History of Present Illness History of Present Illness Chief Complaint: dyspnea, confusion, hypoxemia Narrative: 73 yr old male with baseline vascular dementia, cva, HTN, HLD, and lung cancer s/p resection from [facility] who was sent to the ED @ [facility] for concerns over worsening confusion and hypoxemia and dyspnea. Patient reportedly has had a few falls today but without injury. He was noted to be more confused today, however his niece reported to the ED provider that he has not been acting right since last night, yelling, more garbled speech. He was sent over to the ED for evaluation where he was found to be hypoxemic 86 to 87% on room air corrected to 90% on 2 lpm. Workup in the ED included labs, EKG, xrays (CT head, CXR, chest CT). CT of the head without contrast reportedly showed no acute intracranial process. He has small vessel ischemic white matter changes. No fractures. Chest x-ray reportedly showed no acute pulmonary findings. Lungs show persistent opacity adjacent to the thoracic aortic arch and scarring in the left lung base. CT of the chest was performed no evidence of pulmonary embolism. He has severe left upper lobe volume loss and scarring with stable appearance compared to 2018 small posterior medial pleural effusion is new from prior exam. Mild patchy infiltrates left lower lobe with mild mucous plugging and question of small infiltrate versus scarring or mass in the superior segment of the right lower lobe. ECG demonstrates sinus rhythm with evidence of right atrial enlargement and borderline LVH. No acute ischemic ST-T wave changes. Labs include a CBC that showed a normal white count of 10,000 stable chronic anemia 12.1 g CMP shows mild prerenal azotemia BUN 27 creatinine 0.94 mildly elevated AST of 40 otherwise rest of the LFTs were normal creatinine is normal at 0.9 electrolytes are normal. Troponin I was negative x 2 sets. CRP is elevated at greater than 25. Ammonia levels normal. Procalcitonin is elevated 0.5 and TSH is normal at 1.63. Fluvid was not performed. Patient was empirically started on antibiotics while in the emergency department including Fortaz 2 g and azithromycin 500 mg. Patient is admitted now for treatment of pneumonia and metabolic encephalopathy superimposed on vascular dementia. Patient was sent up from the ED w/ no papers from [facility] so PMH is based on info given to me by ED provider. Med list has not been reconciled. I will ask [facility] tele pharmacy to review. Review of Systems Unobtainable due to mental condition PFSH All Active Problems (Updated 05/26/23 @ 22:56 by Paco Lopez MD) Dehydration (Acute) Pneumonia (Acute) Fever of unknown origin (Acute) Discharge planning issues (Acute) Vascular dementia (Chronic) Goals of care, counseling/discussion (Chronic) Advance directive on file (Chronic) DVT prophylaxis (Acute) COPD (chronic obstructive pulmonary disease) (Chronic) Encephalopathy (Acute) Altered mental status (Acute 05/27/13) Fever (Active 05/27/13) Benign hypertension (Chronic) Hyperlipidemia (Chronic) Hypoxia (Acute) COPD exacerbation (Acute) Medical History COPD (chronic obstructive pulmonary disease) CVA (cerebral vascular accident) Hypothyroid Palliative care patient Surgical History S/P craniotomy S/P lobectomy of lung Family History Daughter No problems noted. Sister No problems noted. Sister , of lung cancer 12 years ago in her early 60s Lung cancer Mother , age 74 from breast cancer Breast cancer Father Myocardial infarction Heart disease Social History Smoking/Tobacco Use Status: Former Tobacco Use Tobacco: How many years used: 30 Smoking risk assessment performed?: Yes Alcohol Intake: former Drug use: Never Substance use type: does not use Caregiver/Support person: Yes Household members: none Housing: assisted Number of Children: 1 Communication Needs: Hard of Hearing and Corrective Lenses Education Level: high school Do you need help understanding health information?: Always 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[place] What is your relationship status?: How often do you talk on the phone with friends or family?: twice per week How often do you get together with friends or relatives?: twice per week Panel score (0-1 are the most socially isolated patients): 1 What type of physical activity do you participate in: assisted ambulation and irregular exercise Duration: < 15 minutes/day Special reyna needs: No Agree to transfusion: Yes Seatbelt use: always Do you feel safe at home: Yes Do you feel safe in your relationship?: Yes Additional Social history: sister Henrietta is only surviving family, other than daughter whom he has not seen in years does not want to reconnect with her loves to sit outside in the sun, socialize, interact. Meds Allergies and Home Medications Allergies Allergy/AdvReac Type Severity Reaction Status Date / Time lorazepam AdvReac Severe Agitation, Verified 04/13/19 10:02 altered mental status Home Medications Medication Instructions Recorded Confirmed Type atorvastatin 80 mg tablet 80 mg PO DAILY 01/01/18 05/27/23 History clopidogrel 75 mg tablet (Plavix) 75 mg PO DAILY 01/01/18 05/27/23 History levothyroxine 50 mcg tablet 50 mcg PO DAILY 01/01/18 05/27/23 History lisinopril 2.5 mg tablet 2.5 mg PO DAILY 01/01/18 05/27/23 History acetaminophen 325 mg tablet 650 mg PO QID PRN 04/25/19 05/27/23 History sertraline 50 mg tablet 50 mg PO DAILY 03/03/23 05/27/23 History albuterol sulfate 90 mcg/actuation 2 puff inhalation Q4H PRN 05/27/23 05/27/23 History aerosol inhaler (Ventolin HFA) bisacodyl 10 mg rectal suppository 10 mg OK PRN PRN 05/27/23 05/27/23 History guaifenesin 100 mg/5 mL oral liquid 200 mg PO Q4H PRN Cough 05/27/23 05/27/23 History hydrocortisone 1 % topical gel 1 applic topical DAILY 05/27/23 05/27/23 History magnesium hydroxide 400 mg/5 mL 30 ml PO PRN PRN 05/27/23 05/27/23 History oral suspension (Milk of Magnesia) mirtazapine 7.5 mg tablet 7.5 mg PO HS 05/27/23 05/27/23 History polyethylene glycol 3350 17 17 g PO Q OTHER DAY 05/27/23 05/27/23 History gram/dose oral powder (ClearLax) sodium phosphates 19 gram-7 118 ml OK PRN PRN 05/27/23 05/27/23 History gram/118 mL enema (Fleet Enema) Exam Const General: anxious, combative, ill appearing and other (dehydrated) Nutritional Appearance: thin and underweight Orientation: alert, awake, oriented to person, not oriented to place and not oriented to time [facility] Head: normal to inspection, normocephalic and atraumatic Ears: hearing grossly normal bilaterally General nose exam: external nose normal Face and sinus: normal facial exam Mouth: other (dry mucous membranes) Teeth and gingiva: poor dentition Eyes General: appearance normal, both eyes and all related structures Visual Garcai: normal visual garcia by confrontation Alignment and Position: alignment normal Periorbital: periorbital findings normal Eyelids: eyelids normal Conjunctivae: conjunctivae normal Sclera: sclerae normal Cornea: corneas normal Pupils: PERRL Neck Neck: normal visual inspection, full ROM, no lymphadenopathy, trachea midline, supple and no JVD Thyroid: thyroid normal Carotids: normal carotid upstroke Lymphatic: no lymphadenopathy noted Chest Chest: normal inspection of the chest and normal palpation of entire chest wall Resp Effort & Inspection: normal respiratory effort and able to speak in complete sentences Auscultation: bronchovesicular breath sounds on the right and diminished lung sounds bilaterally in the lower lung garcia Cardio Jugular venous pressure: no JVD Palpation: normal PMI Rate: regular rate Rhythm: regular rhythm Pulses: normal peripheral pulses Back/Spine/Pelvis Back: no CVA tenderness Cervical Spine: normal cervical lordosis and cervical ROM normal Thoracic/Lumbar Spine: thoracic and lumbar spine normal to inspection Skin General skin exam: no rashes or lesions noted and other (tatoo of anne on right upper arm, [facility] tatoo over right upper chest) Lesions: no lesions Rashes: no rashes Neuro General: patient alert, patient awake, oriented Patient Orientation: Person and Confused and no focal motor deficits Cranial Nerves: PERRL, EOM intact bilaterally, facial strength normal, tongue midline, able to rotate head bilaterally and able to elevate shoulders bilaterally Cognition: abnormal cognition Speech: speech normal Motor: muscle tone normal throughout Sensory Exam: no sensory deficits noted Plantar Reflexes: Downgoing: bilateral Extrem General: normal to inspection, full ROM, capillary refill normal and pedal edema present Right upper extremity: hand Details: other (arthritic changes of MCP joints bilaterally) Psych Appearance: disheveled Mental Status: other Speech and Movement: agitated, speech clear and restless Mood: other Affect: irritable affect Attitude: guarded Insight: poor Results Imaging Chest x-ray: report reviewed CT scan - chest: report reviewed EKG: image reviewed Labs 05/27/23 06:55 05/27/23 06:55 Labs: Laboratory Results - last 24 hr 05/26/23 05/26/23 05/26/23 14:13 14:30 14:30 WBC RBC Hgb Hct MCV MCH MCHC RDW Plt Count MPV ABG Sample Site Cancelled ABG pH Cancelled ABG pCO2 Cancelled ABG pO2 Cancelled ABG HCO3 Cancelled ABG Total CO2 Cancelled ABG O2 Saturation Cancelled ABG Base Excess Cancelled VBG pH VBG pCO2 VBG pO2 VBG HCO3 VBG Total CO2 VBG O2 Saturation VBG Base Excess Oxygen Liter Flow Cancelled FiO2 Cancelled Sodium 142 Potassium 3.7 Chloride 104 Carbon Dioxide 28.9 Anion Gap 9.1 BUN 27 H Creatinine 0.9 Est GFR (CKD-EPI 2020) 89.62 Glucose 103 Calcium 8.9 Magnesium 2.0 Total Bilirubin 0.6 AST 40 H ALT 34 Alkaline Phosphatase 101 Ammonia < 10 L Troponin I < 50 C-Reactive Protein Total Protein 6.9 Albumin 3.0 L Procalcitonin TSH Urine Color Urine Clarity Urine pH Ur Specific Cushing Urine Protein Urine Ketones Urine Blood Urine Nitrite Urine Bilirubin Urine Urobilinogen Ur Leukocyte Esterase Urine RBC Urine WBC Ur Epithelial Cells Urine Crystals Urine Bacteria Urine Casts Urine Mucus Ur Culture Indicated? Urine Glucose 05/26/23 05/26/23 05/26/23 14:30 14:30 14:30 WBC 10.19 RBC 4.29 L Hgb 12.1 L Hct 37.8 L MCV 88 MCH 28.2 MCHC 32.0 RDW 15.0 H Plt Count 396 MPV 8.7 ABG Sample Site ABG pH ABG pCO2 ABG pO2 ABG HCO3 ABG Total CO2 ABG O2 Saturation ABG Base Excess VBG pH 7.40 VBG pCO2 50 VBG pO2 29 VBG HCO3 31 H VBG Total CO2 29 VBG O2 Saturation 51 VBG Base Excess 6 H Oxygen Liter Flow FiO2 Sodium Potassium Chloride Carbon Dioxide Anion Gap BUN Creatinine Est GFR (CKD-EPI 2020) Glucose Calcium Magnesium Total Bilirubin AST ALT Alkaline Phosphatase Ammonia Troponin I C-Reactive Protein Total Protein Albumin Procalcitonin TSH 1.63 Urine Color Urine Clarity Urine pH Ur Specific Cushing Urine Protein Urine Ketones Urine Blood Urine Nitrite Urine Bilirubin Urine Urobilinogen Ur Leukocyte Esterase Urine RBC Urine WBC Ur Epithelial Cells Urine Crystals Urine Bacteria Urine Casts Urine Mucus Ur Culture Indicated? Urine Glucose 05/26/23 05/26/23 05/26/23 15:38 19:30 19:30 WBC RBC Hgb Hct MCV MCH MCHC RDW Plt Count MPV ABG Sample Site ABG pH ABG pCO2 ABG pO2 ABG HCO3 ABG Total CO2 ABG O2 Saturation ABG Base Excess VBG pH VBG pCO2 VBG pO2 VBG HCO3 VBG Total CO2 VBG O2 Saturation VBG Base Excess Oxygen Liter Flow FiO2 Sodium Potassium Chloride Carbon Dioxide Anion Gap BUN Creatinine Est GFR (CKD-EPI 2020) Glucose Calcium Magnesium Total Bilirubin AST ALT Alkaline Phosphatase Ammonia Troponin I C-Reactive Protein > 25.00 H Total Protein Albumin Procalcitonin 0.5 TSH Urine Color Yellow Urine Clarity Sl Cloudy Urine pH 5.5 Ur Specific Cushing 1.025 Urine Protein 100 H Urine Ketones 15 H Urine Blood Negative Urine Nitrite Negative Urine Bilirubin Small H Urine Urobilinogen 2.0 H Ur Leukocyte Esterase Negative Urine RBC 0-2 Urine WBC 0-2 Ur Epithelial Cells Rare Urine Crystals Negative Urine Bacteria Negative Urine Casts Negative Urine Mucus Moderate Ur Culture Indicated? No Urine Glucose Negative Last Vital Signs Pulse 77 05/26/23 21:34 Resp 18 05/26/23 16:03 BP 114/61 05/26/23 15:44 Pulse Ox 90 L 05/26/23 15:46 Time Spent Time spent with Patient: 55-74 minutes Time was spent: preparing to see the patient(eg.review tests), ordering medications,tests, procedures, referring, communicating with other health director of managed care (ED provider), indepentently interpreting results, counseling the patient and care coordination
[2023-05-26 22:04] LABS: Troponin I < 50 ng/L (<or=60)
[2023-05-26] MEDS: Water,Injection,Sterile 10 ML VIAL (22:49)
[2023-05-26] MEDS: OLANZapine 10 MG VIAL 5 MG IM (22:49)
[2023-05-26] MEDS: AZITHROMYCIN 250 MG in Normal Saline 250 ML IVPB (23:00)
[2023-05-26] MEDS: Enoxaparin 40 MG/0.4 ML SYR SC (23:53)
[2023-05-27] VITALS (25 sets, daily range): BP systolic 99–156; BP diastolic 51–81; PULSE 70–103; RESP 1–26; TEMP 34–37.6; O2SAT 83–97
[2023-05-27 00:08] LABS: COVID-19 PCR Negative (Negative); Influenza A PCR Negative (Negative); Influenza B PCR Negative (Negative); RSV PCR Negative (Negative)
[2023-05-27 00:13] LABS: Source Nasopharynx
[2023-05-27] MEDS: OLANZapine 10 MG VIAL 5 MG IM (00:32)
[2023-05-27] MEDS: Lactated Ringers 1,000 ML 100 ML IV (00:33)
--- NOTE | 2023-05-27 00:58 | TELEP.MEDR_ITS ---
Date of service: 05/27/23 Time of Service: 00:58 Telepharmacy Home Med Rec Allergies Allergies: lorazepam Adverse Reaction (Severe, Verified 04/13/19 10:02) Agitation, altered mental status Interview Person Interviewed: * Facility med rec and facility RN (Alejandra) Quality Quality of Interview/Accuracy of Medication List: Excellent Sources Sources used to compile medication list: [employer] Medication List, MAR and SureScripts Changes made to Home Medication List: ADDITIONS: * Guaifenesin 200mg PO Q4h PRN cough * Remeron 7.5mg PO HS * Miralax 17gm PO every other day * Hydrocortisone 1% gel apply topically daily DELETIONS: * Paxil 30mg * omeprazole CHANGES: * none Additional Notes Additional Notes: * none Recommended Changes Recommended Changes(reason for recommendation): * none Attestation: The home medication list is now updated to the best of my knowledge and is ready to be reconciled by the provider. [facility] at for any questions.
--- NOTE | 2023-05-27 00:58 | TELEP.MEDREC ---
Date of service: 05/27/23 Time of Service: 00:58 Telepharmacy Home Med Rec Allergies Allergies: lorazepam Adverse Reaction (Severe, Verified 04/13/19 10:02) Agitation, altered mental status Interview Person Interviewed: Facility med rec and facility RN (Alejandra) Quality Quality of Interview/Accuracy of Medication List: Excellent Sources Sources used to compile medication list: [employer] Medication List, MAR and SureScripts Changes made to Home Medication List: ADDITIONS: Guaifenesin 200mg PO Q4h PRN cough Remeron 7.5mg PO HS Miralax 17gm PO every other day Hydrocortisone 1% gel apply topically daily DELETIONS: Paxil 30mg omeprazole CHANGES: none Additional Notes Additional Notes: none Recommended Changes Recommended Changes(reason for recommendation): none Attestation: The home medication list is now updated to the best of my knowledge and is ready to be reconciled by the provider. Please contact the TelePharmacy Medication Reconciliation Pharmacist at for any questions.
[2023-05-27] MEDS: diazePAM 10 MG/2 ML SYR 2 MG IVP (03:56)
[2023-05-27 07:06] LABS: Abs Immature Grans 0.04 10^3/uL (0.0-0.06); Absolute Basophil Count 0.03 10^3/uL (0.0-0.2); Basophils % 0.3; HCT 36.2 % (40.0-50.0); HGB 11.8 g/dL (13.5-17.5); Immature Grans % 0.3; Lymphocytes % 10.4; MCH 28.6 pg (27.0-33.0); MCHC 32.6 % (32.0-36.0); MCV 88 fL (80-95); MPV 8.8 fL (8.0-11.0); Monocytes % 12.5; Neutrophils % 76.5; Platelet Count 386 10^3/uL (130-400); RBC 4.13 10^6/uL (4.36-5.78); RDW 14.9 % (11.8-14.1); WBC 11.56 10^3/uL (4.4-10.8)
[2023-05-27 07:10] LABS: Absolute Monocyte Count 1.45 10^3/uL (0.1-0.8); Absolute Neutrophil Count 8.84 10^3/uL (1.2-6.7)
[2023-05-27 07:19] LABS: Anion Gap 4.7 mmol/L (3-11); BUN 20 mg/dL (7-18); CO2 30.3 mmol/L (21.0-32.0); CREATININE 0.6 mg/dL (0.70-1.30); Calcium 8.9 mg/dL (8.5-10.1); Chloride 110 mmol/L (98-107); Glucose 90 mg/dL (74-106); Magnesium 1.9 mg/dL (1.8-2.4); Potassium 3.3 mmol/L (3.5-5.1); Sodium 145 mmol/L (136-145)
[2023-05-27] MEDS: Albuterol/Ipratropium 3 ML UPD VIAL UPD ×4 (07:59→20:31)
[2023-05-27] MEDS: Water,Injection,Sterile 10 ML VIAL (08:03)
[2023-05-27] MEDS: Ziprasidone 20 MG VIAL IM (08:03)
[2023-05-27 08:07] LABS: BE (Venous) 6 mmol/L (-2-3); HCO3 (Venous) 31 mmol/L (23-28); O2 Sat (Venous) 47 %; TCO2 (Venous) 28 mmol/L (24-29); pCO2 (Venous) 49 mmHg (41-51); pH (Venous) 7.41 (7.31-7.41); pO2 (Venous) 27 mmHg
--- NOTE | 2023-05-27 08:52 | PDOC.CMIN ---
Date of service: 05/27/23 Time of Service: 08:52 Care Management Initial Assmt Initial Assessment REASON FOR HOSPITALIZATION:: acute mental status change, pneumonia, hypoxia PREVIOUS FUNCTIONAL STATUS/SOCIAL/FAMILY SUPPORTS:: Jose Miguel lives at [facility]. His sister, Henrietta, is listed as HCA on his COLST. She lives locally in [place], [place]. His neice, Yamila, works at [employer], and reports that Jose Miguel is independent minded, and sometimes forgets that he needs support. He is wheelchair bound, and requires assistance with most ADL's. He reportedly enjoys socialization and going outside for life enrichment. CURRENT FUNCTIONAL STATUS:: Jose Miguel was having a breathing treatment with RT when CM attempted to visit. Later, he was resting comfortably with a sitter in the room. Per report, he has been agitated and requiring restraints early this morning for safety. He had a palliative consult today, which he was unable to participate in, although Fatou, Palliative care, reached out to his sister/HCA, and his niece, who are both supportive. He continues to require hospitalization, and will return to [employer] [facility] [employer] once he is medically cleared. CM will continue to follow. ADVANCE DIRECTIVES:: COLST on file. Henrietta listed as HCA. Has patient been provided with info about the portal/API?: Yes Did the patient sign up for the portal?: No CODE STATUS:: Full Code INSURANCE COVERAGE / FINANCIAL ISSUES:: MCR. LAUREANO. CURRENT HOME/COMMUNITY SERVICES/EQUIPMENT:: Jose Miguel resides at [facility] where his care needs are met. He is w/c bound, and requires assistance with transfers, toileting and bathing. PRIMARY CARE PHYSICIAN:: Angelita Dunbar POTENTIAL DISCHARGE NEEDS:: Coordinated return to [employer] [facility] [employer] PATIENT/FAMILY EDUCATION NEEDS:: Review discharge instructions with pt and facility, discussion of self care needs including ask me three and goals of care. ANTICIPATED BARRIERS TO DISCHARGE:: None identified. TRANSPORTATION:: Via facility w/c van, coordinated by CM. PLAN:: Anticipate Jose Miguel will return to [facility] once medically cleared. He will transport via facility w/c van, coordinated by TONIE. He will follow up with facility providers and his discharge plan of care. CM will continue to follow. PFSH All Active Problems Dehydration (Acute) Pneumonia (Acute) Fever of unknown origin (Acute) Discharge planning issues (Acute) Vascular dementia (Chronic) Goals of care, counseling/discussion (Chronic) Advance directive on file (Chronic) DVT prophylaxis (Acute) COPD (chronic obstructive pulmonary disease) (Chronic) Encephalopathy (Acute) Altered mental status (Acute 05/27/13) Fever (Active 05/27/13) Benign hypertension (Chronic) Hyperlipidemia (Chronic) Hypoxia (Acute) COPD exacerbation (Acute) Medical History COPD (chronic obstructive pulmonary disease) CVA (cerebral vascular accident) Hypothyroid Palliative care patient Surgical History S/P craniotomy S/P lobectomy of lung Family History Daughter No problems noted. Sister No problems noted. Sister , of lung cancer 12 years ago in her early 60s Lung cancer Mother , age 74 from breast cancer Breast cancer Father Myocardial infarction Heart disease Social History Smoking/Tobacco Use Status: Former Tobacco Use Tobacco: How many years used: 30 Smoking risk assessment performed?: Yes Alcohol Intake: former Drug use: Never Substance use type: does not use Caregiver/Support person: Yes Household members: none Housing: [facility] Number of Children: 1 Communication Needs: Hard of Hearing and Corrective Lenses Education Level: high school Do you need help understanding health information?: Always 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[employer] What is your relationship status?: How often do you talk on the phone with friends or family?: twice per week How often do you get together with friends or relatives?: twice per week Panel score (0-1 are the most socially isolated patients): 1 What type of physical activity do you participate in: assisted ambulation and irregular exercise Duration: < 15 minutes/day Special reyna needs: No Agree to transfusion: Yes Seatbelt use: always Do you feel safe at home: Yes Do you feel safe in your relationship?: Yes Additional Social history: sister Henrietta is only surviving family, other than daughter whom he has not seen in years does not want to reconnect with her loves to sit outside in the sun, socialize, interact.
[2023-05-27] MEDS: methylPREDNISolone SUCC 40 MG VIAL IVP (09:10)
[2023-05-27] MEDS: Normal Saline Flush 10 ML SYR IVP (09:11)
[2023-05-27] MEDS: DOXYCYCLINE 100 MG in Normal Saline 100 ML IVPB ×2 (09:14→19:42)
[2023-05-27] MEDS: Normal Saline 500 ML 30 ML IV (09:14)
--- NOTE | 2023-05-27 10:55 | PT.INNT ---
Date of service: 05/27/23 Time of Service: 10:55 PT Notes Visit Reasons: acute mental status change, pneumonia, hypoxia Patient sleeping. Patient has not had a good night's sleep per sitter/TE[employer]ER [employer] Alyssa. Placed on soft restraints in B UE for saftey due to behavior changes. Spoke with sister Henrietta to try to see if her presence will help calm patient down as PT attempts to mobilize patient, will plan/re-attmept evaluation again at 1 pm today with sister present.
[2023-05-27] MEDS: cefTRIAXone 2 GM/50 ML BAG IVPB (11:40)
--- NOTE | 2023-05-27 12:35 | PDOC.STREC ---
Date of service: 05/27/23 Time of Service: 12:35 Speech Therapy Recommendations Report ST Recommendations: PRODUCT SAFETY TESTER NON-TREATMENT NOTE Consult received, chart reviewed. Attempting to contact patient for clinical swallow evaluation, but at this time patient is somnolent and not rousable to voice. To touch he has difficulty opening his eyes and only groans in response, unable to answer questions or follow any instructions at this time. Will re-contact patient later this afternoon to see if he is yet appropriate for evaluation. Coding
--- NOTE | 2023-05-27 13:10 | PT.INNT ---
Date of service: 05/27/23 Time of Service: 13:10 PT Notes Visit Reasons: Acute Mental Status Change, Pneumonia, Hypoxia Attempted to see patient but he remains unable to stay aake and participate in therapy at this time. Sister Henrietta suggested if he can be allowed to rest for today and see again tomorrow if he is ready for PT. Will plan to continue attempts and evaluate when patient can be engaged in PT.
--- NOTE | 2023-05-27 14:22 | PGE_ITS ---
Date of Service Date of service: 05/27/23 Time of Service: 14:22 Assessment and Plan Assessment and plan (1) Pneumonia: Status: Acute Assessment and plan: continue ceftriaxone and doxycycline day 2 blood cultures, urine strep antigen, urine legionella all pending sputum cultures if can be obtained continue [facility] swallow evaluation when able to partipate wean oxygen as able. (2) COPD (chronic obstructive pulmonary disease): Status: Chronic Assessment and plan: oxygen supplementation, antibiotics as above, iv corticosteroids to be downstepped to oral burst; consider addition of Spiriva for maintenance (3) Dehydration: Status: Acute Assessment and plan: maintenance IV fluids until able to take po (4) Vascular dementia: Status: Chronic Assessment and plan: his acute confusion may be more metabolic encephalopathy superimposed on his va scular dementia. he became agitated and pulling at his iv, telemetry and oxygen; necessitating giving him a dose of Zyprexa, now sedate today, (5) Encephalopathy: Status: Acute Assessment and plan: likely metabolic from hypoxemia/pneumonia (6) Benign hypertension: Status: Chronic Assessment and plan: blood pressure controlled. not taking PO but anticipate resuming home medications when able. monitor for now (7) Hyperlipidemia: Status: Chronic Assessment and plan: continue atorvastatin (8) CVA (cerebral vascular accident): Assessment and plan: hx of CVA but does not appear to have acute focal CN deficits, however, if confusion does not improve w/ treating his hypoxia and infection then consider MRI brain, CT brain did not show any acute findings. continue Plavic, atorvastatin (9) DVT prophylaxis: Status: Acute Assessment and plan: lovenox sc (10) Discharge planning issues: Status: Acute Assessment and plan: [facility] once he is medically stable from his pneumonia and encephalopathy. He is a full code. Palliative care consult pending. discussed with DR Starr. Subjective Subjective Interval history since last seen: patient sedate from medication overnight. unable to participate in swallow evaluation, not taking po Exam Const General: no acute distress and ill appearing chronically Nutritional Appearance: cachectic Orientation: confused HENOH Head: normal to inspection, normocephalic and atraumatic Chest Chest: normal inspection of the chest Resp Effort & Inspection: normal respiratory effort and no respiratory distress Auscultation: other (moist cough) Cardio Rate: regular rate Rhythm: regular rhythm GI Inspection: normal to inspection Palpation: soft Neuro General: patient awake Extrem General: normal to inspection and full ROM Objective Last Vital Signs Temp 36.6 C 05/27/23 11:28 Pulse 74 05/27/23 12:02 Resp 20 05/27/23 12:02 BP 138/78 05/27/23 11:28 Pulse Ox 95 05/27/23 12:35 Laboratory Results - last 24 hr 05/26/23 05/26/23 05/26/23 14:13 14:30 14:30 WBC RBC Hgb Hct MCV MCH MCHC RDW Plt Count MPV Immature Gran % Neutrophils % Lymphocytes % Monocytes % Eosinophils % Basophils % Nucleated RBC % Absolute Neutrophils Absolute Lymphocytes Absolute Monocytes Absolute Eosinophils Absolute Basophils ABG Sample Site Cancelled ABG pH Cancelled ABG pCO2 Cancelled ABG pO2 Cancelled ABG HCO3 Cancelled ABG Total CO2 Cancelled ABG O2 Saturation Cancelled ABG Base Excess Cancelled VBG pH VBG pCO2 VBG pO2 VBG HCO3 VBG Total CO2 VBG O2 Saturation VBG Base Excess Oxygen Liter Flow Cancelled FiO2 Cancelled Sodium 142 Potassium 3.7 Chloride 104 Carbon Dioxide 28.9 Anion Gap 9.1 BUN 27 H Creatinine 0.9 Est GFR (CKD-EPI 2020) 89.62 Glucose 103 Calcium 8.9 Magnesium 2.0 Total Bilirubin 0.6 AST 40 H ALT 34 Alkaline Phosphatase 101 Ammonia < 10 L Troponin I < 50 C-Reactive Protein Total Protein 6.9 Albumin 3.0 L Procalcitonin TSH Urine Color Urine Clarity Urine pH Ur Specific [place] Urine Protein Urine Ketones Urine Blood Urine Nitrite Urine Bilirubin Urine Urobilinogen Ur Leukocyte Esterase Urine RBC Urine WBC Ur Epithelial Cells Urine Crystals Urine Bacteria Urine Casts Urine Mucus Ur Culture Indicated? Urine Glucose COVID-19 Source SARS-CoV-2 (PCR) Influenza Type A (PCR) Influenza Type B (PCR) RSV (PCR) 05/26/23 05/26/23 05/26/23 14:30 14:30 14:30 WBC 10.19 RBC 4.29 L Hgb 12.1 L Hct 37.8 L MCV 88 MCH 28.2 MCHC 32.0 RDW 15.0 H Plt Count 396 MPV 8.7 Immature Gran % Neutrophils % Lymphocytes % Monocytes % Eosinophils % Basophils % Nucleated RBC % Absolute Neutrophils Absolute Lymphocytes Absolute Monocytes Absolute Eosinophils Absolute Basophils ABG Sample Site ABG pH ABG pCO2 ABG pO2 ABG HCO3 ABG Total CO2 ABG O2 Saturation ABG Base Excess VBG pH 7.40 VBG pCO2 50 VBG pO2 29 VBG HCO3 31 H VBG Total CO2 29 VBG O2 Saturation 51 VBG Base Excess 6 H Oxygen Liter Flow FiO2 Sodium Potassium Chloride Carbon Dioxide Anion Gap BUN Creatinine Est GFR (CKD-EPI 2020) Glucose Calcium Magnesium Total Bilirubin AST ALT Alkaline Phosphatase Ammonia Troponin I C-Reactive Protein Total Protein Albumin Procalcitonin TSH 1.63 Urine Color Urine Clarity Urine pH Ur Specific [place] Urine Protein Urine Ketones Urine Blood Urine Nitrite Urine Bilirubin Urine Urobilinogen Ur Leukocyte Esterase Urine RBC Urine WBC Ur Epithelial Cells Urine Crystals Urine Bacteria Urine Casts Urine Mucus Ur Culture Indicated? Urine Glucose COVID-19 Source SARS-CoV-2 (PCR) Influenza Type A (PCR) Influenza Type B (PCR) RSV (PCR) 05/26/23 05/26/23 05/26/23 15:38 19:30 19:30 WBC RBC Hgb Hct MCV MCH MCHC RDW Plt Count MPV Immature Gran % Neutrophils % Lymphocytes % Monocytes % Eosinophils % Basophils % Nucleated RBC % Absolute Neutrophils Absolute Lymphocytes Absolute Monocytes Absolute Eosinophils Absolute Basophils ABG Sample Site ABG pH ABG pCO2 ABG pO2 ABG HCO3 ABG Total CO2 ABG O2 Saturation ABG Base Excess VBG pH VBG pCO2 VBG pO2 VBG HCO3 VBG Total CO2 VBG O2 Saturation VBG Base Excess Oxygen Liter Flow FiO2 Sodium Potassium Chloride Carbon Dioxide Anion Gap BUN Creatinine Est GFR (CKD-EPI 2020) Glucose Calcium Magnesium Total Bilirubin AST ALT Alkaline Phosphatase Ammonia Troponin I C-Reactive Protein > 25.00 H Total Protein Albumin Procalcitonin 0.5 TSH Urine Color Yellow Urine Clarity Sl Cloudy Urine pH 5.5 Ur Specific [place] 1.025 Urine Protein 100 H Urine Ketones 15 H Urine Blood Negative Urine Nitrite Negative Urine Bilirubin Small H Urine Urobilinogen 2.0 H Ur Leukocyte Esterase Negative Urine RBC 0-2 Urine WBC 0-2 Ur Epithelial Cells Rare Urine Crystals Negative Urine Bacteria Negative Urine Casts Negative Urine Mucus Moderate Ur Culture Indicated? No Urine Glucose Negative COVID-19 Source SARS-CoV-2 (PCR) Influenza Type A (PCR) Influenza Type B (PCR) RSV (PCR) 05/26/23 05/26/23 05/27/23 19:45 23:20 06:55 WBC RBC Hgb Hct MCV MCH MCHC RDW Plt Count MPV Immature Gran % Neutrophils % Lymphocytes % Monocytes % Eosinophils % Basophils % Nucleated RBC % Absolute Neutrophils Absolute Lymphocytes Absolute Monocytes Absolute Eosinophils Absolute Basophils ABG Sample Site ABG pH ABG pCO2 ABG pO2 ABG HCO3 ABG Total CO2 ABG O2 Saturation ABG Base Excess VBG pH VBG pCO2 VBG pO2 VBG HCO3 VBG Total CO2 VBG O2 Saturation VBG Base Excess Oxygen Liter Flow FiO2 Sodium 145 Potassium 3.3 L Chloride 110 H Carbon Dioxide 30.3 Anion Gap 4.7 BUN 20 H Creatinine 0.6 L Est GFR (CKD-EPI 2020) 101.30 Glucose 90 Calcium 8.9 Magnesium 1.9 Total Bilirubin AST ALT Alkaline Phosphatase Ammonia Troponin I < 50 C-Reactive Protein Total Protein Albumin Procalcitonin TSH Urine Color Urine Clarity Urine pH Ur Specific [place] Urine Protein Urine Ketones Urine Blood Urine Nitrite Urine Bilirubin Urine Urobilinogen Ur Leukocyte Esterase Urine RBC Urine WBC Ur Epithelial Cells Urine Crystals Urine Bacteria Urine Casts Urine Mucus Ur Culture Indicated? Urine Glucose COVID-19 Source Nasopharynx SARS-CoV-2 (PCR) Negative Influenza Type A (PCR) Negative Influenza Type B (PCR) Negative RSV (PCR) Negative 05/27/23 05/27/23 06:55 08:02 WBC 11.56 H RBC 4.13 L Hgb 11.8 L Hct 36.2 L MCV 88 MCH 28.6 MCHC 32.6 RDW 14.9 H Plt Count 386 MPV 8.8 Immature Gran % 0.3 Neutrophils % 76.5 Lymphocytes % 10.4 Monocytes % 12.5 Eosinophils % 0.0 Basophils % 0.3 Nucleated RBC % 0.0 Absolute Neutrophils 8.84 H Absolute Lymphocytes 1.20 Absolute Monocytes 1.45 H Absolute Eosinophils 0.00 Absolute Basophils 0.03 ABG Sample Site ABG pH ABG pCO2 ABG pO2 ABG HCO3 ABG Total CO2 ABG O2 Saturation ABG Base Excess VBG pH 7.41 VBG pCO2 49 VBG pO2 27 VBG HCO3 31 H VBG Total CO2 28 VBG O2 Saturation 47 VBG Base Excess 6 H Oxygen Liter Flow FiO2 Sodium Potassium Chloride Carbon Dioxide Anion Gap BUN Creatinine Est GFR (CKD-EPI 2020) Glucose Calcium Magnesium Total Bilirubin AST ALT Alkaline Phosphatase Ammonia Troponin I C-Reactive Protein Total Protein Albumin Procalcitonin TSH Urine Color Urine Clarity Urine pH Ur Specific [place] Urine Protein Urine Ketones Urine Blood Urine Nitrite Urine Bilirubin Urine Urobilinogen Ur Leukocyte Esterase Urine RBC Urine WBC Ur Epithelial Cells Urine Crystals Urine Bacteria Urine Casts Urine Mucus Ur Culture Indicated? Urine Glucose COVID-19 Source SARS-CoV-2 (PCR) Influenza Type A (PCR) Influenza Type B (PCR) RSV (PCR) Time Spent with Patient Time Spent with Patient: 25-34 minutes Time was spent: preparing to see the patient(eg.review tests), ordering medications,tests, procedures, referring, communicating with other health medicare interviewer and indepentently interpreting results
--- NOTE | 2023-05-27 14:38 | PCNE_ITS ---
Date of service: 05/27/23 Time of Service: 14:00 History of Present Illness Narrative: Mr. Gillespie is a 73 y/o M currently inpt at [facility] 2/2 AMS and PNA; PMHx sig for h/o 2 CVAs, h/o NSCLC w/brain mets (s/p brain surgery), COPD, vascular dementia, HLD Hospital course: presented to [facility] ED 05/26 w/CC AMS/agitation; work up consistent w/PNA and encephalopathy, admitted for ongoing management; started on azithromycin and Rocephine, blood cultures pending, sputum and urine culture samples to be collected; dehydration treated w/IVF; encephalopaty thought to be metabolic from hypoxia/PNA; oxygen needs trending down, was on high flow, down to 6L, currently on 4L; increased cough w/wetness, unable to clear sputum, respiratory following, able to use acapella x1, having difficulty w/breathing treatments (following commands); sats now around 90%; urrently in soft restraints 2/2 increased agitation, aggression and pulling IV access; was up all night, restless/fidgety, moving around, random outbursts w/aggressive language; currently resting comfortable, 1-1 sitter at bedside; PT and COMMIS CHEF eval on hold d/t sedation per Henrietta/sister/[facility]: feels like doing well this past year, until recently; typically pretty happy and content at [facility], enjoying people and socializing, understands can't be living independently; would love to be able to walk, has been since 2016 since walking independently 2/2 leg weakness r/t stroke; still tries to stand up bc he forgets he can't stand up, falls frequently - h/o COMMIS CHEF, and helps w/speech; last few times to see speech increased difficulty; increased garbled speech w/current illness, unable to understand him - weight loss, seems to have come on really fast; was 200lb at intake at [facility], healthy was 160lb, now is much thinner; worried about why this is happening; was on soft food diet which he didn't like, now back on regular foods, appetite had been good, no complaints of feeling hungry - has visited a few times, he has been sleeping, wanting him to get some rest, plans on visiting again tomorrow around 1pm; - would want treatment for a short time to see if he would get better, return to baseline per Cystal/niece/[facility] staff: he is independent minded, likes to do things on his own, forgets that he is unable to do things often or care for self. Incontinent of urine and bowels increasing frequency, able to self-propelled wheelchair, left-sided weakness, wheelchair-bound, assistance with bathing, toileting, transferring; enjoys going outside, sitting in the sun. Has a history of cancer lung and brain, unsure of details, wonders if weight loss related to this. Increased agitation when he is not feeling well, was calling yesterday, acute change from the day before. Difficulty independently eating recently, previously no issues -Henrietta's recently passed, she has difficulty with medical decisions, has been working with Yamila to include on decision-making, would want her on HIPAA and included in healthcare decisions. Aware she is on paperwork. She is now on HIPAA. Yamila feels we should be considering DNR/DNI, with focus on comfort, potentially do not transport; reports they have had several conversations about CODE STATUS, he has been DNR/DNI then switched to full code. AD 2017 and COLST 2018 both consistent with full CODE STATUS, trial CPR, would want to be kept alive for short time on machines - Henrietta confirms this today, including antibiotics and IV fluids, for short time to see if he would get better would like to continue current plan of care Assessment and Plan Assessment and plan (1) Pneumonia: Status: Acute Assessment and plan: Oxygen demands improving, currently on 4 L, down from 6 L, continue to monitor, respiratory following Blood cultures pending; sputum and urine sample is pending Continue bronchodilators, Rocephin and azithromycin Per review of advance directive goals and speak with healthcare agent he would want this, at least for short time Consider follow-up conversations if no improvement (2) Vascular dementia: Status: Chronic Assessment and plan: Difficult to assess today due to sedation and acute illness Baseline fast scale appears to be around 6B Consider hospice, eligible with weight loss, scale 6B, aspiration w/hospitalizations, ADL dependence; plan to follow-up for review at family meeting (3) Dehydration: Status: Acute Assessment and plan: Continue maintenance hydration, unable to take in oral fluids at this time (4) Goals of care, counseling/discussion: Status: Chronic Assessment and plan: Reviewed previous advance directive, CODE STATUS, current plan of care with he althcare agent. Plan to continue all therapies for life-sustaining treatment, with goal of improved status to return to health and rehab Advance directive and POLST from 2017 and 18 respectively reviewed Per Henrietta new form has been completed at [facility] rehab, will continue to follow (5) Advance directive on file: Status: Chronic (6) COPD (chronic obstructive pulmonary disease): Status: Chronic Assessment and plan: With current oxygen needs, continue plan as above IV steroids to be down step to oral burst Respiratory following (7) Encephalopathy: Status: Acute Assessment and plan: Likely metabolic secondary to pneumonia and hypoxemia with increased agitation, On soft restraint protocol, sitter currently with patient, increase sleeping today, agitated overnight Continue to monitor, goal of releasing restraints as able, per healthcare agent would want to continue IV antibiotics, so need to maintain IV access which requires restraints at this time due to his agitation (8) Hypoxia: Status: Acute Assessment and plan: Improved with supplemental oxygen, currently on 4 L, baseline no oxygen (9) CVA (cerebral vascular accident): Assessment and plan: History of, with no acute focal cranial nerve deficits, CT no acute findings left-sided weakness PT consult pending (10) Palliative care patient: Assessment and plan: Palliative care to continue to follow during inpatient stay as needed, if no improvement in next few days, recommend family meeting with palliative care inpatient to review plan of care Palliative to follow outpatient, family meeting to be conducted with Yamlia Shrestha Robert and help in rehab staff on return there, around 1 month Review of Systems Narrative: As per HPI PFSH All Active Problems Dehydration (Acute) Pneumonia (Acute) Fever of unknown origin (Acute) Discharge planning issues (Acute) Vascular dementia (Chronic) Goals of care, counseling/discussion (Chronic) Advance directive on file (Chronic) DVT prophylaxis (Acute) COPD (chronic obstructive pulmonary disease) (Chronic) Encephalopathy (Acute) Altered mental status (Acute 05/27/13) Fever (Active 05/27/13) Benign hypertension (Chronic) Hyperlipidemia (Chronic) Hypoxia (Acute) COPD exacerbation (Acute) Medical History COPD (chronic obstructive pulmonary disease) CVA (cerebral vascular accident) Hypothyroid Palliative care patient Surgical History S/P craniotomy S/P lobectomy of lung Family History Daughter No problems noted. Sister No problems noted. Sister , of lung cancer 12 years ago in her early 60s Lung cancer Mother , age 74 from breast cancer Breast cancer Father Myocardial infarction Heart disease Social History Smoking/Tobacco Use Status: Former Tobacco Use Tobacco: How many years used: 30 Smoking risk assessment performed?: Yes Alcohol Intake: former Drug use: Never Substance use type: does not use Caregiver/Support person: Yes Household members: none Housing: longterm Number of Children: 1 Communication Needs: Hard of Hearing and Corrective Lenses Education Level: high school Do you need help understanding health information?: Always 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[employer] What is your relationship status?: How often do you talk on the phone with friends or family?: twice per week How often do you get together with friends or relatives?: twice per week Panel score (0-1 are the most socially isolated patients): 1 What type of physical activity do you participate in: assisted ambulation and irregular exercise Duration: < 15 minutes/day Special reyna needs: No Agree to transfusion: Yes Seatbelt use: always Do you feel safe at home: Yes Do you feel safe in your relationship?: Yes Additional Social history: sister Henrietta is only surviving family, other than daughter whom he has not seen in years does not want to reconnect with her loves to sit outside in the sun, socialize, interact. Exam Narrative Exam Narrative: General: Older adult male, cachectic, lying in bed with soft restraints bilateral upper extremities; Resp: Even unlabored, nasal cannula in place, intermittent wet cough with no production, no audible wheeze Skin: No rashes or lesions noted; not conduct full skin exam Psych: Nonverbal, occasional mumble, eyes open but not tracking to voice, does not answer close ended questions, intermittently returns to sleep, fidgety/ restless Results Last Vital Signs Temp 97.9 F 05/27/23 11:28 Pulse 74 05/27/23 12:02 Resp 20 05/27/23 12:02 BP 138/78 05/27/23 11:28 Pulse Ox 95 05/27/23 12:35 Labs 05/27/23 06:55 05/27/23 06:55 Labs: Laboratory Results - last 24 hr 05/26/23 05/26/23 05/26/23 14:30 14:30 14:30 WBC 10.19 RBC 4.29 L Hgb 12.1 L Hct 37.8 L MCV 88 MCH 28.2 MCHC 32.0 RDW 15.0 H Plt Count 396 MPV 8.7 Immature Gran % Neutrophils % Lymphocytes % Monocytes % Eosinophils % Basophils % Nucleated RBC % Absolute Neutrophils Absolute Lymphocytes Absolute Monocytes Absolute Eosinophils Absolute Basophils VBG pH VBG pCO2 VBG pO2 VBG HCO3 VBG Total CO2 VBG O2 Saturation VBG Base Excess Sodium 142 Potassium 3.7 Chloride 104 Carbon Dioxide 28.9 Anion Gap 9.1 BUN 27 H Creatinine 0.9 Est GFR (CKD-EPI 2020) 89.62 Glucose 103 Calcium 8.9 Magnesium 2.0 Total Bilirubin 0.6 AST 40 H ALT 34 Alkaline Phosphatase 101 Ammonia < 10 L Troponin I < 50 C-Reactive Protein Total Protein 6.9 Albumin 3.0 L Procalcitonin TSH Urine Color Urine Clarity Urine pH Ur Specific Wheeler Urine Protein Urine Ketones Urine Blood Urine Nitrite Urine Bilirubin Urine Urobilinogen Ur Leukocyte Esterase Urine RBC Urine WBC Ur Epithelial Cells Urine Crystals Urine Bacteria Urine Casts Urine Mucus Ur Culture Indicated? Urine Glucose COVID-19 Source SARS-CoV-2 (PCR) Influenza Type A (PCR) Influenza Type B (PCR) RSV (PCR) 05/26/23 05/26/23 05/26/23 14:30 14:30 15:38 WBC RBC Hgb Hct MCV MCH MCHC RDW Plt Count MPV Immature Gran % Neutrophils % Lymphocytes % Monocytes % Eosinophils % Basophils % Nucleated RBC % Absolute Neutrophils Absolute Lymphocytes Absolute Monocytes Absolute Eosinophils Absolute Basophils VBG pH 7.40 VBG pCO2 50 VBG pO2 29 VBG HCO3 31 H VBG Total CO2 29 VBG O2 Saturation 51 VBG Base Excess 6 H Sodium Potassium Chloride Carbon Dioxide Anion Gap BUN Creatinine Est GFR (CKD-EPI 2020) Glucose Calcium Magnesium Total Bilirubin AST ALT Alkaline Phosphatase Ammonia Troponin I C-Reactive Protein Total Protein Albumin Procalcitonin TSH 1.63 Urine Color Yellow Urine Clarity Sl Cloudy Urine pH 5.5 Ur Specific Wheeler 1.025 Urine Protein 100 H Urine Ketones 15 H Urine Blood Negative Urine Nitrite Negative Urine Bilirubin Small H Urine Urobilinogen 2.0 H Ur Leukocyte Esterase Negative Urine RBC 0-2 Urine WBC 0-2 Ur Epithelial Cells Rare Urine Crystals Negative Urine Bacteria Negative Urine Casts Negative Urine Mucus Moderate Ur Culture Indicated? No Urine Glucose Negative COVID-19 Source SARS-CoV-2 (PCR) Influenza Type A (PCR) Influenza Type B (PCR) RSV (PCR) 05/26/23 05/26/23 05/26/23 19:30 19:30 19:45 WBC RBC Hgb Hct MCV MCH MCHC RDW Plt Count MPV Immature Gran % Neutrophils % Lymphocytes % Monocytes % Eosinophils % Basophils % Nucleated RBC % Absolute Neutrophils Absolute Lymphocytes Absolute Monocytes Absolute Eosinophils Absolute Basophils VBG pH VBG pCO2 VBG pO2 VBG HCO3 VBG Total CO2 VBG O2 Saturation VBG Base Excess Sodium Potassium Chloride Carbon Dioxide Anion Gap BUN Creatinine Est GFR (CKD-EPI 2020) Glucose Calcium Magnesium Total Bilirubin AST ALT Alkaline Phosphatase Ammonia Troponin I < 50 C-Reactive Protein > 25.00 H Total Protein Albumin Procalcitonin 0.5 TSH Urine Color Urine Clarity Urine pH Ur Specific Wheeler Urine Protein Urine Ketones Urine Blood Urine Nitrite Urine Bilirubin Urine Urobilinogen Ur Leukocyte Esterase Urine RBC Urine WBC Ur Epithelial Cells Urine Crystals Urine Bacteria Urine Casts Urine Mucus Ur Culture Indicated? Urine Glucose COVID-19 Source SARS-CoV-2 (PCR) Influenza Type A (PCR) Influenza Type B (PCR) RSV (PCR) 05/26/23 05/27/23 05/27/23 23:20 06:55 06:55 WBC 11.56 H RBC 4.13 L Hgb 11.8 L Hct 36.2 L MCV 88 MCH 28.6 MCHC 32.6 RDW 14.9 H Plt Count 386 MPV 8.8 Immature Gran % 0.3 Neutrophils % 76.5 Lymphocytes % 10.4 Monocytes % 12.5 Eosinophils % 0.0 Basophils % 0.3 Nucleated RBC % 0.0 Absolute Neutrophils 8.84 H Absolute Lymphocytes 1.20 Absolute Monocytes 1.45 H Absolute Eosinophils 0.00 Absolute Basophils 0.03 VBG pH VBG pCO2 VBG pO2 VBG HCO3 VBG Total CO2 VBG O2 Saturation VBG Base Excess Sodium 145 Potassium 3.3 L Chloride 110 H Carbon Dioxide 30.3 Anion Gap 4.7 BUN 20 H Creatinine 0.6 L Est GFR (CKD-EPI 2020) 101.30 Glucose 90 Calcium 8.9 Magnesium 1.9 Total Bilirubin AST ALT Alkaline Phosphatase Ammonia Troponin I C-Reactive Protein Total Protein Albumin Procalcitonin TSH Urine Color Urine Clarity Urine pH Ur Specific Wheeler Urine Protein Urine Ketones Urine Blood Urine Nitrite Urine Bilirubin Urine Urobilinogen Ur Leukocyte Esterase Urine RBC Urine WBC Ur Epithelial Cells Urine Crystals Urine Bacteria Urine Casts Urine Mucus Ur Culture Indicated? Urine Glucose COVID-19 Source Nasopharynx SARS-CoV-2 (PCR) Negative Influenza Type A (PCR) Negative Influenza Type B (PCR) Negative RSV (PCR) Negative 05/27/23 08:02 WBC RBC Hgb Hct MCV MCH MCHC RDW Plt Count MPV Immature Gran % Neutrophils % Lymphocytes % Monocytes % Eosinophils % Basophils % Nucleated RBC % Absolute Neutrophils Absolute Lymphocytes Absolute Monocytes Absolute Eosinophils Absolute Basophils VBG pH 7.41 VBG pCO2 49 VBG pO2 27 VBG HCO3 31 H VBG Total CO2 28 VBG O2 Saturation 47 VBG Base Excess 6 H Sodium Potassium Chloride Carbon Dioxide Anion Gap BUN Creatinine Est GFR (CKD-EPI 2020) Glucose Calcium Magnesium Total Bilirubin AST ALT Alkaline Phosphatase Ammonia Troponin I C-Reactive Protein Total Protein Albumin Procalcitonin TSH Urine Color Urine Clarity Urine pH Ur Specific Wheeler Urine Protein Urine Ketones Urine Blood Urine Nitrite Urine Bilirubin Urine Urobilinogen Ur Leukocyte Esterase Urine RBC Urine WBC Ur Epithelial Cells Urine Crystals Urine Bacteria Urine Casts Urine Mucus Ur Culture Indicated? Urine Glucose COVID-19 Source SARS-CoV-2 (PCR) Influenza Type A (PCR) Influenza Type B (PCR) RSV (PCR)
--- NOTE | 2023-05-27 15:00 | W.SPSTE ---
Date of service: 05/27/23 Time of Service: 15:44 Subjective Clinical (Bedside) Swallow Evaluation Speech Language Pathology Patient referred for Clinical Swallow Evaluation from Dr Lopez given suspected aspiration PNA and current NPO status awaiting NUTRITION AIDES TEACHER evaluation. Precautions: Fall, Standard, Full Code SUBJECTIVE: Patient received awake, lethargic, minimally responsive, unable to communicate wants/needs effectively; unable to demonstrate comprehension of recommendations for safe p.o. intake upon discharge once deemed medically stable.?Patient is unable to respond to verbal questions, rousable with persistent voice/touch. Responds with head shake no to most bolus presentations via tsp. He did accept several trials as described below. TECHNICAL SUPPORT AGENT present throughout session. ? HPI: Pt is a 73 y/o M ?year old M with chronic COPD, vascular dementia, hx CVA, HTN, HLD, and lung cancer s/p resection, resident of [facility], admitted with altered mental status, dehydration, pneumonia (likely aspiration) and encephalopathy (likely metabolic 2/2 hypoxemia/pneumonia. He was initially on high flow oxygen supplementation at 6L but today being titrated down per RT, currently at 4L. Per nursing he has also had some behaviors, encephalopathy superimposed on dementia, resulting in some combativeness and pulling of lines, etc. This is currently improved with medications. Per palliative conversation with patient's family, he has been having more trouble with eating/drinking lately. Predisposing dysphagia risk factors: dementia, lung cancer, COPD, hx CVA Clinical signs of possible chronic dysphagia: dehydration, aspiration PNA Precipitating dysphagia risk factors / triggering event: AMS, hypoxemia, PNA ? IMPRESSIONS & PLAN: Patient is minimally able to communicate or respond to questions or instructions, and was somnolant most of the day. He refused any trials beyond water/ice. Minimal trials conducted and patient with only about 50% of swallows initiated. Some coughing after initial trials ice chosp but not easily distinguishable from baseline coughing noted by TECHNICAL SUPPORT AGENT throughout the day. Patient should remain NPO at this time until mental status improves and he is able to consistently initiate swallow. Recommend nursing to administer frequent oral care/hydration and thermo-tactile swallow stimulation (see instructions below) for comfort and to maintain swallow physiology as much as possible when he is not eating/drinking. Further NUTRITION AIDES TEACHER services: inpatient / patient to be followed while on unit,care home upon discharge ? Instrumentation: N/A at this time ? Diet Texture Modification(s): IDDSI Level(s) Once alert/stable, recommend NPO except for freewater protocol as below. Continue medications by IV at this time. ORAL CARE AND LIMITED SIPS WATER, COMPLETED EVERY 2-3 HOURS FOR COMFORT/HYDRATION/STIMULATION ABLE HOB upright as tolerated; upright for all ORAL CARE/PO INTAKE Complete oral care using in-line suction swab kits and oral hydration gel. Trials to be completed by nursing or NUTRITION AIDES TEACHER only at this time. Start with oral care, then provide several mock trials of metal spoon dipped in cold water for thermo-tactile stimulation. If patient accepts these, move on to 1/2 tsp water trials. Palpate thyroid cartilege to feel for swallow initiation. Discontinue if unable to stimulate swallow response in 2 trials or less. Give up to 5-6 sips water at a time every 2-3 hrs following oral care. PFSH All Active Problems?(Updated 05/26/23 @ 22:56 by Paco Lopez MD) Dehydration (Acute) Pneumonia (Acute) Fever of unknown origin (Acute) Discharge planning issues (Acute) Vascular dementia (Chronic) Goals of care, counseling/discussion (Chronic) Advance directive on file (Chronic) DVT prophylaxis (Acute) COPD (chronic obstructive pulmonary disease) (Chronic) Encephalopathy (Acute) Altered mental status (Acute 05/27/13) Fever (Active 05/27/13) Benign hypertension (Chronic) Hyperlipidemia (Chronic) Hypoxia (Acute) COPD exacerbation (Acute) Medical History? COPD (chronic obstructive pulmonary disease) CVA (cerebral vascular accident) Hypothyroid Palliative care patient Surgical History? S/P craniotomy S/P lobectomy of lung ? OBJECTIVE: Sp02: ~92% Respiratory: 4L via NC Language: only able to shake head no inconsistently in response to questions. No vocalizations. Mental Status: Unable to take orienation. Lethargic, minimally engaged. Speech: unable to assess Oral Motor Exam: Unable to complete due to mental status. ? Food items tested: ?? Ice: IDDSI 0: Oral phase: Leakage from mouth Difficulty with bolus manipulation Difficulty with a-p transport Pharyngeal phase: Delayed vs absent swallow initiation Cough after swallow vs baseline cough Provided education to: Nursing, MD Topics Addressed: anatomy/physiology of swallowing mechanism, overt s/sx to monitor for re: potential aspiration of food / liquids, recommendations for improved oral care, relationship between respiratory function changes and deglutition, Rationale for recommendations as outlined above Outcome: Verbalized/demonstrated understanding Goals: Patient/caregiver will be independent with aspiration precautions, diet modifications, and safe swallowing strategies. Patient will initiate pharyngeal swallows in at least +5/5+ thin liquid trials across 2 sittings. Time spent: 20 min Coding Diagnoses CPT Codes EVALUATE SWALLOWING FUNCTION - [id number] ([id number])
[2023-05-27] MEDS: Normal Saline 1,000 ML 75 ML IV (19:43)
[2023-05-27] MEDS: Enoxaparin 40 MG/0.4 ML SYR SC (22:00)
[2023-05-28] VITALS (13 sets, daily range): BP systolic 98–146; BP diastolic 52–86; PULSE 72–81; RESP 1–22; TEMP 34–37.2; O2SAT 89–93
[2023-05-28] MEDS: Albuterol/Ipratropium 3 ML UPD VIAL UPD ×3 (08:00→20:07)
[2023-05-28] MEDS: DOXYCYCLINE 100 MG in Normal Saline 100 ML IVPB ×2 (08:00→19:51)
[2023-05-28] MEDS: cefTRIAXone 2 GM/50 ML BAG IVPB (08:30)
--- NOTE | 2023-05-28 08:58 | NUR.NOTE ---
AM PO meds not given due to NPO status. Confirmed with battery charger conveyor line. Was informed to hold due to pt is in need of a evaluation due to possible aspiration precautions. Nursing Note:
--- NOTE | 2023-05-28 12:42 | PT.INIE ---
PT Notes Visit Reasons: Acute Mental Status Change, Pneumonia, Hypoxia Physical Therapy Inpatient Initial Evaluation Date: 05/28/2023 Referring Doctor: Paco Lopez MD PT Orders: PT CONSULT: Exacerbation Chroninc Cond Precautions: Fall. Standard. Activity as tolerated. Patient Profile/Admitting Diagnosis: Virgil is a 73-year-old male patient who was sent to the ED via EMS on 05/26/2023 due to increased garbling of speech, behavioral changes, and increased mumbling. Patient requires admission to med surg for management of PNA, COPD, dehydration, vascular dementia, encephalopathy, HTN, and hyperlipidemia (see active problems below). Original referral was sent yesterday but patient was unable to participate due to sedation with sister suggesting letting patient rest and then trying out again today. PMHX: All Active Problems?(Updated 05/26/23 @ 22:56 by Paco Lopez MD) Dehydration (Acute) Pneumonia (Acute) Fever of unknown origin (Acute) Discharge planning issues (Acute) Vascular dementia (Chronic) Goals of care, counseling/discussion (Chronic) Advance directive on file (Chronic) DVT prophylaxis (Acute) COPD (chronic obstructive pulmonary disease) (Chronic) Encephalopathy (Acute) Altered mental status (Acute 05/27/13) Fever (Active 05/27/13) Benign hypertension (Chronic) Hyperlipidemia (Chronic) Hypoxia (Acute) COPD exacerbation (Acute) Medical History? COPD (chronic obstructive pulmonary disease) CVA (cerebral vascular accident) Hypothyroid Palliative care patient Surgical History? S/P craniotomy S/P lobectomy of lung Social History/Home Situation: LTC resident at SNF. Wheelchair-bound but transfers onto wheelchair from bed or from toilet seat/commode with assist of 2. Equipment Owned/DME: Uses wheelchair Subjective: Speech unclear. Able to give a thumbs up if okay. Objective: General Observation: On HF O2 supplementation. Mental Status: Alert and oriented as to person. Able to follow single step commands, albeit delayed and slow requiring tactile cueing. easily gets frustrated. Pain: No verbalization nor actuation of pain Vital Signs: Closely monitored by nursing staff ROM: Right Upper Extremity: Shoulder Flexion lacks the last 50% of available AROM. Shoulder abduction lacks the last 50% of available AROM. Elbow flexion WFL. Wrist flexion WFL. Limited opening and closing of hand WFL. Left Upper Extremity: Shoulder Flexion lacks the last 50% of available AROM. Shoulder abduction lacks the last 50% of available AROM. Elbow flexion WFL. Wrist flexion WFL. Limited opening and closing of hand WFL. Right Lower Extremity: R hip flexion contracture <10 degrees and knee about 25 degrees, both flexible. DF to neutral only. Left Lower Extremity: R hip flexion contracture <10 degrees and knee about 25 degrees, both flexible. DF to neutral only.FL. Strength: Right Upper Extremity: Grossly 2-5. Career Technical Counselor weak but functional. Left Upper Extremity: Grossly 2-5. Career Technical Counselor weak but functional. Right Lower Extremity: Grossly 3-/5 Left Lower Extremity: Grossly 3-/5 Bed Mobility/Transfers: LEATHER GOODS MAKER Kiah assisting Rolling moderate assist of 2 Supine to sit moderate assist of 2 Sit to supine moderate assist of 2 Sit to stand moderate assist of 2 using STEDY lift Stand to sit minimal assist of 2 using STEDY lift Gait: Deferred due to fatigue and beginning agitation Balance: Static Sitting: Fair Dynamic Sitting: Poor Static Standing: Poor with STEDY lift Dynamic Standing: Unable to Special Tests: Mobility Limitations Standardized Measure [facility] AM-PAC 6 clicks Basic Mobility Inpatient Short Form: Raw Score: 12 CMS Score: 69% deficit Informed Consent/Education: Sister initially wanted to waint until today to do PT evaluation as her brother (patient) needed to rest. Sister was instructed in purpose of PT consult and plan of care and is greeable to proceed with established PT POC once her brother is more awaake and ready. Assessment: Patient with late effects from previous strokes and brain injury aggravated by admitting diagnoses. Only able to follow single step commands. Fatigues easy at this time, will make sure to provide adequate time to rest in between activities or try to break down sessions into short ones to work on increasing sitting and standing tolerance. Patient presents with clinical signs and symptoms consistent with current/admitting diagnoses that have resulted to mobility limitations, gait instability, generalized weakness, and overall ADL decline as demonstrated by the following impairment level findings: 1. Decreased strength to B UE/LE major muscle groups 2. Impaired sitting/standing balance 3. Impaired activity tolerance 4. Limitation of joint range of motion in B shoulders, hips, and knees 5. Shortness of breath 6. Easy fatigueability Impairments are contributing to the following functional limitations: 1. Decline in bed mobility skills 2. Decline in transfer skills 3. Difficulty with ambulation without assistive device and physical assistance 4. Increased completion time for mobility ADL performance 5. Increased risk for falls 6. Difficulty with managing steps alone safely Patient is assessed as a 28737 high complexity based on the following: History: 73-year-old male patient with past medical history as indicated above Examination: Demonstrable impairment in strength, balance, and mobility level with underlying impairments and functional limitations as exhibited above as well as deficit score of 69% utilizing the [facility] Mobility Inpatient Short Form Presentation: Evolving Decision Makin high complexity Goals: Goals X1 week 1. Supine-Sit minimal assist 2. Sit-Supine minimal assist 3. Sit-Stand minimal assist 4. Stand-Sit minimal assist 5. Bed-Chair minimal assist 6. Chair-Bed minimal assist 7. Sitting/standing balance and tolerance fair Plan of Care/Treatment Plan: 1-2x/day, 7 days/week x 1 week. Plan of care has been reviewed with the DISTRIBUTION WAREHOUSE MANAGER providing the service under Physical Therapy direction. Initiate Physical Therapy intervention for pain management as needed, strengthening, bed mobility, transfers, and use of assistive device. DISCHARGE RECOMMENDATIONS: [] Home with no services [] [] Home with services [specify] [] Home with outpatient PT [] [] SNF for continued rehabilitation [] [] Newspaper Editor Care [] [] SNF versus LTC based on ability to participate and progress [] [X] Return to SNF whenever medically stable TREATMENT CODE/TIME: 38043 x 27 minutes beginning at 13:19 PM. Thank you for the opportunity to participate in the care of this patient. Noy Randle PT, DPT, CLT [facility] [place], [place]
--- NOTE | 2023-05-28 13:42 | W.PM.PROGNOT ---
Date of Service Date of service: 05/28/23 Time of Service: 13:42 Assessment and Plan Assessment and plan (1) Pneumonia: Status: Acute Assessment and plan: Oxygen demands improving, currently on 4 L, down from 6 L, continue to monitor, respiratory following Blood cultures pending; sputum and urine sample is pending Continue bronchodilators, Rocephin and azithromycin Per review of advance directive goals and speak with healthcare agent he would want this, at least for short time Consider follow-up conversations if no improvement (2) Vascular dementia: Status: Chronic Assessment and plan: anticipate acute delirium with active infection, hospitalization safety precautions (3) Dehydration: Status: Acute Assessment and plan: Continue maintenance hydration, unable to take in oral fluids at this time (4) Goals of care, counseling/discussion: Status: Chronic Assessment and plan: palliative care consult pending. continue full code for now (5) COPD (chronic obstructive pulmonary disease): Status: Chronic Assessment and plan: With current oxygen needs, continue plan as above IV steroids to be down step to oral burst Respiratory following (6) Encephalopathy: Status: Acute Assessment and plan: Likely metabolic secondary to pneumonia and hypoxemia with increased agitation, On soft restraint protocol, sitter currently with patient, increase sleeping today, agitated overnight Continue to monitor, goal of releasing restraints as able, per healthcare agent would want to continue IV antibiotics, so need to maintain IV access which requires restraints at this time due to his agitation (7) CVA (cerebral vascular accident): Assessment and plan: History of, with no acute focal cranial nerve deficits, CT no acute findings left-sided weakness PT consult pending (8) Palliative care patient: Assessment and plan: Palliative consult pending. discussed with DR Starr Subjective Subjective Patient reports: feels better and afebrile; denies shortness of breath Interval history since last seen: up with steady lift with PT. Exam Const General: no acute distress and ill appearing chronically Nutritional Appearance: cachectic Orientation: confused HENMT Head: normal to inspection, normocephalic and atraumatic Chest Chest: normal inspection of the chest Resp Effort & Inspection: normal respiratory effort and no respiratory distress Cardio Rate: regular rate Rhythm: regular rhythm GI Inspection: normal to inspection Palpation: soft Neuro General: patient awake Extrem General: normal to inspection and full ROM Objective Last Vital Signs Temp 36.7 C 05/28/23 10:59 Pulse 73 05/28/23 10:59 Resp 18 05/28/23 08:30 BP 134/78 05/28/23 10:59 Pulse Ox 93 05/28/23 10:59 Time Spent with Patient Time Spent with Patient: 25-34 minutes Time was spent: preparing to see the patient(eg.review tests), obtaining and/or reviewing separately otained hiistory and referring, communicating with other health emergency care attendant
--- NOTE | 2023-05-28 14:26 | CMPROGNOTE_ITS ---
Date of service: 05/28/23 Time of Service: 14:26 Care Management Progress Note Progress Note Text Progress Note Text: S/O: Virgil is lying in bed when CM comes to meet with him. His sister is present in the room. He is alert and answers questions but his speech is garbled and not understandable. He does on occasion answer questions by shaking his head yes or no. His sister shares his speech has become more and more unclear and mixed up in the last 2 weeks to the point where it is no longer understandable. Per nursing staff, Virgil continues to struggle with swallowing and remains NPO. Family met with palliative care yesterday and are considering changing patient's code status to DNR/DNI due to his declining health. He remains a full code at this time. A: Virgil is a 73 year old male admitted to [facility] on 05/26/23 for acute mental status change, pneumonia and hypoxia. P: Plan is dependent on patient's progress. If his condition improves, he will return to [facility] when medically cleared. He will be transported back to the Rehab via w/c van, as arranged by CM when ready. CM will continue to support Virgil, his family and his discharge planning needs.
--- NOTE | 2023-05-28 16:15 | PT.INTREAT ---
Date of service: 05/28/23 Time of Service: 15:10 PT Notes Visit Reasons: Acute Mental Status Change, Pneumonia, Hypoxia Inpatient Physical Therapy Treatment Note [facility] Date: 05/28/23 PRECAUTIONS: Fall, standard, activity as tolerated. SUBJECTIVE: Patient supine in bed, alert, agreeable to therapy. OBJECTIVE: PAIN: none reported, no pain signals noted ie grimacing BED MOBILITY/TRANSFERS Rolling L/R: verbal and tactile cues Supine-sit: min assist with verbal cues Sit-supine: mod assist Sit-stand: mod assist in STEDY lift Stand-sit: CGA Bed-Chair: dependent; use STEDY lift Chair-bed: dependent; use STEDY lift THEREX: sit to stand x4, standing tolerance 2 minutes each time. Balance very poor. Posture very poor. Patient becomes fatigued rapidly. ASSESSMENT: patient tolerates therapy well, is resting comfortably in bed at end of treatment with ANY alarm in place and active. PLAN: Continue global strengthening per plan of care until patient is medically cleared to return to the SNF where he is a resident. TREATMENT CODE/TIME: 48045 Ther Ex 16 minutes beginning at 15:10
--- NOTE | 2023-05-28 16:20 | CHAPLAIN ---
Virgil was resting in bed when I visited. His niece Yamial was with him. I had difficulty understand what Virgil was saying, but Yamila understood some of it. [facility] and will likely return there. His sister, Henrietta, is his agent. Currently Virgil is full code. Fatou Guillen NP, from met with Virgil yesterday to discuss his code status. He remains a full code, but that may change according to Care Management notes. Yamila seems to be very supportive of Virgil. Henrietta visits often. I let Virgil know that it applications developer support is available to him.
--- NOTE | 2023-05-28 16:33 | PHA.REVIEW2 ---
Pharmacy Admission Review - Admission Clinical Review (Last Reviewed 05/27/23 @ 15:06 by Fatou Guillen NP) Dehydration (Acute) Pneumonia (Acute) Discharge planning issues (Acute) DVT prophylaxis (Acute) Encephalopathy (Acute) Altered mental status (Acute 05/27/13) Hypoxia (Acute) lorazepam Adverse Reaction (Severe, Verified 04/13/19 10:02) Agitation, altered mental status Resuscitation Status Full Code Height 5 ft 11 in Weight 59.6 kg - Renal Dosing Renal Dosing: BUN 20 mg/dL (7-18) H 05/27/23 06:55 Creatinine 0.6 mg/dL (0.70-1.30) L 05/27/23 06:55 Medications needing adjustments: Reviewed List of meds needing interventions: eCrCl 55 ml/min, all orders ok - Anticoagulation Anticoagulation: Hgb 11.8 g/dL (13.5-17.5) L 05/27/23 06:55 Hct 36.2 % (40.0-50.0) L 05/27/23 06:55 Plt Count 386 10^3/uL (130-400) 05/27/23 06:55 Creatinine 0.6 mg/dL (0.70-1.30) L 05/27/23 06:55 DVT Prophylaxis: Reviewed Medications: Enoxaparin - Opiate Usage Evaluate Pain Scale/Pains Meds: N/A - Relevant Labs Sodium 145 mmol/L (136-145) 05/27/23 06:55 Potassium 3.3 mmol/L (3.5-5.1) L 05/27/23 06:55 Chloride 110 mmol/L (98-107) H 05/27/23 06:55 Magnesium 1.9 mg/dL (1.8-2.4) 05/27/23 06:55 C-Reactive Protein > 25.00 mg/dL (0.0-0.3) H 05/26/23 19:30 Electrolytes, C-Reactive P, ESR: Reviewed (potassium slightly low at 3.3, no PO replacement ordered (pt NPO but advancing diet today)... will continue to monitor) - DM Control DM Control: Glucose 90 mg/dL (74-106) 05/27/23 06:55 DM Control: N/A - Cardiac Review Cardiac Review: Troponin I < 50 ng/L (<or=60) 05/26/23 19:45 BP, HR, EF%: Reviewed - Qtc Review If Elevated, List meds needing intervention: QTc 469 - IV to PO Switch IV Medications: Reviewed - Home Meds Home Med List reviewed: Reviewed Relevent Home Meds Not ordered & why?: all ordered - Current meds Current Medication Order Review: Reviewed (ceftriaxone + doxy day 2 for pneumonia)
[2023-05-28 21:10] LABS: Legionella Ag Detection Urine Negative (Negative)
[2023-05-28] MEDS: Enoxaparin 40 MG/0.4 ML SYR SC (21:18)
[2023-05-29] VITALS (13 sets, daily range): BP systolic 118–133; BP diastolic 49–75; PULSE 55–71; RESP 1–18; TEMP 36.1–37; O2SAT 85–96
--- NOTE | 2023-05-29 | DI.RAD_ITS ---
Exam(s) RF MODIFIED SPEECH BA SWALLOW TECHNIQUE: Modified barium swallow was performed in conjunction with speech pathology. CONTRAST MATERIAL: Multiple consistencies oral barium contrast were administered. COMPARISON: No exams were available for comparison FINDINGS: Note that this is not a dedicated esophagram, distal esophagus not evaluated. Speech pathology report to follow. RADIATION DOSE DELIVERED: todd Licea=14.3 mGy
--- NOTE | 2023-05-29 05:48 | NUR.NOTE ---
Pt appears more alert today, tries to help when repositioning, although he is very weak. He remains npo d/t not tolerating ice chips. Swallow evaluation today. Nutrition plan will have to be addressed. IVF continue. Currently pt is on 35 liters hi aldo with 33% fio2.o2 saturation 89-91 this shift. Will continue to monitor.
[2023-05-29] MEDS: Normal Saline 1,000 ML 75 ML IV (07:39)
[2023-05-29] MEDS: cefTRIAXone 2 GM/50 ML BAG IVPB (07:41)
[2023-05-29] MEDS: DOXYCYCLINE 100 MG in Normal Saline 100 ML IVPB ×2 (07:42→19:45)
[2023-05-29] MEDS: Albuterol/Ipratropium 3 ML UPD VIAL UPD ×4 (08:10→19:25)
--- NOTE | 2023-05-29 09:30 | RESPIRATORY ---
PT WAS SEEN THIS MORNING. TOOK PT OFF HIGH FLOW NASAL OXYGEN AND PLACED ON A REGULAR NASAL CANNULA WITH HUMIDITY AT 6 LPM. PT TOLERATED WELL AND SPO2 REMAINED 91-92 WITH NO INCREASED WOB OR SOB. HR REMAINS STABLE AT 56.
--- NOTE | 2023-05-29 10:23 | SPP_ITS ---
Date of service: 05/29/23 Time of Service: 09:30 Subjective Patient was awake and alert in his bed when contacted. INDOOR SPORTS CENTRE MANAGER positioning bed for upright HOB posture utilizing reverse trendelenburg function. Objective/Assessment/Plan Objective Treatment Techniques & Outcomes: Respiratory status: 4L via NC. No baseline coughing observed. Mental status: Patient is more responsive this date, following or attempting to follow most instructions, responding to most questions though responses are often unintelligible. He is oriented to self and birthday but not current year or situation. Short term goals: Patient/caregiver will be independent with aspiration precautions, diet modifications, and safe swallowing strategies. IN PROGRESS: Reviewed importance of oral care with nursing. Patient will initiate pharyngeal swallows in at least +5/5+ thin liquid trials across 2 sittings. GOAL MET Food items tested: ?? Ice: IDDSI 0: IDDSI 4: Oral phase: Leakage from mouth Difficulty with bolus manipulation Difficulty with a-p transport Residue Pharyngeal phase: Delayed swallow initiation Cough after swallow - delayed, appearing after several trials of liquid and after several trials of puree Voice change after swallow? Patient will participate in MBSS to further characterize dysphagia and inform treatment/management. IN PROGRESS: scheduled for this afternoon. Assessment Patient with increased swallow initiation and mental status is much improved, able to follow more instructions and is much more engaged and responsive. He does, however, continue to demonstrate s/sx aspiration with both liquids and purees. Will like to complete MBSS before discharge from hospital for objective view of aspiration risk. THis is planned for later today. Plan Plan: MBSS INDOOR SPORTS CENTRE MANAGER will continue to follow while on unit. Discharge to SNF/LTC with INDOOR SPORTS CENTRE MANAGER services to follow him at discharge location. Recommendations Recommendations: Diet Texture Modification(s): IDDSI Level(s) Once alert/stable, recommend NPO except for freewater protocol as below. Continue medications by IV at this time. ORAL CARE AND LIMITED SIPS WATER, COMPLETED EVERY 2-3 HOURS FOR COMFORT/HYDRATION/STIMULATION ABLE HOB upright as tolerated; upright for all ORAL CARE/PO INTAKE Complete oral care using in-line suction swab kits and oral hydration gel. Trials to be completed by nursing or INDOOR SPORTS CENTRE MANAGER only at this time. Start with oral care, then provide several mock trials of metal spoon dipped in cold water for thermo-tactile stimulation. If patient accepts these, move on to 1/2 tsp water trials. Palpate thyroid cartilege to feel for swallow initiation. Discontinue if unable to stimulate swallow response in 2 trials or less. Give up to 5-6 sips water at a time every 2-3 hrs following oral care. Total Time Spent: 25 min Coding Diagnoses CPT Codes ORAL FUNCTION THERAPY - 09103 ([id number])
--- NOTE | 2023-05-29 10:42 | PDOC.CMPRO ---
Date of service: 05/29/23 Time of Service: 10:42 Care Management Progress Note Progress Note Text Progress Note Text: S/O: Virgil was lying in bed when CM met with him. He reported that he was going to have a test in ten minutes. Per report, Virgil will be having a modified barium swallow test this afternoon, recommended by speech therapy, who saw him this morning in consult. Virgil will return to [facility] once he is medically cleared; CM will coordinate transport via facility w/c van. CM will continue to follow. A:? Virgil is a 73 year old male admitted to [facility] on 05/26/23 for acute mental status change, pneumonia and hypoxia. P:? Plan is dependent on patient's progress.? If his condition improves, he will return to [facility] when medically cleared. He will be transported back to the Rehab via w/c van, as arranged by CM when ready.? CM will continue to support Virgil, his family and his discharge planning needs
--- NOTE | 2023-05-29 13:40 | PT.INTREAT ---
Date of service: 05/29/23 Time of Service: 11:53 PT Notes Visit Reasons: Acute Mental Status Change, Pneumonia, Hypoxia Inpatient Physical Therapy Treatment Note [facility] Date: 05/29/23 PRECAUTIONS: Fall, standard, activity as tolerated SUBJECTIVE: Patient very alert, supine in bed, agreeable to therapy. Speech much more clear today. Expresses desire to lay on his side after therapy ends. OBJECTIVE: PAIN: none reported THEREX: BED MOBILITY/TRANSFERS Rolling L/R: min assist Supine-sit: mod assist Sit-supine: mod assist Sit-stand: CGA in STEDY lift x3. Standing tolerance with verbal and tactile cues for improved posture x2 minutes each stand. Stand-sit: CGA in STEDY lift with verbal and tactile cues. Bed-Chair: dependent, use STEDY lift Chair-bed: dependent, use STEDY lift THERACT: Patient participates in bed mobility training including bridging to scoot up in bed, cued for limb placement for more effective rolling. GAIT Assistive Device: STEDY lift Weight bearing: full Assist: CGA Distance: 0 feet Deviation: Patient able to demonstrate lateral weight shift, marching in place x3 each side. ASSESSMENT: Patient looks and reports that he feel much better. Tolerates therapy well. With assist from KAYLA Sevilla, patient is resting comfortably on left side at end of treatment. ANY alarm in place and active. PLAN: Continue global strengthening and neuro maximus within patient tolerance until patient is medically ready to discharge back to the SNF where he is a resident. AFTERNOON: Patient freshly back from a swallow study, very tired, refuses therapy. TREATMENT CODE/TIME: 79264 Ther Ex 10 minutes, 60107 Gait 13 minutes beginning at 11:53
--- NOTE | 2023-05-29 14:30 | ST.MBS ---
Date of Service Date of service: 05/29/23 Time of Service: 14:30 Modified Barium Swallow Study Findings: HPI & Patient report of function: Patient with vascular dementia and prior CVA referred for VFSE/MBSS from Dr. Starr given aspiration pna and s/sx aspiration during ELEMENTARY SUPERVISOR evaluation. Please see add'l HPI and medical history in ELEMENTARY SUPERVISOR evaluation dated 05/27/23. IMPRESSIONS: Swallow safety is impaired; swallow efficiency is impaired. Moderate chronic oropharyngeal dysphagia. Characterized primarily by significantly delayed pharyngeal onset, oral-motor weakness and discoordination resulting in premature spillage and anterior spillage, tongue thrusting, reduced/absent epiglottic inversion, reduced PES opening, and significant oral and pharyngeal residue after the swallow placing patient at risk of aspiration. No aspiration was noted on today's exam, deep penetration to the vocal cords was noted. However it should be noted that with presence of significant delayed swallow initiation and oral and pharyngeal residue without spontaneous use of secondary swallows, patient remains at very high risk of aspiration especially given the time and care spent during this procedure by clinician and instructional support services director to achieve optimal positioning and instruction with compensatory strategies. Additionally, patient requires additional time and very small sips/bites to reduce risk of aspiration, likely to impact his efficiency for adequate nutrition/hydration. Patient did initiate coughing episode after episode of deep penetration with thick liquid. While he did not aspirate on thin liquid, he had significantly less residue with mildly thick liquid after the swallow and I believe he would be safer from post-swallow aspiration for this reason. At the end of the study he coughed up very large, thick and ropey green sputum. Patient appears to be at moderate risk for potential aspiration PNA and/or pulmonary compromise and high risk for malnutrition, high risk for dehydration. Diet modification is indicated; non-oral nutrition would likely be indicated for supplemental nutrition but is likely not in line with patient/family goals of care. Swallow prognosis is guarded given: Severity, Time since onset, Cognitive status, Overall deconditioning/medical status and pending patient/caregiver training in risk management as outlined, including use of trialed compensatory strategies. Patient appears to be a good candidate for behavioral swallow rehabilitation. RECOMMENDATIONS: Diet Texture Recommendation:? IDDSI LEVEL SOLIDS 4-Pureed Solids LIQUIDS 2-Mildly Thick Liquids OK to give 0-Thin liquids (water only) BETWEEN meals if excellent oral care is provided immediately prior and bolt upright positioning is achieved. Please see further details at?[email or web address].org MEDICATIONS Crushed, as able or Liquid formulations in 2-Mildly Thick Liquids or 4-Puree Diet texture modification is per patient's preference; please adjust diet textures at patient's discretion & collaboration with care team. Do not alter medications (e.g., cut)? without advice from your MD or pharmacist. Risk Management Strategies:? Complete excellent oral care prior to and after PO intake. Fully upright Behavioral reflux precautions, including upright position during + 90 mins after meals. Small bites, approx [id number] Very small sips, approx 5mL / 1/2 teaspoon Encourage avoidance of straws Alternate solids/liquids as able Multiple swallows (2-3)per bolus to encourage clearance of pharyngeal stasis/residue Control risk factors for aspiration pneumonia via (a) thorough oral hygiene & (b) maintaining physical mobility as tolerated Goals: Patient/caregiver will be independent with aspiration precautions, diet modifications, and safe swallowing strategies. IN PROGRESS: Reviewed aspiration precautions with nursing, HOB signage provided. Patient will initiate pharyngeal swallows in at least +5/5+ thin liquid trials across 2 sittings. GOAL MET Patient will participate in MBSS to further characterize dysphagia and inform treatment/management. GOAL MET Patient will tolerate mildly thick liquids/puree solids diet with minimal s/sx aspiration. IN PROGRESS: see below objective data ----- OBJECTIVE Videofluoroscopic Swallow Evaluation (VFSE/MBSS) was conducted in the lateral projection by Speech-Language Pathologist, in collaboration with Radiologist, to evaluate oropharyngeal swallow function. Anatomic view under fluoroscopy: WFL PO Barium Contrast Trials Oral barium water-soluble contrast was administered as follows: IDDSI Level 0 Varibar thin liquid (40% w/v) IDDSI Level 2 Varibar nectar thick/mildly thick liquid (40% w/v) IDDSI Level 3 Varibar thin honey/liquidised/moderately-thick (40% w/v) IDDSI Level 4 Varibar pudding/pureed/extremely thick (40% w/v) IDDSI Level 7 Regular Solid: 1/2 jemal cracker coated in 3 mL Varibar pudding MBSImP Component Scores: COMPONENT Scale SCORE 1 Lip closure (0-4) 4 Resulted in escape beyond mid-chin 2 Hold Position (0-3) 3 Allowed posterior escape of greater than half of the bolus 3 Bolus Preparation (0-4) 3 Was only minimal chewing/mashing with a majority of the bolus unchewed 4 Bolus Transport (0-4) 3 Was with repetitive/disorganized motion of the tongue 5 Oral Residue (0-4) 3 Was the majority of bolus remaining 6 Swallow Initiation (0-4) 3 Occurred when the bolus head was in the pyriform sinuses 7 Soft Palate Elevation (0-4) 0 Resulted in no bolus between soft palate and the pharyngeal wall 8 Laryngeal Elevation (0-3) 1 Was decreased with partial superior movement of thyroid cartilage/partial approximation of arytenoids to epiglottic petiole 9 Anterior Hyoid Motion (0-2) 1 Demonstrated partial anterior movement 10 Epiglottic Movement (0-2) 2 Resulted in no inversion 11 Laryngeal Closure (0-2) 1 Was incomplete with narrow a column of air/contrast in laryngeal vestibule 12 Pharyngeal Stripping Wave (0-2) 1 Was present, but diminished 13 Pharyngeal Contraction (0-3) NA 14 PES Opening (0-3) 1 Demonstrated partial distension/partial duration, with partial obstruction of flow 15 Tongue Base Retraction (0-4) 1 Allowed a trace column of contrast or air between tongue base and pharyngeal wall 16 Pharyngeal Residue (0-4) 2 Was a collection of residue within or on pharyngeal structures 17 Esophageal Clearance (0-4) NA Results: COMPONENT Scale SCORE 1 Oral Score (0-18) 15 2 Pharyngeal Score (0-29) 9 3 Esophageal Score (0-4) 0 not observed Dysphagia Outcome and Severity Scale: COMPONENT Scale SCORE 1 LEVEL (1-7) NA Penetration-Aspiration Scale: COMPONENT Scale SCORE 1 Thin liquid (1-8) 1 Contrast did not enter the airway 2 [place] thick (1-8) 4 Contrast entered the airway, contacted the vocal folds, and was ejected from the airway. 3 Honey thick (1-8) 1 Contrast did not enter the airway 4 Pudding thick (1-8) 1 Contrast did not enter the airway 5 Cookie (1-8) 1 Contrast did not enter the airway Trialed Compensatory Strategies & Outcome: Maneuvers Successful (+) Unsuccessful (-) Postures Successful (+) Unsuccessful (-) 3 second Preparatory Set? ? +/- Chin Tuck Posture? ? Cough? ? Posterior Head tilt? Reflexive? Cued? Throat Clear? ? Head Tilt to? Reflexive? Left? Cued? Right? ? Saliva swallow? ? + Head Turn/Rotate to? ? Supraglottic Swallow? Left? ? Super-supraglottic Swallow? Right? ? Bolus Modifications Successful (+) Unsuccessful (-) Delivery/Alternating Consistencies ? Follow with Liquid Wash +/- ? Follow with Solid Bolus? Delivery/Via Straw? ? Reduced Volume? ? + Reduced Rate of Intake? ? + Increased Viscosity? ? + to reduce liquid residue Other:?? ? Thank you for allowing us to take part in this patient's care. Please feel free to contact the [facility] Speech Language Pathology Department with any questions/concerns. Coding CPT Codes MOTION FLUOROSCOPY/SWALLOW - [id number] ([id number])
[2023-05-29] MEDS: Barium Sulfate 81% w/w for Oral Suspension 148 GM BTL PO (15:19)
[2023-05-29] MEDS: Barium Sulfate 40% W/V 1500 CPS 250 ML BTL PO (15:21)
[2023-05-29] MEDS: Barium Sulfate 40% W/V 240 ML BTL PO (15:23)
[2023-05-29] MEDS: Barium Sulfate Oral Paste 40% W/V 230 ML TUBE PO (15:24)
--- NOTE | 2023-05-29 16:02 | CHAPLAIN ---
Virgil was returning from test when I visited. His niece and sister were with. Virgil was feeling better today and interacting more. It was still difficult to understand some of what he was saying, but he was clearly smiling and joking. The plan is for him to return to [facility] when he is medically cleared.
[2023-05-29] MEDS: Atorvastatin 40 MG TAB 80 MG PO (19:45)
[2023-05-29] MEDS: Mirtazapine 15 MG TAB 7.5 MG PO (21:41)
[2023-05-29] MEDS: Enoxaparin 40 MG/0.4 ML SYR SC (21:41)
[2023-05-29 23:16] LABS: Streptococcus Pneumoniae Ag, U Negative (Negative)
[2023-05-30] VITALS (12 sets, daily range): BP systolic 109–136; BP diastolic 57–79; PULSE 52–68; RESP 4–20; TEMP 35.6–37; O2SAT 89–100
[2023-05-30] MEDS: Normal Saline 1,000 ML 75 ML IV (03:57)
[2023-05-30] MEDS: Levothyroxine 50 MCG TAB PO (06:51)
[2023-05-30] MEDS: Albuterol/Ipratropium 3 ML UPD VIAL UPD ×4 (08:56→19:07)
--- NOTE | 2023-05-30 09:25 | PT.INTREAT ---
PT Notes Visit Reasons: Acute Mental Status Change, Pneumonia, Hypoxia Inpatient Physical Therapy Treatment Note [facility] Date: 05/30/23 PRECAUTIONS: OBJECTIVE: ? Therapeutic Activities (02618l[]): Direct one-on-one instruction in dynamic activities to improve functional performance. ? BED MOBILITY/TRANSFERS? Sit-stand: CGA?Steady ? Stand-sit: CGA ? Steady? Therapeutic Exercises (31548t[1]): Direct one-on-one instruction in therapeutic exercises to develop strength, endurance, range of motion and flexibility. ? Exercises ?Ambulation ? Assistive Device: Steady? Weight bearing: Full Assist: CGA ? Distance:? Steady static standing to fatigue first time 1 min second time 1.5 min. Pt refused wt shifting and marching. Pt had a seated rest in between. ? ASSESSMENT:? Pt did not want to marching or wt shift today but was willing to stand x 2. PLAN: Cont as per PT POC. TREATMENT CODE/TIME: 9:05-9:20 (15) TA
[2023-05-30] MEDS: cefTRIAXone 2 GM/50 ML BAG IVPB (09:30)
[2023-05-30] MEDS: Sertraline 50 MG TAB PO (09:31)
[2023-05-30] MEDS: Lisinopril 2.5 MG TAB PO (09:31)
[2023-05-30] MEDS: Clopidogrel 75 MG TAB PO (09:31)
[2023-05-30] MEDS: predniSONE 20 MG TAB 40 MG PO (09:31)
[2023-05-30] MEDS: Ziprasidone 20 MG CAP PO ×2 (10:43→19:08)
[2023-05-30] MEDS: DOXYCYCLINE 100 MG in Normal Saline 100 ML IVPB ×2 (10:43→19:08)
--- NOTE | 2023-05-30 12:10 | W.PM.PROGNOT ---
Date of Service Date of service: 05/30/23 Time of Service: 12:11 Assessment and Plan Assessment and plan (1) Pneumonia: Status: Acute Assessment and plan: continuing to require oxygen, weaned down to 4 L NC, no respiratory distress. continue doxy/ceftriaxone day 01/21 (2) Vascular dementia: Status: Chronic Assessment and plan: anticipate acute delirium with active infection, hospitalization continue safety precautions started on geodon for symptoms (3) Dehydration: Status: Acute Assessment and plan: stop maintenance hydration, now able to tolerate PO speech therapy following, see modification recommendations passed swallow study but suspect he intermittently aspirates. (4) Goals of care, counseling/discussion: Status: Chronic Assessment and plan: palliative care consult pending. continue full code for now (5) COPD (chronic obstructive pulmonary disease): Status: Chronic Assessment and plan: With current oxygen needs, continue plan as above IV steroids to be down step to oral burst Respiratory following (6) CVA (cerebral vascular accident): Assessment and plan: History of, with no acute focal cranial nerve deficits, CT no acute findings left-sided weakness PT consult pending (7) Palliative care patient: Assessment and plan: Palliative consult pending. discussed with DR Starr Subjective Subjective Patient reports: afebrile Interval history since last seen: intermittent periods of increased confusion and demanding, perseverating on his wheelchair, no behavioral issues otherwise. doing better tolerating PO. Exam Const General: no acute distress and ill appearing chronically Nutritional Appearance: cachectic Orientation: confused HENWV Head: normal to inspection, normocephalic and atraumatic Chest Chest: normal inspection of the chest Resp Effort & Inspection: normal respiratory effort and no respiratory distress Cardio Rate: regular rate Rhythm: regular rhythm GI Inspection: normal to inspection Palpation: soft Neuro General: patient awake Extrem General: normal to inspection and full ROM Objective Last Vital Signs Temp 37.0 C 05/30/23 11:16 Pulse 60 05/30/23 11:16 Resp 19 05/30/23 11:16 BP 131/79 05/30/23 11:16 Pulse Ox 93 05/30/23 11:16 Time Spent with Patient Time Spent with Patient: <25 minutes Time was spent: preparing to see the patient(eg.review tests), ordering medications,tests, procedures and care coordination
[2023-05-30 12:24] LABS: HCT 32.4 % (40.0-50.0); HGB 10.5 g/dL (13.5-17.5); MCH 28.6 pg (27.0-33.0); MCHC 32.4 % (32.0-36.0); MCV 88 fL (80-95); MPV 8.9 fL (8.0-11.0); Platelet Count 371 10^3/uL (130-400); RBC 3.67 10^6/uL (4.36-5.78); RDW 15.4 % (11.8-14.1); WBC 12.06 10^3/uL (4.4-10.8)
--- NOTE | 2023-05-30 15:34 | NUR.NOTE ---
Nursing Note: @1040 pt was using obscene words towards staff. stating that he wanted his wc from the rehab facility he was at. when educated that we would not be able to get his wc but we had some that he could use if he wanted he states you stupid fucking nurse, just get the wc. i want my fucking wc. and proceeded to yell inappropriately at staff. when asked to stop, pt would get more aggravated. charge nurse chavo was notified as well as dr leslie.
[2023-05-30] MEDS: Mirtazapine 15 MG TAB 7.5 MG PO (19:08)
[2023-05-30] MEDS: Atorvastatin 40 MG TAB 80 MG PO (19:08)
[2023-05-30] MEDS: Enoxaparin 40 MG/0.4 ML SYR SC (21:15)
[2023-05-31] VITALS (15 sets, daily range): BP systolic 122–150; BP diastolic 54–88; PULSE 50–79; RESP 2–18; TEMP 35.6–36.5; O2SAT 89–98
[2023-05-31] MEDS: Ziprasidone 20 MG CAP PO ×2 (07:24→19:15)
[2023-05-31] MEDS: DOXYCYCLINE 100 MG in Normal Saline 100 ML IVPB ×2 (07:24→19:14)
[2023-05-31] MEDS: Clopidogrel 75 MG TAB PO (07:25)
[2023-05-31] MEDS: Lisinopril 2.5 MG TAB PO (07:25)
[2023-05-31] MEDS: Sertraline 50 MG TAB PO (07:25)
[2023-05-31] MEDS: predniSONE 20 MG TAB 40 MG PO (07:25)
[2023-05-31] MEDS: Albuterol/Ipratropium 3 ML UPD VIAL UPD ×4 (07:54→19:15)
--- NOTE | 2023-05-31 08:58 | PT.INTREAT ---
PT Notes Visit Reasons: Acute Mental Status Change, Pneumonia, Hypoxia Inpatient Physical Therapy Treatment Note [facility] Date: 05/31/23 PRECAUTIONS:[] SUBJECTIVE: Pt reports that he is getting better every day. OBJECTIVE: ? Therapeutic Activities (40549w[1]): Direct one-on-one instruction in dynamic activities to improve functional performance. ? BED MOBILITY/TRANSFERS? Sit-stand: CGA with steady x 1? Stand-sit: CGA with steady x 1 ? Therapeutic Exercises (37556b[1]): Direct one-on-one instruction in therapeutic exercises to develop strength, endurance, range of motion and flexibility. ? Exercises ? [] ?Ambulation ? Assistive Device: Steady lift working on static standing to fatigue x 3. Pt completed wt shifting in steady. Pt required cues for standing toll and looking up.? Weight bearing: Full Assist: CGA? ASSESSMENT:? Pt was more pleasant today and more willing to complete therapy. PLAN: Cont as per PT POC. TREATMENT CODE/TIME: 8:30-8:55 (25) TAx 1 Therapeutic exercise x1
[2023-05-31] MEDS: cefTRIAXone 2 GM/50 ML BAG IVPB (09:19)
--- NOTE | 2023-05-31 11:08 | PGE_ITS ---
Date of Service Date of service: 05/31/23 Time of Service: 11:08 Assessment and Plan Assessment and plan (1) Pneumonia: Status: Acute Assessment and plan: continuing to require oxygen, weaned down to 4 L NC, no respiratory distress. complete doxy/ceftriaxone day 02/20 (2) Vascular dementia: Status: Chronic Assessment and plan: anticipate acute delirium with active infection, hospitalization continue safety precautions stable on geodon for symptoms (3) Dehydration: Status: Acute Assessment and plan: stable off fluids and continues to tolerate PO speech therapy following, see modification recommendations passed swallow study but suspect he intermittently aspirates. (4) Goals of care, counseling/discussion: Status: Chronic Assessment and plan: palliative care consulted, see note, will follow after discharge for more goals of care/limits of care discussion and code status . continue full code (5) COPD (chronic obstructive pulmonary disease): Status: Chronic Assessment and plan: With current oxygen needs, continue plan as above steroid burst completed Respiratory following (6) CVA (cerebral vascular accident): Assessment and plan: History of, with no acute focal cranial nerve deficits, CT no acute findings left-sided weakness PT consulted (7) Palliative care patient: Assessment and plan: plan discharge back to group home tomorrow. palliative will continue to follow outpatient discussed with DR Starr Subjective Subjective Patient reports: no new complaints, feels better, tolerating liquids well, tolerating a regular diet and afebrile; denies shortness of breath Interval history since last seen: interacting well with staff, no behavioral issues Exam Const General: no acute distress and ill appearing chronically Nutritional Appearance: cachectic Orientation: confused [facility] Head: normal to inspection, normocephalic and atraumatic Chest Chest: normal inspection of the chest Resp Effort & Inspection: normal respiratory effort and no respiratory distress Cardio Rate: regular rate Rhythm: regular rhythm GI Inspection: normal to inspection Palpation: soft Neuro General: patient awake Extrem General: normal to inspection and full ROM Objective Last Vital Signs Temp 36.5 C 05/31/23 07:04 Pulse 50 L 05/31/23 08:02 Resp 16 05/31/23 07:54 BP 131/65 05/31/23 07:04 Pulse Ox 92 05/31/23 08:02 Laboratory Results - last 24 hr 05/28/23 05/30/23 02:50 11:52 WBC 12.06 H RBC 3.67 L Hgb 10.5 L Hct 32.4 L MCV 88 MCH 28.6 MCHC 32.4 RDW 15.4 H Plt Count 371 MPV 8.9 Ur Strep pneumoniae Ag Negative Time Spent with Patient Time Spent with Patient: 25-34 minutes Time was spent: preparing to see the patient(eg.review tests), ordering medications,tests, procedures and indepentently interpreting results
[2023-05-31] MEDS: Polyethylene Glycol 3350 17 GM PACKET PO (12:03)
[2023-05-31] MEDS: Enoxaparin 40 MG/0.4 ML SYR SC (19:15)
[2023-05-31] MEDS: Mirtazapine 15 MG TAB 7.5 MG PO (19:15)
[2023-05-31] MEDS: Atorvastatin 40 MG TAB 80 MG PO (19:15)
[2023-06-01 01:21] VITALS: BP 153/76; PULSE 63; RESP 16; TEMP 35.7; O2SAT 91
[2023-06-01] MEDS: Levothyroxine 50 MCG TAB PO (05:51)
[2023-06-01 06:25] VITALS: BP 172/86; PULSE 63; RESP 16; TEMP 35.3; O2SAT 90
[2023-06-01] MEDS: Clopidogrel 75 MG TAB PO (07:19)
[2023-06-01] MEDS: Lisinopril 2.5 MG TAB PO (07:19)
[2023-06-01] MEDS: Ziprasidone 20 MG CAP PO (07:19)
[2023-06-01] MEDS: Sertraline 50 MG TAB PO (07:19)
[2023-06-01 07:54] VITALS: PULSE 68; RESP 1; RESP 17; RESP 8; O2SAT 91
[2023-06-01] MEDS: Albuterol/Ipratropium 3 ML UPD VIAL UPD ×2 (07:54→11:30)
[2023-06-01 07:56] VITALS: PULSE 71; RESP 16; RESP 8; O2SAT 93
--- NOTE | 2023-06-01 10:50 | W.PM.DS.N ---
Date of service: 06/01/23 Time of Service: 10:50 DS: Diagnosis Discharge Diagnosis (1) Pneumonia: Status: Acute Asessment and Plan: Finished course of 5 days doxycycline and ceftriaxone. All cultures remain negative. No respiratory distress. Aspiration thought to be a risk factor. He was seen by speech therapy and did pass a swallow evaluation but we still suspect that he intermittently aspirates. Please follow diet modifications outlined by speech therapy. (2) Vascular dementia: Status: Chronic Asessment and Plan: Did experience some acute delirium while hospitalized no behavioral issues was started on Geodon with good effect. Will defer whether to continue or stop after discharge to outpatient team (3) Dehydration: Status: Acute Asessment and Plan: Resolved with IV hydration and now taking good p.o. intake. (4) Goals of care, counseling/discussion: Status: Chronic Asessment and Plan: Was evaluated by palliative care while hospitalized. They will follow outpatient for further discussions about goals of care and limits of care. Also to be discussed will be CODE STATUS (5) COPD (chronic obstructive pulmonary disease): Status: Chronic Asessment and Plan: Exacerbated in setting of what was thought to be aspiration pneumonia. Completed a steroid burst. (6) CVA (cerebral vascular accident): Asessment and Plan: Stable and at baseline (7) Palliative care patient: Asessment and Plan: Will follow outpatient as noted above Discharge Plan Disposition Patient Disposition: Nursing Home Facility(SNF) Condition: Stable Discharge Details Reason For Visit: Acute Mental Status Change, Pneumonia, Hypoxia Admit Date/Time: 05/26/23 19:08 Admit Provider: Paco Lopez Attending Provider: Paco Lopez Primary Care Provider: Angelita Dunbar Home Meds and New Rx's Prescriptions: New ziprasidone HCl 20 mg Capsule 20 mg PO BID Qty: 0 0RF Continued atorvastatin 80 MG tablet 80 mg PO DAILY clopidogrel [Plavix] 75 MG tablet 75 mg PO DAILY levothyroxine 50 MCG tablet 50 mcg PO DAILY lisinopril 2.5 MG tablet 2.5 mg PO DAILY acetaminophen 325 mg Tablet 650 mg PO QID PRN sertraline 50 mg tablet 50 mg PO DAILY guaifenesin 100 mg/5 mL Liquid 200 mg PO Q4H PRN (Reason: Cough) magnesium hydroxide [Milk of Magnesia] 400 mg/5 mL Suspension 30 ml PO PRN PRN Rx Instructions: if no Bowel Movement in 3 days hydrocortisone 1 % Gel 1 applic topical DAILY Rx Instructions: apply to face left side of nostril for dry red skin bisacodyl 10 mg Suppository 10 mg GA PRN PRN Rx Instructions: if no result from MOM by next shift Fleet Enema 19-7 gram/118 mL Enema 118 ml GA PRN PRN Rx Instructions: after MOM and bisacodyl suppository have been administered without result polyethylene glycol 3350 [ClearLax] 17 gram/dose Powder 17 g PO Q OTHER DAY albuterol sulfate [Ventolin HFA] 90 mcg/actuation HFA aerosol inhaler 2 puff INHALATION Q4H PRN mirtazapine 7.5 mg tablet 7.5 mg PO HS Discharge Instructions Instructions: Aspiration Pneumonia (GEN) Stand Alone Forms: Nursing Discharge Form Referrals: Angelita Dunbar [Primary Care Provider] - (F/U per [facility] ) Activity:: Activity as Tolerated Equipment/Supplies:: No Equipment Needed Diet:: purred, thickend fluids Discharge Orders Discharge Orders: Discharge Order (Routine); Ordered 06/01/23 Ordered By: Ai Marshall DS: Summary Time Spent with Patient providing and/or coordinating discharge services: Greater than 30 minutes Status at Discharge Functional status at discharge: independent ambulation Overall status at discharge: patient is progressing back to baseline Mental Status: other (demented) Speech and Movement: other Mood: congruent mood and other (demented) Affect: blunted Exam Const General: no acute distress, frail appearing and ill appearing chronically Nutritional Appearance: cachectic Orientation: confused HENAL Head: normal to inspection, normocephalic and atraumatic Chest Chest: normal inspection of the chest Resp Effort & Inspection: normal respiratory effort and no respiratory distress Cardio Rate: regular rate Rhythm: regular rhythm GI Inspection: normal to inspection Palpation: soft Neuro General: patient awake Extrem General: normal to inspection and full ROM Psych Mental Status: other (demented) Speech and Movement: other Mood: congruent mood and other (demented) Affect: blunted DS: Data Vitals/I&O Vitals and I&O: Vital Signs Temperature 35.3 C L 06/01/23 06:25 Temperature Source Tympanic 06/01/23 06:25 Pulse 71 06/01/23 07:56 Pulse Rhythm Regular 06/01/23 09:49 Respiratory Rate 16 06/01/23 07:56 Respiratory Effort Normal, Non-Labored 06/01/23 09:49 Respiratory Depth Normal 06/01/23 09:49 Respiratory Pattern Normal 06/01/23 09:49 Blood Pressure 172/86 H 06/01/23 06:25 Pulse Oximetry 93 06/01/23 07:56 Oxygen Delivery Method Room Air 06/01/23 07:54 Oxygen Flow Rate 0 06/01/23 07:54 Fraction of Inspired Oxygen (FIO2) 365 05/29/23 08:10 Pain Level 0 05/31/23 11:20 Comment denies pain when asked 05/28/23 23:22 Intake & Output 05/31/23 05/31/23 06/01/23 11:59 23:59 11:59 Intake Total 310 / 620 310 / 620 480 / 480 Output Total 0 / 0 Balance 310 / 620 310 / 620 480 / 480 Weight 65.4 kg 65.3 kg Intake: IV 160 / 270 110 / 270 Oral 150 / 350 200 / 350 480 / 480 Output: Urine 0 / 0 Other: Urine Color Light Elvia Dark Elvia Yellow Urine Appearance Clear Clear Clear Urine Odor None None Normal Comment pt dry at this time pT dry at this time Voiding Methods Incontinent Diaper Diaper Incontinent PFSH All Active Problems Dehydration (Acute) Pneumonia (Acute) Fever of unknown origin (Acute) Discharge planning issues (Acute) Vascular dementia (Chronic) Goals of care, counseling/discussion (Chronic) Advance directive on file (Chronic) DVT prophylaxis (Acute) COPD (chronic obstructive pulmonary disease) (Chronic) Encephalopathy (Acute) Altered mental status (Acute 05/27/13) Fever (Active 05/27/13) Benign hypertension (Chronic) Hyperlipidemia (Chronic) Hypoxia (Acute) COPD exacerbation (Acute) Medical History COPD (chronic obstructive pulmonary disease) CVA (cerebral vascular accident) Hypothyroid Palliative care patient Surgical History S/P craniotomy S/P lobectomy of lung Family History Daughter No problems noted. Sister No problems noted. Sister , of lung cancer 12 years ago in her early 60s Lung cancer Mother , age 74 from breast cancer Breast cancer Father Myocardial infarction Heart disease Social History Smoking/Tobacco Use Status: Former Tobacco Use Tobacco: How many years used: 30 Smoking risk assessment performed?: Yes Alcohol Intake: former Drug use: Never Substance use type: does not use Caregiver/Support person: Yes Household members: none Housing: fpc Number of Children: 1 Communication Needs: Hard of Hearing and Corrective Lenses Education Level: high school Do you need help understanding health information?: Always 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[place] What is your relationship status?: How often do you talk on the phone with friends or family?: twice per week How often do you get together with friends or relatives?: twice per week Panel score (0-1 are the most socially isolated patients): 1 What type of physical activity do you participate in: assisted ambulation and irregular exercise Duration: < 15 minutes/day Special reyna needs: No Agree to transfusion: Yes Seatbelt use: always Do you feel safe at home: Yes Do you feel safe in your relationship?: Yes Additional Social history: sister Henrietta is only surviving family, other than daughter whom he has not seen in years does not want to reconnect with her loves to sit outside in the sun, socialize, interact. Time Spent with Patient Time Spent with Patient: 45-69 minutes Time was spent: ordering medications,tests, procedures, referring, communicating with other health personal care assistant and care coordination
--- NOTE | 2023-06-01 11:27 | CMDISCH_ITS ---
Date of service: 06/01/23 Time of Service: 11:27 LACE Index Scoring Tool Questions: Length of Stay (in days): 4 - 6 Was the patient admitted via the E.D.?: Yes Comorbidities: Chronic Pulmonary Disease, Any Tumor and Dementia E.D. Visits: 2 Answers: Total Score: 14 Risk of Readmission: High Risk Care Management Discharge Plan Reason for Hospitalization: acute mental status change, pneumonia, hypoxia Discharge Plan: Jose Miguel will return to [facility] today, where he resides. He will transport via facility w/c van, coordinated by CM. He will follow up with facility providers and his discharge plan of care. Patient/Family Education Needs: Review discharge instructions and limitations, discussion of self care needs including ask me three. Services Needed at Discharge: Prison Facility ([facility], return) and Transportation (facility w/c van)
[2023-06-01 11:30] VITALS: PULSE 64; PULSE 69; RESP 16; RESP 8; O2SAT 94; O2SAT 95
[2023-06-01 11:52] VITALS: BP 161/70; PULSE 80; RESP 16; TEMP 35.7; O2SAT 92
--- NOTE | 2023-06-01 13:12 | PT.INDS ---
PT Notes Visit Reasons: Acute Mental Status Change, Pneumonia, Hypoxia Physical Therapy Inpatient Discharge Summary Treatment Dates: 05/28/2023 - 05/31/23 Referring Doctor: Paco Lopez MD PT Orders: PT CONSULT: Exacerbation Chroninc Cond Precautions: Fall. Standard. Activity as tolerated. This document serves as a summary of care. No PT services were provided on this date. Patient Profile/Admitting Diagnosis: Virgil is a 73-year-old male patient who was sent to the ED via EMS on 05/26/2023 due to increased garbling of speech, behavioral changes, and increased mumbling. Patient required admission to med surg for management of PNA, COPD, dehydration, vascular dementia, encephalopathy, HTN, and hyperlipidemia (see active problems below). He participated in 5 sessions of skilled PT intervention prior to medically stabilizing. He was able to return to LTC per his baseline. Social History/Home Situation: LTC resident at SNF. Wheelchair-bound but transfers onto wheelchair from bed or from toilet seat/commode with assist of 2. Equipment Owned/DME: Uses wheelchair Subjective: none obtained Objective: ROM: Right Upper Extremity: Shoulder Flexion lacks the last 50% of available AROM. Shoulder abduction lacks the last 50% of available AROM. Elbow flexion WFL. Wrist flexion WFL. Limited opening and closing of hand WFL. Left Upper Extremity: Shoulder Flexion lacks the last 50% of available AROM. Shoulder abduction lacks the last 50% of available AROM. Elbow flexion WFL. Wrist flexion WFL. Limited opening and closing of hand WFL. Right Lower Extremity: R hip flexion contracture <10 degrees and knee about 25 degrees, both flexible. DF to neutral only. Left Lower Extremity: R hip flexion contracture <10 degrees and knee about 25 degrees, both flexible. DF to neutral only.FL. Strength: Right Upper Extremity: Grossly 2-5. Foam Cutting Supervisor weak but functional. Left Upper Extremity: Grossly 2-5. Foam Cutting Supervisor weak but functional. Right Lower Extremity: Grossly 3-/5 Left Lower Extremity: Grossly 3-/5 BED MOBILITY/TRANSFERS? Rolling L/R: min assist Supine-sit: mod assist? Sit-supine: mod assist ? Sit-stand: CGA in STEDY lift x3. Standing tolerance with verbal and tactile cues for improved posture x2 minutes each stand.? Stand-sit: CGA in STEDY lift with verbal and tactile cues.? Bed-Chair: dependent, use STEDY lift? Chair-bed: dependent, use STEDY lift ? GAIT? Assistive Device: STEDY lift? Weight bearing: full Assist: CGA ? Distance:? 0 feet ? Deviation: Patient able to demonstrate lateral weight shift, marching in place x3 each side. ? Balance: Static Sitting: Fair Dynamic Sitting: Poor Static Standing: Poor with STEDY lift Dynamic Standing: Unable Assessment: Patient with late effects from previous strokes and brain injury aggravated by admitting diagnoses. He was able to participate in skilled PT intervention to maximize mobility during acute care stay. He was able to transition back to LTC facility, where he'll benefit from continued PT intervention to maximize independence with transfers. Goals: Goals X1 week 1. Supine-Sit minimal assist (progressing toward) 2. Sit-Supine minimal assist (progressing toward) 3. Sit-Stand minimal assist (progressing toward) 4. Stand-Sit minimal assist (progressing toward) 5. Bed-Chair minimal assist (not met) 6. Chair-Bed minimal assist(not met) 7. Sitting/standing balance and tolerance fair (not met) Plan of Care/Treatment Plan: Discharge from PT services in acute care setting. DISCHARGE RECOMMENDATIONS: [X] Return to SNF whenever medically stable TREATMENT CODE/TIME: none Thank you for the opportunity to participate in the care of this patient. Lisa Barron PT, DPT [facility] [place], [place]
--- NOTE | 2023-06-01 15:18 | W.SPSTP ---
Date of service: 06/01/23 Time of Service: 09:30 Subjective Virgil was contacted this morning for continued assessment and treatment for dysphagia. He had just completed AM adl's with nursing. Per nurse, there were some reports over the weekend of poor tolerance of mildly thick liquids. It is unclear if these were in context of teaspoon feeding as recommended in his aspiration precautions. I later spoke with STAINED GLASS PAINTER who worked with him on Thursday and again this morning and she did state that she had fed him liquids via tsp. She did note some coughing on Thursday but today she felt his tolerance was much better and he had no coughing with liquids during breakfast. Virgil was upright in chair at bedside and very alert, reporting that he was feeling much, much better, now and that nursing had tried to put his dentures in but the top plate was ill-fitting so they took them out. At time of session he was not receiving any supplemental oxygen and appeared to be tolerating room air without s/sx dyspnea. Nursing having recently completed oral care per report, and ADDRESS CHANGE CLERK completed oral care at end of session after PO trials completed. Objective/Assessment/Plan Objective Treatment Techniques & Outcomes: Goals:? Patient/caregiver will be independent with aspiration precautions, diet modifications, and safe swallowing strategies. IN PROGRESS: Reviewed aspiration precautions with nursing, HOB signage provided. Nursing reports use of tsp feeding and extra swallows. Patient will initiate pharyngeal swallows in at least +5/5+ thin liquid trials across 2 sittings. GOAL MET Patient will participate in MBSS to further characterize dysphagia and inform treatment/management. GOAL MET Patient will tolerate mildly thick liquids/puree solids diet with minimal s/sx aspiration. GOAL MET Therapeutic Trials: ? IDDSI 0: Via tsp, cup edge IDDSI 2: Via tsp, cup edge ? IDDSI 4: Via tsp Oral phase: ?Leakage from mouth - improving ?Difficulty with bolus manipulation ?Difficulty with a-p transport - improving ?Residue - moderate Pharyngeal phase: ? Delayed swallow initiation ? Cough after swallow - RESOLVED this date ? Voice change after swallow - RESOLVED this date Assessment Virgil's PNA is improving and he is currently tolerating room air. Nursing has been providing 1:1 assist for all PO and implementing aspiration precautions consistently. Patient appears to tolerate current diet of IDDSI Level 2/Mildly Thickened Liquids and Level 4/Pureed solids, when aspiration precautions are followed. He also tolerated tsps of thin liquid and limited trials of thin liquids via cup edge this date (clinician assisted for sip size). ADDRESS CHANGE CLERK at d/c location should continue to monitor tolerance for possible upgrade to thin liquids as able. Suspect he will remain on pureed or minced/moist solids indefinitely given oral deficits noted. He continues with poor (but mildly improving) oral-motor strength and coordination and delayed swallow initiation are still present placing him at risk of intermittent aspiration. Plan Plan: Patient to d/c later this date. He should continue to see ADDRESS CHANGE CLERK at discharge location for continued guidance with least restrictive diet and aspiration risk management. Recommendations Recommendations: Diet Texture Recommendation:? IDDSI LEVEL SOLIDS 4-Pureed Solids ? LIQUIDS 2-Mildly Thick Liquids OK to give 0-Thin liquids (water only) BETWEEN meals if excellent oral care is provided immediately prior and bolt upright positioning is achieved. ? Please see further details at?www.iddsi.org MEDICATIONS Crushed, as able or Liquid formulations in 2-Mildly Thick Liquids or 4-Puree Diet texture modification is per patient's preference; please adjust diet textures at patient's discretion & collaboration with care team. Do not alter medications (e.g., cut)? without advice from your MD or pharmacist. Risk Management Strategies:? Complete excellent oral care prior to and after PO intake. Fully upright Behavioral reflux precautions, including upright position during + 90 mins after meals. Small bites, approx [id number] Very small sips, approx 5mL / 1/2 teaspoon Encourage avoidance of straws Alternate solids/liquids as able Multiple swallows (2-3)per bolus to encourage clearance of pharyngeal stasis/residue Control risk factors for aspiration pneumonia via (a) thorough oral hygiene & (b) maintaining physical mobility as tolerated Total Time Spent: 30 min Coding Diagnoses CPT Codes ORAL FUNCTION THERAPY - 60054 ([id number])
== END 2023-06-01 12:31 | disposition skilled nursing facility (03) | DRG 177 ==
LOC: ER 19:51 → MS 21:14
PROVIDERS: Admitting Provider Internal Medicine; Emergency Provider Emergency Medicine; PCP Nurse Practitioner Adult Health; Visit Provider Internal Medicine
DX: J69.0 Pneumonitis due to inhalation of food and vomit (principal); G93.41 Metabolic encephalopathy; I67.89 Other cerebrovascular disease; J44.1 Chronic obstructive pulmonary disease with (acute) exacerbation; I69.354 Hemiplegia and hemiparesis following cerebral infarction affecting left non-dominant side; F01.50 Vascular dementia, unspecified severity, without behavioral disturbance, psychotic disturbance, mood disturbance, and anxiety; R09.02 Hypoxemia; I10 Essential (primary) hypertension; E78.5 Hyperlipidemia, unspecified; Z85.118 Personal history of other malignant neoplasm of bronchus and lung; E86.0 Dehydration; E03.9 Hypothyroidism, unspecified; Z90.2 Acquired absence of lung [part of]; Z78.1 Physical restraint status
CPT/HCPCS: 36415; 71275; 80048; 80053; 82805; 84145; 85027; 87040; 87081; 87449; 87637; 92526; 92610; 92611; 93005; 97110; 97116; 97163; 97530; 97761; 99285; J1650; 70450; 71045; 74221; 81003; 81015; 82140; 83735; 84443; 84484; 85025; 86140; 87070; 87205; 87899; 93010; 94640; 94667; 94668; 94760; 99223; 99233; 99239; 99284; J0456; J3360; J3486; J3490; J7512; J7620

== ENCOUNTER 2023-07-30 19:53 | Outpatient (REF) | payer MEDICARE, MEDICAID, SELFPAY ==
[2023-07-30 20:08] LABS: Bilirubin Small (Negative); Blood Moderate (Negative); Clarity Clear (Clear); Glucose Negative (Negative); Ketones Trace mg/dL (Negative); Leukocyte Esterase Trace (Negative); Nitrite Negative (Negative); Specific Gravity 1.025 (1.005-1.025); pH 5.5 (5-8)
[2023-07-30 20:20] LABS: Bacteria Negative HPF (Negative); C & S Indicated? C&S Done As Ordered; Casts 0-2 Hyaline LPF (Negative); Crystals Negative HPF (Negative); Epithelial Cells Rare HPF (Negative); Mucus Heavy (Negative); Other Cells Negative (Negative); RBC 20-50 HPF (0-2)
== END 2023-07-30 19:54 | disposition home or self-care (01) ==
LOC: LBN 19:53
PROVIDERS: PCP Nurse Practitioner Adult Health; Visit Provider Nurse Practitioner Adult Health
DX: F01.B3 Vascular dementia, moderate, with mood disturbance (principal); Z96.0 Presence of urogenital implants; R82.89 Other abnormal findings on cytological and histological examination of urine
CPT/HCPCS: 81003; 81015; 87086

== ENCOUNTER 2023-07-31 17:53 | Outpatient (REF) | payer MEDICARE, MEDICAID, SELFPAY ==
[2023-07-31 14:36] LABS: TSH 4.35 uIU/mL (0.36-3.74)
== END 2023-07-31 17:54 | disposition home or self-care (01) ==
LOC: LBN 17:53
PROVIDERS: PCP Nurse Practitioner Adult Health; Visit Provider Nurse Practitioner Adult Health
DX: E03.9 Hypothyroidism, unspecified (principal)
CPT/HCPCS: 84443

== ENCOUNTER 2023-08-30 09:58 | Outpatient (REF) | payer MEDICARE, MEDICAID, SELFPAY ==
[2023-08-30 10:29] LABS: Abs Immature Grans 0.02 10^3/uL (0.0-0.06); Absolute Basophil Count 0.04 10^3/uL (0.0-0.2); Absolute Eosinophil Count 0.32 10^3/uL (0.0-0.7); Absolute Lymphocyte Count 2.12 10^3/uL (1.2-3.4); Absolute Monocyte Count 0.69 10^3/uL (0.1-0.8); Absolute Neutrophil Count 6.16 10^3/uL (1.2-6.7); Basophils % 0.4; Eosinophils % 3.4; Immature Grans % 0.2; Lymphocytes % 22.7; MCH 29.1 pg (27.0-33.0); MCHC 33.3 % (32.0-36.0); MCV 87 fL (80-95); MPV 8.4 fL (8.0-11.0); Monocytes % 7.4; Neutrophils % 65.9; Platelet Count 349 10^3/uL (130-400); RBC 4.12 10^6/uL (4.36-5.78); RDW 14.6 % (11.8-14.1); RDW-SD 46.5 fL; WBC 9.35 10^3/uL (4.4-10.8)
[2023-08-30 10:34] LABS: Anion Gap 6.9 mmol/L (3-11); BUN 8 mg/dL (7-18); CO2 28.1 mmol/L (21.0-32.0); CREATININE 0.6 mg/dL (0.70-1.30); Calcium 8.5 mg/dL (8.5-10.1); Chloride 94 mmol/L (98-107); Glucose 76 mg/dL (74-106); Potassium 4.1 mmol/L (3.5-5.1); Sodium 129 mmol/L (136-145)
== END 2023-08-30 09:59 | disposition home or self-care (01) ==
LOC: LBN 09:58
PROVIDERS: PCP Nurse Practitioner Adult Health; Visit Provider Family Medicine
DX: J18.9 Pneumonia, unspecified organism (principal); J44.1 Chronic obstructive pulmonary disease with (acute) exacerbation
CPT/HCPCS: 80048; 85025

== ENCOUNTER 2023-09-18 18:28 | Outpatient (REF) | payer MEDICARE, MEDICAID, SELFPAY ==
[2023-09-18 13:55] LABS: TSH 1.01 uIU/mL (0.36-3.74)
== END 2023-09-18 18:29 | disposition home or self-care (01) ==
LOC: LBN 18:28
PROVIDERS: PCP Nurse Practitioner Adult Health; Visit Provider Family Medicine
DX: E03.9 Hypothyroidism, unspecified (principal)
CPT/HCPCS: 84443

== ENCOUNTER → 2023-10-09 01:13 | Outpatient (CLI) | payer MEDICARE, MEDICAID, SELFPAY ==
--- NOTE | 2023-10-09 | DI.RAD_ITS ---
Exam(s) XR KNEE LT 3V AP,LAT,SINA EXAM: XR KNEE LT 3V AP,LAT,SINA CLINICAL HISTORY: KNEE PAIN. TECHNIQUE: 2D digital imaging was performed of the left knee. Four images were obtained. AP, later al and PA tunnel views were obtained. COMPARISON: CR LEFT KNEE 3 VIEW COMPLETE from 07/30/2009 FINDINGS: BONES: No acute fracture is present. No bony destructive lesion is seen. There is again seen a sessi le osteochondroma arising from the medial aspect of the proximal tibia. It is unchanged compared to the prior examination dated 07/30/2009. JOINTS: The knee is normally aligned. No joint effusion is seen. Chondrocalcinosis is seen in the fem oral tibial joint. SOFT TISSUE: Atherosclerosis. IMPRESSION: Chondrocalcinosis which can be seen in CPPD arthropathy. DATA REPOSITORY: RADIATION DOSE DELIVERED:
== END ==
PROVIDERS: PCP Nurse Practitioner Adult Health; Visit Provider Family Medicine
DX: M11.262 Other chondrocalcinosis, left knee (principal)
CPT/HCPCS: 73562

== ENCOUNTER 2023-10-13 19:53 | Emergency (ER) | payer MEDICARE, MEDICAID, SELFPAY ==
[2023-10-13] VITALS (19 sets, daily range): BP systolic 145–178; BP diastolic 57–93; PULSE 57–64; RESP 18; TEMP 36.9; O2SAT 94–98
--- NOTE | 2023-10-13 20:00 | DI.CT_ITS ---
Exam(s) CT HEAD WO EXAM: CT HEAD WO CLINICAL HISTORY: fall occiital scalp lac, on plavix. TECHNIQUE: Imaging Protocol: Axial computed tomography images with coronal and sagittal reformatted images were created and reviewed COMPARISON: CT CT HEAD WO from 05/26/2023 FINDINGS: There are no skull fractures. There is no fluid in the visualized paranasal sinuses. There is no evidence of intracranial hemorrhage, mass effect, or shift of midline structures. There are no extra-axial fluid collections. There is advanced relatively symmetrical atrophy. Multilevel prominent calcification multiple areas of the brain is unchanged from prior CT scan. There are also chronic lacunar infarcts again noted, most prominent being in the right thalamus as well as in bilate ral periventricular white matter, this superimposed upon chronic small vessel disease. Ventricular s ize is unchanged and commensurate with the size of the overlying cortical sulci. IMPRESSION: No acute intracranial findings on this noninfused CT scan of the brain. Symmetrical atrophy and lacunar infarcts are again noted, largest being in the right thalamus. There are multilevel parenchymal calcifications in the brain which are unchanged from prior CT scan. First read by Skip [facility] RADIATION DOSE DELIVERED: Total DLP DATA REPOSITORY: All CT scans at this facility are submitted to the National Radiology Data Registry (NRDR) Dose Index Registry (DIR) with the [employer] (ACR). RADIATION OPTIMIZATION: All CT scans at this facility use at least one of these dose optimization te chniques: automated exposure control; mA and/or kV adjustment per patient size (includes targeted exa ms where dose is matched to clinical indication); or iterative reconstruction.
--- NOTE | 2023-10-13 20:13 | ED.GENADUL_ITS ---
Discharge Plan Disposition Patient Disposition: Home Condition: Improving Discharge Details Chief Complaint: Laceration Clinical Impression: Head injury, Abrasion Primary Care Provider: Angelita Dunbar ED Provider: Hong Kelley Home Meds and New Rx's Prescriptions: No Action acetaminophen 500 mg capsule 500 mg PO Q6H PRN acetaminophen 500 mg capsule 1,000 mg PO BID atorvastatin 80 MG tablet 80 mg PO DAILY clopidogrel [Plavix] 75 MG tablet 75 mg PO DAILY lisinopril 2.5 MG tablet 2.5 mg PO DAILY levothyroxine 50 mcg tablet 75 mcg PO DAILY sertraline 50 mg tablet 50 mg PO DAILY guaifenesin 100 mg/5 mL Liquid 200 mg PO Q4H PRN (Reason: Cough) magnesium hydroxide [Milk of Magnesia] 400 mg/5 mL Suspension 30 ml PO PRN PRN Rx Instructions: if no Bowel Movement in 3 days bisacodyl 10 mg Suppository 10 mg MN PRN PRN Rx Instructions: if no result from MOM by next shift Fleet Enema 19-7 gram/118 mL Enema 118 ml MN PRN PRN Rx Instructions: after MOM and bisacodyl suppository have been administered without result polyethylene glycol 3350 [ClearLax] 17 gram/dose Powder 17 g PO Q OTHER DAY albuterol sulfate [Ventolin HFA] 90 mcg/actuation HFA aerosol inhaler 2 puff INHALATION Q4H PRN mirtazapine 7.5 mg tablet 15 mg PO HS Discharge Instructions Instructions: Head Injury (ED), Abrasion (ED) Medical Decision Making 73-year-old male witnessed slip from his wheelchair sustained 2 lacerations to his occipital scalp. No loss of conscious no nausea vomiting no headache. Patient is on Plavix. No midline spinal tenderness. Moving all extremities with full strength, no deformity or signs of trauma to the thoracic abdominal or limb region. Given age mechanism of injury and antiplatelet agent will obtain CT head, will update Tdap, will clean wound consider surgical glue versus Steri- Strips 23: 31 patient resting comfortably no acute distress neurologically intact. CT head and imaging of the pelvis and lower extremity unremarkable. Superficial wounds to posterior scalp clean dry hemostatic, more superficial abrasions than true lacerations. HPI General Date/Time Provider Initiated Documentation: 10/13/23 19:54 . HPI Narrative: 73-year-old male presents after witnessed [facility] and [facility], patient hit the back of his head no loss of consciousness. Patient is on Plavix. Denies discomfort headache nausea or vomiting at this leland e. Related Data Home Medications Medication Instructions Recorded Confirmed atorvastatin 80 mg tablet 80 mg PO DAILY 01/01/18 10/08/23 clopidogrel 75 mg tablet (Plavix) 75 mg PO DAILY 01/01/18 10/08/23 lisinopril 2.5 mg tablet 2.5 mg PO DAILY 01/01/18 10/08/23 sertraline 50 mg tablet 50 mg PO DAILY 03/03/23 10/08/23 albuterol sulfate 90 mcg/actuation 2 puff inhalation Q4H PRN 05/27/23 10/08/23 aerosol inhaler (Ventolin HFA) bisacodyl 10 mg rectal suppository 10 mg MN PRN PRN 05/27/23 10/08/23 guaifenesin 100 mg/5 mL oral liquid 200 mg PO Q4H PRN Cough 05/27/23 10/08/23 magnesium hydroxide 400 mg/5 mL 30 ml PO PRN PRN 05/27/23 10/08/23 oral suspension (Milk of Magnesia) polyethylene glycol 3350 17 17 g PO Q OTHER DAY 05/27/23 10/08/23 gram/dose oral powder (ClearLax) sodium phosphates 19 gram-7 118 ml MN PRN PRN 05/27/23 10/08/23 gram/118 mL enema (Fleet Enema) mirtazapine 7.5 mg tablet 15 mg PO HS 10/07/23 10/08/23 acetaminophen 500 mg capsule 1,000 mg PO BID 10/08/23 10/08/23 acetaminophen 500 mg capsule 500 mg PO Q6H PRN 10/08/23 10/08/23 levothyroxine 50 mcg tablet 75 mcg PO DAILY 10/08/23 10/08/23 Allergies Allergy/AdvReac Type Severity Reaction Status Date / Time lorazepam AdvReac Severe Agitation, Verified 10/07/23 15:19 altered mental status General Stated Complaint: Laceration YONI: 4 Review of Systems Narrative: Review of Systems Constitutional: negative Eyes: negative ENT: negative Cardiovascular: negative Respiratory: negative Gastrointestinal: negative : negative Musculoskeletal: negative Skin: Scalp laceration Neurologic: Head injury Psych: negative PFSH All Active Problems (Updated 10/13/23 @ 22:33 by Hong Kelley MD) Abrasion (Acute) Head injury (Acute) History of delirium (Acute) History of lung cancer (Acute) Advanced care planning/counseling discussion (Acute) Dehydration (Acute) Pneumonia (Acute) Fever of unknown origin (Acute) Vascular dementia (Chronic) Goals of care, counseling/discussion (Chronic) Advance directive on file (Chronic) COPD (chronic obstructive pulmonary disease) (Chronic) Encephalopathy (Acute) Altered mental status (Acute 05/27/13) Fever (Active 05/27/13) Benign hypertension (Chronic) Hyperlipidemia (Chronic) Hypoxia (Acute) COPD exacerbation (Acute) Medical History (Updated 10/13/23 @ 22:33 by Hong Kelley MD) Palliative care patient Palliative care patient COPD (chronic obstructive pulmonary disease) Hypothyroid CVA (cerebral vascular accident) Surgical History S/P lobectomy of lung S/P craniotomy Family History Daughter No problems noted. Sister No problems noted. Sister , of lung cancer 12 years ago in her early 60s Lung cancer Mother , age 74 from breast cancer Breast cancer Father Myocardial infarction Heart disease Social History Smoking/Tobacco Use Status: Former Tobacco Use Tobacco: How many years used: 30 Smoking risk assessment performed?: Yes Alcohol Intake: former Drug use: Never Substance use type: does not use Caregiver/Support person: Yes Household members: none Housing: group home Number of Children: 1 Communication Needs: Hard of Hearing and Corrective Lenses Education Level: high school Do you need help understanding health information?: Always 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[place] What is your relationship status?: How often do you talk on the phone with friends or family?: twice per week How often do you get together with friends or relatives?: twice per week Panel score (0-1 are the most socially isolated patients): 1 What type of physical activity do you participate in: assisted ambulation and irregular exercise Duration: < 15 minutes/day Special reyna needs: No Agree to transfusion: Yes Seatbelt use: always Do you feel safe at home: Yes Do you feel safe in your relationship?: Yes Additional Social history: sister Henrietta is only surviving family, other than daughter whom he has not seen in years does not want to reconnect with her loves to sit outside in the sun, socialize, interact. Exam Narrative Exam Narrative: Physical Examination General: alert, awake, cooperative, resting comfortably, no acute distress HEENT: normocephalic, 2 x 1 cm superficial abrasions occipital scalp hemostatic no foreign body; PERRL, EOM intact, conjunctiva normal; no nasal discharge; moist mucous membranes, oral and pharyngeal mucosa normal, tolerating secretions Neck: supple, trachea midline; full ROM; no midline spinal tenderness Chest: normal to inspection Respiratory: normal respiratory effort, speaking in full sentences Cardiac: regular rate, regular rhythm, S1S2 intact, no murmurs rubs or gallops GI: abdomen soft, non-tender, non-distended; no palpable mass or hepatosplenomegaly Skin: See HEENT Neuro: AAOx3, normal speech, moving all extremities Extremities: No signs of trauma Psych: Appropriate mood and affect Course Vital Signs Vital signs: Vital Signs Temperature 36.9 C 10/13/23 19:55 Pulse 62 10/13/23 19:55 Respiratory Rate 18 10/13/23 19:55 Blood Pressure 178/80 H 10/13/23 19:55 Pulse Oximetry 94 10/13/23 19:55 Temperature 36.9 C 10/13/23 19:55 Temperature Source Temporal Artery Scan 10/13/23 19:55 Pulse 62 10/13/23 19:55 Respiratory Rate 18 10/13/23 19:55 Respiratory Effort Normal 10/13/23 20:00 Blood Pressure 178/80 H 10/13/23 19:55 Blood Pressure Position Sitting 10/13/23 19:55 Pulse Oximetry 94 10/13/23 19:55 Oxygen Delivery Method Room Air 10/13/23 19:55 Oxygen Flow Rate 0 10/13/23 19:55
[2023-10-13] MEDS: Lidocaine/Epinephri/Tetracaine Topical Gel 3 ML TP (20:33)
--- NOTE | 2023-10-13 21:00 | DI.RAD_ITS ---
Exam(s) XR PELVIS AP EXAM: XR PELVIS AP CLINICAL HISTORY: fall, left leg pain. TECHNIQUE: 2D digital imaging was performed. COMPARISON: CR,XR XR PELVIS AP from 03/03/2023 FINDINGS: Single view. No evidence of pelvic nor hip fracture field of view of this study. Mild degenerative changes noted in the hips. SI joints unremarkable. IMPRESSION: No fracture evident. DATA REPOSITORY: RADIATION DOSE DELIVERED:
--- NOTE | 2023-10-13 21:37 | DI.VRAD_ITS ---
PROCEDURE INFORMATION: Exam: CT Head Without Contrast Exam date and time: 10/13/2023 8:50 PM Age: 73 years old Clinical indication: Injury or trauma; Blunt trauma (contusions or hematomas); Consciousness not specified; Injury date: 10/13/23; Injury details: Fall occiital scalp lac, on plavix TECHNIQUE: Imaging protocol: Computed tomography of the head without contrast. Radiation optimization: All CT scans at this facility use at least one of these dose optimization techniques: automated exposure control; mA and/or kV adjustment per patient size (includes targeted exams where dose is matched to clinical indication); or iterative reconstruction. COMPARISON: CT HEAD WO 05/26/2023 3:25 PM FINDINGS: Brain: There is mild age related parenchymal atrophy with prominence of the cortical sulci. Periventricular and deep white matter hypodensities are consistent with sequela of chronic microvascular ischemic disease. Scattered bilateral parenchymal calcifications appear similar to comparison exam. Again seen old right thalamic lacunar infarct. No midline shift or herniation. No acute intracranial hemorrhage. Cerebral ventricles: Mild ex vacuo dilation of the ventricles, likely secondary to age related volume loss. Paranasal sinuses: Imaged paranasal sinuses appropriately aerated without air-fluid levels. Mastoid air cells: No mastoid effusion. Bones/joints: Unremarkable. No acute osseous finding. Soft tissues: No focal soft tissue abnormality. IMPRESSION: 1. No acute intracranial finding. 2. Chronic/senescent findings as discussed. Dictated and Authenticated by: Rj Warren MD. Ordering:KELSEA Pitts MD
--- NOTE | 2023-10-13 21:55 | DI.RAD_ITS ---
Exam(s) XR FEMUR LT EXAM: XR FEMUR LT CLINICAL HISTORY: fall, leg pain. TECHNIQUE: 2D digital imaging was performed. COMPARISON: No exams were available for comparison FINDINGS: Four views. No evidence of left hip nor left femur fracture. Mild degenerative changes noted in the hip. Bone d ensity normal. No osseous lesions. IMPRESSION: No acute osseous findings in the left femur. DATA REPOSITORY: RADIATION DOSE DELIVERED:
--- NOTE | 2023-10-13 22:14 | DI.RAD_ITS ---
Exam(s) XR TIB/FIB LT EXAM: XR TIB/FIB LT CLINICAL HISTORY: fall, leg pain. TECHNIQUE: 2D digital imaging was performed. COMPARISON: No exams were available for comparison FINDINGS: Four views. No evidence acute fracture. There is a broad-based osteo chondroma off the medial metaphysis diaphys is junction of the tibia. No other significant osseous findings. Fibula unremarkable. IMPRESSION: No fractures. Incidental noted broad-based osteochondroma off the medial aspect of the metaphysis-diaphysis junctio n of the proximal tibia. DATA REPOSITORY: RADIATION DOSE DELIVERED:
--- NOTE | 2023-10-13 22:15 | DI.VRAD_ITS ---
PROCEDURE INFORMATION: Exam: XR Pelvis Exam date and time: 10/13/2023 9:44 PM Age: 73 years old Clinical indication: Injury or trauma; Blunt trauma (contusions or hematomas); Does not apply; Pelvic region; Injury date: 10/13/23; Injury details: Fall, left leg pain TECHNIQUE: Imaging protocol: Radiologic exam of the pelvis. Views: 1 or 2 view. COMPARISON: CR XR PELVIS AP 03/03/2023 7:42 PM FINDINGS: Bones/joints: No discrete or displaced fracture. No joint dislocation. There is mild right superior joint space narrowing. Mild bilateral acetabular marginal osteophyte formation. Soft tissues: No focal abnormality. IMPRESSION: No discrete or displaced fracture. Dictated and Authenticated by: Rj Warren MD. Ordering:KELSEA Pitts MD
--- NOTE | 2023-10-13 22:16 | DI.VRAD_ITS ---
PROCEDURE INFORMATION: Exam: XR Left Femur Exam date and time: 10/13/2023 9:48 PM Age: 73 years old Clinical indication: Injury or trauma; Blunt trauma; Thigh or upper leg; Injury date: 10/13/23; Injury details: Fall, left leg pain TECHNIQUE: Imaging protocol: Radiologic exam of the left femur. Views: 2 views. COMPARISON: CR XR PELVIS AP 10/13/2023 9:44 PM FINDINGS: Bones/joints: No discrete or displaced fracture. No joint dislocation. Soft tissues: No focal abnormality. IMPRESSION: No discrete or displaced fracture. Dictated and Authenticated by: Rj Warren MD. Ordering:KELSEA Pitts MD
--- NOTE | 2023-10-13 22:18 | DI.VRAD_ITS ---
PROCEDURE INFORMATION: Exam: XR Left Tibia and Fibula Exam date and time: 10/13/2023 9:52 PM Age: 73 years old Clinical indication: Lower leg; Patient HX: Fall, left leg pain TECHNIQUE: Imaging protocol: Radiologic exam of the left tibia and fibula. Views: 2 views. COMPARISON: CR XR FOOT LT COMPLETE 08/29/2019 1:19 PM FINDINGS: Bones/joints: No discrete or displaced fracture. No joint dislocation. There is osseous exostosis with marrow continuity along the medial metaphysis of the proximal left tibia, favor osteochondroma. Soft tissues: No focal abnormality. IMPRESSION: No discrete or displaced fracture. Dictated and Authenticated by: Rj Warren MD. Ordering:KELSEA Pitts MD
== END 2023-10-13 22:52 | disposition home or self-care (01) ==
PROVIDERS: Emergency Provider Emergency Medicine; PCP Nurse Practitioner Adult Health
DX: S01.81XA Laceration without foreign body of other part of head, initial encounter (principal); W05.0XXA Fall from non-moving wheelchair, initial encounter; Y92.129 Unspecified place in nursing home as the place of occurrence of the external cause
CPT/HCPCS: 73552; 90471; 99284; 70450; 72170; 73590; 99283

== ENCOUNTER 2023-10-22 18:01 | Outpatient (REF) | payer MEDICARE, MEDICAID, SELFPAY ==
[2023-10-22 18:43] LABS: COVID-19 PCR Negative (Negative); Influenza A PCR Positive (Negative); Influenza B PCR Negative (Negative); RSV PCR Negative (Negative)
[2023-10-22 18:46] LABS: Source NASOPHARYNX
== END 2023-10-22 18:02 | disposition home or self-care (01) ==
LOC: LBN 18:01
PROVIDERS: PCP Nurse Practitioner Adult Health; Visit Provider Nurse Practitioner Adult Health
DX: J44.9 Chronic obstructive pulmonary disease, unspecified (principal); J11.1 Influenza due to unidentified influenza virus with other respiratory manifestations; Z20.822 Contact with and (suspected) exposure to COVID-19
CPT/HCPCS: 87637

== ENCOUNTER → 2023-11-02 02:14 | Outpatient (CLI) | payer MEDICARE, MEDICAID, SELFPAY ==
[2023-11-02] MEDS: Barium Sulfate Oral Paste 40% W/V 230 ML TUBE 20 ML PO (09:47)
[2023-11-02] MEDS: Barium Sulfate 81% w/w for Oral Suspension 148 GM BTL 70 GM PO (09:48)
[2023-11-02] MEDS: Barium Sulfate 40% W/V 240 ML BTL 70 ML PO (09:49)
--- NOTE | 2023-11-02 09:49 | DI.RAD_ITS ---
Exam(s) RF MODIFIED SPEECH BA SWALLOW TECHNIQUE: Modified barium swallow was performed in conjunction with speech pathology. CONTRAST MATERIAL: Multiple consistencies of oral barium contrast were administered. COMPARISON: No exams were available for comparison FINDINGS: Note that this is not a dedicated esophagram, distal esophagus not evaluated. Aspiration was observed thin consistency barium. Speech pathology report to follow. IMPRESSION: Aspiration with thin consistency barium. RADIATION DOSE DELIVERED: todd Licea=2.83 mGy
--- NOTE | 2023-11-02 15:52 | ST.MBS_ITS ---
Date of Service Date of service: 11/02/23 Time of Service: 09:00 Modified Barium Swallow Study Findings: Video fluoroscopic Swallowing Evaluation (VFSE) / Modified Barium Swallow Study (MBSS) Speech Language Pathology Report Patient referred for VFSE/MBSS from Dr. Kandis Gan given dysphagia, weight loss. *Of notice, patient initially referred for MBSS in June 2023, rescheduled x2 due to cancellation/no show. 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 He presents today with his niece who is also an employee at the facility he resides, who assisted in providing case history. Virgil did vocalize some responses though intelligibility was very low. Per medical records/family report, Virgil is currently on a L4 Puree Diet, L2 Mildly Thick/[place] liquids. Family reports he 'hates the slop' of puree and does not eat much, and thus has had significant weight loss. Family does not feel he is bothered by the thickened liquids, but he consistently expresses desire for solid food. He was last seen by [facility] speech pathology during admission in May 2023, and reportedly has been receiving [facility] services in the interim. Previous Imaging: Last MBSS on 05/29/23. See full report. IMPRESSIONS: Virgil presents with moderate to severe chronic oral pharyngeal sensorimotor dysphagia. Swallow efficiency and safety are both impaired. Of notice, he has a notably kyphotic posture during evaluation/during the study. Family reports typically he is more upright when eating at baseline- suspect to be exacerbated by fatigue. In addition, he was unable to self-feed/lift cup to mouth during the study. Thus all liquids (mildly thick/nectar, thin) were taken via a wide straw, and solids (pudding, bite of fig kelly cookie) were administered by clinician via spoon. Primary impairments include diminished mastication coordination, delayed swallow initiation, weak BOT retraction/pharyngeal wall movement, and diminished hyolaryngeal movement anteriorly. This resulted in silent aspiration with thin liquids (1/1 trial of thins) and significant pharyngeal stasis primarily in vallecular, lesser so in pyriforms with all trialed solids. No difference noted in pharyngeal stasis with pudding vs fig kelly cookie. Pharyngeal residue only partially cleared with clinician prompts for dry re- swallow, improved clearance with sips of liquid. With mildly thick/nectar liquids, there is no penetration or aspiration. See below objective portion of report for further detailed physiological breakdown of each phase of the swallow. Ultimately Virgil is considered a very high risk for aspiration, malnutrition, and dehydration with all consistencies in light of dysphagia severity. Risks can be mitigated with diet modifications- specifically mildly thick vs thin liquids, and strict aspiration precautions including positioning restraints and oral care. In weighing quality of life, patient wishes and refusal of puree solids, as well as minimal risk increase with compared solids, recommend diet upgrade from puree to L5 Minced/Moist solids. Examples of this can include finely ground meats with sauce/gravy, cut up pancakes (add butter/syrup), egg or tuna salad, etc. It may be prudent to still include naturally puree items at each meal (whipped potatoes or squash, applesauce, etc) for optimal endurance. To note: an MBSS is considered a snapshot assessment of swallow function, and thus [facility] may have alternate recommendations for solids as observed in the setting of a meal. In addition, supervision should be utilized with diet advancement to ensure tolerance. Swallow prognosis is guarded given severity of presentation and cachexia. Positive prognostic factors: Family/caregiver support Negative prognostic factors: Age, Severity, Time since onset, Cognitive status, inability to carry over strategies/compensations Patient appears to be a fair candidate for an episode of in-house swallow rehabilitation, with focus on staff/family education. Anticipate this would be a brief episode of care (1-3 visits). Specialist referrals:?N/A RECOMMENDATIONS: Diet Texture Recommendation:? IDDSI LEVEL SOLIDS 5-Minced & Moist Solids *Encourage ordering 1 naturally pureed item per tray (applesauce, whipped potatoes, etc.) as well as liquid supplementation (Ensure, Boost thickened to mildly thick consistency) for endurance LIQUIDS 2-Mildly Thick Liquids (nectar) Please see further details at?www.iddsi.org http://www.iddsi.org/ MEDICATIONS Crushed, as able with applesauce/puree SUPERVISION Recommend 1:1 observation and assistance as needed with PO to ensure tolerance of diet advancement Diet texture modification is per patient's preference; please adjust diet textures at patient's discretion & collaboration with care team. Do not alter medications (e.g., cut)? without advice from your MD or pharmacist. Risk Management Strategies:? Behavioral reflux precautions, including upright position during + 90 mins after meals. Small bites, approx [id number] Small sips, approx 10 mL *Alternate solids/liquids as able. Take a small sip every 2 bites *Multiple swallows per bolus to encourage clearance of pharyngeal stasis/residue. *Ensure patient is upright as close to 90 degrees as able with PO and remains upright for 1-2 hours afterwards. *Check for oral pocketing after meals Perform oral hygiene with friction toothbrush before/after meals to mitigate risk for developing aspiration-related illness in the setting of known aspiration. PLAN: Therapy: Continue [facility] Services as indicated for staff/family education and training. May consider the following: Training/Education in Risk Management; Further Counseling re: Options for maintaining quality of life in context of dysphagia presentation Goals: Defer to treating clinician. Follow-up exam: N/A OBJECTIVE Videofluoroscopic Swallow Evaluation (VFSE/MBSS) was conducted in the lateral projection by Speech-Language Pathologist, in collaboration with Radiologist, to evaluate oropharyngeal swallow function. Unable to complete AP view in light of postural limitations. Anatomic view under fluoroscopy: WFL. Severely kyphotic posture as noted. PO Barium Contrast Trials Oral barium water-soluble contrast was administered as follows: IDDSI Level 0 Varibar thin liquid (40% w/v) IDDSI Level 2 Varibar nectar thick/mildly thick liquid (40% w/v) IDDSI Level 4 Varibar pudding/pureed/extremely thick (40% w/v) IDDSI Level 6 Soft Bite Size Solid: cut piece of fig kelly cookie mixed with nectar thick barium MBSImP Component Scores: COMPONENT Scale SCORE 1 Lip closure (0-4) 3 Resulted in escape progressing to the mid-chin 2 Hold Position (0-3) NA 3 Bolus Preparation (0-4) 1 Resulted in slow prolonged chewing/mashing with complete re-collection 4 Bolus Transport (0-4) 2 Was with slowed tongue motion 5 Oral Residue (0-4) 2 Was a collection on oral structures 6 Swallow Initiation (0-4) 2 Occurred as bolus head at posterior laryngeal surface of epiglottis 7 Soft Palate Elevation (0-4) 0 Resulted in no bolus between soft palate and the pharyngeal wall 8 Laryngeal Elevation (0-3) 1 Was decreased with partial superior movement of thyroid cartilage/partial approximation of arytenoids to epiglottic petiole 9 Anterior Hyoid Motion (0-2) 1 Demonstrated partial anterior movement 10 Epiglottic Movement (0-2) 0 Resulted in complete inversion 11 Laryngeal Closure (0-2) 1 Was incomplete with narrow a column of air/contrast in laryngeal vestibule 12 Pharyngeal Stripping Wave (0-2) 1 Was present, but diminished 13 Pharyngeal Contraction (0-3) NA 14 PES Opening (0-3) 1 Demonstrated partial distension/partial duration, with partial obstruction of flow 15 Tongue Base Retraction (0-4) 3 Allowed a wide column of contrast or air between the retracted tongue base and the posterior pharyngeal wall 16 Pharyngeal Residue (0-4) 3 Was the majority of contrast within or on pharyngeal structures 17 Esophageal Clearance (0-4) NA Results: COMPONENT Scale SCORE 1 Oral Score (0-18) 7 2 Pharyngeal Score (0-29) 11 3 Esophageal Score (0-4) 0 Functional Oral Intake Scale: COMPONENT Scale SCORE 1 Pre-Study (1-7) 5 Total oral intake of multiple consistencies requiring special preparation 2 Post-Study (1-7) 5 Total oral intake of multiple consistencies requiring special preparation Penetration-Aspiration Scale: COMPONENT Scale SCORE 1 Thin liquid (1-8) 8 Contrast entered the airway, passed below the vocal folds, and no effort was made to eject. 2 [place] thick (1-8) 1 Contrast did not enter the airway 3 Honey thick (1-8) NA 4 Pudding thick (1-8) 1 Contrast did not enter the airway 5 Cookie (1-8) 1 Contrast did not enter the airway Trialed Compensatory Strategies & Outcome: Maneuvers Successful (+) Unsuccessful (-) Postures Successful (+) Unsuccessful (-) 3 second Preparatory Set? ? Chin Tuck Posture? ? Cough? ? Posterior Head tilt? Reflexive? Cued? Throat Clear? ? Head Tilt to? Reflexive? Left? Cued? Right? ? Saliva swallow? ?Partially helpful to remove pharyngeal stasis. Head Turn/Rotate to? ? Supraglottic Swallow? Left? ? Super-supraglottic Swallow? Right? ? Bolus Modifications Successful (+) Unsuccessful (-) Delivery/Alternating Consistencies ? Follow with Liquid Wash + ? Follow with Solid Bolus? Delivery/Via Straw? ? Reduced Volume? + ? Reduced Rate of Intake? ? + Increased Viscosity? ? + Other:?? ? Thank you for allowing us to take part in this patient's care. Please feel free to contact the [facility] Speech Language Pathology Department with any questions/concerns. Coding CPT Codes MOTION FLUOROSCOPY/SWALLOW - [id number] ([id number])
== END ==
PROVIDERS: PCP Nurse Practitioner Adult Health; Visit Provider Family Medicine
DX: R13.12 Dysphagia, oropharyngeal phase (principal)
CPT/HCPCS: 92526; 92611; 74221

== ENCOUNTER 2023-11-23 01:23 | Emergency (ER) | payer MEDICARE, MEDICAID, SELFPAY ==
[2023-11-23] VITALS (10 sets, daily range): BP systolic 142–159; BP diastolic 62–77; PULSE 0–66; RESP 11–36; TEMP 35.6; O2SAT 97
--- NOTE | 2023-11-23 01:15 | DI.CT_ITS ---
Exam(s) CT HEAD CERVICAL SPINE WO EXAM: CT HEAD CERVICAL SPINE WO CLINICAL HISTORY: fall, hit head, dementia, on plavix. TECHNIQUE: Imaging Protocol: Axial computed tomography images with coronal and sagittal reformatted images were created and reviewed COMPARISON: CT CT HEAD WO from 10/13/2023 FINDINGS: BRAIN: There are no skull fractures nor fluid in the visualized paranasal sinuses. There is no evidence of intracranial hemorrhage, mass effect, or shift of midline structures. There are no extra-axial fluid collections. The ventricles are not enlarged or shifted and there is no blo od within the ventricular system nor within the basal cisterns. Again noted is prominent multilevel calcification unchanged from prior CT scans. Also again nor greeter [employer] tramaine lacunar infarcts, most prominent in the right thalamus. No evidence of obvious acute territorial infarct. CERVICAL SPINE: There is no evidence of fracture nor listhesis. No significant prevertebral soft tissue swelling. There is no significant facet joint malalignment. No significant osseous lesions evident. IMPRESSION: No acute intracranial findings on this noninfused CT scan of the brain.Multilevel findings as above b ut unchanged from prior studies. No evidence of cervical spine fracture, malalignment, nor acute compromise of the cervical spinal can al. Degenerative changes. RADIATION DOSE DELIVERED: 1,233.44mGy.cm Total DLP DATA REPOSITORY: All CT scans at this facility are submitted to the National Radiology Data Registry (NRDR) Dose Index Registry (DIR) with the [employer] ([employer]). RADIATION OPTIMIZATION: All CT scans at this facility use at least one of these dose optimization te chniques: automated exposure control; mA and/or kV adjustment per patient size (includes targeted exa ms where dose is matched to clinical indication); or iterative reconstruction.
--- NOTE | 2023-11-23 01:29 | ED.GENADUL_ITS ---
HPI General Date/Time Provider Initiated Documentation: 11/23/23 01:28 . 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 who is DNR/DNI presents today for evaluation after fall. Patient fell out of bed and hit the front of his head. He does have some confusion and dementia at baseline. Patient was brought here for further assessment secondary to his Plavix use. Contusion and abrasion on his head demonstrated no laceration. Patient has no complaints. He states I'm fucking cold, where is my blanket!. No other historical components. No other complaints at this time Related Data Home Medications Medication Instructions Recorded Confirmed atorvastatin 80 mg tablet 80 mg PO DAILY 01/01/18 11/23/23 clopidogrel 75 mg tablet (Plavix) 75 mg PO DAILY 01/01/18 11/23/23 lisinopril 2.5 mg tablet 2.5 mg PO DAILY 01/01/18 11/23/23 sertraline 50 mg tablet 50 mg PO DAILY 03/03/23 11/23/23 albuterol sulfate 90 mcg/actuation 2 puff inhalation Q4H PRN 05/27/23 11/23/23 aerosol inhaler (Ventolin HFA) bisacodyl 10 mg rectal suppository 10 mg TX PRN PRN 05/27/23 11/23/23 guaifenesin 100 mg/5 mL oral liquid 200 mg PO Q4H PRN Cough 05/27/23 11/23/23 magnesium hydroxide 400 mg/5 mL 30 ml PO PRN PRN 05/27/23 11/23/23 oral suspension (Milk of Magnesia) polyethylene glycol 3350 17 17 g PO Q OTHER DAY 05/27/23 11/23/23 gram/dose oral powder (ClearLax) sodium phosphates 19 gram-7 118 ml TX PRN PRN 05/27/23 11/23/23 gram/118 mL enema (Fleet Enema) mirtazapine 7.5 mg tablet 7.5 mg PO HS 10/07/23 11/23/23 acetaminophen 500 mg capsule 1,000 mg PO BID 10/08/23 11/23/23 levothyroxine 50 mcg tablet 75 mcg PO DAILY 10/08/23 11/23/23 morphine concentrate 100 mg/5 mL 5 mg PO Q3H PRN 11/23/23 11/23/23 (20 mg/mL) oral solution Allergies Allergy/AdvReac Type Severity Reaction Status Date / Time lorazepam AdvReac Severe Agitation, Verified 11/23/23 01:32 altered mental status General Stated Complaint: HeadInjury YONI: 3 Review of Systems All systems reviewed & are unremarkable except as noted in HPI and below Exam Narrative Exam Narrative: 1.Const: Well-nourished, Well-developed, appearing stated age 2.Eyes: PERRL, no conjunctival injection, and symmetrical lids. 3.ENT: Atraumatic external nose and ears. Moist MM. Neck: Symmetric, trachea midline, No thyromegaly. There is no evidence of raccoon eyes, obregon sign, CSF rhinorrhea, mastoid tenderness, cranial crepitus, hemotympanum, exophthalmos, or hyphema. Patient demonstrates intact dentition with no signs of tooth avulsion or fracture, no signs of jaw deformity, no evidence of a LeFort's fracture, with an intact palate, nose and orbital region. There is no evidence of a nasal septal hematoma. No proptosis. Jaw closes symmetrically. Airway is clear. 4.CVS: +S1/S2, No murmurs or gallops. Peripheral pulses 2+ and equal in all extremities. Brisk capillary refill in all extremities. 5.RESP: Unlabored respiratory effort. Clear to auscultation bilaterally. No wheezes rales or rhonchi 6.GI: Soft, Nontender/Nondistended, No hepatosplenomegaly. No guarding or rebound. 7.MSK: Normocephalic/Atraumatic, Extremities w/o deformity or ttp No cyanosis or clubbing, Normal movement of all extremities 8.Skin: Mild abrasion noted to the forehead. No active bleeding. 9.Neuro: applied technologist II-XII grossly intact. Sensation grossly intact, no focal neurologic deficits. 10.Psych: (AAO) x0. Course Vital Signs Vital signs: Vital Signs Temperature 35.6 C L 11/23/23 01:23 Pulse 66 11/23/23 01:23 Respiratory Rate 18 11/23/23 01:23 Blood Pressure 144/72 H 11/23/23 01:23 Pulse Oximetry 97 11/23/23 01:23 Temperature 35.6 C L 11/23/23 01:23 Temperature Source Tympanic 11/23/23 01:23 Pulse 66 11/23/23 01:23 Respiratory Rate 18 11/23/23 01:23 Blood Pressure 144/72 H 11/23/23 01:23 Blood Pressure Position Supine 11/23/23 01:23 Pulse Oximetry 97 11/23/23 01:23 Oxygen Delivery Method Room Air 11/23/23 01:23 Oxygen Flow Rate 0 11/23/23 01:23 Pain Level 0 11/23/23 01:23 Medical Decision Making 73-year-old male with a past medical history of vascular dementia, lung cancer, COPD, hypertension, high cholesterol, 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 who is DNR/DNI presents today for evaluation after fall. Patient fell out of bed and hit the front of his head. He does have some confusion and dementia at baseline. Patient was brought here for further assessment secondary to his Plavix use. Contusion and abrasion on his head demonstrated no laceration. Patient has no complaints. He states I'm fucking cold, where is my blanket!. No other historical components. No other complaints at this time Exam demonstrates stable appearing male, no overt signs of trauma aside for an abrasion to the forehead. No hemotympanums. No midline cervical thoracic or lumbar spine tenderness. No other signs of trauma otherwise. Patient does appear to to be slightly confused at this time which is at his baseline. It is also 1:30 in the morning which does not help his current mild confusion status. No focal deficits. Due to the patient's age and mechanism will get a CT scan of the head neck to rule out fracture or bleed. Will monitor closely and reassess. Tetanus is up-to-date. No other signs of trauma on exam. 2:[address] scan negative for acute process. Patient is otherwise stable. CT C-spine negative for acute fracture. Patient will be transferred back to facility. Patient shows no acute neurologic deficits. Symptoms inconsistent with intracranial bleed. Discussed red flags which to return. I have extensively reviewed the treatment plan and discharge instructions with the patient. I have addressed all patient concerns at this time. The patient was made aware of what symptoms to monitor for that would warrant a return to the emergency department. Discussed the plan with the patient, they demonstrate verbal understanding and agreement with our assessment and plan at this time. The documentation in this chart was dictated using Divide dictation software. Please excuse any dictation errors. FINDINGS: Brain: Prominence of cerebral sulci reflects diffuse cerebral atrophy. Poorly marginated hypodensities seen throughout the deep and periventricular white matter of both cerebral hemispheres are consistent with microvascular ischemic changes. Coarse calcifications are again seen involving the basal ganglia, thalamus and deep cerebellar nuclei bilaterally with cortical calcifications also seen involving both occipital lobes. There is no evidence of acute transcortical infarction or recent intracranial hemorrhage. Cerebral ventricles: Dilatation of the 3rd and lateral ventricles is commensurate with the degree of cerebral atrophy. Paranasal sinuses: Grossly clear throughout. Mastoid air cells: Grossly clear bilaterally. Bones/joints: Bony calvarium and skull base are intact and no acute fractures are detected. Soft tissues: Unremarkable. 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 There is no evidence of acute transcortical infarction, recent intracranial hemorrhage or hydrocephalus. No acute intracranial process is detected. FINDINGS: Bones/joints: There is arthrosis involving the anterior atlantodental interval with loss of joint space and marginal osteophyte formation and the odontoid process is grossly intact. There is gross preservation of vertebral body height throughout cervical levels with no vertebral body fractures or significant subluxations detected. Changes of facet arthropathy are most advanced on the right side between C2 and C6 with no acute fractures detected involving the posterior elements of the cervical spine. Discs/Spinal canal/Neural foramina: No severe central canal stenosis or cord compression is detected at cervical levels. Uncovertebral and facet changes produce multilevel foraminal distortions/narrowings, right side greater than left. Lungs: No pneumothorax or consolidation detected at the lung apices. Soft tissues: Unremarkable. IMPRESSION: Cervical spondylosis with multilevel foraminal narrowing as above. No acute cervical fractures are detected. Thank you for allowing us to participate in the care of your patient. Dictated and Authenticated by: Ankit Blackwell MD Quality:SDOH Health Related Social Needs: No Data to Display PFSH All Active Problems (Updated 11/23/23 @ 02:25 by Kahlil Mack DO) Fall (Acute) Contusion (Acute) History of delirium (Acute) History of lung cancer (Acute) Advanced care planning/counseling discussion (Acute) Dehydration (Acute) Pneumonia (Acute) Fever of unknown origin (Acute) Vascular dementia (Chronic) Goals of care, counseling/discussion (Chronic) Advance directive on file (Chronic) COPD (chronic obstructive pulmonary disease) (Chronic) Encephalopathy (Acute) Altered mental status (Acute 05/27/13) Fever (Active 05/27/13) Benign hypertension (Chronic) Hyperlipidemia (Chronic) Hypoxia (Acute) COPD exacerbation (Acute) Medical History Palliative care patient Palliative care patient COPD (chronic obstructive pulmonary disease) Hypothyroid CVA (cerebral vascular accident) Surgical History S/P lobectomy of lung S/P craniotomy Family History Daughter No problems noted. Sister No problems noted. Sister , of lung cancer 12 years ago in her early 60s Lung cancer Mother , age 74 from breast cancer Breast cancer Father Myocardial infarction Heart disease Social History Smoking/Tobacco Use Status: Former Tobacco Use Tobacco: How many years used: 30 Smoking risk assessment performed?: Yes Alcohol Intake: former Drug use: Never Substance use type: does not use Caregiver/Support person: Yes Household members: none Housing: fpc Number of Children: 1 Communication Needs: Hard of Hearing and Corrective Lenses Education Level: high school Do you need help understanding health information?: Always 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[employer] What is your relationship status?: How often do you talk on the phone with friends or family?: twice per week How often do you get together with friends or relatives?: twice per week Panel score (0-1 are the most socially isolated patients): 1 What type of physical activity do you participate in: assisted ambulation and i rregular exercise Duration: < 15 minutes/day Special reyna needs: No Agree to transfusion: Yes Seatbelt use: always Do you feel safe at home: Yes Do you feel safe in your relationship?: Yes Additional Social history: sister Henrietta is only surviving family, other than daughter whom he has not seen in years does not want to reconnect with her loves to sit outside in the sun, socialize, interact. Discharge Plan Disposition Patient Disposition: Home Condition: Good Discharge Details Chief Complaint: HeadInjury Clinical Impression: Contusion, Fall Primary Care Provider: Angelita Dunbar ED Provider: Kahlil Mack Home Meds and New Rx's Prescriptions: No Action acetaminophen 500 mg capsule 1,000 mg PO BID atorvastatin 80 MG tablet 80 mg PO DAILY clopidogrel [Plavix] 75 MG tablet 75 mg PO DAILY lisinopril 2.5 MG tablet 2.5 mg PO DAILY levothyroxine 50 mcg tablet 75 mcg PO DAILY sertraline 50 mg tablet 50 mg PO DAILY guaifenesin 100 mg/5 mL Liquid 200 mg PO Q4H PRN (Reason: Cough) magnesium hydroxide [Milk of Magnesia] 400 mg/5 mL Suspension 30 ml PO PRN PRN Rx Instructions: if no Bowel Movement in 3 days bisacodyl 10 mg Suppository 10 mg TX PRN PRN Rx Instructions: if no result from MOM by next shift Fleet Enema 19-7 gram/118 mL Enema 118 ml TX PRN PRN Rx Instructions: after MOM and bisacodyl suppository have been administered without result polyethylene glycol 3350 [ClearLax] 17 gram/dose Powder 17 g PO Q OTHER DAY albuterol sulfate [Ventolin HFA] 90 mcg/actuation HFA aerosol inhaler 2 puff INHALATION Q4H PRN mirtazapine 7.5 mg tablet 7.5 mg PO HS morphine concentrate 100 mg/5 mL (20 mg/mL) solution 5 mg PO Q3H PRN Rx Instructions: for pain or SOB for 14 days Discharge Instructions Instructions: Contusion in Adults (ED) Additional Instructions: At this time the CAT scan of your brain and neck show no evidence of fracture bleed or stroke. Please keep the area on your forehead clean. Apply triple antibiotic ointment and bandage it daily. If you notice any worsening of your symptoms, or any new symptoms such as vomiting, diarrhea, fever, chills, shortness of breath, chest pain, numbness, weakness, or fainting , please return immediately to the emergency department for reevaluation. Please follow up with your primary care provider as soon as possible for reassessment and reevaluation. As always, it was a pleasure participating in your medical care today. Referrals: Angelita Dunbar [Primary Care Provider] -
--- NOTE | 2023-11-23 02:14 | NUR.NOTE ---
Cryptologic Technician attempted to initiate IV via ultrasound 3 times without success. this RN attempted 2 times without success. ED MD notified. Nursing Note:
--- NOTE | 2023-11-23 02:18 | DI.VRAD_ITS ---
PROCEDURE INFORMATION: Exam: CT Head Without Contrast Exam date and time: 11/23/2023 1:35 AM Age: 73 years old Clinical indication: Injury or trauma; Blunt trauma (contusions or hematomas); Consciousness not specified; Injury date: 11/23/23; Injury details: Fall, hit head, dementia, on plavix TECHNIQUE: Imaging protocol: Computed tomography of the head without contrast. Radiation optimization: All CT scans at this facility use at least one of these dose optimization techniques: automated exposure control; mA and/or kV adjustment per patient size (includes targeted exams where dose is matched to clinical indication); or iterative reconstruction. COMPARISON: CT HEAD WO 10/13/2023 8:50 PM FINDINGS: Brain: Prominence of cerebral sulci reflects diffuse cerebral atrophy. Poorly marginated hypodensities seen throughout the deep and periventricular white matter of both cerebral hemispheres are consistent with microvascular ischemic changes. Coarse calcifications are again seen involving the basal ganglia, thalamus and deep cerebellar nuclei bilaterally with cortical calcifications also seen involving both occipital lobes. There is no evidence of acute transcortical infarction or recent intracranial hemorrhage. Cerebral ventricles: Dilatation of the 3rd and lateral ventricles is commensurate with the degree of cerebral atrophy. Paranasal sinuses: Grossly clear throughout. Mastoid air cells: Grossly clear bilaterally. Bones/joints: Bony calvarium and skull base are intact and no acute fractures are detected. Soft tissues: Unremarkable. 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 There is no evidence of acute transcortical infarction, recent intracranial hemorrhage or hydrocephalus. No acute intracranial process is detected. PROCEDURE INFORMATION: Exam: CT Cervical Spine Without Contrast Exam date and time: 11/23/2023 1:35 AM Age: 73 years old Clinical indication: Injury or trauma; Blunt trauma (contusions or hematomas); Consciousness not specified; Injury date: 11/23/23; Injury details: Fall, hit head, dementia, on plavix TECHNIQUE: Imaging protocol: Computed tomography of the cervical spine without contrast. Radiation optimization: All CT scans at this facility use at least one of these dose optimization techniques: automated exposure control; mA and/or kV adjustment per patient size (includes targeted exams where dose is matched to clinical indication); or iterative reconstruction. COMPARISON: CT HEAD WO 10/13/2023 8:50 PM FINDINGS: Bones/joints: There is arthrosis involving the anterior atlantodental interval with loss of joint space and marginal osteophyte formation and the odontoid process is grossly intact. There is gross preservation of vertebral body height throughout cervical levels with no vertebral body fractures or significant subluxations detected. Changes of facet arthropathy are most advanced on the right side between C2 and C6 with no acute fractures detected involving the posterior elements of the cervical spine. Discs/Spinal canal/Neural foramina: No severe central canal stenosis or cord compression is detected at cervical levels. Uncovertebral and facet changes produce multilevel foraminal distortions/narrowings, right side greater than left. Lungs: No pneumothorax or consolidation detected at the lung apices. Soft tissues: Unremarkable. IMPRESSION: Cervical spondylosis with multilevel foraminal narrowing as above. No acute cervical fractures are detected. Dictated and Authenticated by: Ankit Blackwell MD. Ordering:CHELSY Guillory MD
== END 2023-11-23 02:33 | disposition home or self-care (01) ==
PROVIDERS: Emergency Provider Student in an Organized Health Care Education/Training Program; PCP Nurse Practitioner Adult Health
DX: S00.83XA Contusion of other part of head, initial encounter (principal); J44.9 Chronic obstructive pulmonary disease, unspecified; I10 Essential (primary) hypertension; E78.00 Pure hypercholesterolemia, unspecified; Z86.73 Personal history of transient ischemic attack (TIA), and cerebral infarction without residual deficits; F01.50 Vascular dementia, unspecified severity, without behavioral disturbance, psychotic disturbance, mood disturbance, and anxiety; Z79.02 Long term (current) use of antithrombotics/antiplatelets; Z90.2 Acquired absence of lung [part of]; Z85.118 Personal history of other malignant neoplasm of bronchus and lung
CPT/HCPCS: 99284; 70450; 72125; 99283

== ENCOUNTER 2024-01-03 10:39 | Emergency (ER) | payer MEDICARE, MEDICAID, SELFPAY ==
[2024-01-03 10:34] VITALS: BP 121/48; PULSE 52; RESP 10; TEMP 35.8; O2SAT 100
--- NOTE | 2024-01-03 10:46 | ED.GENADUL_ITS ---
Discharge Plan Disposition Patient Disposition: [facility] Facility(SNF) Condition: Stable Discharge Details Clinical Impression: Comfort measures only status, Fall Primary Care Provider: Angelita Dunbar ED Provider: Pola Mak Home Meds and New Rx's Prescriptions: Continued acetaminophen 500 mg capsule 1,000 mg PO BID morphine concentrate 100 mg/5 mL (20 mg/mL) solution See Rx Instructions PO Q6H Rx Instructions: 10 mg BID and 5 mg Q 3 h PRN orally every 6 hours; levothyroxine 50 mcg tablet 75 mcg PO DAILY sertraline 50 mg tablet 50 mg PO DAILY fentanyl 12 mcg/hr patch 72 hour 1 patch transdermal Q72H guaifenesin 100 mg/5 mL Liquid 200 mg PO Q4H PRN (Reason: Cough) magnesium hydroxide [Milk of Magnesia] 400 mg/5 mL Suspension 30 ml PO PRN PRN Rx Instructions: if no Bowel Movement in 3 days bisacodyl 10 mg Suppository 10 mg NJ PRN PRN Rx Instructions: if no result from MOM by next shift Fleet Enema 19-7 gram/118 mL Enema 118 ml NJ PRN PRN Rx Instructions: after MOM and bisacodyl suppository have been administered without result polyethylene glycol 3350 [ClearLax] 17 gram/dose Powder 17 g PO Q OTHER DAY albuterol sulfate [Ventolin HFA] 90 mcg/actuation HFA aerosol inhaler 2 puff INHALATION Q4H PRN morphine concentrate 100 mg/5 mL (20 mg/mL) solution See Rx Instructions PO Q3H PRN Rx Instructions: 5-10 mg orally every 3 hours PRN; for pain or SOB for 14 days No Action atorvastatin 80 MG tablet 80 mg PO DAILY clopidogrel [Plavix] 75 MG tablet 75 mg PO DAILY lisinopril 2.5 MG tablet 2.5 mg PO DAILY Discharge Instructions Additional Instructions: The patient's family has determined the patient is comfort measures only and doesn't wany any testing or other interventions at this time. HPI General Mode of arrival: EMS . Date/Time Provider Initiated Documentation: 01/03/24 10:41 . Limitations to Documentation: other (dementia) . Information obtained by: EMS . History of Present Illness 73 year old M presents to the emergency department with the chief complaint of less energy then normal, Patient started experiencing this day(s) (1) and it has been constant. No relieving factors improve symptom(s), No exacerbating factors reported . Patient notes no other symptoms.. Patient did receive the following treatments prior to arrival, none Related Data Home Medications Medication Instructions Recorded Confirmed atorvastatin 80 mg tablet 80 mg PO DAILY 01/01/18 01/03/24 clopidogrel 75 mg tablet (Plavix) 75 mg PO DAILY 01/01/18 01/03/24 lisinopril 2.5 mg tablet 2.5 mg PO DAILY 01/01/18 01/03/24 sertraline 50 mg tablet 50 mg PO DAILY 03/03/23 01/03/24 albuterol sulfate 90 mcg/actuation 2 puff inhalation Q4H PRN 05/27/23 01/03/24 aerosol inhaler (Ventolin HFA) bisacodyl 10 mg rectal suppository 10 mg NJ PRN PRN 05/27/23 01/03/24 guaifenesin 100 mg/5 mL oral liquid 200 mg PO Q4H PRN Cough 05/27/23 01/03/24 magnesium hydroxide 400 mg/5 mL 30 ml PO PRN PRN 05/27/23 01/03/24 oral suspension (Milk of Magnesia) polyethylene glycol 3350 17 17 g PO Q OTHER DAY 05/27/23 01/03/24 gram/dose oral powder (ClearLax) sodium phosphates 19 gram-7 118 ml NJ PRN PRN 05/27/23 01/03/24 gram/118 mL enema (Fleet Enema) acetaminophen 500 mg capsule 1,000 mg PO BID 10/08/23 01/03/24 levothyroxine 50 mcg tablet 75 mcg PO DAILY 10/08/23 01/03/24 morphine concentrate 100 mg/5 mL See Rx Instructions PO Q3H PRN 01/01/24 01/03/24 (20 mg/mL) oral solution morphine concentrate 100 mg/5 mL See Rx Instructions PO Q6H 01/01/24 01/03/24 (20 mg/mL) oral solution fentanyl 12 mcg/hr transdermal 1 patch transdermal Q72H 01/03/24 01/03/24 patch Allergies Allergy/AdvReac Type Severity Reaction Status Date / Time lorazepam AdvReac Severe Agitation, Verified 01/03/24 10:54 altered mental status General Stated Complaint: AMS/LOC YONI: 3 Review of Systems All systems reviewed & are unremarkable except as noted in HPI and below Constitutional Constitutional: Denies chills and Denies fever(s) Cardiovascular Cardiovascular: Denies chest pain and Denies dyspnea Respiratory Respiratory: Denies cough and Denies dyspnea Gastrointestinal Gastrointestinal: Denies abdominal pain, Denies nausea and Denies vomiting Exam Const Orientation: oriented to person and oriented to place [facility] Head: normal to inspection Ears: external ears normal General nose exam: external nose normal Mouth: moist mucous membranes Eyes General: appearance normal, both eyes and all related structures Neck Neck: normal visual inspection Resp Effort & Inspection: normal respiratory effort and able to speak in complete sentences Cardio Rate: regular rate Skin General skin exam: no rashes or lesions noted Neuro General: patient awake Cranial Nerves: PERRL Extrem General: normal to inspection Course Vital Signs Vital signs: Vital Signs Temperature 35.8 C L 01/03/24 10:34 Pulse 52 L 01/03/24 10:34 Respiratory Rate 10 L 01/03/24 10:34 Blood Pressure 121/48 L 01/03/24 10:34 Pulse Oximetry 100 01/03/24 10:34 Temperature 35.8 C L 01/03/24 10:34 Temperature Source Skin 01/03/24 10:34 Pulse 52 L 01/03/24 10:34 Respiratory Rate 10 L 01/03/24 10:34 Blood Pressure 121/48 L 01/03/24 10:34 Blood Pressure Position Left Lateral 01/03/24 10:34 Pulse Oximetry 100 01/03/24 10:34 Oxygen Delivery Method Room Air 01/03/24 10:34 Oxygen Flow Rate 0 01/03/24 10:34 Medical Decision Making 73-year-old male with a history of dementia who resides at [facility] comes in with EMS after staff at the facility reported he had less energy than normal today. He apparently had an unwitnessed fall yesterday, was not seen at that time. No vomiting, no reported fevers or other symptoms recently. Patient is awake knows his name and where he is, does not know the time. Moving all extremities well, denies any pain. He has a close from September saying he would not want to be comfort measures only would not want to be transferred to the hospital as comfort measures cannot be met at current facility. He actually met with hospice this past week as well and is planning on starting that next week. Will discuss with his decision makers about what testing if any they want done. Patient's decision maker Henrietta's sister is decided does not want any testing or anything done, wants him to be comfort measures only, will send back to rehab. Differential Diagnosis Differential Diagnosis: Dementia, concussion, electrolyte abnormality Quality:SDOH Health Related Social Needs: No Data to Display PFSH All Active Problems (Updated 01/03/24 @ 11:12 by Pola Mak MD) Fall (Acute) Comfort measures only status (Acute) History of delirium (Acute) History of lung cancer (Acute) Advanced care planning/counseling discussion (Acute) Dehydration (Acute) Pneumonia (Acute) Fever of unknown origin (Acute) Vascular dementia (Chronic) Goals of care, counseling/discussion (Chronic) Advance directive on file (Chronic) COPD (chronic obstructive pulmonary disease) (Chronic) Encephalopathy (Acute) Altered mental status (Acute 05/27/13) Fever (Active 05/27/13) Benign hypertension (Chronic) Hyperlipidemia (Chronic) Hypoxia (Acute) COPD exacerbation (Acute) Medical History Palliative care patient Palliative care patient COPD (chronic obstructive pulmonary disease) Hypothyroid CVA (cerebral vascular accident) Surgical History S/P lobectomy of lung S/P craniotomy Family History Daughter No problems noted. Sister No problems noted. Sister , of lung cancer 12 years ago in her early 60s Lung cancer Mother , age 74 from breast cancer Breast cancer Father Myocardial infarction Heart disease Social History Smoking/Tobacco Use Status: Former Tobacco Use Tobacco: How many years used: 30 Smoking risk assessment performed?: Yes Alcohol Intake: former Drug use: Never Substance use type: does not use Caregiver/Support person: Yes Household members: none Housing: prison Number of Children: 1 Communication Needs: Hard of Hearing and Corrective Lenses Education Level: high school Do you need help understanding health information?: Always 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 What is your relationship status?: How often do you talk on the phone with friends or family?: twice per week How often do you get together with friends or relatives?: twice per week Panel score (0-1 are the most socially isolated patients): 1 What type of physical activity do you participate in: assisted ambulation and irregular exercise Duration: < 15 minutes/day Special reyna needs: No Agree to transfusion: Yes Seatbelt use: always Do you feel safe at home: Yes Do you feel safe in your relationship?: Yes Additional Social history: sister Henrietta is only surviving family, other than daughter whom he has not seen in years does not want to reconnect with her loves to sit outside in the sun, socialize, interact.
[2024-01-03 11:20] VITALS: BP 114/41; BP 121/48; PULSE 44; PULSE 52; RESP 10; RESP 14; TEMP 35.8; O2SAT 100
== END 2024-01-03 11:47 | disposition skilled nursing facility (03) ==
PROVIDERS: Emergency Provider Emergency Medicine; PCP Nurse Practitioner Adult Health
DX: S00.01XA Abrasion of scalp, initial encounter (principal); F01.50 Vascular dementia, unspecified severity, without behavioral disturbance, psychotic disturbance, mood disturbance, and anxiety; J44.9 Chronic obstructive pulmonary disease, unspecified; Z86.73 Personal history of transient ischemic attack (TIA), and cerebral infarction without residual deficits; Z79.01 Long term (current) use of anticoagulants; Z87.891 Personal history of nicotine dependence; Z66 Do not resuscitate
CPT/HCPCS: 99283; 99284